=== PATIENT | female | born 1965 | race Caucasian/White ===

== ENCOUNTER → 2019-05-25 13:05 | Outpatient (CLI) | payer OTHER, SELFPAY ==
[2019-05-25 13:51] LABS: Absolute Lymphocyte Count 1.46 X10^3/uL (0.83-4.51); Absolute Neutrophil Count 3.2 X10^3/uL (2.0-7.7); Basophil# 0.06 X10^3/uL; Basophil% 1.1 % (0-1); Eosinophil# 0.44 X10^3/uL; Eosinophils% 7.8 % (0-5); Hematocrit 41.2 % (37-47); Hemoglobin 13.2 g/dL (12.0-15.0); Lymphocyte # 1.46 X10^3/ul (4.0); Lymphocyte % 25.9 % (19-41); Mean Corpuscular Hgb 29.4 pg (27.0-32.0); Mean Corpuscular Volume 91.8 fL (81-99); Mean Platelet Vol. 10.1 fl (6.2-12.0); Monocyte# 0.51 X10^3/uL; Monocyte% 9.1 % (0-10); NRBC Flagged by Analyzer 0 % (0-5); Neutrophil # 3.15 X10^3/uL (2.7-7.7); Neutrophil % 55.9 % (47-70); Platelet Count 266 K/mm3 (150-450); RBC Distribution Width SD 47.2 fl (35.1-43.9); Red Blood Count 4.49 M/mm3 (4.2-5.4); White Blood Count 5.6 K/mm3 (4.4-11.0)
[2019-05-25 14:20] LABS: ALB/GLOB Ratio 1.2 RATIO (0.9-2.4); AST(SGOT) 23 U/L (15-37); Alanine Aminotransfer ALT/SGPT 22 U/L (13-56); Albumin, Serum 3.7 g/dL (3.2-5.0); Alkaline Phosphatase 129 U/L (45-117); Anion Gap 5 (5-15); BUN 14 mg/dL (7-18); BUN/Creat Ratio 18.3 RATIO (10-20); Calcium,Total 8.5 mg/dL (8.5-10.1); Chloride 110 mmol/L (98-107); Creatinine, Serum 0.76 mg/dL (0.55-1.02); EST Glomerular Filtration Rate 83 mL/min (>60); Est Glom Filt Rate - Afr Amer 101 mL/min (>60); Globulin 3.2 g/dL (2.2-4.2); Glucose 84 mg/dL (74-106); Potassium 4.1 mmol/L (3.5-5.1); Protein, Total 6.9 g/dL (6.4-8.2); Sodium Level 142 mmol/L (136-145)
== END ==
PROVIDERS: Referring Provider Internal Medicine Rheumatology; Visit Provider Internal Medicine Rheumatology
DX: M06.09 Rheumatoid arthritis without rheumatoid factor, multiple sites (principal); Z79.899 Other long term (current) drug therapy; M79.7 Fibromyalgia; M18.12 Unilateral primary osteoarthritis of first carpometacarpal joint, left hand; M65.331 Trigger finger, right middle finger; M21.40 Flat foot [pes planus] (acquired), unspecified foot; G25.81 Restless legs syndrome; I10 Essential (primary) hypertension; N80.9 Endometriosis, unspecified
CPT/HCPCS: 36415; 80053; 85025

== ENCOUNTER → 2019-08-17 13:35 | Outpatient (CLI) | payer OTHER, SELFPAY ==
[2019-08-17 15:31] LABS: Absolute Neutrophil Count 2.3 X10^3/uL (2.0-7.7); Basophil# 0.03 X10^3/uL; Basophil% 0.7 % (0-1); Eosinophil# 0.19 X10^3/uL; Eosinophils% 4.6 % (0-5); Hematocrit 40.3 % (37-47); Hemoglobin 12.8 g/dL (12.0-15.0); Mean Corp Hgb Conc 31.8 g/dL (32-36); Mean Corpuscular Hgb 28.8 pg (27.0-32.0); Mean Corpuscular Volume 90.6 fL (81-99); Mean Platelet Vol. 10.9 fl (6.2-12.0); Monocyte# 0.44 X10^3/uL; Monocyte% 10.6 % (0-10); NRBC Flagged by Analyzer 0 % (0-5); Neutrophil # 2.27 X10^3/uL (2.7-7.7); Neutrophil % 54.9 % (47-70); Platelet Count 236 K/mm3 (150-450); RBC Distribution Width CV 14.6 % (11.6-14.6); RBC Distribution Width SD 48.6 fl (35.1-43.9); Red Blood Count 4.45 M/mm3 (4.2-5.4); White Blood Count 4.1 K/mm3 (4.4-11.0)
[2019-08-17 15:49] LABS: ALB/GLOB Ratio 1.2 RATIO (0.9-2.4); AST(SGOT) 28 U/L (15-37); Alanine Aminotransfer ALT/SGPT 27 U/L (13-56); Albumin, Serum 3.8 g/dL (3.2-5.0); Alkaline Phosphatase 125 U/L (45-117); Anion Gap 5 (5-15); BUN 11 mg/dL (7-18); BUN/Creat Ratio 16.3 RATIO (10-20); Calcium,Total 8.8 mg/dL (8.5-10.1); Chloride 106 mmol/L (98-107); Creatinine, Serum 0.67 mg/dL (0.55-1.02); EST Glomerular Filtration Rate 96 mL/min (>60); Est Glom Filt Rate - Afr Amer 116 mL/min (>60); Globulin 3.3 g/dL (2.2-4.2); Glucose 88 mg/dL (74-106); Potassium 4.1 mmol/L (3.5-5.1); Protein, Total 7.1 g/dL (6.4-8.2); Sodium Level 138 mmol/L (136-145)
== END ==
PROVIDERS: Referring Provider Internal Medicine Rheumatology; Visit Provider Internal Medicine Rheumatology
DX: M06.09 Rheumatoid arthritis without rheumatoid factor, multiple sites (principal); Z79.899 Other long term (current) drug therapy; M79.7 Fibromyalgia; M18.12 Unilateral primary osteoarthritis of first carpometacarpal joint, left hand; M65.331 Trigger finger, right middle finger; M21.40 Flat foot [pes planus] (acquired), unspecified foot
CPT/HCPCS: 36415; 80053; 85025

== ENCOUNTER → 2019-08-22 15:08 | Outpatient (CLI) | payer OTHER, SELFPAY ==
[2019-08-25 03:06] LABS: QNTFERON TB Mitogen Value > 10.00 IU/mL (.); QNTFERON TB Nil Value 0.02 IU/mL (.); QNTFERON TB1+ Ag Value 0.02 IU/mL (.); QNTFERON TB2+ Ag Value 0.02 IU/mL (.)
[2019-08-25 15:25] LABS: QNTIFERON TB Positive Criteria Negative (Negative)
== END ==
PROVIDERS: Referring Provider Internal Medicine Rheumatology; Visit Provider Internal Medicine Rheumatology
DX: M06.09 Rheumatoid arthritis without rheumatoid factor, multiple sites (principal); M79.7 Fibromyalgia; M18.12 Unilateral primary osteoarthritis of first carpometacarpal joint, left hand; M65.331 Trigger finger, right middle finger; M21.40 Flat foot [pes planus] (acquired), unspecified foot; Z79.899 Other long term (current) drug therapy
CPT/HCPCS: 36415; 86480

== ENCOUNTER → 2019-09-05 14:36 | Outpatient (CLI) | payer OTHER, SELFPAY ==
[2019-09-05 15:49] LABS: Erythrocyte Sedimentation Rate 21 mm/hr (0-30)
[2019-09-05 16:07] LABS: Hemoglobin A1c 5.6 % (4.2-6.3)
[2019-09-05 22:16] LABS: Rheumatoid Factor < 10.0 IU/mL (<15); Thyroid Stim Hormone (TSH) 2.42 uIU/mL (0.358-3.74)
[2019-09-06 11:22] LABS: Hepatitis C Antibody Non-Reactive (Nonreactive); Vitamin B12 681 pg/mL (211-911)
[2019-09-07 12:08] LABS: RNP Ab <0.2 AI (0.0-0.9); Smith Ab <0.2 AI (0.0-0.9)
[2019-09-07 13:26] LABS: ANTINUCLEAR ANTIBODIES DIRECT Negative (Negative)
[2019-09-07 20:07] LABS: Immunoglobulin A 94 mg/dL (87-352); Immunoglobulin G 698 mg/dL (700-1600); PROEL- A/G Ratio 1.3 (0.7-1.7); PROEL- Albumin 3.9 g/dL (2.9-4.4); PROEL- Alpha-1 Globulin 0.3 g/dL (0.0-0.4); PROEL- Alpha-2 Globulin 0.6 g/dL (0.4-1.0); PROEL- Beta Globulin 0.9 g/dL (0.7-1.3); PROEL- Gamma Globulin 1.2 g/dL (0.4-1.8); PROEL- TOTAL PROTEIN 6.9 g/dL (6.0-8.5)
[2019-09-07 21:56] LABS: Immunoglobulin M 769 mg/dL (26-217)
== END ==
PROVIDERS: Referring Provider Psychiatry & Neurology Neurology; Visit Provider Psychiatry & Neurology Neurology
DX: E11.44 Type 2 diabetes mellitus with diabetic amyotrophy (principal); R53.83 Other fatigue
CPT/HCPCS: 36415; 82607; 82746; 82784; 83036; 84165; 84443; 85652; 86038; 86235; 86334; 86431; 86803

== ENCOUNTER → 2019-11-05 16:26 | Outpatient (CLI) | payer OTHER, SELFPAY ==
[2019-11-05 17:38] LABS: Absolute Lymphocyte Count 2.18 X10^3/uL (0.83-4.51); Absolute Neutrophil Count 1.8 X10^3/uL (2.0-7.7); Basophil# 0.03 X10^3/uL; Basophil% 0.6 % (0-1); Eosinophil# 0.27 X10^3/uL; Eosinophils% 5.3 % (0-5); Hematocrit 43.5 % (37-47); Hemoglobin 13.9 g/dL (12.0-15.0); Lymphocyte # 2.18 X10^3/ul (4.0); Lymphocyte % 42.7 % (19-41); Mean Corpuscular Hgb 29.9 pg (27.0-32.0); Mean Corpuscular Volume 93.5 fL (81-99); Monocyte# 0.78 X10^3/uL; Monocyte% 15.3 % (0-10); NRBC Flagged by Analyzer 0 % (0-5); Neutrophil # 1.84 X10^3/uL (2.7-7.7); Neutrophil % 36.1 % (47-70); Platelet Count 223 K/mm3 (150-450); RBC Distribution Width SD 47.1 fl (35.1-43.9); Red Blood Count 4.65 M/mm3 (4.2-5.4); White Blood Count 5.1 K/mm3 (4.4-11.0)
[2019-11-05 18:18] LABS: ALB/GLOB Ratio 1.5 RATIO (0.9-2.4); AST(SGOT) 37 U/L (15-37); Alanine Aminotransfer ALT/SGPT 37 U/L (13-56); Albumin, Serum 4.4 g/dL (3.2-5.0); Alkaline Phosphatase 118 U/L (45-117); Anion Gap 8 (5-15); BUN 13 mg/dL (7-18); BUN/Creat Ratio 20.8 RATIO (10-20); Calcium,Total 9.3 mg/dL (8.5-10.1); Chloride 105 mmol/L (98-107); Creatinine, Serum 0.62 mg/dL (0.55-1.02); EST Glomerular Filtration Rate 105 mL/min (>60); Est Glom Filt Rate - Afr Amer 127 mL/min (>60); Globulin 2.9 g/dL (2.2-4.2); Glucose 73 mg/dL (74-106); Potassium 3.7 mmol/L (3.5-5.1); Protein, Total 7.3 g/dL (6.4-8.2); Sodium Level 140 mmol/L (136-145)
[2019-11-07 20:07] LABS: QNTFERON TB Mitogen Value > 10.00 IU/mL (.); QNTFERON TB Nil Value 0.01 IU/mL (.); QNTFERON TB1+ Ag Value 0.02 IU/mL (.); QNTFERON TB2+ Ag Value 0.01 IU/mL (.)
[2019-11-07 20:31] LABS: QNTIFERON TB Positive Criteria Negative (Negative)
== END ==
PROVIDERS: Referring Provider Internal Medicine Rheumatology; Visit Provider Internal Medicine Rheumatology
DX: M06.09 Rheumatoid arthritis without rheumatoid factor, multiple sites (principal); M79.7 Fibromyalgia; M18.12 Unilateral primary osteoarthritis of first carpometacarpal joint, left hand; M65.331 Trigger finger, right middle finger; M21.40 Flat foot [pes planus] (acquired), unspecified foot; Z79.899 Other long term (current) drug therapy
CPT/HCPCS: 36415; 80053; 85025; 86480

== ENCOUNTER 2019-11-16 10:00 | Outpatient (RCR) | payer OTHER, SELFPAY ==
--- NOTE | 2019-10-10 16:21 | HP.OTEVAL_ITS ---
Patient's Visit Information CONNOR PIZANO is a 54 year old F, referred to Occupational Therapy by Swapna Stinson MD, with a diagnosis of left unilateral primary osteoarthritis of 1st carpometacarpal joint. Date of Evaluation: 10/10/19 Occupational Therapist: Abiola Valenzuela, DAPHNIE/Alexis, CHT - Subjective Subjective: This 54 year old female was seen for OT eval with dx. of Unilateral primary osteoarthritis of 1st carpometacarpal joint left hand. Pt states she struggled with pain and had conservative methods fail- pt feels possible 6+ injections. pt did wear a brace for a while- had pain when she would remove her thumb brace. 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 pt would like to return to her PLOF - Pain left thumb 0 Pain Intensity Range: 0, 2 - ROM Wrist: right 70/75 left 60/30 CMC: right 5 left 0 MP: right 60 left 25 IP: right 65 left 25 Radial Abduction: right 40 left at rest 30 - Strength Speech Therapist Technician: right 65# left NT Lateral Pinch: right 10# Tripod Pinch: right 12# - Sensation Sensation Comments: denies - Quick DASH-Disab of Arm,Shoulder& Hand Quick DASH Score: 66.6650 - Goals Goal:100% adherence to protocol: Yes Comment: Dr. Stinson cmc arthroplasty protocol Goal:Daily scar massage when approriate: Yes Goal:ROM equal to unaffected hand: Yes Comment: with in 70% of motion Goal:Speech Therapist Technician/Pinch strength at least 75% of unaffected hand: Yes Goal:No pain with affected hand use: Yes Goal:Full use of affected hand in daily activities including: Yes Goal:Decrease scar hypersensitivity: Yes - Rehabilitation General Assessment: Pt 2 weeks s/p left carpometacarpal arthroplasty, ligament reconstruction and tendon interposition, Dequervain's tenosynovectomy: adduction contracture release; volar plate advancement to the thumb metacarpophalageal joint. (DOS 09/20/19). pt demo with short thumb spica orthosis on. pt demo with min. edema, newley healing structures and limited ROM. this has all decreased pts ind. with ADLS and IADls. pt would benefit from skilled OT services 1x week for 8 weeks to return pt to PLOF. Today therapist was ed. on edema control, tendon glide, scar mtg , shoulder, elbow and wrist (dart throwers) motion. pt demo understanding and agree to POC. Rehabilitation Potential: Good - Anticipated Interventions Anticipated Interventions: A/AAROM/PROM, Strengthening, Edema Control, Scar Care, Triggerpoint Release, Desensitization, Sensory Retraining, Modalities, Orthoses, Joint Protection/Energy Conservation, Ergonomic Education - Visit Plan Frequency: 1x/Week Duration: 2 Months General Plan: Dr. Stinson CMC arthroplasty. Week 2: exercise- AROM performed for digits and thumb IP joint only- initiate scar mtg. Week 4: Begin AROM exercises for wrist thumb CMC- joint- cont. scar mtg/edema control (modalities as indicated for pain and edema. Week 6: splint D/C and issue comfort cool fitted splint if needed- discontinue splint by 8 weeks post-operative except may wear during heavy activates pm. Exercise: start gentle strengthening(thera- putty), progress as tolerated. Progress to wrist strengthening and heavier prehension tasks at 8 weeks post-operative. Avoid forceful extension of thumb. Expectations: Most patients are treated with a Home Program and checked after each MD visit for program progression 2x weekly for 4-6 weeks for symptomatic patients or those returning to heavier work demands. 2 months to resume normal activities, 3 months for strenuous. 3-6 months to reach optimum results. slight decrease in pinch and hybrid corn breeder strength. generally, gain 70% of strength and motion of unoperated hand. TEXT: Thank you for the opportunity to evaluate your patient. For Medicare and Medicare HMO plans, please review the plan of care and approve it. It will need to be FAXED BACK to us at [phone] for Medicare purposes. Please let me know if there are questions or concerns regarding this plan of care. Physician Signature: Date:
--- NOTE | 2019-11-16 10:45 | HP.OTREVAL ---
Swapna Stinson MD, It has been my pleasure to treat CONNOR PIZANO over the last 5 visits for left unilateral primary osteoarthritis of 1st carpometacarpal joint. Please see the progress note below for an update on the occupational therapy plan of care! Subjective: pt arrives 8 weeks s/p from left CMC arthroplasty - states she feels good 90% of the time.pt has most concerns with blow drying her hair. Pt states her continues to help her. Therapist advised pt to cont. to decrease assistance as she feels she is comfortable. pt agree. Objective/Function: pt demo. wrist 60/65. MP 40* initial was 25* flex. IP 65* initial was 25*flex. left financial services agent 55# right financial services agent strength is 65# left. lateral pinch is 8# right 10# and left tripod pinch 6# and right is 12#. pt has made great gains and reports she is ALLI with ADLs and IADLs at this time. Pt was given HEP to cont. to strengthen forearm and thumb stabilization ex. pt continues to wear comfort cool thumb brace as needed. Pt continues to use scar gel to decrease hypertrophic scaring. Plan Plan: pt to call in two weeks or sooner if she had questions or concerns with her HEP Anticipated Interventions Anticipated Interventions: A/AAROM/PROM, Strengthening, Edema Control, Scar Care, Triggerpoint Release, Desensitization, Sensory Retraining, Modalities, Orthoses, Joint Protection/Energy Conservation, Ergonomic Education Please do not hesitate to contact me at [phone] by phone or if you have questions or concerns regarding this new plan of care! Sincerely, Abiola Valenzuela, OTR/L, CHT
== END 2019-11-16 19:00 | disposition home or self-care (01) ==
LOC: OT 10:00
PROVIDERS: Referring Provider Orthopaedic Surgery Hand Surgery; Visit Provider Orthopaedic Surgery Hand Surgery
DX: M18.12 Unilateral primary osteoarthritis of first carpometacarpal joint, left hand (principal)
CPT/HCPCS: 97035; 97110; 97140; 97166; 97530; 97763

== ENCOUNTER → 2020-02-06 10:22 | Outpatient (CLI) | payer OTHER, SELFPAY ==
[2020-02-06 12:40] LABS: Absolute Lymphocyte Count 1.48 X10^3/uL (0.83-4.51); Absolute Neutrophil Count 2.5 X10^3/uL (2.0-7.7); Basophil# 0.02 X10^3/uL; Basophil% 0.4 % (0-1); Eosinophils% 4.3 % (0-5); Hematocrit 40.8 % (37-47); Hemoglobin 12.8 g/dL (12.0-15.0); Lymphocyte # 1.48 X10^3/ul (4.0); Lymphocyte % 31.8 % (19-41); Mean Corp Hgb Conc 31.4 g/dL (32-36); Mean Corpuscular Hgb 30.1 pg (27.0-32.0); Mean Platelet Vol. 10.5 fl (6.2-12.0); Monocyte# 0.49 X10^3/uL; Monocyte% 10.5 % (0-10); NRBC Flagged by Analyzer 0 % (0-5); Neutrophil # 2.46 X10^3/uL (2.7-7.7); Neutrophil % 52.8 % (47-70); Platelet Count 264 K/mm3 (150-450); RBC Distribution Width CV 12.9 % (11.6-14.6); RBC Distribution Width SD 45.3 fl (35.1-43.9); Red Blood Count 4.25 M/mm3 (4.2-5.4); White Blood Count 4.7 K/mm3 (4.4-11.0)
[2020-02-06 13:26] LABS: ALB/GLOB Ratio 1.2 RATIO (0.9-2.4); AST(SGOT) 26 U/L (15-37); Alanine Aminotransfer ALT/SGPT 28 U/L (13-56); Albumin, Serum 3.7 g/dL (3.2-5.0); Alkaline Phosphatase 117 U/L (45-117); Anion Gap 8 (5-15); BUN 18 mg/dL (7-18); BUN/Creat Ratio 32.4 RATIO (10-20); Calcium,Total 8.6 mg/dL (8.5-10.1); Chloride 105 mmol/L (98-107); Creatinine, Serum 0.56 mg/dL (0.55-1.02); EST Glomerular Filtration Rate 120 mL/min (>60); Est Glom Filt Rate - Afr Amer 145 mL/min (>60); Globulin 3.1 g/dL (2.2-4.2); Glucose 87 mg/dL (74-106); Protein, Total 6.8 g/dL (6.4-8.2); Sodium Level 140 mmol/L (136-145)
[2020-02-09 16:08] LABS: QNTFERON TB Mitogen Value 7.23 IU/mL (.); QNTFERON TB Nil Value 0.02 IU/mL (.); QNTFERON TB1+ Ag Value 0.03 IU/mL (.); QNTFERON TB2+ Ag Value 0.01 IU/mL (.)
[2020-02-09 16:23] LABS: QNTIFERON TB Positive Criteria Negative (Negative)
== END ==
PROVIDERS: Referring Provider Internal Medicine Rheumatology; Visit Provider Internal Medicine Rheumatology
DX: M06.09 Rheumatoid arthritis without rheumatoid factor, multiple sites (principal); Z79.899 Other long term (current) drug therapy; M79.7 Fibromyalgia; M18.12 Unilateral primary osteoarthritis of first carpometacarpal joint, left hand; M65.331 Trigger finger, right middle finger; M21.40 Flat foot [pes planus] (acquired), unspecified foot
CPT/HCPCS: 36415; 80053; 85025; 86480

== ENCOUNTER → 2020-05-09 10:07 | Outpatient (CLI) | payer OTHER, SELFPAY ==
[2020-05-09 12:25] LABS: Absolute Lymphocyte Count 1.29 X10^3/uL (0.83-4.51); Absolute Neutrophil Count 1.9 X10^3/uL (2.0-7.7); Basophil# 0.03 X10^3/uL; Basophil% 0.8 % (0-1); Eosinophil# 0.28 X10^3/uL; Eosinophils% 7.2 % (0-5); Hematocrit 39.8 % (37-47); Hemoglobin 12.7 g/dL (12.0-15.0); Lymphocyte # 1.29 X10^3/ul (4.0); Lymphocyte % 33.3 % (19-41); Mean Corp Hgb Conc 31.9 g/dL (32-36); Mean Corpuscular Hgb 30.1 pg (27.0-32.0); Mean Corpuscular Volume 94.3 fL (81-99); Mean Platelet Vol. 10.3 fl (6.2-12.0); Monocyte# 0.39 X10^3/uL; Monocyte% 10.1 % (0-10); NRBC Flagged by Analyzer 0 % (0-5); Neutrophil # 1.87 X10^3/uL (2.7-7.7); Neutrophil % 48.3 % (47-70); Platelet Count 257 K/mm3 (150-450); RBC Distribution Width CV 13.4 % (11.6-14.6); RBC Distribution Width SD 46.5 fl (35.1-43.9); Red Blood Count 4.22 M/mm3 (4.2-5.4); White Blood Count 3.9 K/mm3 (4.4-11.0)
[2020-05-09 12:37] LABS: AST(SGOT) 33 U/L (15-37); Alanine Aminotransfer ALT/SGPT 37 U/L (13-56); Albumin, Serum 3.5 g/dL (3.2-5.0); Alkaline Phosphatase 116 U/L (45-117); Anion Gap 4 (5-15); BUN 14 mg/dL (7-18); BUN/Creat Ratio 22.6 RATIO (10-20); Calcium,Total 8.9 mg/dL (8.5-10.1); Chloride 108 mmol/L (98-107); Creatinine, Serum 0.62 mg/dL (0.55-1.02); EST Glomerular Filtration Rate 105 mL/min (>60); Est Glom Filt Rate - Afr Amer 127 mL/min (>60); Globulin 3.5 g/dL (2.2-4.2); Glucose 90 mg/dL (74-106); Potassium 4.1 mmol/L (3.5-5.1); Sodium Level 140 mmol/L (136-145)
== END ==
PROVIDERS: Referring Provider Internal Medicine Rheumatology; Visit Provider Internal Medicine Rheumatology
DX: M06.09 Rheumatoid arthritis without rheumatoid factor, multiple sites (principal); Z79.899 Other long term (current) drug therapy; M79.7 Fibromyalgia; M18.12 Unilateral primary osteoarthritis of first carpometacarpal joint, left hand; M17.0 Bilateral primary osteoarthritis of knee; M65.331 Trigger finger, right middle finger; M21.40 Flat foot [pes planus] (acquired), unspecified foot
CPT/HCPCS: 36415; 80053; 85025

== ENCOUNTER → 2020-09-19 14:06 | Outpatient (CLI) | payer OTHER, SELFPAY ==
[2020-09-19 17:43] LABS: Absolute Lymphocyte Count 1.76 X10^3/uL (0.83-4.51); Absolute Neutrophil Count 1.3 X10^3/uL (2.0-7.7); Basophil# 0.04 X10^3/uL; Basophil% 1.1 % (0-1); Eosinophil# 0.27 X10^3/uL; Eosinophils% 7.1 % (0-5); Hematocrit 40.6 % (37-47); Hemoglobin 12.9 g/dL (12.0-15.0); Lymphocyte # 1.76 X10^3/ul (4.0); Lymphocyte % 46.6 % (19-41); Mean Corp Hgb Conc 31.8 g/dL (32-36); Mean Corpuscular Hgb 29.5 pg (27.0-32.0); Mean Corpuscular Volume 92.9 fL (81-99); Mean Platelet Vol. 10.5 fl (6.2-12.0); Monocyte# 0.37 X10^3/uL; Monocyte% 9.8 % (0-10); NRBC Flagged by Analyzer 0 % (0-5); Neutrophil # 1.33 X10^3/uL (2.7-7.7); Neutrophil % 35.1 % (47-70); Platelet Count 275 K/mm3 (150-450); RBC Distribution Width CV 13.1 % (11.6-14.6); RBC Distribution Width SD 44.8 fl (35.1-43.9); Red Blood Count 4.37 M/mm3 (4.2-5.4); White Blood Count 3.8 K/mm3 (4.4-11.0)
[2020-09-19 17:58] LABS: AST(SGOT) 34 U/L (15-37); Alanine Aminotransfer ALT/SGPT 40 U/L (13-56); Albumin, Serum 3.8 g/dL (3.2-5.0); Alkaline Phosphatase 125 U/L (45-117); Anion Gap 5 (5-15); BUN 11 mg/dL (7-18); BUN/Creat Ratio 16.7 RATIO (10-20); Calcium,Total 9.1 mg/dL (8.5-10.1); Chloride 108 mmol/L (98-107); Creatinine, Serum 0.66 mg/dL (0.55-1.02); EST Glomerular Filtration Rate 98 mL/min (>60); Est Glom Filt Rate - Afr Amer 119 mL/min (>60); Globulin 3.7 g/dL (2.2-4.2); Glucose 79 mg/dL (74-106); Protein, Total 7.5 g/dL (6.4-8.2); Sodium Level 140 mmol/L (136-145)
== END ==
PROVIDERS: Referring Provider Internal Medicine Rheumatology; Visit Provider Internal Medicine Rheumatology
DX: M06.00 Rheumatoid arthritis without rheumatoid factor, unspecified site (principal); Z79.899 Other long term (current) drug therapy; M79.7 Fibromyalgia; M18.12 Unilateral primary osteoarthritis of first carpometacarpal joint, left hand; M17.0 Bilateral primary osteoarthritis of knee; M65.331 Trigger finger, right middle finger; M21.40 Flat foot [pes planus] (acquired), unspecified foot
CPT/HCPCS: 36415; 80053; 85025

== ENCOUNTER → 2020-11-03 11:13 | Outpatient (CLI) | payer OTHER, SELFPAY ==
[2020-11-03 15:13] LABS: Absolute Lymphocyte Count 1.34 X10^3/uL (0.83-4.51); Absolute Neutrophil Count 1.7 X10^3/uL (2.0-7.7); Basophil# 0.03 X10^3/uL; Basophil% 0.8 % (0-1); Eosinophil# 0.36 X10^3/uL; Eosinophils% 9.3 % (0-5); Hemoglobin 12.7 g/dL (12.0-15.0); Lymphocyte # 1.34 X10^3/ul (4.0); Lymphocyte % 34.6 % (19-41); Mean Corp Hgb Conc 31.8 g/dL (32-36); Mean Corpuscular Hgb 29.5 pg (27.0-32.0); Mean Platelet Vol. 10.1 fl (6.2-12.0); Monocyte# 0.41 X10^3/uL; Monocyte% 10.6 % (0-10); NRBC Flagged by Analyzer 0 % (0-5); Neutrophil # 1.73 X10^3/uL (2.7-7.7); Neutrophil % 44.7 % (47-70); Platelet Count 269 K/mm3 (150-450); RBC Distribution Width CV 13.6 % (11.6-14.6); RBC Distribution Width SD 46.1 fl (35.1-43.9); White Blood Count 3.9 K/mm3 (4.4-11.0)
[2020-11-03 15:28] LABS: Vitamin B12 607 pg/mL (211-911); Vitamin D,25 Hydroxy 28.6 ng/mL
[2020-11-03 15:29] LABS: Cholesterol 191 mg/dL (200); High Density Lipoprotein 73 mg/dL; Triglycerides 51 mg/dL; Very Low Density Lipoprotein 10 mg/dL (5-40)
== END ==
PROVIDERS: Referring Provider Internal Medicine Rheumatology; Visit Provider Internal Medicine Rheumatology
DX: Z13.220 Encounter for screening for lipoid disorders (principal); Z13.21 Encounter for screening for nutritional disorder; M06.00 Rheumatoid arthritis without rheumatoid factor, unspecified site; Z79.899 Other long term (current) drug therapy; M79.7 Fibromyalgia; M18.12 Unilateral primary osteoarthritis of first carpometacarpal joint, left hand; M17.0 Bilateral primary osteoarthritis of knee; M65.331 Trigger finger, right middle finger; M21.40 Flat foot [pes planus] (acquired), unspecified foot
CPT/HCPCS: 36415; 80061; 82306; 82607; 85025

== ENCOUNTER → 2020-12-31 14:19 | Outpatient (CLI) | payer OTHER, SELFPAY ==
[2020-12-31 17:38] LABS: Absolute Lymphocyte Count 1.92 X10^3/uL (0.83-4.51); Absolute Neutrophil Count 2.5 X10^3/uL (2.0-7.7); Basophil# 0.04 X10^3/uL; Basophil% 0.7 % (0-1); Eosinophil# 0.49 X10^3/uL; Eosinophils% 8.9 % (0-5); Hematocrit 37.7 % (37-47); Hemoglobin 11.9 g/dL (12.0-15.0); Lymphocyte # 1.92 X10^3/ul (0.83-4.51); Lymphocyte % 34.8 % (19-41); Mean Corp Hgb Conc 31.6 g/dL (32-36); Mean Corpuscular Hgb 29.8 pg (27.0-32.0); Mean Corpuscular Volume 94.3 fL (81-99); Mean Platelet Vol. 10.1 fl (6.2-12.0); Monocyte# 0.58 X10^3/uL; Monocyte% 10.5 % (0-10); NRBC Flagged by Analyzer 0 % (0-5); Neutrophil # 2.48 X10^3/uL (2.7-7.7); Neutrophil % 44.9 % (47-70); Platelet Count 289 K/mm3 (150-450); RBC Distribution Width CV 13.9 % (11.6-14.6); RBC Distribution Width SD 48.5 fl (35.1-43.9); White Blood Count 5.5 K/mm3 (4.4-11.0)
[2020-12-31 18:30] LABS: ALB/GLOB Ratio 1.1 RATIO (0.9-2.4); AST(SGOT) 35 U/L (15-37); Alanine Aminotransfer ALT/SGPT 28 U/L (13-56); Albumin, Serum 3.6 g/dL (3.2-5.0); Alkaline Phosphatase 128 U/L (45-117); Anion Gap 6 (5-15); BUN 9 mg/dL (7-18); BUN/Creat Ratio 12.3 RATIO (10-20); Calcium,Total 8.6 mg/dL (8.5-10.1); Chloride 108 mmol/L (98-107); Creatinine, Serum 0.73 mg/dL (0.55-1.02); EST Glomerular Filtration Rate 87 mL/min (>60); Est Glom Filt Rate - Afr Amer 105 mL/min (>60); Globulin 3.3 g/dL (2.2-4.2); Glucose 87 mg/dL (74-106); Potassium 4.1 mmol/L (3.5-5.1); Protein, Total 6.9 g/dL (6.4-8.2); Sodium Level 141 mmol/L (136-145)
== END ==
PROVIDERS: Referring Provider Internal Medicine Rheumatology; Visit Provider Internal Medicine Rheumatology
DX: M06.09 Rheumatoid arthritis without rheumatoid factor, multiple sites (principal); Z79.899 Other long term (current) drug therapy; M79.7 Fibromyalgia; M18.12 Unilateral primary osteoarthritis of first carpometacarpal joint, left hand; M17.0 Bilateral primary osteoarthritis of knee; M21.40 Flat foot [pes planus] (acquired), unspecified foot; M65.331 Trigger finger, right middle finger
CPT/HCPCS: 36415; 80053; 85025

== ENCOUNTER → 2021-04-01 13:19 | Outpatient (CLI) | payer OTHER, SELFPAY ==
[2021-04-01 15:02] LABS: Absolute Lymphocyte Count 2.77 X10^3/uL (0.83-4.51); Absolute Neutrophil Count 4.5 X10^3/uL (2.0-7.7); Basophil# 0.05 X10^3/uL; Basophil% 0.6 % (0-1); Eosinophil# 0.38 X10^3/uL; Eosinophils% 4.5 % (0-5); Hematocrit 37.7 % (37-47); Hemoglobin 12.1 g/dL (12.0-15.0); Lymphocyte # 2.77 X10^3/ul (0.83-4.51); Lymphocyte % 32.9 % (19-41); Mean Corp Hgb Conc 32.1 g/dL (32-36); Mean Corpuscular Hgb 29.7 pg (27.0-32.0); Mean Corpuscular Volume 92.6 fL (81-99); Mean Platelet Vol. 10.3 fl (6.2-12.0); Monocyte# 0.72 X10^3/uL; Monocyte% 8.6 % (0-10); NRBC Flagged by Analyzer 0 % (0-5); Neutrophil # 4.46 X10^3/uL (2.7-7.7); Platelet Count 290 K/mm3 (150-450); RBC Distribution Width CV 14.3 % (11.6-14.6); RBC Distribution Width SD 48.2 fl (35.1-43.9); Red Blood Count 4.07 M/mm3 (4.2-5.4); White Blood Count 8.4 K/mm3 (4.4-11.0)
[2021-04-01 15:16] LABS: AST(SGOT) 21 U/L (15-37); Alanine Aminotransfer ALT/SGPT 29 U/L (13-56); Albumin, Serum 3.5 g/dL (3.2-5.0); Alkaline Phosphatase 124 U/L (45-117); Anion Gap 5 (5-15); BUN 17 mg/dL (7-18); BUN/Creat Ratio 27.8 RATIO (10-20); Calcium,Total 8.3 mg/dL (8.5-10.1); Chloride 102 mmol/L (98-107); Creatinine, Serum 0.61 mg/dL (0.55-1.02); EST Glomerular Filtration Rate 107 mL/min (>60); Est Glom Filt Rate - Afr Amer 129 mL/min (>60); Globulin 3.4 g/dL (2.2-4.2); Glucose 84 mg/dL (74-106); Potassium 3.7 mmol/L (3.5-5.1); Protein, Total 6.9 g/dL (6.4-8.2); Sodium Level 138 mmol/L (136-145)
== END ==
PROVIDERS: Referring Provider Internal Medicine Rheumatology; Visit Provider Internal Medicine Rheumatology
DX: M06.09 Rheumatoid arthritis without rheumatoid factor, multiple sites (principal); Z79.899 Other long term (current) drug therapy; M79.7 Fibromyalgia; M18.12 Unilateral primary osteoarthritis of first carpometacarpal joint, left hand; M17.0 Bilateral primary osteoarthritis of knee; M65.331 Trigger finger, right middle finger; M21.40 Flat foot [pes planus] (acquired), unspecified foot
CPT/HCPCS: 36415; 80053; 85025

== ENCOUNTER → 2021-06-26 10:11 | Outpatient (CLI) | payer OTHER, SELFPAY ==
[2021-06-26 12:31] LABS: Absolute Neutrophil Count 2.3 X10^3/uL (2.0-7.7); Basophil# 0.02 X10^3/uL; Basophil% 0.4 % (0-1); Eosinophil# 0.28 X10^3/uL; Hematocrit 39.2 % (37-47); Hemoglobin 12.5 g/dL (12.0-15.0); Lymphocyte % 32.3 % (19-41); Mean Corp Hgb Conc 31.9 g/dL (32-36); Mean Corpuscular Hgb 28.9 pg (27.0-32.0); Mean Corpuscular Volume 90.7 fL (81-99); Monocyte# 0.52 X10^3/uL; Monocyte% 11.2 % (0-10); NRBC Flagged by Analyzer 0 % (0-5); Neutrophil # 2.31 X10^3/uL (2.7-7.7); Neutrophil % 49.7 % (47-70); Platelet Count 312 K/mm3 (150-450); RBC Distribution Width SD 46.8 fl (35.1-43.9); Red Blood Count 4.32 M/mm3 (4.2-5.4); White Blood Count 4.7 K/mm3 (4.4-11.0)
[2021-06-26 12:58] LABS: ALB/GLOB Ratio 0.9 RATIO (0.9-2.4); AST(SGOT) 47 U/L (15-37); Alanine Aminotransfer ALT/SGPT 44 U/L (13-56); Albumin, Serum 3.5 g/dL (3.2-5.0); Alkaline Phosphatase 139 U/L (45-117); Anion Gap 6 (5-15); BUN 14 mg/dL (7-18); BUN/Creat Ratio 19.7 RATIO (10-20); Calcium,Total 8.9 mg/dL (8.5-10.1); Chloride 106 mmol/L (98-107); Creatinine, Serum 0.71 mg/dL (0.55-1.02); EST Glomerular Filtration Rate 90 mL/min (>60); Est Glom Filt Rate - Afr Amer 108 mL/min (>60); Glucose 93 mg/dL (74-106); Potassium 3.9 mmol/L (3.5-5.1); Protein, Total 7.5 g/dL (6.4-8.2); Sodium Level 138 mmol/L (136-145)
== END ==
PROVIDERS: Referring Provider Internal Medicine Rheumatology; Visit Provider Internal Medicine Rheumatology
DX: M06.09 Rheumatoid arthritis without rheumatoid factor, multiple sites (principal); Z79.899 Other long term (current) drug therapy; M79.7 Fibromyalgia; M18.12 Unilateral primary osteoarthritis of first carpometacarpal joint, left hand; M17.0 Bilateral primary osteoarthritis of knee; M65.331 Trigger finger, right middle finger; M21.40 Flat foot [pes planus] (acquired), unspecified foot
CPT/HCPCS: 36415; 80053; 85025

== ENCOUNTER 2021-08-23 14:28 | Emergency (ER) | payer OTHER, SELFPAY ==
[2021-08-23 14:28] VITALS: BP 130/83; PULSE 70; RESP 18; TEMP 36.2; O2SAT 97; BMI 30.2
--- NOTE | 2021-08-23 14:58 | RAD_ITS ---
STUDY: X-RAY - RIGHT KNEE REASON FOR EXAM: Female, 56 years old. Injury/Pain TECHNIQUE: Four view(s) of the knee. COMPARISON: None. FINDINGS: Please see the impression. RAD/Knee 4 or More Views IMPRESSION: No acute fracture or dislocation in the right knee. Mild to moderate tricompartmental osteoarthritis. Small supra patellar joint effusion. Electronically Signed: Les Andrade MD at 15:38 EST Tel , Service support ,
[2021-08-23] MEDS: HYDROcodone Bitartrate/Apap 5/325 Tablet PO (15:05)
--- NOTE | 2021-08-23 15:42 | ED.VIS.LOWEX ---
HPI History of Present Illness HPI Narrative: Patient presents with right knee pain that began yesterday. Patient states she has a history of arthritis in that knee. Patient states that she went to sit down yesterday and felt a pop in her right knee. Patient describes her pain as burning. Patient states her pain is worse with any weightbearing. Patient states nothing seems to help with it. Patient denies any paresthesias or weakness. Patient admits to nausea but denies any vomiting. Patient denies any other injuries. Chief Complaint: Lower Extremity Injury Informant: patient Occured/Mechanism Comment: [place] a pop while trying to sit down Onset/Context/Timing Context: Sudden Onset Timing: Continuous Quality of Pain: Burning Worsened by: Weightbearing Relieved by: Nothing Associated Symptoms Associated Symptoms: Negative for Parasthesia, Weakness and Loss of Funtion [facility] Medical History (Updated 08/23/21 @ 15:[address] Jevon Gomez, DO) Migraines Home Medications amitriptyline 10 mg PO QHS 03/25/15 [History Last Taken Unknown] celecoxib [Celebrex] 200 mg PO DAILY PRN 03/25/15 [History Last Taken Unknown] chromium-brindal cavanaugh [Garcinia Cambogia Tablet] 1 ea PO BID 03/25/15 [History Last Taken 03/26/15 1 EACH] cyanocobalamin (vitamin B-12) 1,000 mcg PO DAILY@0800 03/25/15 [History Last Taken 03/26/15 1000 MCG] feverfew extract (bulk) 380 mg PO BID 03/25/15 [History Last Taken 03/26/15 380 MG] gabapentin 400 mg PO QHS 03/25/15 [History Last Taken 03/26/15 400 MG] hydrocodone-acetaminophen [Vicodin 5-300 mg Tablet] 1 tab PO Q6H PRN PRN 03/25/15 [History Last Taken Unknown] methocarbamol [Robaxin-750] 750 mg PO BID PRN 03/25/15 [History Last Taken 03/26/15 750 MG] vit no.[id number] [ Vitamin Tablet] 1 ea PO DAILY 03/25/15 [History Last Taken 03/26/15 1 EACH] sumatriptan succinate [Imitrex] 100 mg PO .X1 PRN 03/25/15 [History Last Taken Unknown] tramadol 50 mg PO Q6H PRN PRN 03/25/15 [History Last Taken Unknown] docusate sodium [Colace] 100 mg PO BID PRN PRN #10 capsule 03/27/15 [Rx Last Taken Unknown] oxycodone-acetaminophen 1 - 2 tab PO Q4H PRN PRN #90 tab 03/27/15 [Rx Last Taken Unknown] promethazine 25 mg PO Q4H PRN PRN #10 tablet 03/27/15 [Rx Last Taken Unknown] hydrocodone-acetaminophen 1 tab PO Q6H PRN PRN 3 Days #10 tablet 08/23/21 [Rx Last Taken Unknown] Allergy/AdvReac Type Severity Reaction Status Date / Time aspirin Allergy Other Verified 08/23/21 14:30 Sulfa (Sulfonamide Allergy Other Verified 08/23/21 14:30 Antibiotics) Surgical History (Updated 08/23/21 @ 15:[address] Jevon Gomez DO) History of total left knee replacement Hx of gastric bypass Hx of shoulder surgery Social History Smoking Status: Never smoker ROS ROS ED Constitutional Constitutional ED: Denies chills or fever(s) Eyes Eyes: Denies blurry vision or change in vision ENT ENT ED: Denies rhinorrhea or sore throat Cardiovascular Cardiovascular: Denies chest pain or palpitations Respiratory/Chest Respiratory/Chest: Denies cough or dyspnea Gastrointestinal Gastrointestinal: Reports nausea; Denies vomiting Genitourinary Genitourinary ED: Denies dysuria or hematuria Musculoskeletal Musculoskeletal: Denies back pain or neck pain Integumentary Denies abscess or rash Neurologic Neurologic: Denies headache(s) or weakness Allergic/Immunologic Allergic/Immunologic ED: Denies mouth swelling or urticaria EXAM Physical Exam Const Vital Signs: 08/23/21 14:28 Temperature 97.2 F L Temperature Source Temporal Pulse Rate 70 Respiratory Rate 18 Blood Pressure 130/83 H Blood Pressure Mean 98 Pulse Ox 97 Oxygen Delivery Method Room Air Positive well nourished and well developed General Appearance ED: well developed HEENT Reports moist mucous membranes Neck full ROM Extremity Extremity Narrative: There is tenderness over the medial and posterior aspects of the left knee. There is no bony crepitance or step-off. There is no edema or ecchymosis. There is some mild laxity with valgus testing. [place]'s test was negative. There is no pain with varus testing. There is mild pain with Stephane testing. Sensation was intact to light touch bilaterally in the lower extremities. Posterior tibial pulses were equal bilaterally. Extensor mechanism is intact. Strength is 5/5 bilaterally in the lower extremities. Neuro oriented x3, CN's II-XII intact bilaterally, moves all extremities and no sensory deficits noted Sensorium / Orientation: alert Motor Exam: strength 5/5 throughout Psych mental status grossly normal MDM MDM MDM Narrative Medical decision making narrative: Patient was given a dose of [place] here. X-rays of the right knee were obtained. There are 4 views. On my interpretation, there is no acute fracture or dislocation. There is some degenerative arthritis noted. There is a mild effusion noted. Radiologist also interpreted the x-rays and agrees. Patient was advised of her findings. Patient was given a knee immobilizer. Patient was instructed to ice and elevate the right knee. Patient was given a short course of [place]. Patient was instructed to follow-up with her primary care physician in 5 to 7 days. Patient was also instructed to follow-up with her orthopedist. Patient understood and was agreeable with the plan. All questions were answered. Radiography Diagnostic Testing: Clinical Impression(s) from Imaging Studies Knee X-Ray 08/23/21 14:58 IMPRESSION: No acute fracture or dislocation in the right knee. Mild to moderate tricompartmental osteoarthritis. Small supra patellar joint effusion. Electronically Signed: Les Andrade MD at 15:38 EST Tel , Service support , Discharge Plan Triage Chief Complaint: Lower Extremity Injury ED Provider: Jevon Gomez Dx/Rx/DC Orders Clinical Impression: Right knee sprain Instructions: ED Knee Sprain Prescriptions: New hydrocodone-acetaminophen [hydrocodone-acetaminophen] 1 TABLET tablet 1 tab PO Q6H PRN PRN (Reason: Pain) 3 Days Qty: 10 RF: 0 No Action celecoxib [Celebrex] 200 MG capsule 200 mg PO DAILY PRN (Reason: Pain) RF: 0 sumatriptan succinate [Imitrex] 100 MG tablet 100 mg PO .X1 PRN RF: 0 gabapentin 400 MG capsule 400 mg PO QHS RF: 0 tramadol 50 MG tablet 50 mg PO Q6H PRN PRN (Reason: Pain) RF: 0 methocarbamol [Robaxin-750] 750 MG tablet 750 mg PO BID PRN (Reason: BACK PAIN) RF: 0 cyanocobalamin (vitamin B-12) 500 MCG tablet 1,000 mcg PO DAILY@0800 RF: 0 amitriptyline 10 MG tablet 10 mg PO QHS RF: 0 chromium-brindal cavanaugh [Garcinia Cambogia] 1 EACH tablet 1 ea PO BID RF: 0 hydrocodone-acetaminophen [Vicodin] 1 EACH tablet 1 tab PO Q6H PRN PRN (Reason: Pain) RF: 0 feverfew extract (bulk) 1 GM powder 380 mg PO BID RF: 0 vit [id number] [ Vitamin] 1 EACH tablet 1 ea PO DAILY RF: 0 oxycodone-acetaminophen 1 TABLET tablet 1 - 2 tab PO Q4H PRN PRN (Reason: Pain) Qty: 90 RF: 0 promethazine 25 MG tablet 25 mg PO Q4H PRN PRN (Reason: Nausea) Qty: 10 RF: 0 docusate sodium [DOK] 100 MG capsule 100 mg PO BID PRN PRN (Reason: Constipation) Qty: 10 RF: 0 Primary Care Provider: Theodore Hubbard Referrals: Theodore Hubbard MD [Primary Care Provider] - 3-5 Days Tom Schaeffer MD [STAFF PHYSICIAN] - 3-5 Days Disposition Disposition: Home, Self Care
== END 2021-08-23 16:19 | disposition home or self-care (01) ==
PROVIDERS: Emergency Provider Emergency Medicine; PCP Family Medicine; Visit Provider Emergency Medicine
DX: S83.91XA Sprain of unspecified site of right knee, initial encounter (principal); X58.XXXA Exposure to other specified factors, initial encounter; M17.11 Unilateral primary osteoarthritis, right knee
CPT/HCPCS: 73564; 99283

== ENCOUNTER 2021-09-07 11:14 | Outpatient (CLI) | payer OTHER, SELFPAY ==
[2021-09-07 15:11] LABS: Absolute Lymphocyte Count 1.42 X10^3/uL (0.83-4.51); Absolute Neutrophil Count 2.3 X10^3/uL (2.0-7.7); Basophil# 0.04 X10^3/uL; Basophil% 0.9 % (0-1); Eosinophil# 0.33 X10^3/uL; Eosinophils% 7.1 % (0-5); Hematocrit 38.9 % (37-47); Hemoglobin 12.4 g/dL (12.0-15.0); Lymphocyte # 1.42 X10^3/ul (0.83-4.51); Lymphocyte % 30.5 % (19-41); Mean Corp Hgb Conc 31.9 g/dL (32-36); Mean Corpuscular Hgb 29.2 pg (27.0-32.0); Mean Corpuscular Volume 91.5 fL (81-99); Mean Platelet Vol. 9.7 fl (6.2-12.0); Monocyte# 0.56 X10^3/uL; NRBC Flagged by Analyzer 0 % (0-5); Neutrophil % 49.3 % (47-70); Platelet Count 285 K/mm3 (150-450); RBC Distribution Width CV 14.3 % (11.6-14.6); RBC Distribution Width SD 47.9 fl (35.1-43.9); Red Blood Count 4.25 M/mm3 (4.2-5.4); White Blood Count 4.7 K/mm3 (4.4-11.0)
[2021-09-07 15:35] LABS: ALB/GLOB Ratio 0.9 RATIO (0.9-2.4); AST(SGOT) 30 U/L (15-37); Alanine Aminotransfer ALT/SGPT 30 U/L (13-56); Albumin, Serum 3.6 g/dL (3.2-5.0); Alkaline Phosphatase 141 U/L (45-117); Anion Gap 6 (5-15); BUN 12 mg/dL (7-18); BUN/Creat Ratio 17.2 RATIO (10-20); Calcium,Total 8.9 mg/dL (8.5-10.1); Chloride 105 mmol/L (98-107); EST Glomerular Filtration Rate 92 mL/min (>60); Est Glom Filt Rate - Afr Amer 111 mL/min (>60); Glucose 80 mg/dL (74-106); Potassium 4.1 mmol/L (3.5-5.1); Protein, Total 7.6 g/dL (6.4-8.2); Sodium Level 139 mmol/L (136-145)
== END 2021-09-07 23:59 | disposition short-term general hospital (02) ==
PROVIDERS: PCP Family Medicine; Referring Provider Internal Medicine Rheumatology; Visit Provider Internal Medicine Rheumatology
DX: M06.09 Rheumatoid arthritis without rheumatoid factor, multiple sites (principal); M79.7 Fibromyalgia; M18.12 Unilateral primary osteoarthritis of first carpometacarpal joint, left hand; M17.0 Bilateral primary osteoarthritis of knee; M65.331 Trigger finger, right middle finger; M47.897 Other spondylosis, lumbosacral region; M21.40 Flat foot [pes planus] (acquired), unspecified foot; Z96.652 Presence of left artificial knee joint; Z79.899 Other long term (current) drug therapy
CPT/HCPCS: 36415; 80053; 85025

== ENCOUNTER 2021-11-25 13:21 | Outpatient (CLI) | payer OTHER, SELFPAY ==
[2021-11-25 15:24] LABS: Absolute Lymphocyte Count 1.39 X10^3/uL (0.83-4.51); Absolute Neutrophil Count 2.7 X10^3/uL (2.0-7.7); Basophil# 0.03 X10^3/uL; Basophil% 0.6 % (0-1); Eosinophil# 0.51 X10^3/uL; Eosinophils% 9.9 % (0-5); Hematocrit 38.3 % (37-47); Hemoglobin 12.2 g/dL (12.0-15.0); Lymphocyte # 1.39 X10^3/ul (0.83-4.51); Lymphocyte % 27.1 % (19-41); Mean Corp Hgb Conc 31.9 g/dL (32-36); Mean Platelet Vol. 10.1 fl (6.2-12.0); Monocyte# 0.45 X10^3/uL; Monocyte% 8.8 % (0-10); NRBC Flagged by Analyzer 0 % (0-5); Neutrophil # 2.74 X10^3/uL (2.7-7.7); Neutrophil % 53.4 % (47-70); Platelet Count 280 K/mm3 (150-450); RBC Distribution Width SD 47.2 fl (35.1-43.9); Red Blood Count 4.21 M/mm3 (4.2-5.4); White Blood Count 5.1 K/mm3 (4.4-11.0)
[2021-11-25 15:33] LABS: ALB/GLOB Ratio 1.1 RATIO (0.9-2.4); AST(SGOT) 37 U/L (15-37); Alanine Aminotransfer ALT/SGPT 34 U/L (13-56); Albumin, Serum 3.6 g/dL (3.2-5.0); Alkaline Phosphatase 135 U/L (45-117); Anion Gap 4 (5-15); BUN 14 mg/dL (7-18); BUN/Creat Ratio 21.6 RATIO (10-20); Calcium,Total 8.3 mg/dL (8.5-10.1); Chloride 108 mmol/L (98-107); Creatinine, Serum 0.65 mg/dL (0.55-1.02); EST Glomerular Filtration Rate 100 mL/min (>60); Est Glom Filt Rate - Afr Amer 121 mL/min (>60); Globulin 3.4 g/dL (2.2-4.2); Glucose 92 mg/dL (74-106); Potassium 4.1 mmol/L (3.5-5.1); Sodium Level 139 mmol/L (136-145)
== END 2021-11-25 23:59 | disposition home or self-care (01) ==
LOC: MTLAB 13:23
PROVIDERS: PCP Family Medicine; Referring Provider Internal Medicine Rheumatology; Visit Provider Internal Medicine Rheumatology
DX: M06.09 Rheumatoid arthritis without rheumatoid factor, multiple sites (principal); M79.7 Fibromyalgia; M18.12 Unilateral primary osteoarthritis of first carpometacarpal joint, left hand; M17.0 Bilateral primary osteoarthritis of knee; M65.331 Trigger finger, right middle finger; M47.897 Other spondylosis, lumbosacral region; M21.40 Flat foot [pes planus] (acquired), unspecified foot; Z79.899 Other long term (current) drug therapy
CPT/HCPCS: 36415; 80053; 85025

== ENCOUNTER → 2022-03-09 | Outpatient (CLI) | payer OTHER, SELFPAY ==
[2022-03-09 15:01] LABS: Absolute Neutrophil Count 1.6 X10^3/uL (2.0-7.7); Basophil# 0.04 X10^3/uL; Basophil% 1.1 % (0-1); Eosinophil# 0.39 X10^3/uL; Eosinophils% 10.5 % (0-5); Hematocrit 38.2 % (37-47); Hemoglobin 12.1 g/dL (12.0-15.0); Lymphocyte % 32.2 % (19-41); Mean Corp Hgb Conc 31.7 g/dL (32-36); Mean Corpuscular Hgb 28.9 pg (27.0-32.0); Mean Corpuscular Volume 91.4 fL (81-99); Mean Platelet Vol. 9.9 fl (6.2-12.0); Monocyte# 0.48 X10^3/uL; Monocyte% 12.9 % (0-10); NRBC Flagged by Analyzer 0 % (0-5); Neutrophil # 1.61 X10^3/uL (2.7-7.7); Platelet Count 242 K/mm3 (150-450); RBC Distribution Width CV 14.9 % (11.6-14.6); RBC Distribution Width SD 49.7 fl (35.1-43.9); Red Blood Count 4.18 M/mm3 (4.2-5.4); White Blood Count 3.7 K/mm3 (4.4-11.0)
[2022-03-09 15:27] LABS: ALB/GLOB Ratio 0.9 RATIO (0.9-2.4); AST(SGOT) 29 U/L (15-37); Alanine Aminotransfer ALT/SGPT 24 U/L (13-56); Albumin, Serum 3.4 g/dL (3.2-5.0); Alkaline Phosphatase 128 U/L (45-117); Anion Gap 6 (5-15); BUN 17 mg/dL (7-18); BUN/Creat Ratio 24.6 RATIO (10-20); Calcium,Total 8.7 mg/dL (8.5-10.1); Chloride 107 mmol/L (98-107); Creatinine, Serum 0.69 mg/dL (0.55-1.02); EST Glomerular Filtration Rate 92 mL/min (>60); Est Glom Filt Rate - Afr Amer 112 mL/min (>60); Globulin 3.6 g/dL (2.2-4.2); Glucose 90 mg/dL (74-106); Potassium 3.9 mmol/L (3.5-5.1); Sodium Level 139 mmol/L (136-145)
== END | disposition home or self-care (01) ==
LOC: MTLAB 12:37
PROVIDERS: PCP Family Medicine; Referring Provider Internal Medicine Rheumatology; Visit Provider Internal Medicine Rheumatology
DX: M06.09 Rheumatoid arthritis without rheumatoid factor, multiple sites (principal); Z79.899 Other long term (current) drug therapy; M79.7 Fibromyalgia; M18.12 Unilateral primary osteoarthritis of first carpometacarpal joint, left hand; M17.0 Bilateral primary osteoarthritis of knee; M65.331 Trigger finger, right middle finger; M47.897 Other spondylosis, lumbosacral region; M21.40 Flat foot [pes planus] (acquired), unspecified foot
CPT/HCPCS: 36415; 80053; 85025

== ENCOUNTER → 2022-05-26 | Outpatient (CLI) | payer OTHER, SELFPAY ==
[2022-05-26 12:28] LABS: Absolute Neutrophil Count 2.4 X10^3/uL (2.0-7.7); Basophil# 0.02 X10^3/uL; Basophil% 0.4 % (0-1); Eosinophil# 0.32 X10^3/uL; Eosinophils% 7.1 % (0-5); Hematocrit 38.5 % (37-47); Hemoglobin 12.8 g/dL (12.0-15.0); Mean Corp Hgb Conc 33.2 g/dL (32-36); Mean Corpuscular Volume 87.1 fL (81-99); Mean Platelet Vol. 10.8 fl (6.2-12.0); Monocyte# 0.44 X10^3/uL; Monocyte% 9.8 % (0-10); NRBC Flagged by Analyzer 0 % (0-5); Neutrophil % 53.5 % (47-70); Platelet Count 286 K/mm3 (150-450); RBC Distribution Width CV 14.8 % (11.6-14.6); Red Blood Count 4.42 M/mm3 (4.2-5.4); White Blood Count 4.5 K/mm3 (4.4-11.0)
[2022-05-26 12:40] LABS: ALB/GLOB Ratio 0.9 RATIO (0.9-2.4); AST(SGOT) 42 U/L (15-37); Alanine Aminotransfer ALT/SGPT 39 U/L (13-56); Albumin, Serum 3.9 g/dL (3.2-5.0); Alkaline Phosphatase 153 U/L (45-117); Anion Gap 7 (5-15); BUN 16 mg/dL (7-18); BUN/Creat Ratio 20.1 RATIO (10-20); Calcium,Total 9.1 mg/dL (8.5-10.1); Chloride 106 mmol/L (98-107); EST Glomerular Filtration Rate 78 mL/min (>60); Est Glom Filt Rate - Afr Amer 95 mL/min (>60); Globulin 4.2 g/dL (2.2-4.2); Glucose 97 mg/dL (74-106); Protein, Total 8.1 g/dL (6.4-8.2); Sodium Level 139 mmol/L (136-145)
== END | disposition home or self-care (01) ==
LOC: MTLAB 10:48
PROVIDERS: PCP Family Medicine; Referring Provider Internal Medicine Rheumatology; Visit Provider Internal Medicine Rheumatology
DX: Z01.818 Encounter for other preprocedural examination (principal); Z01.810 Encounter for preprocedural cardiovascular examination
CPT/HCPCS: 36415; 80053; 85025

== ENCOUNTER → 2022-08-18 | Outpatient (CLI) | payer OTHER, SELFPAY ==
[2022-08-18 17:44] LABS: Absolute Lymphocyte Count 1.89 X10^3/uL (0.83-4.51); Absolute Neutrophil Count 3.4 X10^3/uL (2.0-7.7); Basophil# 0.02 X10^3/uL; Basophil% 0.3 % (0-1); Eosinophil# 0.26 X10^3/uL; Eosinophils% 4.2 % (0-5); Hemoglobin 11.5 g/dL (12.0-15.0); Lymphocyte # 1.89 X10^3/ul (0.83-4.51); Lymphocyte % 30.6 % (19-41); Mean Corp Hgb Conc 30.3 g/dL (32-36); Mean Corpuscular Hgb 27.3 pg (27.0-32.0); Mean Platelet Vol. 9.7 fl (6.2-12.0); Monocyte# 0.61 X10^3/uL; Monocyte% 9.9 % (0-10); NRBC Flagged by Analyzer 0 % (0-5); Neutrophil # 3.38 X10^3/uL (2.7-7.7); Neutrophil % 54.8 % (47-70); Platelet Count 434 K/mm3 (150-450); RBC Distribution Width CV 14.3 % (11.6-14.6); RBC Distribution Width SD 46.9 fl (35.1-43.9); Red Blood Count 4.22 M/mm3 (4.2-5.4); White Blood Count 6.2 K/mm3 (4.4-11.0)
[2022-08-18 18:46] LABS: ALB/GLOB Ratio 0.9 RATIO (0.9-2.4); AST(SGOT) 18 U/L (15-37); Alanine Aminotransfer ALT/SGPT 25 U/L (13-56); Albumin, Serum 3.5 g/dL (3.2-5.0); Alkaline Phosphatase 150 U/L (45-117); Anion Gap 6 (5-15); BUN 11 mg/dL (7-18); BUN/Creat Ratio 17.1 RATIO (10-20); Calcium,Total 8.9 mg/dL (8.5-10.1); Chloride 104 mmol/L (98-107); Creatinine, Serum 0.64 mg/dL (0.55-1.02); EST Glomerular Filtration Rate 100 mL/min (>60); Est Glom Filt Rate - Afr Amer 121 mL/min (>60); Ferritin 17 ng/mL (8-252); Globulin 4.1 g/dL (2.2-4.2); Glucose 87 mg/dL (74-106); Iron 109 ug/dL (50-170); Iron Binding Capacity,Total 552 ug/dL (250-450); PERCENT IRON SATURATION 19.7 % (15.0-55.0); Potassium 4.4 mmol/L (3.5-5.1); Protein, Total 7.6 g/dL (6.4-8.2); Sodium Level 137 mmol/L (136-145)
== END | disposition home or self-care (01) ==
LOC: MTLAB 15:01
PROVIDERS: PCP Family Medicine; Referring Provider Internal Medicine Rheumatology; Visit Provider Internal Medicine Rheumatology
DX: Z79.899 Other long term (current) drug therapy (principal); M06.00 Rheumatoid arthritis without rheumatoid factor, unspecified site; G25.81 Restless legs syndrome
CPT/HCPCS: 36415; 80053; 82728; 83540; 83550; 85025

== ENCOUNTER → 2022-10-27 | Outpatient (CLI) | payer OTHER, SELFPAY ==
[2022-10-27 18:59] LABS: Ferritin 29 ng/mL (8-252); Iron 170 ug/dL (50-170); Iron Binding Capacity,Total 438 ug/dL (250-450); PERCENT IRON SATURATION 38.8 % (15.0-55.0)
== END | disposition home or self-care (01) ==
LOC: MTLAB 14:40
PROVIDERS: PCP Family Medicine; Referring Provider Psychiatry & Neurology Neurology; Visit Provider Psychiatry & Neurology Neurology
DX: G25.81 Restless legs syndrome (principal)
CPT/HCPCS: 36415; 82728; 83540; 83550

== ENCOUNTER → 2022-11-17 | Outpatient (CLI) | payer OTHER, SELFPAY ==
[2022-11-17 16:04] LABS: Absolute Lymphocyte Count 1.89 X10^3/uL (0.83-4.51); Absolute Neutrophil Count 1.8 X10^3/uL (2.0-7.7); Basophil# 0.02 X10^3/uL; Basophil% 0.4 % (0-1); Eosinophil# 0.46 X10^3/uL; Eosinophils% 9.8 % (0-5); Hematocrit 39.1 % (37-47); Hemoglobin 12.3 g/dL (12.0-15.0); Lymphocyte # 1.89 X10^3/ul (0.83-4.51); Lymphocyte % 40.3 % (19-41); Mean Corp Hgb Conc 31.5 g/dL (32-36); Mean Corpuscular Hgb 28.8 pg (27.0-32.0); Mean Corpuscular Volume 91.6 fL (81-99); Mean Platelet Vol. 9.8 fl (6.2-12.0); Monocyte# 0.52 X10^3/uL; Monocyte% 11.1 % (0-10); NRBC Flagged by Analyzer 0 % (0-5); Neutrophil # 1.79 X10^3/uL (2.7-7.7); Neutrophil % 38.2 % (47-70); Platelet Count 267 K/mm3 (150-450); RBC Distribution Width CV 16.2 % (11.6-14.6); RBC Distribution Width SD 54.4 fl (35.1-43.9); Red Blood Count 4.27 M/mm3 (4.2-5.4); White Blood Count 4.7 K/mm3 (4.4-11.0)
[2022-11-17 16:16] LABS: ALB/GLOB Ratio 1.1 RATIO (0.9-2.4); AST(SGOT) 34 U/L (15-37); Alanine Aminotransfer ALT/SGPT 27 U/L (13-56); Albumin, Serum 3.7 g/dL (3.2-5.0); Alkaline Phosphatase 139 U/L (45-117); Anion Gap 5 (5-15); BUN 14 mg/dL (7-18); BUN/Creat Ratio 20.6 RATIO (10-20); Calcium,Total 8.7 mg/dL (8.5-10.1); Chloride 109 mmol/L (98-107); Creatinine, Serum 0.68 mg/dL (0.55-1.02); EST Glomerular Filtration Rate 94 mL/min (>60); Est Glom Filt Rate - Afr Amer 114 mL/min (>60); Globulin 3.5 g/dL (2.2-4.2); Glucose 84 mg/dL (74-106); Potassium 3.8 mmol/L (3.5-5.1); Protein, Total 7.2 g/dL (6.4-8.2); Sodium Level 140 mmol/L (136-145)
== END | disposition home or self-care (01) ==
LOC: MTLAB 13:47
PROVIDERS: PCP Family Medicine; Referring Provider Internal Medicine Rheumatology; Visit Provider Internal Medicine Rheumatology
DX: M06.00 Rheumatoid arthritis without rheumatoid factor, unspecified site (principal); Z79.899 Other long term (current) drug therapy
CPT/HCPCS: 36415; 80053; 85025

== ENCOUNTER → 2023-02-21 | Outpatient (CLI) | payer OTHER, SELFPAY ==
[2023-02-21 15:37] LABS: Absolute Lymphocyte Count 1.37 X10^3/uL (0.83-4.51); Basophil# 0.04 X10^3/uL; Basophil% 0.9 % (0-1); Eosinophil# 0.33 X10^3/uL; Eosinophils% 7.7 % (0-5); Hematocrit 37.6 % (37-47); Hemoglobin 12.1 g/dL (12.0-15.0); Lymphocyte # 1.37 X10^3/ul (0.83-4.51); Lymphocyte % 31.9 % (19-41); Mean Corp Hgb Conc 32.2 g/dL (32-36); Mean Corpuscular Hgb 30.5 pg (27.0-32.0); Mean Corpuscular Volume 94.7 fL (81-99); Mean Platelet Vol. 10.5 fl (6.2-12.0); Monocyte# 0.54 X10^3/uL; Monocyte% 12.6 % (0-10); NRBC Flagged by Analyzer 0 % (0-5); Neutrophil % 46.7 % (47-70); Platelet Count 247 K/mm3 (150-450); RBC Distribution Width CV 13.8 % (11.6-14.6); RBC Distribution Width SD 47.8 fl (35.1-43.9); Red Blood Count 3.97 M/mm3 (4.2-5.4); White Blood Count 4.3 K/mm3 (4.4-11.0)
[2023-02-21 16:11] LABS: AST(SGOT) 28 U/L (15-37); Alanine Aminotransfer ALT/SGPT 28 U/L (13-56); Albumin, Serum 3.3 g/dL (3.2-5.0); Alkaline Phosphatase 127 U/L (45-117); Anion Gap 3 (5-15); BUN 12 mg/dL (7-18); BUN/Creat Ratio 16.5 RATIO (10-20); Calcium,Total 8.5 mg/dL (8.5-10.1); Chloride 110 mmol/L (98-107); Creatinine, Serum 0.73 mg/dL (0.55-1.02); EST Glomerular Filtration Rate 87 mL/min (>60); Est Glom Filt Rate - Afr Amer 105 mL/min (>60); Globulin 3.3 g/dL (2.2-4.2); Glucose 84 mg/dL (74-106); Protein, Total 6.6 g/dL (6.4-8.2); Sodium Level 140 mmol/L (136-145)
== END | disposition home or self-care (01) ==
LOC: MTLAB 11:31
PROVIDERS: PCP Family Medicine; Referring Provider Internal Medicine Rheumatology; Visit Provider Internal Medicine Rheumatology
DX: M06.00 Rheumatoid arthritis without rheumatoid factor, unspecified site (principal); Z79.899 Other long term (current) drug therapy
CPT/HCPCS: 36415; 80053; 85025

== ENCOUNTER → 2023-05-25 | Outpatient (CLI) | payer OTHER, SELFPAY ==
[2023-05-25 18:00] LABS: Absolute Lymphocyte Count 1.86 X10^3/uL (0.83-4.51); Absolute Neutrophil Count 2.4 X10^3/uL (2.0-7.7); Basophil# 0.03 X10^3/uL; Basophil% 0.6 % (0-1); Eosinophil# 0.27 X10^3/uL; Eosinophils% 5.3 % (0-5); Hematocrit 39.5 % (37-47); Hemoglobin 12.2 g/dL (12.0-15.0); Lymphocyte # 1.86 X10^3/ul (0.83-4.51); Lymphocyte % 36.3 % (19-41); Mean Corp Hgb Conc 30.9 g/dL (32-36); Mean Corpuscular Volume 97.1 fL (81-99); Mean Platelet Vol. 9.8 fl (6.2-12.0); Monocyte# 0.54 X10^3/uL; Monocyte% 10.5 % (0-10); NRBC Flagged by Analyzer 0 % (0-5); Neutrophil # 2.42 X10^3/uL (2.7-7.7); Neutrophil % 47.1 % (47-70); Platelet Count 288 K/mm3 (150-450); RBC Distribution Width CV 14.1 % (11.6-14.6); RBC Distribution Width SD 49.4 fl (35.1-43.9); Red Blood Count 4.07 M/mm3 (4.2-5.4); White Blood Count 5.1 K/mm3 (4.4-11.0)
[2023-05-25 18:30] LABS: ALB/GLOB Ratio 0.9 RATIO (0.9-2.4); AST(SGOT) 40 U/L (15-37); Alanine Aminotransfer ALT/SGPT 44 U/L (13-56); Albumin, Serum 3.4 g/dL (3.2-5.0); Alkaline Phosphatase 133 U/L (45-117); Anion Gap 7 (5-15); BUN 11 mg/dL (7-18); Calcium,Total 8.7 mg/dL (8.5-10.1); Chloride 105 mmol/L (98-107); Creatinine, Serum 0.78 mg/dL (0.55-1.02); EST Glomerular Filtration Rate 79 mL/min (>60); Est Glom Filt Rate - Afr Amer 96 mL/min (>60); Globulin 3.6 g/dL (2.2-4.2); Glucose 80 mg/dL (74-106); Potassium 3.9 mmol/L (3.5-5.1); Sodium Level 139 mmol/L (136-145)
== END | disposition home or self-care (01) ==
LOC: MTLAB 13:59
PROVIDERS: PCP Family Medicine; Referring Provider Internal Medicine Rheumatology; Visit Provider Internal Medicine Rheumatology
DX: M06.00 Rheumatoid arthritis without rheumatoid factor, unspecified site (principal); Z79.899 Other long term (current) drug therapy; M79.7 Fibromyalgia
CPT/HCPCS: 36415; 80053; 85025

== ENCOUNTER → 2023-08-24 | Outpatient (CLI) | payer OTHER, SELFPAY ==
--- OUTSIDE RECORDS SUMMARY | 2023-08-24 15:12 | XMS RPT_ITS | CCD ---
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 GAMA Jama Primary Care Unavail ALYSSIA Rothman MD Attending Unavailable STEVIE HONG., DR. GAMA Jama Primary Care Unavail ALYSSIA Rothman MD Attending Unavailable STEVIE HONG., DR. GAMA Jama Primary Care Unavail ALYSSIA Rothman MD Admitting Unavailable FAWN COLE Consulting Unavailable Gama Hubbard MD Primary Care Provider ESHENAUR, RAY Referring Unavailable ROXANNA PALOMARES Attending Unavailable GAMA HUBBARD Primary Care Unavailable ESHENAUR, RAY Admitting Unavailable LORRAINE THORPE Attending Unavailable GAMA HUBBARD Primary Care Unavailable ESHENAUR, RAY Referring Unavailable ESHENAUR, RAY Admitting Unavailable LORRAINE THORPE Attending Unavailable GAMA HUBBARD Primary Care Unavailable ESHENAUR, RAY Referring Unavailable ESHENAUR, RAY Admitting Unavailable GAMA HUBBARD Primary Care Unavailable LISSETT RAMIRES Attending Unavailable ESHENAUR, RAY Referring Unavailable ESHENAUR, RAY Admitting Unavailable ESHENAUR, RAY Admitting Unavailable GAMA HUBBARD Primary Care Unavailable ROSEMARIE BANUELOS Attending Unavailable ESHENAUR, RAY Referring Unavailable ESHENAUR, RAY Referring Unavailable ROXANNA PALOMARES Attending Unavailable GAMA HUBBARD Primary Care Unavailable ESHENAUR, RAY Admitting Unavailable ESHENAUR, RAY Referring Unavailable GAMA HUBBARD Primary Care Unavailable LORRAINE THORPE Attending Unavailable ESHENAUR, RAY Admitting Unavailable GAMA HUBBARD Primary Care Unavailable SINAI LUKE Attending Unavailable ESHENAUR, RAY Referring Unavailable ESHENAUR, RAY Admitting Unavailable GAMA HUBBARD Primary Care Unavailable SINAI LUKE Attending Unavailable ESHENAUR, RAY Referring Unavailable ESHENAUR, RAY Admitting Unavailable LORRAINE THORPE Attending Unavailable GAMA HUBBARD Primary Care Unavailable ESHENAUR, RAY Referring Unavailable ESHENAUR, RAY Admitting Unavailable Dr. Giovanni Ratliff Attending Unava ilable Stevie, Dr. Gama Montejo Primary Care Unavaila MD GAMA Sommers Primary Care UnavailCARLOS Coffey Attending Unavailable Gama Hubbard MD Primary Care Provider SILVIA CHAO Attending Unavailable GAMA HUBBARD Primary Care Unavailable John SUPERVISOR W[employer]OPE FABRICATION-Silvia JACKSON Primary Care Provider [phone] SILVIA CHAO Referring Unavailable SILVIA CHAO Primary Care Unavailable Allergies Allergy Classification Reported Allergen(s) Allergy Type Date of Onset Reaction(s) Facility (7 sources) Aspirin; Translations: [aspirin] Drug Allergy 8 Bleeding, Other [facility] (1 source) Sulfonamides (Antibiotic) Other [facility] Medications Current Medications Medication Drug Class(es) Dates Sig (Normalized) Sig (Original) acetaminophen 500 mg oral tablet (3 sources) Start: 06-09-2022 End: 06-23-2022 acetaminophen 500 mg oral tablet Dose : 1,000 mg = 2 tab(s), Oral, q8h, X 14 day(s), # 100 tab(s), 0 Refill(s), 06/23/22 12:04:00 EST, Pharmacy: [id number], 165.1, cm, 06/08/22 10:22:00 EDT, Height Start Date: 06/09/22 Stop Date: 11/9/22 Status: Ordered Problems Active Problems Problem Classification Problem Date Documented Da te Episodic/Chronic Administrative/social admission (9 sources) Patient encounter status; Translations: [Persons encountering health services in other specified circumstances] Onset: 07-20-2023 07-20-2023 Episodic Allergic reactions (4 sources) Allergy status to penicillin; Translations: [Allergy status to sulfonamides status] Onset: 05-10-2023 07-19-2023 Episodic Deficiency and other anemia (2 sources) Anemia; Translations: [Anemia, unspecified] Onset: 07-19-2023 07-19-2023 Episodic Essential hypertension (5 sources) Essential hypertension; Translations: [Essential (primary) hypertension] Onset: 07-20-2023 07-20-2023 Chronic Genitourinary symptoms and ill-defined conditions (4 sources) Unspecified urinary incontinence; Translations: [Incontinence] Onset: 05-10-2023 07-19-2023 Chronic Genitourinary symptoms and ill-defined conditions (2 sources) Urgency of urination; Translations: [Urgency of urination] Onset: 05-11-2023 Episodic Headache; including migraine (3 sources) Migraine; Translations: [Migraine, unspecified, not intractable, without status migrainosus] Onset: 09-05-2019 Chronic Headache; including migraine (2 sources) Headache; Translations: [Headache] Onset: 07-19-2023 07-19-2023 Episodic Immunizations and screening for infectious disease (1 source) Requires diphtheria, tetanus and pertussis vaccination; Translations: [Need for prophylactic vaccination and inoculation against diphtheria-tetanus- pertussis, combined [DTP] [DTaP]] 04-05-2022 Episodic Mood disorders (5 sources) Recurrent major depressive episodes, moderate ; Translations: [Major depressive disorder, recurrent, moderate] Onset: 07-19-2023 07-20-2023 Chronic Nutritional deficiencies (5 sources) Vitamin D deficiency; Translations: [Vitamin D deficiency, unspecified] Onset: 07-20-2023 07-20-2023 Chronic Nutritional deficiencies (10 sources) Iron deficiency; Translations: [Iron deficiency] Onset: 07-20-2023 07-20-2023 Episodic Open wounds of extremities (3 sources) Laceration of finger; Translations: [Laceration of right ring finger] 04-04-2022 Episodic Past or Other Problems Problem Classification Problem Date Documented Da te Episodic/Chronic Other nervous system disorders (2 sources) Numbness and tingling sensation of skin; Translations: [Anesthesia of skin] Onset: 04-18-2023 07-19-2023 Episodic Unclassified (2 sources) Onset: 07-20-2023 07-20-2023 Unclassified (1 source) Low back pain, unspecified; Translations: [Low back pain, unspecified] Onset: 07-20-2023 Results Test Name Value Interpretation Reference Range Facil ity Vital Signs Date Time Vital Sign Value Performing Clinician Facility 07-20-2023 13:04-0500 Body height 165.1 cm Silvia Chao SUPERVISOR [employer] F[employer]RICATION-TOE TRIMMER Work Phone: [facility] 07-20-2023 13:04-0500 Body mass index (BMI) [Ratio] 39.11 kg/m2 Silvia Chao APRN-TOE TRIMMER Work Phone: [facility] 07-20-2023 13:04-0500 Body weight 106.59 kg Silvia Chao APRN-TOE TRIMMER Work Phone: [facility] 07-20-2023 13:04-0500 Diastolic blood pressure 74 mm[Hg] Silvia Chao APRN-TOE TRIMMER Work Phone: [facility] 07-20-2023 13:04-0500 Systolic blood pressure 128 mm[Hg] Silvia Chao APRN-TOE TRIMMER Work Phone: [facility] 06-09-2022 09:26-0400 Body temperature 97.7 [degF] DR ALYSSIA MARAVILLA MD [facility] 06-09-2022 09:26-0400 Diastolic blood pressure 64 mm[Hg] DR ALYSSIA MARAVILLA MD [facility] 06-09-2022 09:26-0400 Heart rate 68 /min DR ALYSSIA MARAVILLA MD [facility] 06-09-2022 09:26-0400 Reason For Taking VItal Signs DR ALYSSIA MARAVILLA MD [facility] 06-09-2022 09:26-0400 Respiratory rate 18 /min DR ALYSSIA MARAVILLA MD [facility] 06-09-2022 09:26-0400 Systolic blood pressure 111 mm[Hg] DR ALYSSIA MARAVILLA MD [facility] 06-09-2022 05:21-0400 Body temperature 97.34 [degF] DR ALYSSIA MARAVILLA MD [facility] 06-09-2022 05:21-0400 Diastolic blood pressure 74 mm[Hg] DR ALYSSIA MARAVILLA MD [facility] 06-09-2022 05:21-0400 Heart rate 65 /min DR ALYSSIA MARAVILLA MD [facility] 06-09-2022 05:21-0400 Respiratory rate 18 /min DR ALYSSIA MARAVILLA MD [facility] 06-09-2022 05:21-0400 Systolic blood pressure 116 mm[Hg] DR ALYSSIA MARAVILLA MD [facility] 06-09-2022 04:00-0400 Body temperature 97.88 [degF] DR ALYSSIA MARAVILLA MD [facility] 06-09-2022 04:00-0400 Diastolic blood pressure 67 mm[Hg] DR ALYSSIA MARAVILLA MD [facility] 06-09-2022 04:00-0400 Mean blood pressure 82 mm[Hg] DR ALYSSIA MARAVILLA MD [facility] 06-09-2022 04:00-0400 Respiratory rate 16 /min DR ALYSSIA MARAVILLA MD [facility] 06-09-2022 04:00-0400 Systolic blood pressure 112 mm[Hg] DR ALYSSIA MARAVILLA MD [facility] 06-08-2022 23:49-0400 Heart rate 75 /min DR ALYSSIA MARAVILLA MD [facility] 06-08-2022 23:49-0400 Mean blood pressure 69 mm[Hg] DR ALYSSIA MARAVILLA MD [facility] 06-08-2022 23:49-0400 Reason For Taking VItal Signs DR ALYSSIA MARAVILLA MD [facility] 06-08-2022 19:15-0400 Heart rate 77 /min DR ALYSSIA MARAVILLA MD [facility] 06-08-2022 19:15-0400 Mean blood pressure 87 mm[Hg] DR ALYSSIA MARAVILLA MD [facility] 06-08-2022 15:08-0400 Heart rate 82 /min DR ALYSSIA MARAVILLA MD [facility] 06-08-2022 10:22-0400 Body height 165.[address] ALYSSIA MARAVILLA MD [facility] 06-08-2022 10:22-0400 Body temperature 97.52 [degF] DR ALYSSIA MARAVILLA MD [facility] 06-08-2022 10:22-0400 Body weight [address] ALYSSIA MARAVILLA MD [facility] 06-08-2022 10:22-0400 Body weight 36.69 kg/m2 DR ALYSSIA MARAVILLA MD [facility] 06-08-2022 09:48-0400 Diastolic Blood Pressure NBP [address] ALYSSIA MARAVILLA MD [facility] 06-08-2022 09:48-0400 Systolic Blood Pressure NBP [address] ALYSSIA MARAVILLA MD [facility] 06-08-2022 09:30-0400 Diastolic Blood Pressure NBP [address] ALYSSIA MARAVILLA MD [facility] 06-08-2022 09:30-0400 Systolic Blood Pressure NBP [address] ALYSSIA MARAVILLA MD [facility] 06-08-2022 09:15-0400 Diastolic Blood Pressure NBP [address] ALYSSIA MARAVILLA MD [facility] 06-08-2022 09:15-0400 Systolic Blood Pressure NBP [address] ALYSSIA MARAVILLA MD [facility] 06-08-2022 09:00-0400 Body temperature 96.26 [degF] DR ALYSSIA MARAVILLA MD [facility] 06-08-2022 05:47-0400 Body height 165.[address] ALYSSIA MARAVILLA MD [facility] 06-08-2022 05:47-0400 Body temperature 96.62 [degF] DR ALYSSIA MARAVILLA MD [facility] 06-08-2022 05:47-0400 Body weight [address] ALYSSIA MARAVILLA MD [facility] 06-08-2022 05:47-0400 Body weight 36.69 kg/m2 DR ALYSSIA MARAVILLA MD [facility] 06-08-2022 05:47-0400 diastolic 76 mm[Hg] DR ALYSSIA MARAVILLA MD [facility] 06-08-2022 05:47-0400 Heart rate 69 /min DR ALYSSIA MARAVILLA MD [facility] 06-08-2022 05:47-0400 systolic 137 mm[Hg] DR ALYSSIA MARAVILLA MD [facility] 05-28-2022 11:36-0400 Body height [address] ALYSSIA MARAVILLA MD [facility] 05-28-2022 11:36-0400 Body weight 103.[address] ALYSSIA MARAVILLA MD [facility] 05-28-2022 11:36-0400 Body weight 38.92 kg/m2 DR ALYSSIA MARAVILLA MD [facility] 05-28-2022 11:36-0400 diastolic 88 mm[Hg] DR ALYSSIA MARAVILLA MD [facility] 05-28-2022 11:36-0400 Heart rate 68 /min DR ALYSSIA MARAVILLA MD [facility] 05-28-2022 11:36-0400 Respiratory rate 20 /min DR ALYSSIA MARAVILLA MD [facility] 05-28-2022 11:36-0400 systolic 128 mm[Hg] DR ALYSSIA MARAVILLA MD [facility] Encounters Encounter Date Encounter Type Care Provider Facility Start: 08-17-2023 End: 08-18-2023 ambulatory SILVIA Ling [facility] Start: 08-17-2023 End: 08-17-2023 Subsequent hospital visit by physician [facility] Procedures Date Procedure Procedure Detail Performing Clinician Start: 08-17-2023 BI MAMMO BILATERAL SCREENING TOMOSYNTHESIS SILVIA CHAO Start: 08-17-2023 End: 08-17-2023 Screening digital breast tomosynthesis bi Silvia Chao SUPERVISOR [employer]ICATION-TOE TRIMMER Work Phone: Start: 08-17-2023 Lipid 1996 panel - S aaron or Plasma [facility] Start: 05-11-2023 Antibody screen MD MOE HUBBARD Plan of Treatment Date Care Activity Detail Author Start: 04-04-2032 DTaP/Tdap/Td Vaccine s (2 - Td or Tdap) DTaP/Tdap/Td Vaccines (2 - Td or Tdap) [facility] Start: 04-04-2032 Tetanus vaccination Tetanus: Every 1 0yrs [facility] Start: 08-17-2028 Lipid panel Lipid Panel [facility] Start: 08-17-2026 Diabetes mellitus screening Diabetes Screening [facility] Start: 08-17-2024 Screening for malign ant neoplasm of breast Mammogram [facility] Start: 08-24-2023 End: 08-24-2023 Patient encounter procedure [facility] Start: 08-17-2023 End: 08-17-2023 Patient encounter procedure 08/17/2023 9:45 AM EST Appointment [facility] [address] [place] [address] [facility] Start: 07-20-2023 End: 07-20-2024 25-hydroxyvitamin D3 [Mass/volume] in Serum or Plasma Vitamin D 25-Hydroxy,Total (for eval of Vitamin D levels) Lab Routine Vitamin D deficiency Expected: 07/20/2023 (Approximate), Expires: 07/20/2024 [facility] Work Phone: Immunizations Immunization Date Immunization Notes Care Provider Marta cho 05-18-2023 influenza virus vaccine, unspecified formulation Silvia Chao APRN-TOE TRIMMER Work Phone: [facility] Work Phone: 05-18-2023 Influenza, injectabl e, [address] Canine Kidney, preservative free, quadrivalent Silvia Chao SUPERVISOR [employer] F[employer]RICATION-TOE TRIMMER Work Phone: [facility] Work Phone: 10-04-2022 Moderna COVID-19 vaccine, bivalent, blue cap/jaime label *Check age/dose* Silvia Heathley SUPERVISOR [employer]OPE FABRICATION-TOE TRIMMER Work Phone: [facility] Work Phone: 05-18-2022 Flu vaccine, quadrivalent, high-dose, preservative free, age 65y+ (FLUZONE) Silvia Heathley SUPERVISOR [employer]OPE FABRICATION-TOE TRIMMER Work Phone: [facility] Work Phone: 04-04-2022 tetanus toxoid, redu aleida diphtheria toxoid, and acellular pertussis vaccine, adsorbed Gama [facility] 12-09-2021 SARS-CoV-2 (COVID-19 ) mRNA-[address] ALYSSIA MARAVILLA MD [facility] Payers Date Payer Category Payer Unknown [id number] 2019 Unknown 1965 Unknown [id number] 2.16.8 [id number] 1965 Unknown [id number] 2.16.8 [id number] 1965 Unknown [id number] 2. [id number] 1963 Unknown [id number] 2. [id number]. 1963 Unknown [id number] [id number]. 1963 Unknown [id number] 2.16 [id number] 1963 Unknown [id number] 2.16 [id number] 1963 Unknown [id number] 2.16. [id number] 1963 Unknown [id number] 2.16. [id number] 1963 Unknown [id number] 2.16. [id number] 1963 Unknown [id number] 2.16. [id number] 1963 Unknown [id number] 2.16. [id number] 1963 Unknown [id number] 2.16.8 [id number] 1963 Unknown [id number] 2.16. [id number] 1963 Unknown [id number] 2.16.8 [id number] 1963 Unknown [id number] 2.16.84 [id number] Social History Date Type Detail Facility [facility] Tobacco smoking consumption unknown [facility] Start: 1965 Sex Assigned At Not on file [facility] Start: 05-28-2022 End: 07-19-2023 Tobacco smoking status Never smoked tobacco (finding) [facility] Sex Assigned At Female [facility] Start: 06-01-2022 End: 07-20-2023 Exposure to SARS-CoV-2 (event) Not sure [facility] Start: 07-19-2023 Tobacco use and exposure Smokeless tobacco non-user [facility] Work Phone: Start: 07-20-2023 End: 08-17-2023 Alcohol intake Ex-drinker (finding) [facility] Work Phone: Start: 07-20-2023 End: 08-17-2023 Alcohol intake [facility] Work Phone: Start: 07-20-2023 End: 08-17-2023 Tobacco use panel [facility] Work Phone: Start: 07-19-2023 Alcohol Comment 1 or 2 every few mon ths [facility] Work Phone: Start: 08-07-2023 End: 08-17-2023 Exposure to SARS-CoV-2 (event) Yes [facility] Functional Status Date Assessment Result Facility 06-09-2022 Functional Status [facility] 06-09-2022 Functional Status 2 [facility] 06-09-2022 Functional Status Walker [facility] 06-09-2022 Functional Status [facility] 06-09-2022 Functional Status [facility] 06-09-2022 Functional Status [facility] 06-08-2022 Functional Status Lunch Percent 100 [facility] 06-08-2022 Functional Status Single level home [facility] 06-08-2022 Functional Status Maintained [facility] 05-28-2022 Functional Status Sensory Deficits None [facility] Mental Status Date Assessment Result Facility 06-09-2022 Mental Status Oriented x 4 [facility] 06-09-2022 Mental Status Orientation Oriented x 4 [facility] 06-09-2022 Mental Status [facility] 06-08-2022 Mental Status [facility] Clinical Notes 05-28-2022 to 07-20-2023 Silvia Chao, SUPERVISOR [employer] FABRICATION-TOE TRIMMER - 07/20/2023 1:00 PM Drew Ramires, TELETYPE MECHANIC - 06/16/2022 1:45 PM EDTRosemarie Banuelos, PT - 06/11/2022 1:45 PM EDT Note Date & Type Note Facility 07-20-2023 History of Present illness Narrative Subjective Patient ID: Lori Khan is a 58 y.o. female who presents for [facility] Care. HPI: Presents today TO [facility] CARE. FORMER DR. HUBBARD PATIENT. NO SPECIFIC COMPLAINTS DISC BULGING/LUMBAR COMPRESSED NERVE- BACK PAIN RADIATES DOWN LEFT LEG. STATES NO BACK PAIN CURRENTLY BUT DOES HAVE THE RADIATING PAIN. WE DISCUSSED A NEUROSURGERY REFERRAL. SHE WILL CALL BACK WHEN SHE KNOWS WHO IS COVERED BY HER INSURANCE. RINCON- FOLLOWS WITH NEURO. RX'D IRON AND MANAGEMENT BY THEM B12- WILL CHECK LEVEL COLON- DONE 3 YEARS AGO. WILL REQUEST RECORDS. VIT D - WILL CHECK LEVEL MAMMO- LAST DONE SEVERAL YEARS AGO. WILL ORDER SCREEN RA- FOLLOWS WITH DR. CAMPBELL, RHEUM DEPRESSION- STABLE. MED REFILL Visit Vitals BP 128/74 (BP Location: Right arm, Patient Position: Sitting) Ht 1.651 m (5' 5 ) Wt 107 kg (235 lb) LMP (LMP Unknown) BMI 39.11 kg/m OB Status Postmenopausal Smoking Status Never BSA 2.22 m Review of Systems Constitutional: Negative for chills, fatigue, fever and unexpected weight change. HENT: Negative for congestion, ear pain, sore throat and trouble swallowing. Eyes: Negative for photophobia, pain, redness and visual disturbance. Respiratory: Negative for apnea, cough, choking, chest tightness, shortness of breath and wheezing. Cardiovascular: Negative for chest pain, palpitations and leg swelling. Gastrointestinal: Negative for abdominal distention, abdominal pain, blood in stool, constipation, diarrhea, nausea and vomiting. Genitourinary: Negative for difficulty urinating, dysuria, flank pain, frequency, hematuria and urgency. Musculoskeletal: Negative for arthralgias, back pain, gait problem, joint swelling, myalgias and neck pain. Skin: Negative for rash and wound. Neurological: Negative for dizziness, seizures, syncope, facial asymmetry, speech difficulty, weakness, numbness and headaches. Psychiatric/Behavioral: Negative for confusion, sleep disturbance and suicidal ideas. The patient is not nervous/anxious. Objective Study Result Narrative & Impression Interpreted By: CAITLYN REGALADO MD Patient Name: LORI KHAN STUDY: MRI L-SPINE WO; 05/10/2023 3:03 pm INDICATION: cauda acquina syndrome w/foot drop . COMPARISON: None. ACCESSION NUMBER(S): [id number] ORDERING CLINICIAN: KATIE VALIENTE TECHNIQUE: Sagittal T1, T2, STIR, axial T1 and T2 weighted images of the lumbar spine were acquired. FINDINGS: Grade 1 retrolisthesis T12 over L1 and L4 over L5. Mild levoconvex scoliosis of the lumbar spine with apex at L3. Type 2 Modic discogenic degenerative changes L4-5. Diffuse disc desiccation throughout the lumbar region. Conus medullaris terminates appropriately at the L1-2 level. T12-L1: Disc bulge/pseudo bulge minimally indents the ventral thecal sac. Neuroforamina minimally narrowed. L1-2: Disc bulge minimally indents the ventral sac and minimally narrows the foramina. L2-3: Disc bulge minimally indents the ventral thecal sac and minimally narrows the right neuroforamen in combination with hypertrophic facet changes. L3-4: Posterior endplate osteophytes and disc bulge minimally indent the ventral thecal sac and moderately narrow the right greater than left neuroforamina. The subarticular zones are partly effaced due to hypertrophic facet changes ligamentum flavum hypertrophy and degenerative disc disease. L4-5: Disc bulge and posterior endplate osteophytes minimally indent the ventral thecal sac and combine with hypertrophic facet changes and ligamentum flavum hypertrophy to partially efface left greater than right subarticular zone and moderate the narrow the left and minimally narrow the right neuroforamina. L5-S1: Posterior endplate osteophytes and disc bulge/pseudo bulge minimally indent the ventral epidural fat. There is moderate to severe narrowing of the left neuroforamen due to posterior endplate osteophytes and hypertrophic facet changes possibly with a component of disc herniation with likely compression of the exiting left L5 nerve root. The right neuroforamen is not significantly narrowed. IMPRESSION: Degenerative changes of the lumbar spine as above described worst at L5-S1 where there is moderate to severe left foraminal stenosis with likely compression of the exiting left L5 nerve root and additional degenerative changes as above. Please correlate clinically. Physical Exam Constitutional: Appearance: Normal appearance. She is normal weight. HENT: Head: Normocephalic. Eyes: Extraocular Movements: Extraocular movements intact. Conjunctiva/sclera: Conjunctivae normal. Pupils: Pupils are equal, round, and reactive to light. Cardiovascular: Rate and Rhythm: Normal rate and regular rhythm. Pulses: Normal pulses. Heart sounds: Normal heart sounds. Pulmonary: Effort: Pulmonary effort is normal. Breath sounds: Normal breath sounds. Musculoskeletal: General: Normal range of motion. Cervical back: Normal range of motion. Skin: General: Skin is warm and dry. Neurological: General: No focal deficit present. Mental Status: She is alert and oriented to person, place, and time. Psychiatric: Mood and Affect: Mood normal. Behavior: Behavior normal. Thought Content: Thought content normal. Judgment: Judgment normal. Assessment/Plan Problem List Items Addressed This Visit Depression Relevant Medications citalopram (CeleXA) 20 mg tablet HTN (hypertension) - Primary Compression of lumbar nerve root Lumbar disc herniation Iron deficiency Wellness examination Relevant Orders Hemoglobin A1C Comprehensive Metabolic Panel TSH with reflex to Free T4 if abnormal Lipid Panel CBC and Auto Differential Low back pain radiating to left leg B12 deficiency Relevant Orders Vitamin B12 Vitamin D deficiency Relevant Orders Vitamin D 25-Hydroxy,Total (for eval of Vitamin D levels) Establishing care with new doctor, encounter for Rheumatoid arthritis ([facility]) Relevant Medications methocarbamol (Robaxin) 750 mg tablet Class 2 severe obesity due to excess calories with serious comorbidity and body mass index (BMI) of 39.0 to 39.9 in adult ([facility]) Breast cancer screening by mammogram Relevant Orders BI mammo bilateral screening tomosynthesis PLEASE MONITOR CLOSELY FOR ANY UNTOWARD SIDE EFFECTS OR COMPLICATIONS OF MEDICATIONS. PATIENT IS STRONGLY ADVISED TO BE COMPLIANT WITH RECOMMENDATIONS. QUESTIONS AND CONCERNS WERE ADDRESSED. INSTRUCTED TO CALL, RETURN SOONER, OR GO TO THE ER, IF SYMPTOMS PERSIST OR WORSEN. THEY VOICED UNDERSTANDING AND DENIES FURTHER QUESTIONS AT THIS TIME. TIME CODE 1. PREPARATION FOR PATIENT'S VISIT (REVIEWING CHART, CURRENT MEDICAL RECORDS, OUTSIDE HEALTH PROVIDER RECORDS, PREVIOUS HISTORY, EXAM, TEST, PROCEDURE, AND MEDICATIONS) 2. FACE TO FACE ENCOUNTER OBTAINING HISTORY FROM THE PATIENT/FAMILY/CAREGIVERS; PERFORMING EVALUATION AND EXAMINATION; ORDERING TESTS OR PROCEDURES; REFERRING AND COMMUNICATING WITH OTHER HEALTHCARE PROVIDERS; COUNSELING AND EDUCATION OF THE PATIENT/FAMILY/CAREGIVERS; INDEPENDENTLY INTERPRETING RESULTS (TESTS, LABS, PROCEDURES, IMAGING) AND COMMUNICATING AND EXPLAINING RESULTS TO THE PATIENT/FAMILY/CAREGIVERS 3. COORDINATION OF CARE; PREPARING AND PRINTING DISCHARGE INSTRUCTIONS AND ANY EDUCATIONAL MATERIAL FOR THE PATIENT/FAMILY/CAREGIVERS. DOCUMENTING CLINICAL INFORMATION IN THE ELECTRONIC MEDICAL RECORD 4. REVIEWING OARRS NEEDED MDM 1) COMPLEXITY: MORE THAN 1 STABLE CHRONIC CONDITION ADDRESSED OR 1 ACUTE ILLNESS ADDRESSED 2)DATA: TESTS INTERPRETED AND OR ORDERED, TOOK INDEPENDENT HISTORY OR RECORDS REVIEWED 3)RISK: MODERATE RISK DUE TO NATURE OF MEDICAL CONDITIONS/COMORBIDITY OR MEDICATIONS ORDERED OR SURGICAL OR PROCEDURE REFERRAL 1 MONTH WITH LABS documented in this encounter [facility] Work Phone: 06-16-2022 History of Present illness Narrative [facility] OUTPATIENT REHABILITATION DAILY TREATMENT NOTE Today's Date 06/16/2022 Patient Name: Lori Khan Date of : 1965 Current Visit #: 2 Authorized Visits: 40 Case Name: Primary osteoarthritis of right knee History: Pre-Treatment Pain Scale: 3 Symptoms: stabilized Functional Diagnosis: 1. Primary osteoarthritis of right knee Clinical Information: Subjective: Pt reports taking 2 percocet's prior to therapy. No increased symptoms after IE. Notes using ice at home. Pt reports has tried using cane in house but does not feel stable enough yet. Pt used FWW this date. Objective Started with ex's per log and provided written HEP. Vaso to end to assist with pain and swelling. Treatments: Physical Therapy Exercise Log - 06/16/22 1349 OTHER Precautions/Contraindications 06/08/2022 , R TKA Notes 1:45pm-2:25pm Therapeutic Exercise (56512) Intervention quads set 5 x10 Parameters SLR 2x5 Intervention heel slides AAROM 5 x10 AROM x10 Parameters gait training for heel to toe pattern Intervention SAQ 3 x10 Parameters LAQ 3 x10 Parameters game ready Additional Exercises Add more exercises? Yes Modalities Modalities Vasopneumatic Treatment Parameters 34 F, low pressure 10 mins PT Treatment Times Therex Total Time 30 Modalities Total Time 10 Direct Treatment Time 40 Total Treatment Time 40 Goals: Physical Therapy Ortho Goals: Patient will safely, correctly and independently demonstrate the ability to perform a progressive HEP to achieve maximal rehabilitation potential and prevent this condition from recurring. 2 weeks Patient will improve knee pain level 0-3/10 from 5-9/10. 6 weeks Patient will demonstrate increased knee ROM of R 0-120 0-90 in order to participation in daily activities. 6 weeks Patient will improve strength of quadriceps muscle 5/5 with good eccentric control to increase tolerance of functional activities such as stair negotiation. 6 weeks Patient will improve tolerance to ambulation 20 mins with proper and safe gait without assistive device. 6 weeks Patient will improve FOTO score to at least 61 (predicted) from 35 to show MDC/MCII and expected functional outcome. 6 weeks Patient Education: Quality of movement, Verbal HEP, HEP Adherence, and Diagnosis and recovery specific education with patient demonstrated understanding and verbalized understanding. Post-Treatment Pain Scale: 2 Assessment: Patient had an expected response to treatment. Pt reports good understanding of HEP and benefits of therapy. Good relief from vaso. Pt education on using SPC in L hand if possible. Skilled Intervention demonstrated by modifications of treatment per exercise log including increased load, increased rate, increased intensity, increased volume, and assessment of patient's response and safety interventions per exercise log. Progress towards goals as expected. Plan for Next Visit: Treatment Visit with focus on continue progressing strength and ROM. Trial gait training with SPC NV. Lissett Ramires PTA State License, [id number] documented in this encounter [facility] 06-11-2022 History of Present illness Narrative [facility] OUTPATIENT REHABIL[facility]ATION Evaluation Today's Date 06/11/2022 Patient Name: Lori Khan Date of : 1965 Case Name: Primary osteoarthritis of right knee Functional Diagnosis: 1. Primary osteoarthritis of right knee Clinical Information: Subjective Referring Diagnosis: R TKA History of Present Illness Surgery Date: 06/08/2022 Days Post-Op: 3 Subjective History: Patient presents to physical therapy S/P R TKA on 06/08. Went home from hospital on 06/09. She is on oxycodone and tylenol for pain relief. Patient has been doing ice application through out the day. She has been doing some exercises as provided at hospital. She has been walking with walker. Has future appointment with surgeon on 04/19 for staple. Pain Scale Pain location: knee Average Pain: 5/10 Pain at highest: 9/10 Easing factors: ice application, pain pills Personal Goals: Wants to get back to full function and walking as she used to do Functional Mobility Status Functional Limitations: limited mobility patient reported Social Support: Patient lives with others. Home Environment Current Home Environment: Current Entry: 2 GLYNN at home. 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 Sleep disturbance: Sleep Disturbance Knee Right Knee Tenderness: No tenderness on palpation Range of Motion: Flexion Active: 82 Passive: 90 Extension Active: 0 Muscle Strength: Flexion: 3+ Extension: 3+ Quad Set: poor Gait: antalgic, lacks knee bending during swing, walks with walker Incision under dressing and no signs of infection seen on open area. Swelling moderate around R knee Treatments: Physical Therapy Exercise Log - 06/11/22 1403 OTHER Precautions/Contraindications 06/08/2022 , R TKA Therapeutic Exercise (23382) Intervention quds set 5 x10 Parameters SLR 5 Intervention heel slides 10, 5 x10 Parameters gait training for heel to toe pattern Additional Exercises Add more exercises? Yes Modalities Modalities Vasopneumatic Treatment Parameters 34 F, low pressure 10 mins Treatment Plan: Frequency of Visits: twice per week Duration: 6 weeks Interventions: Therapeutic Exercise (83081), Neuromuscular Re-Education (67045), Manual Therapy (74628), Gait Training (58442), Hot/Cold Pack (87235), and Vasopneumatic (80351) Rehab Potential: good Goals: Physical Therapy Ortho Goals: Patient will safely, correctly and independently demonstrate the ability to perform a progressive HEP to achieve maximal rehabilitation potential and prevent this condition from recurring. 2 weeks Patient will improve knee pain level 0-3/10 from 5-9/10. 6 weeks Patient will demonstrate increased knee ROM of R 0-120 0-90 in order to participation in daily activities. 6 weeks Patient will improve strength of quadriceps muscle 5/5 with good eccentric control to increase tolerance of functional activities such as stair negotiation. 6 weeks Patient will improve tolerance to ambulation 20 mins with proper and safe gait without assistive device. 6 weeks Patient will improve FOTO score to at least 61 (predicted) from 35 to show MDC/MCII and expected functional outcome. 6 weeks Patient Education provided: Patient was educated about the condition, precautions, and physical therapy plan of care. Clinical Impression: Pt is a 57 y.o. year old female who presented to the clinic with R TKA. Upon assessment, pt has been found with the following impairments: Pain, swelling, decreased ROM; decreased strength, endurance and coordination; impaired gait, balance, tolerance to do activities. 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 Pt to be discharged from OP PT services if/when goals are met, if they fail to make progress with conservative management in PT, if their level of progress plateaus, or if they do not maintain compliance with attendance or HEP. At this time, it is my clinical judgment that services are medically necessary. Rosemarie Banuelos PT STATE LICENSE, [id number] documented in this encounter [facility] 06-09-2022 Note Date of Service 06/09/2022 Chief Complaint Right knee pain Subjective Patient seen and evaluated while resting in bed this morning. She states that she worked with therapy already and her pain med wore off already. She reports that her right knee is very painful at the moment. She denies any other problems or concerns this morning. Labs and vital signs reviewed and patient appears to be stable from hospitalist perspective. Patient denies any fever, chills, cough, shortness of breath, chest pain, abdominal pain, or nausea. All questions answered. Objective Vitals and Measurements T: 36.5 C (Oral) TMIN: 36.3 C (Oral) TMAX: 36.7 C (Oral) HR: 68 RR: 18 BP: 111/64 SpO2: 94% Intake and Output 7AM Yesterday to 7AM Today Intake and Output (Last 24 hours) Intake Administration Information 160.00 Oral Intake 240.00 Supplement Intake 250.00 Output Urine Count 2.00 Total Summary Total Intake 650.00 Total Output 0.00 Fluid Balance 650.00 Physical Exam General: No acute distress. Patient is alert and appropriate. Skin: No rash. Skin is warm, dry and intact. HEENT: Head is normocephalic, atraumatic. Pupils are equal, round and reactive. Neck: Supple. No lymphadenopathy, thyromegaly. Lungs: Bilaterally clear but diminished without crepitation or wheeze. Unlabored. Heart: Heart is regular rhythm, S1, S2. No murmurs, gallops or rubs. Abdomen: Abdomen is soft, nontender. Bowels sounds present in all quadrants. Extremities: No clubbing, cyanosis, or edema. Peripheral pulses palpable. No calf tenderness. Right knee surgical dressing is dry and intact. Neurological: Patient is awake and alert to person, place and time. Following simple commands, moving all extremities. Weight Dosing Weight: 100 kg (06/08/22) Dosing Weight: 100 kg (06/08/22) Medications Medications (22) Active Scheduled: (10) acetaminophen 500 mg Tablet 1,000 mg 2 tab(s), Oral, q6h aspirin 81 mg Chewable 81 mg 1 tab(s), Oral, BIDM citalopram 20 mg Tablet 20 mg 1 tab(s), Oral, qAM docusate sodium 100 mg Capsule 100 mg 1 cap(s), Oral, BID docusate-senna (Senokot S) 50 mg-8.6 mg Tablet 2 tab(s), Oral, BID famotidine 20 mg tablet 20 mg 1 tab(s), Oral, qDay folic acid 1 mg tablet 1 mg 1 tab(s), Oral, BID magnesium hydroxide 8% Suspension 30 mL UD 30 mL, Oral, Daily meloxicam 7.5 mg tablet 7.5 mg 1 tab(s), Oral, BIDM multivitamin (Myadec) with minerals Therapeutic Multiple Vitamins with Minerals Tablet 1 tab(s), Oral, qDayM Continuous: (1) Lactated Ringers 1000 mL 1,000 mL, Intravenous, 20 mL/hr PRN: (11) acetaminophen 325 mg Tablet 650 mg 2 tab(s), Oral, q4h diphenhydramine 25 mg tablet 25 mg 1 tab(s), Oral, q6h diphenhyDRAMINE 50 mg/mL (1 mL) INJ 25 mg 0.5 mL, IV Push, q6h ketorolac 30 mg/mL (1 mL) vial 15 mg 0.5 mL, IV Push, q6h morphine 2 mg/mL 1 mL syringe 2 mg 1 mL, IV Push, q1h ondansetron 2 mg/ 1 mL 2 mL INJ 4 mg 2 mL, IV Push, q8h oxycodone 5 mg tablet (immediate release) 5 mg 1 tab(s), Oral, q4h oxycodone 5 mg tablet (immediate release) 10 mg 2 tab(s), Oral, q4h prochlorperazine 10 mg/2 mL vial 5 mg 1 mL, IV Push, q6h sodium biphosphate-sodium phosphate 19 gm-7 gm Enema 133 mL, Rectal, qDay sumatriptan 25 mg Tablet 100 mg 4 tab(s), Oral, qDay Lab Results 06/09 06:47 Glucose Level: 107 H Sodium Level: 140 Potassium Level: 4.0 BUN: 18 Creatinine Lvl (s): 0.63 06/09 05:35 WBC: 8.6 Hgb: 9.6 L Hct: 28.8 L Platelet: 224 Neutrophil %: 73.5 Imaging Results and Diagnostics XR Knee 1 or 2 Views Right Result Date: June 08, 2022 Verified By: DONIS LOPEZ MD CLINICAL STATEMENT: IMPRESSION: Expected postsurgical changes status post right total knee arthroplastywithout acute fracture, dislocation, or hardware failure. EKG No qualifying data available. Assessment/Plan 1. Migraines Chronic, controlled *Continue current home medications. 2. OA (osteoarthritis) Chronic *Continue current home medications. *Tylenol PRN for pain. 3. Rheumatoid arthritis Chronic *Continue methotrexate at current dose. 4. Status post right knee replacement *POD#1. *Continue PRN pain medication. *Continue Zofran PRN for nausea. *Management per primary team. Patient seen and evaluated this morning. Labs and vital signs reviewed. Patient is optimized for discharge home today from hospitalist perspective. DVT prophylaxis with aspirin 81 mg PO BID. Code status: Full Code. Labs, diagnostic test and progress notes reviewed as noted in HPI. Plan of care discussed with patient. All questions answered. Patient verbalizes understanding and is agreeable with plan of care. This case was discussed with collaborating physician, Dr. Dane Darling. Time Spent 35 minutes. Digitally Signed by FAWN COLE on 06/09/2022 02:07 PM [facility] 06-09-2022 Hospital Discharge instructions Patient Education 06/09/2022 11:59:52 5 - [facility] Post-op Instruction 03/2017 (Custom)(CUSTOM) [facility] Post-operative Instructions PLEASE FOLLOW [facility] POST-OP INSTRUCTIONS GIVEN WATCH FOR SIGNS OF INFECTION: call the office ([phone]) if experencing any of the following: (Usually appears 36-48 hours after surgery) Increased temperature (101 degrees Fahrenheit or higher) Redness or swelling Increased uncontrolled pain Foul odor or drainage Calf discomfort Significant swelling Or if having any chest pain, shortness of breath, or difficulty breathing or swallowing call the office or go the nearest Emergency Room. If you have any questions, please call your doctor at the number listed on your follow up instructions. Form: 338A (65433) R: 12/19 Follow Up Care 04/26/2022 07:30:12 With:[facility] Address: [place] When:06/11/2022 11:20:00 Comments:PHYSICAL THERAPY. Patient has scheduledFollow-up as scheduled With:VITOR YODER PA-C, Orthopedic Address: [facility] [address] [place] [address] [phone] When:06/21/2022 14:30:00 Comments:Follow-up as scheduled [facility] 06-09-2022 Nurse Discharge summary Discharged to home with . Escorted to the exit via w/c per myself. Left at 1335. [facility] 06-09-2022 Note Discharge Instructions Thank you for allowing [facility] to assist you with your healthcare needs. The following is important discharge information regarding your hospital visit. Your Care Team STEVIE HONG, ALYSSIA HERNANDEZ MD, LISA APRN-MANUEL Your Diagnosis Migraines OA (osteoarthritis) Rheumatoid arthritis Status post right knee replacement What to do next Follow Up Appointments Follow Up with VITOR YODER PA-C, Orthopedic When 06/21/2022 02:30 PM EST Why: Follow-up as scheduled Where: [facility] [place] [address]- Follow Up with [facility] When 06/11/2022 11:20 AM EDT Why: PHYSICAL THERAPY. Patient has scheduledFollow-up as scheduled Where: [place] Allergies aspirin (Bleeding) sulfa drug (Mouth sores) Medications Please ask your primary doctor or pharmacist before taking any other medication not listed, including over the counter drugs, herbal medications, vitamins and or supplements as they may interact with your home medications. What How Much When Why Instructions Last Dose New acetaminophen (acetaminophen 500 mg oral tablet) 2 tab(s) by mouth Every 8 hours Duration: 14 Days Pickup at [facility] #[id number] 06/09 9AM New aspirin (aspirin 81 mg oral delayed release tablet) 1 tab(s) by mouth Two (2) times a day Duration: 30 Days Pickup at [facility] #[id number] 06/09 9AM New oxyCODONE (oxyCODONE 5 mg oral tablet ( IMMEDIATE release )) 2 tab(s) by mouth Every 4 hours as needed for Pain, scale 4-6 Status post right knee replacement Duration: 7 Days Pickup at [facility] #[id number] 06/09 11AM Unchanged celecoxib (celecoxib 200 mg oral capsule) 1 cap by mouth Once a day as needed for as needed for pain 06/09 9AM Unchanged cholecalciferol (Vitamin D3 25 mcg (1000 intl units) oral capsule) 1 cap by mouth Once a day 06/09 9AM Unchanged citalopram (citalopram 20 mg oral tablet) 1 tab(s) by mouth Once a day (in the morning) 06/09 9AM Unchanged cyanocobalamin (Vitamin B12 500 mcg oral tablet) 1 tab(s) by mouth Every other day 06/09 9AM Unchanged ferrous gluconate (Ferate 256 mg (28 mg elemental iron) oral tablet) 1 tab(s) by mouth Every other day 06/09 9AM Unchanged folic acid (folic acid 1 mg oral tablet) 1 tab(s) by mouth Two (2) times a day 06/09 9AM Unchanged gabapentin (gabapentin 600 mg oral tablet) 1 tab(s) by mouth Daily at bedtime 06/09 9AM Unchanged herbal/ nutritional product 1 cap by mouth Two (2) times a day 06/09 9AM Unchanged inulin (Fiber Choice 1.5 g oral tablet, chewable) 2 tab(s) Chewed Once a day 06/09 9AM Unchanged SUMAtriptan (SUMAtriptan 100 mg oral tablet) 1 tab(s) by mouth Once a day as needed for as needed for migraine headache may repeat dose after 2 hours up to a maximum of 200 mg in 24 hours None Pharmacy Information [facility] #[id number]: [address] [place], [place] [id number] [phone] What How Much When Comments Stop Taking ibuprofen (ibuprofen 200 mg oral tablet) 6 tab(s) by mouth Every 6 hours as needed for as needed for pain Stop Taking methocarbamol (methocarbamol 750 mg oral tablet) 2 tab(s) by mouth Every day as needed for as needed for pain Stop Taking methotrexate (methotrexate 2.5 mg oral tablet) 6 tab(s) by mouth Every Tuesday Stop Taking traMADol (traMADol 50 mg oral tablet) 1 tab(s) by mouth Three (3) times a day as needed for as needed for pain Please take this list to your next doctor s visit. Bring all medications you take, including over the counter medications, herbals and other supplements with you to your doctor s visit. Patients and families are reminded to discard old lists and to update any records with all medication providers or retail pharmacies. Medication Leaflets acetaminophen (oral) (a SEET a MIN oh fen) Actamin, Anacin AF, Aurophen, Bromo [place], Children's Tylenol, Mapap, M-Pap, Pharbetol, Silapap Childrens, Tactinal, Tempra Quicklets, Tycolene, Tylenol, Vitapap What is the most important information I should know about acetaminophen? An overdose of acetaminophen can damage your liver or cause . Call your doctor at once if you have upper stomach pain, loss of appetite, dark urine, or jaundice (yellowing of your skin or eyes). Stop taking this medicine and get medical help if you have skin redness or a blistering rash. What is acetaminophen? Acetaminophen is used to reduce fever and relieve minor pain caused by conditions such as colds or flu, headache, muscle aches, arthritis, and menstrual cramps. Acetaminophen may also be used for purposes not listed in this medication guide. What should I discuss with my healthcare provider before taking acetaminophen? You should not take acetaminophen if you are allergic to it, or if you take other medications that contain acetaminophen. Ask a doctor or pharmacist if this medicine is safe to use if you've ever had cirrhosis of the liver, or if you drink alcohol daily. Ask a doctor before using this medicine if you are or . How should I take acetaminophen? Use exactly as directed on the label, or as prescribed by your doctor. An acetaminophen overdose can damage your liver or cause . Adults and teenagers at least 12 years old: Do not take more than 1000 milligrams (mg) at one time or more than 4000 mg in 24 hours. Children younger than 12 years old: Do not take more than 5 doses of children's formula acetaminophen in 24 hours. Do not give extra-strength acetaminophen to a child younger than 12 years old without medical advice. A child's dose is based on age and weight. Carefully follow the dosing instructions provided with this medicine. Ask a doctor before giving this medicine to a child younger than 2 years. Acetaminophen made for infants comes with its own medicine dropper or oral syringe. Measuring with the wrong device may cause an overdose. Use only the provided dosing device provided to measure an 's dose. Acetaminophen comes in many different forms such as capsules, liquid, chewable or disintegrating tablets, and dissolving powders or granules. Read and carefully follow any Instructions for Use provided with your medicine. Ask your doctor or pharmacist if you need help. Stop taking acetaminophen and call your doctor if: you still have a sore throat after 2 days of use; you still have a fever after 3 days of use; you still have pain after 7 days of use (or 5 days if treating a child); you have a skin rash, ongoing headache, nausea, vomiting, redness or swelling; or your symptoms get worse, or if you have any new symptoms. Taking acetaminophen may cause false results with certain blood glucose monitors. If you have diabetes, ask your doctor about the best way to monitor your blood sugar levels while using acetaminophen. Store at room temperature away from heat and moisture. What happens if I miss a dose? Acetaminophen is used when needed. If you are on a dosing schedule, skip any missed dose. Do not use two doses at one time. What happens if I overdose? Seek emergency medical attention or call the Poison Help line at . An overdose can be fatal. Overdose symptoms include vomiting, stomach pain, and yellowing of your skin or eyes. What should I avoid while taking acetaminophen? Avoid using other medicines that may contain acetaminophen. Avoid drinking alcohol. What are the possible side effects of acetaminophen? Get emergency medical help if you have signs of an allergic reaction: hives; difficulty breathing; swelling of your face, lips, tongue, or throat. In rare cases, acetaminophen may cause a severe skin reaction that can be fatal, even if you took acetaminophen in the past and had no reaction. Stop taking this medicine and call your doctor right away if you have skin redness or a rash that spreads and causes blistering and peeling. Stop taking acetaminophen and call your doctor at once if you have signs of liver problems: stomach pain (upper right side); loss of appetite; tiredness, itching; dark urine, kevan-colored stools; or jaundice (yellowing of the skin or eyes). Less serious side effects may be more likely, and you may have none at all. This is not a complete list of side effects and others may occur. Call your doctor for medical advice about side effects. You may report side effects to FDA at 6-140-PEO-2193. What other drugs will affect acetaminophen? Other drugs may affect acetaminophen, including prescription and [id number] medicines, vitamins, and herbal products. Tell your doctor about all other medicines you use. Where can I get more information? Your pharmacist can provide more information about acetaminophen. Remember, keep this and all other medicines out of the reach of children, never share your medicines with others, and use this medication only for the indication prescribed. Every effort has been made to ensure that the information provided by [employer]. ('[employer]') is accurate, up-to-date, and complete, but no guarantee is made to that effect. Drug information contained herein may be time sensitive. [employer] information has been compiled for use by healthcare practitioners and consumers in the [place] and therefore [employer] does not warrant that uses outside of the [place] are appropriate, unless specifically indicated otherwise. [employer] drug information does not endorse drugs, diagnose patients or recommend therapy. [employer] drug information is an informational resource designed to assist licensed healthcare practitioners in caring for their patients and/or to serve consumers viewing this service as a supplement to, and not a substitute for, the expertise, skill, knowledge and judgment of healthcare practitioners. The absence of a warning for a given drug or drug combination in no way should be construed to indicate that the drug or drug combination is safe, effective or appropriate for any given patient. [employer] does not assume any responsibility for any aspect of healthcare administered with the aid of information [facility] provides. The information contained herein is not intended to cover all possible uses, directions, precautions, warnings, drug interactions, allergic reactions, or adverse effects. If you have questions about the drugs you are taking, check with your doctor, nurse or pharmacist. Copyright 7446-9854 [employer]. Version: 22.02. Revision Date: 10/02/2021. aspirin (oral) ( pir in) Arthritis Pain, Aspi-Cor, Aspir-Low, Nadia Plus, Durlaza, Ecotrin, Miniprin, Vazalore What is the most important information I should know about aspirin? Aspirin can cause Mildred's syndrome, a serious and sometimes fatal condition in children. What is aspirin? Aspirin is a salicylate (at-OIL-ic-ate) that is used to treat pain, and reduce fever or inflammation. Aspirin is sometimes used to treat or prevent heart attacks, strokes, and chest pain (angina). Aspirin should be used for these conditions only under the supervision of a doctor. Aspirin may also be used for purposes not listed in this medication guide. What should I discuss with my healthcare provider before taking aspirin? Using aspirin in a child or teenager with flu symptoms or chickenpox can cause a serious or fatal condition called Mildred's syndrome. You should not use aspirin if you are allergic to it, or if you have: a recent history of stomach or intestinal bleeding; a bleeding disorder such as hemophilia; or if you have ever had an asthma attack or severe allergic reaction after taking aspirin or an NSAID (non-steroidal anti-inflammatory drug). Tell your doctor if you have ever had: asthma or seasonal allergies; stomach ulcers; liver disease; kidney disease; a bleeding or blood clotting disorder; gout; or heart disease, high blood pressure, or congestive heart failure. Taking aspirin during late may cause bleeding in the mother or the baby during delivery. Tell your doctor if you are or plan to become . You should not breastfeed while using this medicine. How should I take aspirin? Use exactly as directed on the label, or as prescribed by your doctor. Always follow directions on the medicine label about giving aspirin to a child. Take with food if aspirin upsets your stomach. You must chew the chewable tablet before you swallow it. Do not crush, chew, break, or open an enteric-coated or delayed/extended-release pill. Swallow it whole. Tell your doctor if you have a planned surgery. Store at room temperature away from moisture and heat. Do not use aspirin if you smell a strong vinegar odor in the aspirin bottle. The medicine may no longer be effective. What happens if I miss a dose? Aspirin is used when needed. If you are on a dosing schedule, skip any missed dose. Do not use two doses at one time. What happens if I overdose? Seek emergency medical attention or call the Poison Help line at . Overdose may cause stomach pain, vomiting, diarrhea, vision or hearing problems, fast or slow breathing, or confusion. What should I avoid while taking aspirin? Avoid alcohol. Heavy drinking can increase your risk of stomach bleeding. Avoid taking ibuprofen if you take aspirin to prevent stroke or heart attack. Ibuprofen can make aspirin less effective in protecting your heart and blood vessels. Ask your doctor how far apart your doses should be. Ask a doctor or pharmacist before using other medicines for pain, fever, swelling, or cold/flu symptoms. They may contain ingredients similar to aspirin (such as magnesium salicylate, ibuprofen, ketoprofen, or naproxen). What are the possible side effects of aspirin? Get emergency medical help if you have signs of an allergic reaction: hives; difficult breathing; swelling of your face, lips, tongue, or throat. Stop using aspirin and call your doctor at once if you have: ringing in your ears, confusion, hallucinations, rapid breathing, seizure (convulsions); severe nausea, vomiting, or stomach pain; bloody or tarry stools, coughing up blood or vomit that looks like coffee grounds; fever lasting longer than 3 days; or swelling, or pain lasting longer than 10 days. Common side effects may include: upset stomach, heartburn; drowsiness; or mild headache. This is not a complete list of side effects and others may occur. Call your doctor for medical advice about side effects. You may report side effects to FDA at 0-016-AWB-2177. What other drugs will affect aspirin? Ask your doctor before using aspirin if you take an antidepressant. Taking certain antidepressants with aspirin may cause you to bruise or bleed easily. Ask a doctor or pharmacist before using aspirin with any other medications, especially: a blood thinner (warfarin, Coumadin, Jantoven), or other medication used to prevent blood clots; or other salicylates such as Nuprin Backache Caplet, Kaopectate, KneeRelief, Pamprin Cramp Formula, Pepto-Bismol, Tricosal, Trilisate, and others. This list is not complete. Other drugs may affect aspirin, including prescription and wxlp-mts-musstft medicines, vitamins, and herbal products. Not all possible drug interactions are listed here. Where can I get more information? Your pharmacist can provide more information about aspirin. Remember, keep this and all other medicines out of the reach of children, never share your medicines with others, and use this medication only for the indication prescribed. Every effort has been made to ensure that the information provided by [employer]. ('[employer]') is accurate, up-to-date, and complete, but no guarantee is made to that effect. Drug information contained herein may be time sensitive. [employer] information has been compiled for use by healthcare practitioners and consumers in the [place] and therefore [employer] does not warrant that uses outside of the [place] are appropriate, unless specifically indicated otherwise. [employer] drug information does not endorse drugs, diagnose patients or recommend therapy. [employer] drug information is an informational resource designed to assist licensed healthcare practitioners in caring for their patients and/or to serve consumers viewing this service as a supplement to, and not a substitute for, the expertise, skill, knowledge and judgment of healthcare practitioners. The absence of a warning for a given drug or drug combination in no way should be construed to indicate that the drug or drug combination is safe, effective or appropriate for any given patient. [employer] does not assume any responsibility for any aspect of healthcare administered with the aid of information [employer] provides. The information contained herein is not intended to cover all possible uses, directions, precautions, warnings, drug interactions, allergic reactions, or adverse effects. If you have questions about the drugs you are taking, check with your doctor, nurse or pharmacist. Copyright 6648-5965 [employer]. Version: 16.03. Revision Date: 02/09/2021. oxycodone (ox i KOE done) Oxaydo, OxyCONTIN, Oxyfast, OxyIR, Roxicodone, Xtampza ER What is the most important information I should know about oxycodone? MISUSE OF OPIOID MEDICINE CAN CAUSE ADDICTION, OVERDOSE, OR . Keep the medication in a place where others cannot get to it. Taking opioid medicine during may cause life-threatening withdrawal symptoms in the . Fatal side effects can occur if you use opioid medicine with alcohol, or with other drugs that cause drowsiness or slow your breathing. What is oxycodone? Oxycodone is an opioid pain medication used to treat moderate to severe pain. The extended-release form of oxycodone is for hwdzge-pga-afczk treatment of pain and should not be used on an as-needed basis for pain. Oxycodone may also be used for purposes not listed in this medication guide. What should I discuss with my healthcare provider before using oxycodone? You should not use oxycodone if you are allergic to it, or if you have: severe asthma or breathing problems; or a blockage in your stomach or intestines. You should not use oxycodone unless you are already using a similar opioid medicine and are tolerant to it. Most brands of oxycodone are not approved for use in people under 18. OxyContin should not be given to a child younger than 11 years old. Tell your doctor if you have ever had: breathing problems, sleep apnea; a head injury, or seizures; drug or alcohol addiction, or mental illness; liver or kidney disease; urination problems; or problems with your gallbladder, pancreas, or thyroid. If you use opioid medicine while you are , your baby could become dependent on the drug. This can cause life-threatening withdrawal symptoms in the baby after it is born. Babies born dependent on opioids may need medical treatment for several weeks. Ask a doctor before using opioid medicine if you are . Tell your doctor if you notice severe drowsiness or slow breathing in the nursing baby. How should I use oxycodone? Follow the directions on your prescription label and read all medication guides. Never use oxycodone in larger amounts, or for longer than prescribed. Tell your doctor if you feel an increased urge to take more of this medicine. Never share opioid medicine with another person, especially someone with a history of drug abuse or addiction. MISUSE CAN CAUSE ADDICTION, OVERDOSE, OR . Keep the medication in a place where others cannot get to it. Selling or giving away opioid medicine is against the law. Stop taking all other ttorxm-pbx-zuoxu opioid pain medicines when you start taking extended-release oxycodone. Take oxycodone with food. Swallow the capsule or tablet whole to avoid exposure to a potentially fatal overdose. Do not crush, chew, break, open, or dissolve. If you cannot swallow a capsule whole, open it and sprinkle the medicine into a spoonful of pudding or applesauce. Swallow the mixture right away without chewing. Do not save it for later use. Never crush or break an oxycodone pill to inhale the powder or mix it into a liquid to inject the drug into your vein. This can cause in . Measure liquid medicine carefully. Use the dosing syringe provided, or use a medicine dose-measuring device (not a kitchen spoon). You should not stop using oxycodone suddenly. Follow your doctor's instructions about tapering your dose. Store at room temperature, away from heat, moisture, and light. Keep track of your medicine. Oxycodone is a drug of abuse and you should be aware if anyone is using your medicine improperly or without a prescription. Do not keep leftover opioid medication. Just one dose can cause in someone using this medicine accidentally or improperly. Ask your pharmacist where to locate a drug take-back disposal program. If there is no take-back program, flush the unused medicine down the toilet. What happens if I miss a dose? Since oxycodone is used for pain, you are not likely to miss a dose. Skip any missed dose if it is almost time for your next dose. Do not use two doses at one time. What happens if I overdose? Seek emergency medical attention or call the Poison Help line at . An opioid overdose can be fatal, especially in a child or other person using the medicine without a prescription. Overdose symptoms may include severe drowsiness, pinpoint pupils, slow breathing, or no breathing. Your doctor may recommend you get naloxone (a medicine to reverse an opioid overdose) and keep it with you at all times. A person caring for you can give the naloxone if you stop breathing or don't wake up. Your caregiver must still get emergency medical help and may need to perform CPR (cardiopulmonary resuscitation) on you while waiting for help to arrive. Anyone can buy naloxone from a pharmacy or local health department. Make sure any person caring for you knows where you keep naloxone and how to use it. What should I avoid while using oxycodone? Do not drink alcohol. Dangerous side effects or could occur. Avoid driving or operating machinery until you know how oxycodone will affect you. Dizziness or severe drowsiness can cause falls or other accidents. Avoid medication errors. Always check the brand and strength of oxycodone you get from the pharmacy. What are the possible side effects of oxycodone? Get emergency medical help if you have signs of an allergic reaction: hives; difficult breathing; swelling of your face, lips, tongue, or throat. Opioid medicine can slow or stop your breathing, and may occur. A person caring for you should give naloxone and/or seek emergency medical attention if you have slow breathing with long pauses, blue colored lips, or if you are hard to wake up. Call your doctor at once if you have: noisy breathing, sighing, shallow breathing, breathing that stops during sleep; a slow heart rate or weak pulse; a light-headed feeling, like you might pass out; confusion, unusual thoughts or behavior; seizure (convulsions); low cortisol levels-- nausea, vomiting, loss of appetite, dizziness, worsening tiredness or weakness; or high levels of serotonin in the body--agitation, hallucinations, fever, sweating, shivering, fast heart rate, muscle stiffness, twitching, loss of coordination, nausea, vomiting, diarrhea. Serious breathing problems may be more likely in older adults and in those who are debilitated or have wasting syndrome or chronic breathing disorders. Common side effects may include: drowsiness, headache, dizziness, tiredness; or constipation, stomach pain, nausea, vomiting. This is not a complete list of side effects and others may occur. Call your doctor for medical advice about side effects. You may report side effects to FDA at 7-099-JXN-1737. What other drugs will affect oxycodone? You may have breathing problems or withdrawal symptoms if you start or stop taking certain other medicines. Tell your doctor if you also use an antibiotic, antifungal medication, heart or blood pressure medication, seizure medication, or medicine to treat HIV or hepatitis C. Opioid medication can interact with many other drugs and cause dangerous side effects or . Be sure your doctor knows if you also use: cold or allergy medicines, bronchodilator asthma/COPD medication, or a diuretic ('water pill'); medicines for motion sickness, irritable bowel syndrome, or overactive bladder; other opioids--opioid pain medicine or prescription cough medicine; a sedative like Valium--diazepam, alprazolam, lorazepam, Xanax, Klonopin, Versed, and others; drugs that make you sleepy or slow your breathing--a sleeping pill, muscle relaxer, medicine to treat mood disorders or mental illness; or drugs that affect serotonin levels in your body--a stimulant, or medicine for depression, Parkinson's disease, migraine headaches, serious infections, or nausea and vomiting. This list is not complete and many other drugs may affect oxycodone. This includes prescription and bvcw-dbx-ortdmtv medicines, vitamins, and herbal products. Not all possible drug interactions are listed here. Where can I get more information? Your pharmacist can provide more information about oxycodone. Remember, keep this and all other medicines out of the reach of children, never share your medicines with others, and use this medication only for the indication prescribed. Every effort has been made to ensure that the information provided by [employer]. ('[employer]') is accurate, up-to-date, and complete, but no guarantee is made to that effect. Drug information contained herein may be time sensitive. [employer] information has been compiled for use by healthcare practitioners and consumers in the [place] and therefore [employer] does not warrant that uses outside of the [place] are appropriate, unless specifically indicated otherwise. [employer]'s drug information does not endorse drugs, diagnose patients or recommend therapy. [employer] drug information is an informational resource designed to assist licensed healthcare practitioners in caring for their patients and/or to serve consumers viewing this service as a supplement to, and not a substitute for, the expertise, skill, knowledge and judgment of healthcare practitioners. The absence of a warning for a given drug or drug combination in no way should be construed to indicate that the drug or drug combination is safe, effective or appropriate for any given patient. [employer] does not assume any responsibility for any aspect of healthcare administered with the aid of information [employer] provides. The information contained herein is not intended to cover all possible uses, directions, precautions, warnings, drug interactions, allergic reactions, or adverse effects. If you have questions about the drugs you are taking, check with your doctor, nurse or pharmacist. Copyright 9965-0426 [employer]. Version: 14.02. Revision Date: 09/11/2020. Education Materials [facility] Post-operative Instructions PLEASE FOLLOW [facility] POST-OP INSTRUCTIONS GIVEN WATCH FOR SIGNS OF INFECTION: call the office ([phone]) if experencing any of the following: (Usually appears 36-48 hours after surgery) Increased temperature (101 degrees Fahrenheit or higher) Redness or swelling Increased uncontrolled pain Foul odor or drainage Calf discomfort Significant swelling Or if having any chest pain, shortness of breath, or difficulty breathing or swallowing call the office or go the nearest Emergency Room. If you have any questions, please call your doctor at the number listed on your follow up instructions. Form: 338A ([id number]) R: 12/19 Additional Information VACCINATE! IT SAVES LIVES! Members of the community who have not yet received the COVID-19 vaccine and would like to receive it can visit one of [facility] vaccine clinics. There are many vaccine clinic locations within the [facility]. For locations and available times, please visit [email or web address] It is important to note that some COVID mobile vaccine clinics are held outdoors and may be canceled in rainy or stormy conditions. To learn more about pediatric vaccinations (ages 5-11), we invite you to visit the [facility] webpage. [email or web address] To learn more about the COVID-19 vaccine, we invite you to visit the [employer] website for a list of frequently asked questions. [email or web address] [facility] [employer] Patient Portal Access Instructions: Stay connected with your healthcare team and access your personal medical information anytime with the [employer] [employer] Patient Portal.If you would like a full copy of your medical records, please contact the [facility] Medical Records Department, Tuesday through Tuesday between 8a.m. and 4:30p.m. Please follow the directions below to access the portal: 1.Access the email account you [facility].2.Look for an invitation email from [facility].3.Open the email and access the invitation link: Accept Invitation to [facility] [employer]4.Fill in the required betts to create your account. Sign into [email or web address] with your username and password that you created in the above steps to stay up to date. You can then view a summary of results, a summary of your visits, and the ability to download your summaries to your computer or send the information securely to a physician. Remember that your healthcare information is confidential, so carefully consider who you will allow to register on the [employer] Patient Portal for access to your information. You can also access the [employer] Patient Portal on the [facility]. Simply click on Health Records under Health Data and then click on the [employer] logo. HOW TO SAFELY DISPOSE OF PRESCRIPTION MEDICATIONS Please use one of the following methods to safely dispose of your unused medications. 1.Use a drug disposal kit: the drug disposal pouch allows you to safely discard your old and unused drugs. Ask your nurse to give you one when you are discharged.2.Visit a local take-back location: Many local pharmacies and police departments have programs that collect old and unwanted prescription drugs. Call your local pharmacy or go to http://Parallels.NextPrinciples/8Y3Ui1w to find one close to you.3.Make use of household items: Use cat litter or old coffee grounds to dispose medications if other options are not available. Mix your drugs with these household products, seal them in an airtight container and throw it into the garbage. Call [facility]: [phone] to be sure your drugs can be disposed of in this way. Some medicines may require a different approach.4.Never flush your medications down the toilet. IF YOU HAVE BEEN PRESCRIBED AN OPIOID FOR PAIN If you have been prescribed an opioid (such as hydrocodone, oxycodone or morphine), it is critical to understand the possible side effects and risks of opioid pain medications. Even when taken as directed, opioids can have several side effects including: Tolerance, meaning you might need to take more of a medication for the same pain relief. Nausea, vomiting and/or constipation. Sleepiness, dizziness, dry mouth, confusion, depression or itching. Physical dependence, meaning you have withdrawal symptoms when a medication is stopped, can develop within a few days. KNOW YOUR RESPONSIBILITIES It is important to know exactly how much and how often to take the opioid pain medications you are prescribed. Never take opioids in higher amounts or more often than prescribed. Do not combine opioids with alcohol or other drugs that cause drowsiness, such as benzodiazepines, also known as benzos, including diazepam and alprazolam, muscle relaxants or sleep aids. Never sell or share prescription opioids. This is illegal. Store opioids in a secure place and out of reach of others (including children, family, friends and visitors). The last page of this document has been signed and retained as a CHART COPY. Signatures Patient Education Materials [address] [place] [address] Post-op Instruction 03/2017 (Custom)(CUSTOM) Medication Leaflets Tylenol, aspirin 81 mg oral tablet, chewable, oxyCODONE 5 mg oral tablet ( IMMEDIATE release ) My discharge plan and instructions have been reviewed and explained to me and I,LORI KHAN understand my current condition and have read and understand these discharge instructions. I have received a written copy of the plan/instructions. If I have questions, I am aware that I should contact my doctor. 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 Patient states she is having some pain waiting on her pain medication. Reports that she feels her pain is well-managed when taking her medication. She denies chest pain, shortness of breath, calf pain, nausea vomiting. No other complaints at this time ready for discharge home Objective Vitals and Measurements T: 36.5 C (Oral) TMIN: 36.3 C (Oral) TMAX: 36.7 C (Oral) HR: 68 RR: 18 BP: 111/64 SpO2: 94% Intake and Output 7AM Yesterday to 7AM Today Intake and Output (Last 24 hours) Intake Administration Information 160.00 Oral Intake 240.00 Supplement Intake 490.00 Output Urine Count 2.00 Total Summary Total Intake 890.00 Total Output 0.00 Fluid Balance 890.00 Physical Exam Exam I found patient sitting up in bed alert oriented. Patient in no respiratory distress, speaking in full sentences. Patient moving upper extremities without limitations good muscle tone and strength. Good motion of bilateral hips and left knee. The right knee, the dressing was clean dry intact. There was no calf tenderness. Strong posterior tibial dorsalis pedis pulse. Neurovascular is otherwise intact. Weight Dosing Weight: 100 kg (06/08/22) Dosing Weight: 100 kg (06/08/22) Medications Medications (22) Active Scheduled: (10) acetaminophen 500 mg Tablet 1,000 mg 2 tab(s), Oral, q6h aspirin 81 mg Chewable 81 mg 1 tab(s), Oral, BIDM citalopram 20 mg Tablet 20 mg 1 tab(s), Oral, qAM docusate sodium 100 mg Capsule 100 mg 1 cap(s), Oral, BID docusate-senna (Senokot S) 50 mg-8.6 mg Tablet 2 tab(s), Oral, BID famotidine 20 mg tablet 20 mg 1 tab(s), Oral, qDay folic acid 1 mg tablet 1 mg 1 tab(s), Oral, BID magnesium hydroxide 8% Suspension 30 mL UD 30 mL, Oral, Daily meloxicam 7.5 mg tablet 7.5 mg 1 tab(s), Oral, BIDM multivitamin (Myadec) with minerals Therapeutic Multiple Vitamins with Minerals Tablet 1 tab(s), Oral, qDayM Continuous: (1) Lactated Ringers 1000 mL 1,000 mL, Intravenous, 20 mL/hr PRN: (11) acetaminophen 325 mg Tablet 650 mg 2 tab(s), Oral, q4h diphenhydramine 25 mg tablet 25 mg 1 tab(s), Oral, q6h diphenhyDRAMINE 50 mg/mL (1 mL) INJ 25 mg 0.5 mL, IV Push, q6h ketorolac 30 mg/mL (1 mL) vial 15 mg 0.5 mL, IV Push, q6h morphine 2 mg/mL 1 mL syringe 2 mg 1 mL, IV Push, q1h ondansetron 2 mg/ 1 mL 2 mL INJ 4 mg 2 mL, IV Push, q8h oxycodone 5 mg tablet (immediate release) 5 mg 1 tab(s), Oral, q4h oxycodone 5 mg tablet (immediate release) 10 mg 2 tab(s), Oral, q4h prochlorperazine 10 mg/2 mL vial 5 mg 1 mL, IV Push, q6h sodium biphosphate-sodium phosphate 19 gm-7 gm Enema 133 mL, Rectal, qDay sumatriptan 25 mg Tablet 100 mg 4 tab(s), Oral, qDay Lab Results 06/09 06:47 Glucose Level: 107 H Sodium Level: 140 Potassium Level: 4.0 BUN: 18 Creatinine Lvl (s): 0.63 06/09 05:35 WBC: 8.6 Hgb: 9.6 L Hct: 28.8 L Platelet: 224 Neutrophil %: 73.5 EKG No qualifying data available. Assessment/Plan 1. Migraines 2. OA (osteoarthritis) 3. Rheumatoid arthritis 4. Status post right knee replacement 1. Continue all pain medications as prescribed 2. Continue physical therapy outpatient at [facility]. 3. Aspirin 81 mg 1 p.o. twice daily x30 days for postop DVT prophylaxis 4. Reminded not to use her Humira for 2 weeks postop 5. Continue weightbearing as tolerated with walker 6. Continue ice, and VIVIANA hose as directed 7. Follow-up in [address] Maravilla 8. Discharge home today Digitally Signed by JOSE CORNEJO on 06/09/2022 12:02 PM [facility] 06-08-2022 Anesthesiology Consult note Patient: LORI KHAN Age: 57 years Sex: Female : 1965 Associated Diagnoses: None Author: MADI ALARCON APRN-[employer] Assessment Postanesthesia assessment Vitals: Vital signs from flowsheet : Vital Signs 06/08/2022 10:22 EDT Temperature Temporal Artery 36.4 DegC Heart Rate Monitored 84 bpm Respiratory Rate 18 br/min Systolic Blood Pressure 118 mmHg Diastolic Blood Pressure 76 mmHg Mean Arterial Pressure 90 mmHg 06/08/2022 10:10 EDT Heart Rate Monitored 84 bpm Respiratory Rate 16 br/min Systolic Blood Pressure 112 mmHg Diastolic Blood Pressure 79 mmHg Mean Arterial Pressure 90 mmHg Reason For Taking VItal Signs Routine 06/08/2022 9:48 EDT Heart Rate Monitored 89 bpm Respiratory Rate 15 br/min Systolic Blood Pressure NBP 106 mmHg Diastolic Blood Pressure NBP 62 mmHg 06/08/2022 9:30 EDT Heart Rate Monitored 83 bpm Respiratory Rate 11 br/min Systolic Blood Pressure NBP 115 mmHg Diastolic Blood Pressure NBP 58 mmHg LOW 06/08/2022 9:15 EDT Heart Rate Monitored 92 bpm Respiratory Rate 11 br/min Systolic Blood Pressure NBP 118 mmHg Diastolic Blood Pressure NBP 70 mmHg 06/08/2022 9:09 EDT Heart Rate Monitored 85 bpm Respiratory Rate 15 br/min Systolic Blood Pressure NBP 97 mmHg Diastolic Blood Pressure NBP 50 mmHg 06/08/2022 9:05 EDT Heart Rate Monitored 89 bpm Respiratory Rate 14 br/min Systolic Blood Pressure NBP 89 mmHg LOW Diastolic Blood Pressure NBP 54 mmHg LOW 06/08/2022 9:00 EDT Temperature Temporal Artery 35.7 DegC Heart Rate Monitored 79 bpm Respiratory Rate 11 br/min Systolic Blood Pressure NBP 99 mmHg Diastolic Blood Pressure NBP 50 mmHg 06/08/2022 8:50 EDT Heart Rate Monitored 74 bpm bpm Respiratory Rate 11 br/min br/min Systolic Blood Pressure NBP 95 mmHg mmHg Diastolic Blood Pressure NBP 40 mmHg mmHg 06/08/2022 8:45 EDT Heart Rate Monitored 76 bpm bpm Respiratory Rate 12 br/min br/min Systolic Blood Pressure NBP 65 mmHg mmHg Diastolic Blood Pressure NBP 31 mmHg mmHg 06/08/2022 8:40 EDT Heart Rate Monitored 72 bpm bpm Respiratory Rate 11 br/min br/min Systolic Blood Pressure NBP 91 mmHg mmHg Diastolic Blood Pressure NBP 47 mmHg mmHg 06/08/2022 8:35 EDT Heart Rate Monitored 75 bpm bpm Respiratory Rate 11 br/min br/min Systolic Blood Pressure NBP 75 mmHg mmHg Diastolic Blood Pressure NBP 35 mmHg mmHg 06/08/2022 8:33 EDT Systolic Blood Pressure NBP 95 mmHg mmHg Diastolic Blood Pressure NBP 43 mmHg mmHg 06/08/2022 8:30 EDT Heart Rate Monitored 77 bpm bpm Respiratory Rate 11 br/min br/min Systolic Blood Pressure NBP 78 mmHg mmHg Diastolic Blood Pressure NBP 23 mmHg mmHg 06/08/2022 8:25 EDT Heart Rate Monitored 74 bpm bpm Respiratory Rate 11 br/min br/min Systolic Blood Pressure NBP 86 mmHg mmHg Diastolic Blood Pressure NBP 47 mmHg mmHg 06/08/2022 8:21 EDT Systolic Blood Pressure NBP 91 mmHg mmHg Diastolic Blood Pressure NBP 50 mmHg mmHg 06/08/2022 8:20 EDT Heart Rate Monitored 73 bpm bpm Respiratory Rate 10 br/min br/min 06/08/2022 8:15 EDT Heart Rate Monitored 77 bpm bpm Respiratory Rate 19 br/min br/min Systolic Blood Pressure NBP 79 mmHg mmHg Diastolic Blood Pressure NBP 44 mmHg mmHg 06/08/2022 8:10 EDT Heart Rate Monitored 65 bpm bpm Respiratory Rate 11 br/min br/min Systolic Blood Pressure NBP 87 mmHg mmHg Diastolic Blood Pressure NBP 61 mmHg mmHg 06/08/2022 8:05 EDT Heart Rate Monitored 74 bpm bpm Respiratory Rate 12 br/min br/min Systolic Blood Pressure NBP 79 mmHg mmHg Diastolic Blood Pressure NBP 46 mmHg mmHg 06/08/2022 8:03 EDT Systolic Blood Pressure NBP 75 mmHg mmHg Diastolic Blood Pressure NBP 17 mmHg mmHg 06/08/2022 8:00 EDT Heart Rate Monitored 75 bpm bpm Respiratory Rate 12 br/min br/min Systolic Blood Pressure NBP 69 mmHg mmHg Diastolic Blood Pressure NBP 37 mmHg mmHg 06/08/2022 7:57 EDT Systolic Blood Pressure NBP 91 mmHg mmHg Diastolic Blood Pressure NBP 38 mmHg mmHg 06/08/2022 7:55 EDT Heart Rate Monitored 76 bpm bpm Respiratory Rate 11 br/min br/min Systolic Blood Pressure NBP 77 mmHg mmHg Diastolic Blood Pressure NBP 27 mmHg mmHg 06/08/2022 7:50 EDT Heart Rate Monitored 74 bpm bpm Respiratory Rate 11 br/min br/min Systolic Blood Pressure NBP 94 mmHg mmHg Diastolic Blood Pressure NBP 44 mmHg mmHg 06/08/2022 7:45 EDT Heart Rate Monitored 74 bpm bpm Respiratory Rate 11 br/min br/min Systolic Blood Pressure NBP 85 mmHg mmHg Diastolic Blood Pressure NBP 35 mmHg mmHg 06/08/2022 7:40 EDT Heart Rate Monitored 73 bpm bpm Respiratory Rate 11 br/min br/min Systolic Blood Pressure NBP 81 mmHg mmHg Diastolic Blood Pressure NBP 30 mmHg mmHg 06/08/2022 7:35 EDT Heart Rate Monitored 75 bpm bpm Respiratory Rate 11 br/min br/min Systolic Blood Pressure NBP 69 mmHg mmHg Diastolic Blood Pressure NBP 35 mmHg mmHg 06/08/2022 7:30 EDT Heart Rate Monitored 72 bpm bpm Respiratory Rate 11 br/min br/min Systolic Blood Pressure NBP 82 mmHg mmHg Diastolic Blood Pressure NBP 27 mmHg mmHg 06/08/2022 7:25 EDT Heart Rate Monitored 63 bpm bpm Respiratory Rate 10 br/min br/min Systolic Blood Pressure NBP 85 mmHg mmHg Diastolic Blood Pressure NBP 35 mmHg mmHg 06/08/2022 7:20 EDT Heart Rate Monitored 63 bpm bpm Respiratory Rate 9 br/min br/min Systolic Blood Pressure NBP 68 mmHg mmHg Diastolic Blood Pressure NBP 30 mmHg mmHg 06/08/2022 7:15 EDT Heart Rate Monitored 67 bpm bpm Respiratory Rate 11 br/min br/min (Modified) Systolic Blood Pressure NBP 125 mmHg mmHg Diastolic Blood Pressure NBP 110 mmHg mmHg 06/08/2022 7:10 EDT Respiratory Rate 11 br/min br/min (Modified) Systolic Blood Pressure NBP 137 mmHg mmHg Diastolic Blood Pressure NBP 104 mmHg mmHg 06/08/2022 7:08 EDT Systolic Blood Pressure NBP 145 mmHg mmHg Diastolic Blood Pressure NBP 127 mmHg mmHg 06/08/2022 5:47 EDT Temperature Temporal Artery 35.9 DegC Apical Heart Rate 69 bpm Respiratory Rate 12 br/min LOW Systolic BP Left Arm 137 mmHg Diastolic BP Left Arm 76 mmHg . Mental status: at preoperative baseline. Respiratory function: lungs are clear to auscultation, respirations are non-labored. Respiratory support: none. CV function: Normal rate, Regular rhythm. Cardiovascular support: none. Pain: Quality aching, Post op control (oral analgesic, intravenous analgesic). Nausea status: denies nausea. Postoperative hydration status: within normal limits. Digitally Signed by MADI ALARCON on 06/08/2022 02:01 PM [facility] 06-08-2022 Note ORIGINAL EXAMINATION: TWO XRAY VIEWS OF THE RIGHT KNEE 06/08/2022 9:15 am COMPARISON: CT of the knee dated 05/28/2022. HISTORY: ORDERING SYSTEM PROVIDED HISTORY: Reason for Exam: Status Post Arthroplasty FINDINGS: Postsurgical changes are demonstrated status post right total knee arthroplasty without evidence of an acute fracture, dislocation, or hardware failure. Expected postsurgical air seen within the joint. Subcutaneous swelling is also seen and expected. No unexpected radiopaque foreign body is identified. IMPRESSION: Expected postsurgical changes status post right total knee arthroplasty without acute fracture, dislocation, or hardware failure. Interpreted by: Donis Lopez MD Preliminary Report By: Donis Lopez MD Electronically signed By Donis Lopez MD Dictated Date: 06/08/2022 9:29:20 AM Prelim Date: 06/08/2022 9:30:28 AM Sign Date: 06/08/2022 9:30:28 AM Ordering Provider: [facility] 06-08-2022 Note ORIGINAL EXAMINATION: TWO XRAY VIEWS OF THE RIGHT KNEE 06/08/2022 9:15 am COMPARISON: CT of the knee dated 05/28/2022. HISTORY: ORDERING SYSTEM PROVIDED HISTORY: Reason for Exam: Status Post Arthroplasty FINDINGS: Postsurgical changes are demonstrated status post right total knee arthroplasty without evidence of an acute fracture, dislocation, or hardware failure. Expected postsurgical air seen within the joint. Subcutaneous swelling is also seen and expected. No unexpected radiopaque foreign body is identified. IMPRESSION: Expected postsurgical changes status post right total knee arthroplasty without acute fracture, dislocation, or hardware failure. Interpreted by: Donis Lopez MD Preliminary Report By: Donis Lopez MD Electronically signed By Donis Lopez MD Dictated Date: 06/08/2022 9:29:20 AM Prelim Date: 06/08/2022 9:30:28 AM Sign Date: 06/08/2022 9:30:28 AM Ordering Provider: [facility] 06-08-2022 Anesthesiology Consult note Patient: LORI KHAN Age: 57 years Sex: Female : 1965 Associated Diagnoses: None Author: MADI ALARCON APRN-WILMAR Preoperative Information Anesthesia history Patient's history: negative. Family's history: negative. Health Status Allergies: Allergic Reactions (Selected) Severity Not Documented Sulfa drug- Mouth sores. Nonallergic Reactions (Selected) Severity Not Documented Aspirin- Bleeding., Allergies (2) ActiveReaction aspirinBleeding sulfa drugMouth sores Current medications: (Selected) Inpatient Medications Ordered Betadine 10% topical solution: 17.5 mL, mL/hr, Topical (INT), PREOP pharm Decadron: 10 mg, 1 mL, IV Push, AsDirected Kefzol: 2 gram(s), 200 mL/hr, IV Piggyback, PREOP pharm LR 1,000 mL: 20 mL/hr, Intravenous, Stop: 06/08/22 23:59:00 EDT Naropin 25 mg + Toradol 15 mg + EPINEPHrine 1 mg/mL injectable solution 0.3 mg + morphine 2.5 mg...: 25 mg, 5 mL, mL/hr, Other, PREOP pharm Naropin 25 mg + Toradol 15 mg + EPINEPHrine 1 mg/mL injectable solution 0.3 mg + morphine 2.5 mg...: 25 mg, 5 mL, mL/hr, Other, PREOP pharm tranexamic acid 1 g / 100 mL 0.7% NaCl PMX: 1 gram(s), 100 mL, 300 mL/hr, IV Piggyback, AsDirected tranexamic acid 1 g / 100 mL 0.7% NaCl PMX: 1 gram(s), 100 mL, 300 mL/hr, IV Piggyback, AsDirected Documented Medications Documented Ferate 256 mg (28 mg elemental iron) oral tablet: 256 mg, 1 tab(s), Oral, Every other day, 100 tab(s), 0 Refill(s) Fiber Choice 1.5 g oral tablet, chewable: 1.5 gram(s), 1 tab(s), Chewed, BID, 90 tab(s), 0 Refill(s) Vitamin B12 500 mcg oral tablet: 500 mcg, 1 tab(s), Oral, Every other day, 30 tab(s), 0 Refill(s) Vitamin D3 25 mcg (1000 intl units) oral capsule: 25 mcg, 1 cap(s), Oral, Daily, 0 Refill(s) celecoxib 200 mg oral capsule: 200 mg, 1 cap(s), Oral, qDay, PRN: as needed for pain, 10 cap(s), 0 Refill(s) citalopram 20 mg oral tablet: 20 mg, 1 tab(s), Oral, Daily, 0 Refill(s) gabapentin 600 mg oral tablet: 600 mg, 1 tab(s), Oral, qHS, 0 Refill(s) herbal/nutritional product: 1 cap, Oral, BID, 0 Refill(s) methocarbamol 750 mg oral tablet: 1,500 mg, 2 tab(s), Oral, Daily methotrexate 2.5 mg oral tablet: 15 mg, 6 tab(s), Oral, qWeek, 72 tab(s), 0 Refill(s) traMADol 50 mg oral tablet: 50 mg, 1 tab(s), Oral, TID, PRN: as needed for pain, 0 Refill(s), Medications (8) Active Scheduled: (7) ceFAZolin 2 gram(s), IV Piggyback, PREOP pharm dexamethasone 10 mg/mL (1mL) SDV 10 mg 1 mL, IV Push, AsDirected povidone iodine topical 17.5 mL, Topical (INT), PREOP pharm ropivacaine 25 mg + ketorolac 15 mg + epinephrine 0.3 mg + morphine 2.5 mg 25 mg 5 mL, Other, PREOP pharm ropivacaine 25 mg + ketorolac 15 mg + epinephrine 0.3 mg + morphine 2.5 mg 25 mg 5 mL, Other, PREOP pharm tranexamic acid PMX 1 gram(s) 100 mL, IV Piggyback, AsDirected tranexamic acid PMX 1 gram(s) 100 mL, IV Piggyback, AsDirected Continuous: (1) Lactated Ringers 1,000 mL 1,000 mL, Intravenous, 20 mL/hr PRN: (0) Problem list: Active Problems (6) Anemia Arthralgia Depression Migraines OA (osteoarthritis) Rheumatoid arthritis Histories Past Medical History: No active or resolved past medical history items have been selected or recorded. Family History: No family history items have been selected or recorded. Procedure history: Cholecystectomy (19762184). CTR - carpal tunnel release ([id number]). Comments: 05/28/2022 12:17 EDT - Ioana Lindsey RN bilateral Cyst of both breasts ([id number]). Gastric bypass ([id number]). Amputation of finger tip ([id number]). Comments: 05/28/2022 12:16 Ioana Damon RN Right ring Total prosthetic arthroplasty of left knee ([id number]). Arthroscopic repair of rotator cuff ([id number]). 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 Physical Examination Vital Signs 06/08/2022 5:47 EDT Temperature Temporal Artery 35.9 DegC Apical Heart Rate 69 bpm Respiratory Rate 12 br/min LOW Systolic BP Left Arm 137 mmHg Diastolic BP Left Arm 76 mmHg Vital Signs(last 24 hrs) Last Charted Resp Rate L 12br/min (JUN 08 05:47) BMI36.69 (JUN 08 05:47) Measurements from flowsheet : Measurements 06/08/2022 5:47 EDT Height 165.1 cm Admission Weight 100 kg Weight Method Stated [place] Body Weight 57.00 kg Body Mass Index 36.69 kg/m2 Body Mass Index 36.69 kg/m2 Pain assessment: Pain Assessment 06/08/2022 6:19 EDT Primary Pain Intensity 2 06/08/2022 5:47 EDT Primary Pain Location Knee Primary Pain Laterality Right Primary Pain Intensity 2 Pain Scale Type 0-10 Pain scale . General: Alert and oriented, No acute distress. Airway: Normal temporomandibular joint mobility. Mallampati classification: II (soft palate, fauces, uvula visible). Dentition Evaluation: Denies loose/chipped teeth. Respiratory: Lungs are clear to auscultation, Respirations are non-labored. Cardiovascular: Normal rate, Regular rhythm. Neurologic: Alert, Oriented. Review / Management Results review: No qualifying data available , Lab results 06/08/2022 6:31 EDT citric acid-sodium citrate Not Done: Not Appropriate at this Time (Not Done) 06/08/2022 6:27 EDT SN - Preop - CTm Pt Ready for OR/Proced 06/08/2022 6:25 06/08/2022 6:24 EDT SN - Preop - CTm Pt in SDS Room 06/08/2022 5:44 06/08/2022 6:19 EDT Primary Pain Intensity 2 celecoxib 400 mg mg famotidine 20 mg mg oxyCODONE 10 mg mg Lactated Ringers Injection 1,000 mL mL 06/08/2022 6:04 EDT IV Present Present Hand Left 06/08/2022 20 gauge Peripheral IV Activity: Insert new site Peripheral IV Dressing Condition: Clean, Dry, Intact Peripheral IV Dressing Activity: Applied, Transparent dressing Peripheral IV Line Status/Patency: Flushes easily Peripheral IV Site Condition: No complications Peripheral IV Equipment: Extension set, PRN Adaptor CHG Preoperative Wash/Wipe Site specific wipe Preop Nasal Swab Povidone-Iodine SCD On/Re-applied left knee high Antiembolism Stocking On/Re-applied left thigh high 06/08/2022 5:47 EDT Designated Person #1 We May Share TEE Khan [phone] Designated Person #1 Relationship Spouse Designated Person #2 We May Share TEE Lozoya [phone] Designated Person #2 Relationship Mother Privacy Restrictions Requested None Height 165.1 cm Admission Weight 100 kg Weight Method Stated [place] Body Weight 57.00 kg Body Mass Index 36.69 kg/m2 Body Mass Index 36.69 kg/m2 Temperature Temporal Artery 35.9 DegC Apical Heart Rate 69 bpm Respiratory Rate 12 br/min LOW Systolic BP Left Arm 137 mmHg Diastolic BP Left Arm 76 mmHg Primary Pain Location Knee Primary Pain Laterality Right Primary Pain Intensity 2 Pain Scale Type 0-10 Pain scale Nail Bed Color [place] Capillary Refill < 2 seconds Heart Rhythm Regular All Lobes Breath Sounds Clear Oxygen Therapy Room air Oxygen Saturation 97 % Abdomen Description Non-distended Abdomen Palpation Non-Tender Bowel Sounds All Quadrants Present Urinary Elimination Voiding, no difficulties Status No, per patient Skin Temperature Warm Skin Description [place], Dry Skin Integrity Intact Neurological Symptoms Patient denies Extremity Movement Equal Characteristics of Speech Clear Level of Consciousness Alert Strength All Extremities Strong Tone All Extremities Normal Sensation All Extremities Intact Affect/Behavior Appropriate Orientation Oriented x 4 Sensory Deficits None Sleep Apnea Snore No Sleep Apnea Tired No Sleep Apnea Obstruction No Sleep Apnea Pressure No Sleep Apnea BMI Yes Sleep Apnea Age Yes Sleep Apnea Neck No Sleep Apnea Gender No Sleep Apnea Score 2 High Risk for Sleep Apnea No Diagnosed With Sleep Apnea No Advanced Directives No - refuses information Infectious Disease Symptoms Patient states no symptoms Infectious Disease Recent Exposure No Alcohol and Drug Use No Employee of Institutional Living No Health Care Employee No History of Exposure to TB No History of Positive Chest X-Ray for TB No History of Positive TB Skin Test No Homeless No Known Immunosuppression No Recent Immigrant No Resident of Institutional Living No Bloody Sputum No Fatigue No Fever No Loss of Appetite No Night Sweats No Persistent Cough > 3 Weeks No Weight Loss No Allergies Yes Commercial Representative On Yes Consent Form Signed Yes Patient Dressed In Hospital gown Pre-op Preparation Hair pins removed CHG Preoperative Wash/Wipe Night before procedure, Day of procedure CHG Skin Prep Completed for Eligible Surgery History & Physical Update On Chart Yes History & Physical On Chart Yes Obstructive Sleep Apnea Assess Completed Yes Safety Brochure Information Reviewed Unable to complete Alfred Turner Video Viewed No Barriers to Learning None evident Teaching Method Explanation, Printed materials Teaching Evaluation Verbalizes/Nonverbally indicates understanding Preferred Written Language Mohawk Preferred Spoken Language Mohawk Information Given by Patient Patient's Current Physicians Patient's Current Physicians Belongings At Bedside Cell phone, Luggage, Pants, Shirt, Shoes, Socks, Undergarments Discharge To, Anticipated Home independently Activity Status ADL Awake SCD On/Re-applied bilateral knee high NPO Status Maintained Standard Safety ID band on, Allergy Band on, Call device within reach, Bed in low position, Wheels locked, Safety level maintained Prev Test Positive/Diagnosis w/COVID-19 Yes Previous COVID-19 Positive Date jun 2020 Current Quarantine/Isolated any Illness No Any Contact with Sick Animals/Birds No Traveled Anywhere in Last 30 Days No Allergy Band on and Verified Yes Patient ID Band on and Verified Yes Implants Verified Yes Pacemaker/AICD Verified Yes Blood Consent Signed Yes Last Fluid Intake 06/07/2022 22:00 Last Food Intake 06/07/2022 19:30 Last Void 06/08/2022 5:44 Patient Cleared for Surgery By STEVIE HONG, GAMA Jama Lost Weight Unintentionally Recently No Eat Poorly Due to Decreased Appetite No Total MST Score 0 No Personal Devices, Patient Valuables None Anesthesia/Transfusions Prior anesthesia Admission Note-Nursing Same Day Patient History . Assessment and Plan [place] [employer] Anesthesi[employer] (ASA) physical status classification: Class III. Anesthetic Preoperative Plan Anesthetic technique: Spinal. Regional: Spinal. Postoperative pain management: adductor canal block. Informed consent: signed by patient. Digitally Signed by MADI ALARCON on 06/08/2022 06:40 AM [facility] 05-28-2022 Note ORIGINAL EXAMINATION: CT OF THE RIGHT KNEE WITHOUT [id number]/14/2022 12:[address] of the right knee without contrast TECHNIQUE: Axial images of the knee are obtained with sagittal and coronal reconstructions. Limited axial imaging is also performed through the ipsilateral hip and ankle joints. This exam was performed according to our departmental dose-optimization program which includes automated exposure control, adjustment of the mA and/or kVp according to patient size and/or use of iterative reconstruction technique where applicable. COMPARISON: None HISTORY: ORDERING SYSTEM PROVIDED HISTORY: Reason for Exam: varus deformity rt knee, pain in the knee, FINDINGS: Medial compartment: Marginal spurs, subchondral sclerosis and severe compartment narrowing. Lateral compartment: Large marginal osteophytes, subchondral sclerosis, compartment narrowing and vacuum phenomenon. Patellofemoral compartment: Mild marginal spurring. At least mild patellar chondromalacia. Other: There is moderate joint effusion. Moderate sized medial popliteal cyst. There may be a remote healed nonossifying fibroma in the posterolateral cortex of the tibial metaphysis. Hip: Limited axial images through the hip joint. There is at least mild hip osteoarthritis. Ankle: Limited axial images of the ankle are also obtained. IMPRESSION: Tricompartment osteoarthritis that is most severe in the medial femorotibial compartment. Interpreted by: Sam Guzman MD Preliminary Report By: Sam Guzman MD Electronically signed By Sam Guzman MD Dictated Date: 05/28/2022 2:59:03 PM Prelim Date: 05/28/2022 3:02:33 PM Sign Date: 05/28/2022 3:02:33 PM Ordering Provider: ALYSSIA MARAVILLA [facility] 05-28-2022 Note ORIGINAL EXAMINATION: CT OF THE RIGHT KNEE WITHOUT [id number]/14/2022 12:[address] of the right knee without contrast TECHNIQUE: Axial images of the knee are obtained with sagittal and coronal reconstructions. Limited axial imaging is also performed through the ipsilateral hip and ankle joints. This exam was performed according to our departmental dose-optimization program which includes automated exposure control, adjustment of the mA and/or kVp according to patient size and/or use of iterative reconstruction technique where applicable. COMPARISON: None HISTORY: ORDERING SYSTEM PROVIDED HISTORY: Reason for Exam: varus deformity rt knee, pain in the knee, FINDINGS: Medial compartment: Marginal spurs, subchondral sclerosis and severe compartment narrowing. Lateral compartment: Large marginal osteophytes, subchondral sclerosis, compartment narrowing and vacuum phenomenon. Patellofemoral compartment: Mild marginal spurring. At least mild patellar chondromalacia. Other: There is moderate joint effusion. Moderate sized medial popliteal cyst. There may be a remote healed nonossifying fibroma in the posterolateral cortex of the tibial metaphysis. Hip: Limited axial images through the hip joint. There is at least mild hip osteoarthritis. Ankle: Limited axial images of the ankle are also obtained. IMPRESSION: Tricompartment osteoarthritis that is most severe in the medial femorotibial compartment. Interpreted by: Sam Guzman MD Preliminary Report By: Sam Guzman MD Electronically signed By Sam Guzman MD Dictated Date: 05/28/2022 2:59:03 PM Prelim Date: 05/28/2022 3:02:33 PM Sign Date: 05/28/2022 3:02:33 PM Ordering Provider: ALYSSIA MARAVILLA [facility] Evaluation + Plan note Future Appointments [facility] Primary osteoarthritis of right knee [facility] Primary osteoarthritis of right knee- Primary [facility] Diagnosis Primary osteoarthritis of right knee- Primary [facility] Diagnosis Primary osteoarthritis of right knee- Primary [facility] Diagnosis Primary osteoarthritis of right knee- Primary [facility] Diagnosis Primary osteoarthritis of right knee- Primary [facility] Diagnosis Primary osteoarthritis of right knee- Primary [facility] Primary osteoarthritis of right knee- Primary [facility] Diagnosis Primary hypertension- Primary Unspecified essential hypertension Moderate episode of recurrent major depressive disorder (CMS/HCC) Compression of lumbar nerve root Thoracic or lumbosacral neuritis or radiculitis, unspecified Lumbar disc herniation Displacement of lumbar intervertebral disc without myelopathy Iron deficiency Disorders of iron metabolism Wellness examination Vitamin D deficiency B12 deficiency Low back pain radiating to left leg Lumbago Establishing care with new doctor, encounter for Rheumatoid arthritis, involving unspecified site, unspecified whether rheumatoid factor present ([facility]) Class 2 severe obesity due to excess calories with serious comorbidity and body mass index (BMI) of 39.0 to 39.9 in adult ([facility]) Breast cancer screening by mammogram documented in this encounter [facility] Work Phone: Evaluation note* Diagnosis Breast cancer screening by mammogram documented in this encounter [facility] Work Phone: Hospital course Narrative No data available for this section [facility] Hospital Discharge instructions No data available for this section [facility] Summary Purpose Family History No Family History Records FoundNo Family History Records FoundNo Family History Records FoundNo Family History Records FoundNo Family History Records FoundNo Family History Records FoundNo Family History Records FoundNo Family History Records Found Advance Directives No Advanced Directives Records FoundNo Advanced Directives Records FoundNo Advanced Directives Records FoundNo Advanced Directives Records FoundNo Advanced Directives Records FoundNo Advanced Directives Records FoundNo Advanced Directives Records FoundNo Advanced Directives Records Found Reason for Referral Specialty Diagnoses / Procedures Referred By Corinne t Referred To Contact Rehabilitation Diagnoses Primary osteoarthritis of right knee Vitor Yoder PA-C [address] [address] Referral ID Status Reason Start Date Expiration Date V isits Requested Visits Authorized [id number] Authorized 05/24/2022 05/24/2023 1 1 Specialty Diagnoses / Procedures Referred By Contac t Referred To Contact Radiology Diagnoses Breast cancer screening by mammogram Procedures BI mammo bilateral screening tomosynthesis Silvia Chao, SUPERVISOR [employer] F[employer]ICATION-TOE TRIMMER [address] [place] [address] Referral ID Status Reason Start Date Expiration Date Visits Requested Visits Authorized [id number] Authorized Perform Procedure 07/20/2023 07/19/2024 1 1 Additional Source Comments INFORMATION SOURCE (unrecogn ized section and content) DATE CREATED AUTHOR AUTHOR'S ORGANIZ ATION 05/06/2019 [facility] DATE CREATED AUTHOR AUTHOR'S ORGANIZ ATION 06/12/2022 [facility] ([place]) DATE CREATED AUTHOR AUTHOR'S ORGANIZ ATION 07/19/2022 [facility] DATE CREATED AUTHOR AUTHOR'S ORGANIZ ATION 05/18/[address] [facility] DATE CREATED AUTHOR AUTHOR'S ORGANIZ ATION 05/18/2023 [facility] DATE CREATED AUTHOR AUTHOR'S ORGANIZ ATION 07/23/2023 [facility] DATE CREATED AUTHOR AUTHOR'S ORGANIZ ATION 08/24/2023 [facility] <item> Privacy Markings (unrecogniz ed section and content) Section Author: Michelle Juarez PROHIBITION ON REDISCLOSURE OF CONFIDENTIAL INFORMATION This notice accompanies a disclosure of information concerning a client made to you with the consent of such client. Care Teams (unrecognized sec tion and content) Vertical Mill Operator Relationship Specialty Start Date End Date Gama Hubbard MD [address] [place] [address] PCP - General Family Medicine 06/11/22 Vertical Mill Operator Relationship Specialty Start Date End Date Gama Hubbard MD [address] [place] [address] PCP - General Family Medicine 06/11/22 Vertical Mill Operator Relationship Specialty Start Date End Date Gama Hubbard MD [address] [place] [address] PCP - General Family Medicine 06/11/22 Vertical Mill Operator Relationship Specialty Start Date End Date Gama Hubbard MD [address] [place] [address] PCP - General Family Medicine 06/11/22 Vertical Mill Operator Relationship Specialty Start Date End Date Gama Hubbard MD [address] [place] [address] PCP - General Family Medicine 06/11/22 Vertical Mill Operator Relationship Specialty Start Date End Date Gama Hubbard MD [address] [place] [address] PCP - General Family Medicine 06/11/22 Vertical Mill Operator Relationship Specialty Start Date End Date Gama Hubbard MD [address] [place] [address] PCP - General Family Medicine 06/11/22 Vertical Mill Operator Relationship Specialty Start Date End Date Gama Hubbard MD [address] [place] [address] PCP - General Family Medicine 06/11/22 Vertical Mill Operator Relationship Specialty Start Date End Date Gama Hubbard MD [address] [place] [address] [place] [address] PCP - General 05/10/23 Vertical Mill Operator Relationship Specialty Start Date End Date Silvia Chao, SUPERVISOR [employer] FABRICATION-TOE TRIMMER [address] [place] [address] PCP - General Internal Medicine 08/01/23 Care Team (unrecognized sect ion and content) Care Team Personnel Name: GAMA HUBBARD MD Member Role: Primary Care Physician Address: Address: [address] [place], [place] [id number] Care Team Related Persons Name: GUZMAN KHAN Address: [address] [place] [address] Care Team Personnel Name: GAMA HUBBARD MD Member Role: Primary Care Physician Address: Address: [address] [place] [address] Care Team Related Persons Name: RIGOBERTO LOZOYA Name: DAYTON KHANREL Address: [address] [place] [address] Reason for Visit (unrecogniz ed section and content) Specialty Diagnoses / Procedures Referred By Contac t Referred To Contact Rehabilitation Diagnoses Primary osteoarthritis of right knee Vitor Yoder PA-C [address] [address] [facility] [address] [place] [address] Referral ID Status Reason Start Date Expiration Date V isits Requested Visits Authorized [id number] Authorized 05/24/2022 05/24/2023 13 40 Specialty Diagnoses / Procedures Referred By Contac t Referred To Contact Rehabilitation Diagnoses Primary osteoarthritis of right knee Vitor Yoder PA-C [address] [facility] [address] [place] [address] [facility] [address] [place] [address] Reason Comments Establish Care Specialty Diagnoses / Procedures Referred By Contac t Referred To Contact Radiology Diagnoses Breast cancer screening by mammogram Procedures BI mammo bilateral screening tomosynthesis Silvia Chao, SUPERVISOR [employer] FAB[employer]ICATION-TOE TRIMMER [address] [place] [address] Referral ID Status Reason Start Date Expiration Date Visits Requested Visits Authorized [id number] Authorized Perform Procedure 07/20/2023 07/19/2024 1 1 FOR RECORDS PERTAINING TO PATIENTS WHO ARE OR HAVE BEEN ENROLLED IN A CHEMICAL DEPENDENCY/SUBSTANCEABUSE PROGRAM, SOME INFORMATION MAY BE OMITTED. This clinical summary was aggregated from multiple sources. Caution should be exercised in using it in the provision of clinical care. This summary normalizes information from multiple sources, and as a consequence, information in this document may materially change the coding, format and clinical context of patient data. In addition, data may be omitted in some cases. CLINICAL DECISIONS SHOULD BE BASED ON THE PRIMARY CLINICAL RECORDS. [facility]. provides no warranty or guarantee of the accuracy or completeness of information in this document.
[2023-08-24 17:44] LABS: Absolute Lymphocyte Count 1.41 X10^3/uL (0.83-4.51); Absolute Neutrophil Count 2.2 X10^3/uL (2.0-7.7); Basophil# 0.02 X10^3/uL; Basophil% 0.4 % (0-1); Eosinophil# 0.38 X10^3/uL; Eosinophils% 8.5 % (0-5); Hematocrit 38.3 % (37-47); Hemoglobin 12.5 g/dL (12.0-15.0); Lymphocyte # 1.41 X10^3/ul (0.83-4.51); Lymphocyte % 31.5 % (19-41); Mean Corp Hgb Conc 32.6 g/dL (32-36); Mean Corpuscular Hgb 30.3 pg (27.0-32.0); Mean Corpuscular Volume 92.7 fL (81-99); Mean Platelet Vol. 9.2 fl (6.2-12.0); Monocyte# 0.45 X10^3/uL; NRBC Flagged by Analyzer 0 % (0-5); Neutrophil # 2.21 X10^3/uL (2.7-7.7); Neutrophil % 49.4 % (47-70); Platelet Count 261 K/mm3 (150-450); RBC Distribution Width CV 13.2 % (11.6-14.6); RBC Distribution Width SD 44.9 fl (35.1-43.9); Red Blood Count 4.13 M/mm3 (4.2-5.4); White Blood Count 4.5 K/mm3 (4.4-11.0)
[2023-08-24 18:07] LABS: AST(SGOT) 44 U/L (15-37); Alanine Aminotransfer ALT/SGPT 35 U/L (13-56); Albumin, Serum 3.5 g/dL (3.2-5.0); Alkaline Phosphatase 127 U/L (45-117); Anion Gap 5 (5-15); BUN 12 mg/dL (7-18); BUN/Creat Ratio 18.3 RATIO (10-20); Calcium,Total 8.7 mg/dL (8.5-10.1); Chloride 109 mmol/L (98-107); Creatinine, Serum 0.66 mg/dL (0.55-1.02); EST Glomerular Filtration Rate 98 mL/min (>60); Est Glom Filt Rate - Afr Amer 118 mL/min (>60); Globulin 3.4 g/dL (2.2-4.2); Glucose 88 mg/dL (74-106); Protein, Total 6.9 g/dL (6.4-8.2); Sodium Level 140 mmol/L (136-145)
== END | disposition home or self-care (01) ==
PROVIDERS: PCP Family Medicine; Referring Provider Internal Medicine Rheumatology; Visit Provider Internal Medicine Rheumatology
DX: M06.00 Rheumatoid arthritis without rheumatoid factor, unspecified site (principal); Z79.899 Other long term (current) drug therapy; M79.7 Fibromyalgia; M18.12 Unilateral primary osteoarthritis of first carpometacarpal joint, left hand; M17.0 Bilateral primary osteoarthritis of knee; M65.331 Trigger finger, right middle finger
CPT/HCPCS: 36415; 80053; 85025

== ENCOUNTER → 2023-11-18 | Outpatient (CLI) | payer OTHER, SELFPAY ==
[2023-11-18 15:53] LABS: Absolute Lymphocyte Count 1.42 X10^3/uL (0.83-4.51); Absolute Neutrophil Count 1.9 X10^3/uL (2.0-7.7); Basophil# 0.02 X10^3/uL; Basophil% 0.5 % (0-1); Eosinophil# 0.41 X10^3/uL; Eosinophils% 9.9 % (0-5); Hematocrit 41.1 % (37-47); Hemoglobin 13.2 g/dL (12.0-15.0); Lymphocyte # 1.42 X10^3/ul (0.83-4.51); Lymphocyte % 34.4 % (19-41); Mean Corp Hgb Conc 32.1 g/dL (32-36); Mean Corpuscular Hgb 29.9 pg (27.0-32.0); Mean Platelet Vol. 10.5 fl (6.2-12.0); Monocyte# 0.38 X10^3/uL; Monocyte% 9.2 % (0-10); NRBC Flagged by Analyzer 0 % (0-5); Neutrophil # 1.89 X10^3/uL (2.7-7.7); Neutrophil % 45.8 % (47-70); Platelet Count 252 K/mm3 (150-450); RBC Distribution Width CV 13.1 % (11.6-14.6); RBC Distribution Width SD 44.7 fl (35.1-43.9); Red Blood Count 4.42 M/mm3 (4.2-5.4); White Blood Count 4.1 K/mm3 (4.4-11.0)
[2023-11-18 16:37] LABS: ALB/GLOB Ratio 1.1 RATIO (0.9-2.4); AST(SGOT) 39 U/L (15-37); Alanine Aminotransfer ALT/SGPT 31 U/L (13-56); Alkaline Phosphatase 128 U/L (45-117); Anion Gap 7 (5-15); BUN 13 mg/dL (7-18); BUN/Creat Ratio 19.5 RATIO (10-20); Calcium,Total 9.5 mg/dL (8.5-10.1); Chloride 107 mmol/L (98-107); Creatinine, Serum 0.66 mg/dL (0.55-1.02); EST Glomerular Filtration Rate 96 mL/min (>60); Est Glom Filt Rate - Afr Amer 116 mL/min (>60); Globulin 3.6 g/dL (2.2-4.2); Glucose 92 mg/dL (74-106); Protein, Total 7.6 g/dL (6.4-8.2); Sodium Level 138 mmol/L (136-145)
== END | disposition home or self-care (01) ==
LOC: MTLAB 13:19
PROVIDERS: PCP Family Medicine; Referring Provider Internal Medicine Rheumatology; Visit Provider Internal Medicine Rheumatology
DX: M06.00 Rheumatoid arthritis without rheumatoid factor, unspecified site (principal); Z79.899 Other long term (current) drug therapy
CPT/HCPCS: 36415; 80053; 85025

== ENCOUNTER → 2024-02-20 | Outpatient (CLI) | payer OTHER, SELFPAY ==
[2024-02-20 15:02] LABS: Absolute Lymphocyte Count 1.44 X10^3/uL (0.83-4.51); Absolute Neutrophil Count 2.6 X10^3/uL (2.0-7.7); Basophil# 0.02 X10^3/uL; Basophil% 0.4 % (0-1); Eosinophil# 0.14 X10^3/uL; Eosinophils% 3.1 % (0-5); Hematocrit 39.4 % (37-47); Hemoglobin 12.7 g/dL (12.0-15.0); Lymphocyte # 1.44 X10^3/ul (0.83-4.51); Lymphocyte % 31.4 % (19-41); Mean Corp Hgb Conc 32.2 g/dL (32-36); Mean Corpuscular Hgb 29.8 pg (27.0-32.0); Mean Corpuscular Volume 92.5 fL (81-99); Mean Platelet Vol. 10.3 fl (6.2-12.0); Monocyte% 8.7 % (0-10); NRBC Flagged by Analyzer 0 % (0-5); Neutrophil # 2.58 X10^3/uL (2.7-7.7); Neutrophil % 56.4 % (47-70); Platelet Count 284 K/mm3 (150-450); RBC Distribution Width CV 14.1 % (11.6-14.6); Red Blood Count 4.26 M/mm3 (4.2-5.4); White Blood Count 4.6 K/mm3 (4.4-11.0)
[2024-02-20 15:24] LABS: ALB/GLOB Ratio 1.1 RATIO (0.9-2.4); AST(SGOT) 32 U/L (15-37); Alanine Aminotransfer ALT/SGPT 25 U/L (13-56); Albumin, Serum 3.9 g/dL (3.2-5.0); Alkaline Phosphatase 143 U/L (45-117); Anion Gap 6 (5-15); BUN 11 mg/dL (7-18); BUN/Creat Ratio 15.1 RATIO (10-20); Calcium,Total 9.1 mg/dL (8.5-10.1); Chloride 107 mmol/L (98-107); Creatinine, Serum 0.73 mg/dL (0.55-1.02); EST Glomerular Filtration Rate 87 mL/min (>60); Est Glom Filt Rate - Afr Amer 105 mL/min (>60); Globulin 3.5 g/dL (2.2-4.2); Glucose 91 mg/dL (74-106); Protein, Total 7.4 g/dL (6.4-8.2); Sodium Level 138 mmol/L (136-145)
== END | disposition home or self-care (01) ==
PROVIDERS: PCP Internal Medicine; Referring Provider Internal Medicine Rheumatology; Visit Provider Internal Medicine Rheumatology
DX: M06.00 Rheumatoid arthritis without rheumatoid factor, unspecified site (principal); Z79.899 Other long term (current) drug therapy; M79.7 Fibromyalgia; M18.12 Unilateral primary osteoarthritis of first carpometacarpal joint, left hand; M17.0 Bilateral primary osteoarthritis of knee; M65.331 Trigger finger, right middle finger
CPT/HCPCS: 36415; 80053; 85025

== ENCOUNTER → 2024-05-30 | Outpatient (CLI) | payer OTHER, SELFPAY ==
[2024-05-30 17:43] LABS: Absolute Lymphocyte Count 1.46 X10^3/uL (0.83-4.51); Absolute Neutrophil Count 2.2 X10^3/uL (2.0-7.7); Basophil# 0.02 X10^3/uL; Basophil% 0.5 % (0-1); Eosinophil# 0.36 X10^3/uL; Eosinophils% 8.2 % (0-5); Hematocrit 42.2 % (37-47); Hemoglobin 13.1 g/dL (12.0-15.0); Lymphocyte # 1.46 X10^3/ul (0.83-4.51); Lymphocyte % 33.1 % (19-41); Mean Corpuscular Volume 93.4 fL (81-99); Mean Platelet Vol. 9.9 fl (6.2-12.0); Monocyte# 0.38 X10^3/uL; Monocyte% 8.6 % (0-10); NRBC Flagged by Analyzer 0 % (0-5); Neutrophil # 2.18 X10^3/uL (2.7-7.7); Neutrophil % 49.4 % (47-70); Platelet Count 308 K/mm3 (150-450); RBC Distribution Width CV 14.3 % (11.6-14.6); RBC Distribution Width SD 49.1 fl (35.1-43.9); Red Blood Count 4.52 M/mm3 (4.2-5.4); White Blood Count 4.4 K/mm3 (4.4-11.0)
[2024-05-30 17:57] LABS: ALB/GLOB Ratio 0.9 RATIO (0.9-2.4); AST(SGOT) 45 U/L (15-37); Alanine Aminotransfer ALT/SGPT 41 U/L (13-56); Albumin, Serum 3.7 g/dL (3.2-5.0); Alkaline Phosphatase 148 U/L (45-117); Anion Gap 6 (5-15); BUN 11 mg/dL (7-18); BUN/Creat Ratio 12.1 RATIO (10-20); Calcium,Total 9.3 mg/dL (8.5-10.1); Chloride 103 mmol/L (98-107); Creatinine, Serum 0.91 mg/dL (0.55-1.02); EST Glomerular Filtration Rate 67 mL/min (>60); Est Glom Filt Rate - Afr Amer 81 mL/min (>60); Globulin 4.1 g/dL (2.2-4.2); Glucose 87 mg/dL (74-106); Potassium 4.5 mmol/L (3.5-5.1); Protein, Total 7.8 g/dL (6.4-8.2); Sodium Level 135 mmol/L (136-145)
== END | disposition home or self-care (01) ==
LOC: MTLAB 13:58
PROVIDERS: PCP Internal Medicine; Referring Provider Internal Medicine Rheumatology; Visit Provider Internal Medicine Rheumatology
DX: M06.00 Rheumatoid arthritis without rheumatoid factor, unspecified site (principal); Z79.899 Other long term (current) drug therapy; M79.7 Fibromyalgia; M18.12 Unilateral primary osteoarthritis of first carpometacarpal joint, left hand; M17.0 Bilateral primary osteoarthritis of knee; M65.331 Trigger finger, right middle finger
CPT/HCPCS: 36415; 80053; 85025

== ENCOUNTER → 2024-07-03 | Outpatient (CLI) | payer OTHER, SELFPAY ==
[2024-07-03 12:43] LABS: AST(SGOT) 35 U/L (15-37); Alanine Aminotransfer ALT/SGPT 32 U/L (13-56); Albumin, Serum 3.6 g/dL (3.2-5.0); Alkaline Phosphatase 145 U/L (45-117); Anion Gap 6 (5-15); BUN 16 mg/dL (7-18); BUN/Creat Ratio 25.5 RATIO (10-20); Calcium,Total 8.9 mg/dL (8.5-10.1); Chloride 107 mmol/L (98-107); Creatinine, Serum 0.63 mg/dL (0.55-1.02); EST Glomerular Filtration Rate 103 mL/min (>60); Est Glom Filt Rate - Afr Amer 124 mL/min (>60); Globulin 3.6 g/dL (2.2-4.2); Glucose 93 mg/dL (74-106); Potassium 4.2 mmol/L (3.5-5.1); Protein, Total 7.2 g/dL (6.4-8.2); Sodium Level 138 mmol/L (136-145)
== END | disposition home or self-care (01) ==
LOC: MTLAB 10:27
PROVIDERS: PCP Internal Medicine; Referring Provider Internal Medicine Rheumatology; Visit Provider Internal Medicine Rheumatology
DX: M06.00 Rheumatoid arthritis without rheumatoid factor, unspecified site (principal); Z79.899 Other long term (current) drug therapy; M79.7 Fibromyalgia
CPT/HCPCS: 36415; 80053

== ENCOUNTER → 2024-09-26 | Outpatient (CLI) | payer OTHER, SELFPAY ==
[2024-09-26 15:28] LABS: Absolute Lymphocyte Count 1.32 X10^3/uL (0.83-4.51); Absolute Neutrophil Count 3.3 X10^3/uL (2.0-7.7); Basophil# 0.02 X10^3/uL; Basophil% 0.4 % (0-1); Eosinophil# 0.04 X10^3/uL; Eosinophils% 0.8 % (0-5); Hematocrit 39.7 % (37-47); Hemoglobin 12.4 g/dL (12.0-15.0); Lymphocyte # 1.32 X10^3/ul (0.83-4.51); Mean Corp Hgb Conc 31.2 g/dL (32-36); Mean Corpuscular Hgb 29.2 pg (27.0-32.0); Mean Corpuscular Volume 93.4 fL (81-99); Mean Platelet Vol. 8.9 fl (6.2-12.0); Monocyte# 0.44 X10^3/uL; Monocyte% 8.7 % (0-10); NRBC Flagged by Analyzer 0 % (0-5); Neutrophil # 3.25 X10^3/uL (2.7-7.7); Neutrophil % 63.9 % (47-70); Platelet Count 310 K/mm3 (150-450); RBC Distribution Width CV 14.2 % (11.6-14.6); Red Blood Count 4.25 M/mm3 (4.2-5.4); White Blood Count 5.1 K/mm3 (4.4-11.0)
[2024-09-26 15:46] LABS: AST(SGOT) 33 U/L (15-37); Alanine Aminotransfer ALT/SGPT 32 U/L (13-56); Albumin, Serum 3.6 g/dL (3.2-5.0); Alkaline Phosphatase 129 U/L (45-117); Anion Gap 8 (5-15); BUN 12 mg/dL (7-18); BUN/Creat Ratio 18.1 RATIO (10-20); Calcium,Total 9.2 mg/dL (8.5-10.1); Chloride 104 mmol/L (98-107); Creatinine, Serum 0.66 mg/dL (0.55-1.02); EST Glomerular Filtration Rate 96 mL/min (>60); Est Glom Filt Rate - Afr Amer 116 mL/min (>60); Globulin 3.6 g/dL (2.2-4.2); Glucose 96 mg/dL (74-106); Potassium 4.4 mmol/L (3.5-5.1); Protein, Total 7.2 g/dL (6.4-8.2); Sodium Level 138 mmol/L (136-145)
== END | disposition home or self-care (01) ==
LOC: MTLAB 11:49
PROVIDERS: PCP Internal Medicine; Referring Provider Internal Medicine Rheumatology; Visit Provider Internal Medicine Rheumatology
DX: M06.00 Rheumatoid arthritis without rheumatoid factor, unspecified site (principal); Z79.899 Other long term (current) drug therapy
CPT/HCPCS: 36415; 80053; 85025

== ENCOUNTER → 2024-12-25 | Outpatient (CLI) | payer OTHER, SELFPAY ==
[2024-12-25 15:26] LABS: Absolute Lymphocyte Count 1.26 X10^3/uL (0.83-4.51); Basophil# 0.02 X10^3/uL; Basophil% 0.4 % (0-1); Eosinophil# 0.09 X10^3/uL; Eosinophils% 1.9 % (0-5); Hematocrit 37.8 % (37-47); Hemoglobin 12.2 g/dL (12.0-15.0); Lymphocyte # 1.26 X10^3/ul (0.83-4.51); Lymphocyte % 26.8 % (19-41); Mean Corp Hgb Conc 32.3 g/dL (32-36); Mean Corpuscular Hgb 30.1 pg (27.0-32.0); Mean Corpuscular Volume 93.3 fL (81-99); Mean Platelet Vol. 9.7 fl (6.2-12.0); Monocyte# 0.31 X10^3/uL; Monocyte% 6.6 % (0-10); NRBC Flagged by Analyzer 0 % (0-5); Neutrophil # 3.02 X10^3/uL (2.7-7.7); Neutrophil % 64.1 % (47-70); Platelet Count 342 K/mm3 (150-450); RBC Distribution Width CV 14.1 % (11.6-14.6); Red Blood Count 4.05 M/mm3 (4.2-5.4); White Blood Count 4.7 K/mm3 (4.4-11.0)
[2024-12-25 15:48] LABS: ALB/GLOB Ratio 1.5 RATIO (0.9-2.4); AST(SGOT) 32 U/L (<=31); Alanine Aminotransfer ALT/SGPT 25 U/L (<=34); Albumin, Serum 4.2 g/dL (3.4-4.8); Alkaline Phosphatase 126 U/L (35-104); Anion Gap 13 (5-15); BUN 13 mg/dL (4-19); BUN/Creat Ratio 16.8 RATIO (10-20); Calcium,Total 9.3 mg/dL (7.6-11.0); Carbon Dioxide 24.6 mmol/L (21.0-32.0); Chloride 103 mmol/L (98-108); Creatinine, Serum 0.77 mg/dL (0.70-1.20); EST Glomerular Filtration Rate 87 (>60); Globulin 2.8 g/dL (2.2-4.2); Glucose 110 mg/dL (70-99); Potassium 4.4 mmol/L (3.3-5.1); Protein, Total 6.9 g/dL (5.9-8.4); Sodium Level 140 mmol/L (133-145); Total Bilirubin 0.23 mg/dL (0.00-1.30)
== END | disposition home or self-care (01) ==
LOC: MTLAB 12:56
PROVIDERS: PCP Internal Medicine; Referring Provider Internal Medicine Rheumatology; Visit Provider Internal Medicine Rheumatology
DX: M06.00 Rheumatoid arthritis without rheumatoid factor, unspecified site (principal); Z79.899 Other long term (current) drug therapy; M79.7 Fibromyalgia
CPT/HCPCS: 36415; 80053; 85025

== ENCOUNTER → 2025-04-03 | Outpatient (CLI) | payer OTHER, SELFPAY ==
[2025-04-03 17:53] LABS: Hematocrit 37.3 % (37-47); Hemoglobin 12.0 g/dL (12.0-15.0); Immature Granulocytes Count 0.010 X10^3/uL (0.0-0.0); Mean Corp Hgb Conc 32.2 g/dL (32-36); Mean Corpuscular Volume 92.3 fL (81-99); Mean Platelet Vol. 9.6 fl (6.2-12.0); NRBC Flagged by Analyzer 0 % (0-5); Platelet Count 309 K/mm3 (150-450); RBC Distribution Width CV 14.0 % (11.6-14.6); RBC Distribution Width SD 47.7 fl (35.1-43.9); Red Blood Count 4.04 M/mm3 (4.2-5.4); White Blood Count 5.6 K/mm3 (4.4-11.0)
[2025-04-03 18:15] LABS: AST(SGOT) 30 U/L (<=31); Alanine Aminotransfer ALT/SGPT 20 U/L (<=34); Albumin, Serum 4.1 g/dL (3.4-4.8); Alkaline Phosphatase 133 U/L (35-104); Anion Gap 12 (5-15); BUN 13 mg/dL (4-19); BUN/Creat Ratio 19.3 RATIO (10-20); Calcium,Total 8.9 mg/dL (7.6-11.0); Carbon Dioxide 25.1 mmol/L (21.0-32.0); Chloride 101 mmol/L (98-108); Globulin 2.4 g/dL (2.2-4.2); Glucose 94 mg/dL (70-99); Potassium 4.4 mmol/L (3.3-5.1)
--- OUTSIDE RECORDS SUMMARY | 2025-04-03 19:53 | XMS RPT_ITS | CCD ---
Author Organization [facility] Care Team Providers Care Procurement Professional Name Role Phone SURAJNANDA Unavailable Unavailable GAMA AGARWAL Unavailable Unavailable Gama Agarwal Unavailable Unavailable Leti Kamara Unavailable Unavailmiriam mackenzie No, Physician Primary Care Provider Unavailmiriam HUBBARD [...] Primary Care Unavailable ESHENAUR, RAY Admitting Unavailable YANIRA THORPE Attending Unavailable GAMA HUBBARD Primary Care Unavailable ESHENAUR, RAY Referring Unavailable ESHENAUR, RAY Admitting Unavailable YANIRA THORPE Attending Unavailable GAMA HUBBARD Primary Care Unavailable ESHENAUR, RAY Referring Unavailable ESHENAUR, RAY Admitting Unavailable GAMA HUBBARD Primary Care Unavailable YENNI PHILLIPS Attending Unavailable ESHENAUR, RAY Referring Unavailable ESHENAUR, RAY Admitting Unavailable ESHENAUR, RAY Admitting Unavailable GAMA HUBBARD Primary Care Unavailable LILI COON Attending Unavailable ESHENAUR, RAY Referring Unavailable ESHENAUR, RAY Referring Unavailable ROXANNA PALOMARES Attending Unavailable GAMA HUBBARD Primary Care Unavailable ESHENAUR, RAY Admitting Unavailable ESHENAUR, RAY Referring Unavailable GAMA HUBBARD Primary Care Unavailable YANIRA THORPE Attending Unavailable ESHENAUR, RAY Admitting Unavailable GAMA HUBBARD Primary Care Unavailable RYAN LUKE Attending Unavailable ESHENAUR, RAY Referring Unavailable ESHENAUR, RAY Admitting Unavailable GAMA HUBBARD Primary Care Unavailable RYAN LUKE Attending Unavailable ESHENAUR, RAY Referring Unavailable ESHENAUR, RAY Admitting Unavailable YANIRA THORPE Attending Unavailable GAMA HUBBARD Primary Care Unavailable ESHENAUR, RAY Referring Unavailable ESHENAUR, RAY Admitting Unavailable Gaudencio, Dr. Giovanni Luu Attending Unava ilable Stevie, Dr. Gama Montejo Primary Care Unavailjamaica Hubbard MD, Gama Jama Primary Care Provider Nava 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, Silvia D Primary Care Provider Slade BLENDING COORDINATOR, Silvia Primary Care Provider GAMA HUBBARD Primary Care Unavailable CARLOS BURKS Attending Unavailable Slade BLENDING COORDINATOR, Silvia Primary Care Provider Nava BLENDING COORDINATOR, Silvia D Primary Care Provider Nava 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, Silvia D Unavailable Marylu Sweet RN Unavailable Unavailable NAVA, SILVIA D Primary Care Unavailable Nava 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, Silvia D Primary Care Provider Saba Greene MD Unavailable Nava BLENDING COORDINATOR, Silvia D Primary Care Provider Nava 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, Silvia D Primary Care Provider TOMAS GALVEZ Attending Unavailable NAVA, SILVIA D Primary Care Unavailable NAVA, SILVIA D Referring Unavailable Dr. Alvin Walker MD Primary Care Provider Dr. Nadya Portillo MD Attending Provider Bandar HNOG, Dr. Covington Referring Provider Nadya Portillo Attending Unavailable Alvin Walker Primary Care Unavailable Vellanki, Nadya Referring Unavailable Vellanki, Nadya Attending Unavailable Tavallaee, Alvin Primary Care Unavailable Vellanki, Nadya Referring Unavailable Tavallaee, Alvin Primary Care Unavailable Vellanki, Nadya Attending Unavailable Vellanki, Nadya Referring Unavailable Vellanki, Nadya Attending Unavailable Tavallaee, Alvin Primary Care Unavailable Vellanki, Nadya Referring Unavailable Vellanki, Nadya Referring Unavailable Tavallaee, Alvin Primary Care Unavailable Vellanki, Nadya Attending Unavailable NAVA, SILVIA D Referring Unavailable NAVA, SILVIA D Primary Care Unavailable NAVA, SILVIA D Referring Unavailable NAVA, SILVIA D Primary Care Unavailable NAVA, SILVIA D Referring Unavailable NAVA, SILVIA D Primary Care Unavailable GEORGINA, BENITA J Referring Unavailable NAVA, SILVIA D Primary Care Unavailable GEORGINA, BENITA J Referring Unavailable NAVA, SILVIA D Primary Care Unavailable NAVA, SILVIA D Primary Care Unavailable SMILEY ENRIQUEZ Attending Unavailable NAVA, ISLVIA D Primary Care Unavailable RONEL LIMA Admitting Unavailable RONEL LIMA Attending Unavailable SMILEY SAUCEDO Consulting Unavailable GEORGINA, BENITA J Referring Unavailable NAVA, SILVIA D Primary Care Unavailable GEORGINA, BENITA J Referring Unavailable NAVA, SILVIA D Primary Care Unavailable GEORGINA, BENITA J Referring Unavailable NVAA, SILVIA D Primary Care Unavailable GEORGINA, BENITA J Referring Unavailable NAVA, SILVIA D Primary Care Unavailable GEORGINA, BENITA J Referring Unavailable NAVA, SILVIA D Primary Care Unavailable NAVA, SILVIA D Attending Unavailable NAVA, SILVIA D Primary Care Unavailable INDERJIT SHORT Attending Unavailable NAVA, SILVIA D Primary Care Unavailable NAVA, SILVIA D Attending Unavailable NAVA, SILVIA D Primary Care Unavailable NAVA, SILVIA D Attending Unavailable NAVA, SILVIA D Primary Care Unavailable Allergies Allergy Classification Reported Allergen(s) Allergy Type Date of Onset Reaction(s) Facility (20 sources) Aspirin; Translations: [aspirin] Drug Allergy 8 Bleeding, Other [facility] Work Phone: Comment on above: NOSEBLEEDS (20 sources) Sulfonamides (Antibiotic); Translations: [SULFA (SULFONAMIDE ANTIBIOTICS)] Allergy to substance 2 [facility] Comment on above: MOUTH AND TONGUE SOR ENESS (1 source) Sulfonamides (Antibiotic) Other [facility] Comment on above: MOUTH IRRITATION (7 sources) Sulfonamides (Antibiotic); Translations: [sulfa drugs] Drug allergy 9 Rash [facility] (5 sources) Aluminum aspirin Drug Allergy 9 Bleeding [facility] (1 source) Aspirin Drug Allergy 2 [facility] Repository Medications Current Medications Medication Drug Class(es) Dates Sig (Normalized) Sig (Original) acetaminophen 325 mg / HYDROcodone bitartrate 5 mg oral tablet (20 sources) Opioid Agonist Start: 08-23-2021 End: 04-06-2022 take 1 tablet by mouth every six hours as needed hydrocodone-acetami nophen 5 mg-325 mg oral tablet ; 1 tab(s) orally every 6 hours, As Needed -for severe pain Quantity: 8 Refills: 0 Ordered: 04-Apr-2022 Leti Kamara Start: 04-Apr-2022 End: 05-Apr-2022 Generic Substitution Allowed Comments: Caution federal law prohibits the transfer of this drug to any person other than the person for whom it was prescribed.May cause drowsiness. Alcohol may intensify this effect. Use care when operating dangerous machinery.This product contains acetaminophen. Do not use with any other product containing acetaminophen to prevent possible liver damage.Using more of this medication than prescribed may cause serious breathing problems. Start: 08-23-2021 take 1 tablet by santos th every six hours as needed Hydrocodone-Acetaminophen Active 1 TABLE T PO EVERY 6 HOURS NEEDED 10 3 August 23, 2021 Start: 03-25-2015 Hydrocodone-Ac etaminophen (Vicodin 5-300 Mg Tablet) 1 EACH tablet Active 1 {tbl} PO EVERY 6 HOURS NEEDED as needed for Pain March 25, 2015 12:00am Comment on above: Caution federal law prohibits the transfer of this drug to any person other than the person for whom it was prescribed.May cause drowsiness. Alcohol may intensify this effect. Use care when operating dangerous machinery.This product contains acetaminophen. Do not use with any other product containing acetaminophen to prevent possible liver damage.Using more of this medication than prescribed may cause serious breathing problems. acetaminophen 325 mg / oxyCODONE hydrochloride 5 mg oral tablet (10 sources) Opioid Agonist Start: 03-27-2015 Oxycodone-Acetamin ophen 1 TABLET tablet Active 1 - 2 {tbl} PO EVERY 4 HOURS NEEDED as needed for Pain March 27, 2015 12:00am Start: 03-27-2015 take 1 tablet by santos th every four hours as needed Oxycodone-Acetaminophen Active 1 - 2 TABLET PO EVERY 4 HOURS NEEDED March 27, 2015 12:00am 0.4 ml adalimumab 100 mg/ml auto-injector (2 sources) Tumor Necrosis Factor Latia Start: 07-29-2022 IVRGINIA Walton, Pen 40 mg/0.4 mL pen injector kit pen-injector amitriptyline hydrochloride 25 mg oral tablet (20 sources) Tricyclic Antidepressant Start: 06-28-2023 take 1 tablet by mouth once daily at bedtime amitriptyline (Elavil) 25 mg tablet Take 1 tablet (25 mg) by mouth once daily at bedtime. 06/28/2023 Active Start: 03-25-2015 take 1 tablet by santos th at bedtime Amitriptyline 10 MG tablet Active 10 mg PO AT BEDTIME March 25, 2015 12:00am aspirin 81 mg delayed release oral tablet (1 source) Platelet Aggregation Inhibitor, Nonsteroidal Anti-inflammatory Drug Start: 06-09-2022 End: 07-09-2022 aspirin 81 mg oral delayed release tablet Dose : 81 mg = 1 tab(s), Oral, BID, # 60 tab(s), 0 Refill(s), Pharmacy: [facility] #[id number], 165.1, cm, 06/08/22 10:22:00 EDT, Height Start Date: 06/09/22 Stop Date: 07/09/22 Status: Ordered betamethasone 0.5 mg/ml / clotrimazole 10 mg/ml topical cream (1 source) Azole Antifungal, Corticosteroid Start: 03-27-2025 clotrimazole-betame thasone (Lotrisone) cream Indications: Dermatitis due to plants, including poison ed, sumac, and oak Apply 1 Application topically 2 times a day. 45 g 1 03/27/2025 Active Start: 03-27-2025 clotrimazole-b etamethasone (Lotrisone) cream Indications: Dermatitis due to plants, including poison ed, sumac, and oak Apply 1 Application topically 2 times a day. 45 g 1 03/27/2025 Active calcium carbonate 1250 mg / cholecalciferol 200 unt oral tablet (15 sources) Vitamin D Start: 09-14-2023 End: 10-31-2024 take 1 tablet by mouth twice daily calcium carbonate-vitamin D3 (Hi-Kadeem Plus Vit D) 500 mg-5 mcg (200 unit) tablet Indications: Vitamin D deficiency Take 1 tablet by mouth 2 times a day. 180 tablet 3 10/31/2024 Active celecoxib 200 mg oral capsule (20 sources) Nonsteroidal Anti-inflammatory Drug Start: 03-25-2015 take 1 capsule by mouth once daily as needed for pain Celecoxib (Celebrex) 200 MG capsule Active 200 mg PO DAILY as needed for Pain March 25, 2015 12:00am Celecoxib (CELEB MERCEDES PO) Take 1 tablet by mouth. Active cephalexin 500 mg oral capsule (1 source) Cephalosporin Antibacterial Start: 04-05-2022 End: 04-14-2022 take 1 capsule by mouth every six hours cephalexin 500 mg oral capsule ; 1 cap(s) orally every 6 hours x 10 days Quantity: 40 Refills: 0 Ordered: 04-Apr-2022 Leti Kamara Start: 04-Apr-2022 End: 13-Apr-2022 Generic Substitution Allowed Comments: Finish all this medication unless otherwise directed by prescriber. Comment on above: Finish all this medi cation unless otherwise directed by prescriber. chromium picolinate 0.2 mg / gamboge 500 mg oral tablet (10 sources) Start: 03-25-2015 take 1 tablet by mouth twice daily Chromium-Brindal Gross (Garcinia Cambogia Tablet) 1 EACH tablet Active 1 NMA PO TWICE A DAY March 25, 2015 12:00am citalopram 20 mg oral tablet (20 sources) Serotonin Reuptake Inhibitor Start: 01-15-2025 take 1 tablet by mouth once daily citalopram (CeleXA) 20 mg tablet Indications: Moderate episode of recurrent major depressive disorder take 1 tablet by mouth once daily 90 tablet 3 01/15/2025 Active Start: 10-19-2024 take 1 tablet by santos once daily citalopram (CeleXA) 20 mg tablet Indications: Moderate episode of recurrent major depressive disorder take 1 tablet by mouth once daily 90 tablet 10/19/2024 Active Start: 02-02-2024 take 1 tablet by santos once daily citalopram (CeleXA) 20 mg tablet Indications: Moderate episode of recurrent major depressive disorder (Multi) Take 1 tablet (20 mg) by mouth once daily. 90 tablet 1 02/02/2024 Active Start: 05-28-2022 End: 09-14-2023 take 1 tablet by mouth once daily citalopram (CeleXA) 20 mg tablet Indications: Moderate episode of recurrent major depressive disorder (CMS/HCC) Take 1 tablet (20 mg) by mouth once daily. 90 tablet 1 09/14/2023 Active 1 ml dexamethasone phosphate 4 mg/ml injection (3 sources) Corticosteroid Start: 03-27-2025 dexAMETHasone (Decadron) injection 4 mg Start: 11-21-2024 End: 11-21-2024 dexAMETHasone (Decadron) injection 4 mg Start: 11-21-2024 End: 11-21-2024 inject 4 mg by intramuscular injection once 4 mg, intramuscular, Once, On Tue11/21/24 at 1415, For 1 dose docusate sodium 100 mg oral capsule (10 sources) Start: 03-27-2015 take 1 capsule by mouth twice daily as needed for constipation Docusate Sodium (Colace) 100 MG capsule Active 100 mg PO TWICE DAILY NEEDED as needed for Constipation March 27, 2015 12:00am doxycycline monohydrate 100 mg oral tablet (1 source) Tetracyclin e-class Drug Start: 09-27-2023 End: 10-07-2023 take 1 tablet by mouth twice daily doxycycline (Adoxa) 100 mg tablet Indications: Pharyngitis, unspecified etiology Take 1 tablet (100 mg) by mouth 2 times a day for 10 days. Take with a full glass of water and do not lie down for at least 30 minutes after 20 tablet 0 09/27/2023 10/07/2023 Active EMBREL (1 source) EMBREL ; subcutaneous once a week Quantity: 0 Refills: 0 Ordered: 08-Oct-2019 Bowling, Melanic Generic Substitution Allowed ferrous gluconate 256 mg oral tablet (2 sources) Start: 05-28-2022 Ferate 256 mg (28 mg elemental iron) oral tablet Dose : 256 mg = 1 tab(s), Oral, Every other day, 0 Refill(s) Start Date: 05/28/22 Status: Ordered ferrous sulfate 325 mg oral tablet (8 sources) take 1 tablet by mouth once daily ferrous sulfate, 325 mg ferrous sulfate, tablet Take 1 tablet by mouth once daily. Active feverfew extract (10 sources) Start: 03-25-2015 take 1 g by mouth twice daily Feverfew Extract (Bulk) 1 GM powder Active 380 mg PO TWICE A DAY March 25, 2015 12:00am Start: 03-25-2015 take 380 mg by mouth twice mamie ly Feverfew Extract (Bulk) Active 380 MG PO TWICE A DAY March 24, 2015 11:00pm Start: 03-25-2015 take 380 mg by mouth twice mamie ly Feverfew Extract (Bulk) Active 380 MG PO TWICE A DAY March 25, 2015 12:00am folic acid 1 mg oral tablet (20 sources) Start: 06-08-2022 folic acid 1 m g oral tablet Dose : 1 mg = 1 tab(s), Oral, BID Start Date: 06/08/22 Status: Ordered folic acid 1 mg oral tablet ; orally 2 times a day Quantity: 0 Refills: 0 Ordered: 08-Oct-2019 Bowling, Melanic Generic Substitution Allowed folic acid 0.4 mg / vitamin b12 1 mg sublingual tablet (5 sources) Vitamin B12 Cobalamine [place] (B-12) 100-5000 MCG SL SUBL Indications: Malnutrition following gastrointestinal surgery , HTN (hypertension) take by mouth Daily. Active gabapentin 600 mg oral tablet (20 sources) Anti-epileptic Agent Start: take 1 tablet by mouth once daily at bedtime gabapentin (Neurontin) 600 mg tablet Take 1 tablet (600 mg) by mouth once daily at bedtime. 08/14/2023 Active Start: 05-28-2022 End: 07-20-2023 take 1 tablet by mouth once daily at bedtime gabapentin (Neurontin) 600 mg tablet Take 1 tablet (600 mg) by mouth once daily at bedtime. 0 03/13/2023 07/20/2023 Discontinued (Duplicate order) Start: 03-25-2015 take 1 capsule by [facility] at bedtime Gabapentin 400 MG capsule Active 400 mg PO AT BEDTIME March 25, 2015 12:00am herbal/nutritional product (2 sources) Start: 05-28-2022 take 1 capsule by mouth twice daily herbal/nutritional product 1 cap, Oral, BID, 0 Refill(s) Start Date: 05/28/22 Status: Ordered hydroxychloroquine sulfate 200 mg oral tablet (3 sources) Antimalarial, Antirheumatic Agent hydroxychloroquine (PlaqueniL) 200 mg tablet Take by mouth twice a day. 0 Active Plaquenil 200 mg oral tablet ; orally 2 times a day Quantity: 0 Refills: 0 Ordered: 08-Oct-2019 Bowling, Melanic Generic Substitution Allowed inulin 1500 mg chewable tablet (2 sources) Start: 05-28-2022 Fiber Choice 1 .5 g oral tablet, chewable Dose : 3 gram(s) = 2 tab(s), Chewed, qDay, 0 Refill(s) Start Date: 05/28/22 Status: Ordered methocarbamol 750 mg oral tablet (20 sources) Muscle Relaxant Start: 03-27-2025 take 1 tablet by mouth three times daily methocarbamol (Robaxin) 750 mg tablet Indications: Rheumatoid arthritis, involving unspecified site, unspecified whether rheumatoid factor present (Multi) Take 1 tablet (750 mg) by mouth 3 times a day. 180 tablet 5 03/27/2025 Active Start: 01-22-2025 End: 03-27-2025 take 2 tablets by mouth three times daily for muscle spasms methocarbamol (Robaxin) 750 mg tablet Indications: Rheumatoid arthritis, involving unspecified site, unspecified whether rheumatoid factor present (Multi) take 2 tablets by mouth three times a day if needed for muscle spasm 180 tablet 1 01/22/2025 03/27/2025 Discontinued (Reorder) Start: 08-16-2024 End: 11-13-2024 take 2 tablets by mouth three times daily for muscle spasms methocarbamol (Robaxin) 750 mg tablet Indications: Rheumatoid arthritis, involving unspecified site, unspecified whether rheumatoid factor present (Multi) take 2 tablets by mouth three times a day if needed for muscle spasm 180 tablet 11/13/2024 Active Start: 07-20-2023 End: 09-14-2023 take 2 tablets by mouth three times daily as needed for muscle spasms methocarbamol (Robaxin) 750 mg tablet Indications: Rheumatoid arthritis, involving unspecified site, unspecified whether rheumatoid factor present (Multi) Take 2 tablets (1,500 mg) by mouth 3 times a day as needed for muscle spasms. 180 tablet 1 09/14/2023 Active Start: 07-01-2023 End: 07-20-2023 take 2 tablets by mouth once daily methocarbamol (Robaxin) 750 mg tablet Take 2 tablets (1,500 mg) by mouth once daily. 0 07/01/2023 07/20/2023 Discontinued (Reorder) Start: 03-25-2015 take 1 tablet by santos th twice daily as needed for pain Methocarbamol (Robaxin-750) 750 MG tablet Active 750 mg PO TWICE A DAY as needed for BACK PAIN March 25, 2015 12:00am take 1 tablet by santos th four times daily Methocarbamol 750 MG tablet Take 1 tablet by mouth 4 times daily. Active methotrexate 2.5 mg oral tablet (20 sources) Folate Analog Metabolic Inhibitor Start: 05-28-2022 methotrexate 2.5 mg oral tablet Dose : 15 mg = 6 tab(s), Oral, qWeek, # 72 tab(s), 0 Refill(s) Start Date: 05/28/22 Status: Ordered methotrexate 2.5 MG tablet take 6 tablets every week Active MISC NATURAL PRODUCTS PO (3 sources) MISC NATURAL PRODUCTS PO Take by mouth. Active Multiple Vitamin (multivitamin) capsule (1 source) take 1 capsule by mouth twice daily Multiple Vitamin (multivitamin) capsule Take 1 capsule by mouth 2 times daily. Active multivitamin with minerals tablet (8 sources) take 1 tablet by mouth twice daily multivitamin with minerals tablet Take 1 tablet by mouth 2 times a day. Active mupirocin 0.02 mg/mg topical ointment (1 source) RNA Synthetase Inhibitor Antibacterial Start: 03-03-20 End: 03-13-20 24 mupirocin (Bactroban) 2 % ointment Indications: Rash and other nonspecific skin eruption Apply 1 Application topically 3 times a day for 10 days. 22 g 03/03/2024 03/13/2024 Active polyethylene glycol 3350 91471 mg powder for oral solution (4 sources) Osmotic Laxative Start: 11-13-19 polyethylene glycol (Miralax) 17 gram packet Take 17 g by mouth 1 time. 11/13/2023 Active pramipexole dihydrochloride 0.5 mg oral tablet (18 sources) Nonergot Dopamine Agonist Start: 11-08-20 23 take 1 tablet by mouth once daily at bedtime pramipexole (Mirapex) 0.5 mg tablet Take 1 tablet (0.5 mg) by mouth once daily at bedtime. 06/22/2023 Active Start: 09-10-2022 [facility] pramipexole (Mirapex) 0.25 mg tablet Take 1 tablet (0.25 mg) by mouth once daily at bedtime. 0 09/10/2022 Active predniSONE 10 mg oral tablet (20 sources) Start: 03-27-2025 take 3 tablets by mouth once daily predniSONE (Deltasone) 10 mg tablet Indications: Dermatitis due to plants, including poison ed, sumac, and oak Take 3 tablets (30 mg) by mouth once daily. 15 tablet 1 03/27/2025 Active Start: 11-21-2024 End: 03-27-2025 predniSONE (Deltasone) 10 mg tablet Indications: Low back pain radiating down leg TAKE 4 TABS X 3 DAYS, 3 TABS X 3 DAYS, 2 TABS, 3 DAYS, 1 TAB X 3 DAYS THEN STOP 30 tablet 11/21/2024 03/27/2025 Discontinued (Med List Cleanup) Start: 03-03-2024 take 6 tablets by mo [facility] once daily, then take 5 tablets by mouth once daily, then take 4 tablets by mouth once daily, then take 3 tablets by mouth once daily, then take 2 tablets by mouth once daily, then take 1 tablet by mouth once daily predniSONE (Deltasone) 10 mg tablet Indications: Rash and other nonspecific skin eruption Take 6 tabs PO daily x1 day, then take 5 tabs daily x1 day, then take 4 tabs daily x1 day, then take 3 tabs daily x1 day, then take 2 tabs daily x1 day, then take 1 tab daily x1 day. Take with a meal. 21 tablet 03/03/2024 Active Start: 09-27-2023 take 3 tablets by mo [facility] once daily predniSONE (Deltasone) 10 mg tablet Indications: Pharyngitis, unspecified etiology Take 3 tablets (30 mg) by mouth once daily. 15 tablet 09/27/2023 Active Start: 08-31-2023 End: 03-27-2025 take 1 tablet by mouth once daily predniSONE (Deltasone) 10 mg tablet take 1 tablet by mouth once daily if needed (TAKE FOR 3-5 DAYS WITH A FLARE) 08/31/2023 03/27/2025 Discontinued (Reorder) Vit No.529-Cvto-Bxy ic ( Vitamin Tablet) 1 EACH tablet (10 sources) Start: 03-25-2015 Vit N o.481-Kdxm-Ffenv ( Vitamin Tablet) 1 EACH tablet Active 1 NMA PO DAILY March 25, 2015 12:00am Start: 03-25-2015 Vit N o.337-Eabx-Hajrz ( Vitamin Tablet) 1 EACH tablet Active 1 EACH PO DAILY March 24, 2015 11:00pm Start: 03-25-2015 Vit N o.457-Kogk-Ysuan ( Vitamin Tablet) 1 EACH tablet Active 1 EACH PO DAILY March 25, 2015 12:00am promethazine hydrochloride 25 mg oral tablet (10 sources) Phenothiazine Start: 03-27-2015 take 1 tablet by mouth every four hours as needed for nausea Promethazine 25 MG tablet Active 25 mg PO EVERY 4 HOURS NEEDED as needed for Nausea March 27, 2015 12:00am traMADol hydrochloride 50 mg oral tablet (20 sources) Opioid Agonist Start: 03-25-2015 take 1 tablet by mouth every six hours as needed for pain Tramadol 50 MG tablet Active 50 mg PO EVERY 6 HOURS NEEDED as needed for Pain March 25, 2015 12:00am take 1 tablet by santos th three times daily as needed traMADol (Ultram) 50 mg tablet Take 1 ta blet (50 mg) by mouth 3 times a day as needed. Active traMADol 50 mg o ral tablet ; orally once a day, As Needed Quantity: 0 Refills: 0 Ordered: 08-Oct-2019 Judi Alvarez Generic Substitution Allowed UNKNOWN TO PATIENT (2 sources) End: 10-31-2024 valACYclovir 1000 mg oral tablet (1 source) Herpesvirus Nucleoside Analog DNA Polymerase Inhibitor, Herpes Simplex Virus Nucleoside Analog DNA Polymerase Inhibitor, Herpes Zoster Virus Nucleoside Analog DNA Polymerase Inhibitor Start: 03-03-2024 End: 03-10-2024 take 1 tablet by mouth three times daily valACYclovir (Valtrex) 1 gram tablet Indications: Rash and other nonspecific skin eruption Take 1 tablet (1,000 mg) by mouth 3 times a day for 7 days. 21 tablet 03/03/2024 03/10/2024 Active vitamin b12 0.5 mg oral tablet (20 sources) Vitamin B12 Start: 03-25-2015 take 2 tablets by mouth once daily Cyanocobalamin (Vitamin B-12) 500 MCG tablet Active 1000 ug PO DAILY@799March 25, 2015 12:00am Start: 03-25-2015 take 1000 ug by mout h once daily Cyanocobalamin (Vitamin B-12) Active 1000 MCG PO DAILY@799March 25, 2015 12:00am End: 10-31-2024 take 1 tablet by mouth once daily cyanocobalamin, vitamin B-12, 1,000 mcg tablet, sublingual take 1 by Oral route every day 10/31/2024 Discontinued (Med List Cleanup) Vitamin B12 500 mcg oral tab let (2 sources) Start: 05-28-2022 Vitamin B12 50 0 mcg oral tablet Dose : 500 mcg = 1 tab(s), Oral, Every other day, 0 Refill(s) Start Date: 05/28/22 Status: Ordered Start: 05-28-2022 Vitamin B12 50 0 mcg oral tablet Dose : 500 mcg = 1 tab(s), Oral, Every other day, # 30 tab(s), 0 Refill(s) Start Date: 05/28/22 Status: Ordered Vitamin D3 25 mcg (1000 intl units) oral capsule (2 sources) Start: 05-28-2022 Vitamin D3 25 mcg (1000 intl units) oral capsule Dose : 25 mcg = 1 cap(s), Oral, qDay, 0 Refill(s) Start Date: 05/28/22 Status: Ordered Start: 05-28-2022 Vitamin D3 25 mcg (1000 intl units) oral capsule Dose : 25 mcg = 1 cap(s), Oral, Daily, 0 Refill(s) Start Date: 05/28/22 Status: Ordered Completed/Discontinued Medications Medication Drug Class(es) Dates Sig (Normalized) Sig (Original) acetaminophen 325 mg oral tablet (4 sources) Start: 10-21-2023 End: 10-24-2023 650 mg, Oral, EVERY 6 HOURS, First dose on Tue10/21/23 at 1200, Until Discontinued, Maximum dose of acetaminophen is 4000 mg from all sources in 24 hours. Start: 06-09-2022 End: 06-23-2022 acetaminophen 500 mg oral ta blet Dose : 1,000 mg = 2 tab(s), Oral, q8h, X 14 day(s), # 100 tab(s), 0 Refill(s), 06/23/22 12:04:00 EST, [facility]: [facility] #[id number], 165.1, cm, 06/08/22 10:22:00 EDT, Height Start Date: 06/09/22 Stop Date: 06/23/22 Status: Ordered take 2 tablets by [facility] every eight hours acetaminophen (Tylenol) 500 mg tablet take 2 tablets by mouth every 8 hours for 14 days 0 Active calcium chloride 0.0014 meq/ml / potassium chloride 0.004 meq/ml / sodium chloride 0.103 meq/ml / sodium lactate 0.028 meq/ml injectable solution (1 source) Start: 10-21-2023 End: 10-23-2023 Intravenous, at 75 mL/hr, CONTINUOUS, Starting on Tue10/21/23 at 0130, Until Tue10/23/23 at 0941 diphenhydrAMINE (1 source) Histamine-1 Receptor Antagonist Start: 10-20-2023 End: 10-20-2023 diphenhydrAMINE (BENADryl) injection 12.5 mg 0.4 ml enoxaparin sodium 100 mg/ml prefilled syringe (2 sources) Low Molecular Weight Heparin Start: 10-21-2023 End: 10-24-2023 inject 40 mg by subcutaneous injection every twenty-four hours 40 mg, Subcutaneous, EVERY 24 HOURS, First dose (after last modification) on 10/22/23 at 0900, Until Discontinued, Indications: DVT/PE prophylaxis 2 ml fentaNYL 0.05 mg/ml injection (1 source) Opioid Agonist Start: 10-21-2023 End: 10-21-2023 50 mcg, Intravenous, Administer over 2 Minutes, EVERY 5 MINUTES NEEDED, 8 doses, Starting on Tue10/21/23 at 1000, Until Tue10/21/23 at 1119, Moderate Pain, Severe Pain, Additional dose may be administered only if first dose did not result in adverse effects (RR Ferrous Fumarate (NORMAN-SEQUELS) 50 MG PO TBCR (1 source) Start: 07-16-2009 End: 10-24-2023 take 1 tablet by mouth once daily Ferrous Fumarate (NORMAN-SEQUELS) 50 MG PO TBCR Indications: Iron deficiency anemia take 1 Tab by mouth daily. 30 1 07/16/2009 10/24/2023 Discontinued (Stop Taking at Discharge) HYDROmorphone (DILAUDID) injection 0.2 mg (1 source) Start: 10-21-2023 End: 10-24-2023 take 0.2 mg intravenously every three hours as needed HYDROmorphone (DILAUDID) injection 0.2 mg iohexol (OMNIPaque) 350 mg iodine/mL solution 69 mL (1 source) Start: 10-20-2023 End: 10-20-2023 iohexol (OMNIPaque) 350 mg iodine/mL solution 69 mL 10 ml lidocaine hydrochloride 20 mg/ml injection (1 source) Antiarrhythmic, Amide Local Anesthetic Start: 11-28-2024 End: 11-28-2024 infiltration, Once PRN Procedure, Starting on Tue11/28/24 at 1011, For 1 dose, Intraprocedure 100 ml magnesium sulfate 10 mg/ml injection (2 sources) Start: 10-24-2023 End: 10-24-2023 1 g, Intravenous, Administer over 60 Minutes, ONCE, 1 dose, On Tue10/24/23 at 0700 Start: 10-23-2023 End: 10-23-2023 4 g, Intravenous, Administer over 4 Hours, ONCE, 1 dose, On Tue10/23/23 at 0700 2 ml metoclopramide 5 mg/ml injection (1 source) Dopamine-2 Receptor Antagonist Start: 10-20-2023 End: 10-20-2023 metoclopramide (Reglan) injection 10 mg 1 ml morphine sulfate 4 mg/ml prefilled syringe (2 sources) Opioid Agonist Start: 10-20-2023 End: 10-20-2023 morphine injection 4 mg ondansetron 4 mg oral tablet (7 sources) Serotonin-3 Receptor Antagonist Start: 10-24-2023 End: 11-08-2023 take 1 tablet by mouth every eight hours as needed Ondansetron (Zofran) 4 MG tablet Take 1 tablet by mouth every 8 hours as needed for Nausea / Vomiting. 20 tablet 10/24/2023 11/08/2023 Discontinued Start: 10-21-2023 End: 10-21-2023 4 mg, Intravenous, ONCE N EEDED, 1 dose, Starting on Tue10/21/23 at 1000, Until Tue10/21/23 at 1051, Nausea / Vomiting, SECOND Line, Use if patient still experiencing nausea/vomiting after 1st line antiemetic, Recovery Start: 10-20-2023 End: 10-24-2023 take 4 mg intravenously every six hours as needed 4 mg, Intravenous, EVERY 6 HOURS NEEDED, Starting on Tue10/21/23 at 0117, Until Tue10/24/23 at 1558, Nausea / Vomiting, 1st Line Nausea / Vomiting, If patient is unable to tolerate PO. Start: 10-20-2023 End: 10-20-2023 ondansetron (Zofran) injecti on 4 mg oxyCODONE hydrochloride 5 mg oral tablet (4 sources) Opioid Agonist Start: 10-24-2023 End: 11-08-2023 take 1 tablet by mouth every six hours as needed for pain oxyCODONE 5 MG tablet Indications: Small bowel obstruction Take 1 tablet by mouth every 6 hours as needed for Moderate Pain or Severe Pain for up to 3 days. 10 tablet 10/24/2023 11/08/2023 Discontinued Start: 10-21-2023 End: 10-24-2023 take 1 tablet by mouth every four hours as needed 5 mg, Oral, EVERY 4 HOURS NEEDED, Starting on Tue10/21/23 at 1202, Until Tue10/24/23 at 1558, Moderate Pain, Severe Pain Start: 06-09-2022 End: 06-16-2022 oxyCODONE 5 mg oral tablet ( IMMEDIATE release ) Dose : 10 mg = 2 tab(s), Oral, q4h, PRN Pain, scale 4-6, X 7 day(s), # 56 tab(s), 0 Refill(s), 06/16/22 12:07:00 EDT, Pharmacy: [facility] #[id number], Status post right knee replacement, 165.1, cm, 06/08/22 10:22:00 EDT, Height, 100 Start Date: 06/09/22 Stop Date: 06/16/22 Status: Ordered pantoprazole 40 mg delayed release oral tablet (5 sources) Proton Pump Inhibitor Start: 10-24-2023 End: 12-08-2023 take 1 tablet by mouth once daily Pantoprazole [address] tablet DR Take 1 tablet by mouth daily. 30 tablet 10/24/2023 12/08/2023 Discontinued (Therapy completed) Start: 10-22-2023 End: 10-24-2023 40 mg, Intravenous, DAILY, F irst dose on Tue10/22/23 at 0900, Until Discontinued, Dilute each 40 mg vial with 10 mL of NS. All bolus doses, whether 40 mg or 80 mg, should be administered over at least two minutes., Indications: Inpt Stress Ulcer Prophylaxis phenol 14 mg/ml mucosal spray (1 source) Start: 10-21-2023 End: 10-24-2023 1 spray, Mouth/Throat, NEEDED, Starting on Tue10/21/23 at 0117, Until 10/24/23 at 1558, Sore Throat, Patient may self-administer. potassium bicarbonate 20 meq effervescent oral tablet (2 sources) Start: 10-23-2023 End: 10-24-2023 take 15-30 mL by mouth once 40 mEq, Oral, ONCE, 1 dose, On Tue10/24/23 at 0700, Do not swallow whole. Dissolve completely in 3-4 ounces of water or cold juice before drinking. If administering via J tube, dilute in sterile water, wait for tablet to stop fizzing, swirl the solution and draw into a syringe suitable for attaching to the tube. After administration, flush tube with 15-30 ml water. Vit-Fe Sulfate-FA ( VITAMIN PO) (4 sources) End: 12-08-2023 Vit-Fe Sulfate-FA ( VITAMIN PO) Indications: Malnutrition following gastrointestinal surgery , HTN (hypertension) take by mouth Daily. 12/08/2023 Discontinued (Therapy completed) Vit-Fe Sulfate-FA ( VITAMIN PO) Indications: Malnutrition following gastrointestinal surgery , HTN (hypertension) take by mouth Daily. Active prochlorperazine 5 mg/ml injectable solution (1 source) Phenothiazine Start: 10-21-2023 End: 10-24-2023 take 5 mg intravenously every six hours as needed 5 mg, Intravenous, EVERY 6 HOURS NEEDED, Starting on Tue10/21/23 at 0117, Until 10/24/23 at 1558, Refractory Nausea Vomiting, If unrelieved by Ondansetron. Administer IV if patient is unable to tolerate PO. promethazine (Phenergan) 12.5 mg in sodium chloride 0.9% 50 mL IV (1 source) Start: 10-20-2023 End: 10-20-2023 promethazine (Phenergan) 12.5 mg in sodium chloride 0.9% 50 mL IV sertraline 50 mg oral tablet (1 source) Serotonin Reuptake Inhibitor End: 10-21-2023 sertraline (ZOLOFT) 50 MG PO TABS Indications: Malnutrition following gastrointestinal surgery , HTN (hypertension) take by mouth Daily. 10/21/2023 Discontinued (Medication Reconciliation (suppress cancel msg)) 1000 ml sodium chloride 9 mg/ml injection (3 sources) Start: 10-21-2023 End: 10-24-2023 Intravenous, at 20 mL/hr, NEEDED, Starting on Tue10/21/23 at 0117, Until Tue10/24/23 at 1558, Carrier Fluid - See Admin. Inst, 250mL 0.9NS to be used as carrier fluid for intermittent small volume or piggyback medication administration as needed. Infusion rate of the carrier fluid should be set at 20 mL/hr unless the rate as the intermittent medication is less than 20 mL/hr. For intermittent medications with a rate less than 20 mL/hr set the carrier fluid at that rate of the intermittent or piggy back medication. Start: 10-20-2023 End: 10-20-2023 sodium chloride 0.9 % bolus 1,000 mL SUMAtriptan 50 mg oral tablet (20 sources) Serotonin-1b and Serotonin-1d Receptor Agonist Start: 10-21-2023 End: 10-24-2023 100 mg, Oral, 2 TIMES DAILY NEEDED, Starting on Tue10/21/23 at 2337, Until Tue10/24/23 at 1558, Migraine, Max 200 mg/24 hr Start: 10-21-2023 End: 10-21-2023 100 mg, Oral, ONCE, 1 dose, On Tue10/21/23 at 1300, Max 200 mg/24 hr Start: 03-25-2015 Sumatriptan Alonzo ccinate (Imitrex) 100 MG tablet Active 100 mg PO .X1 PRN March 25, 2015 12:00am SUMAtriptan (Imi trex) 100 mg tablet Take by mouth once daily as needed. Active SUMAtriptan 50 M G tablet Take 1 tablet by mouth once. May repeat in 2 hr, MAX 200MG/24HR Active ZOLMitriptan 2.5 mg oral tablet (1 source) Serotonin-1b and Serotonin-1d Receptor Agonist End: 10-21-2023 zolmitriptan (ZOMIG) 2.5 MG PO TABS Indications: Malnutrition following gastrointestinal surgery , HTN (hypertension) take by mouth As needed for Migraine. 10/21/2023 Discontinued (Medication Reconciliation (suppress cancel msg)) Problems Active Problems Problem Classification Problem Date Documented Da te Episodic/Chronic Allergic reactions (20 sources) Allergy status to penicillin; Translations: [Allergic disorder] Onset: 05-10-2023 Resolved: 03-22-2024 07-19-2023 Episodic Disorders of lipid metabolism (15 sources) Pure hypercholesterolemia ; Translations: [Pure hypercholesterolemia , unspecified] Onset: 10-31-2024 10-31-2024 Chronic Essential hypertension (20 sources) Essential hypertension; Translations: [Essential (primary) hypertension] Onset: 07-20-2023 07-20-2023 Chronic Genitourinary symptoms and ill-defined conditions (18 sources) Unspecified urinary incontinence; Translations: [Incontinence] Onset: 05-10-2023 07-19-2023 Chronic Headache; including migraine (17 sources) Migraine; Translations: [Migraine, unspecified, not intractable, without status migrainosus] Onset: 09-05-2019 Chronic Immunizations and screening for infectious disease (1 source) Requires diphtheria, tetanus and pertussis vaccination; Translations: [Need for prophylactic vaccination and inoculation against [id number] ertussis, combined [DTP] [DTaP]] 04-05-2022 Episodic Mood disorders (18 sources) Recurrent major depressive episodes, moderate ; Translations: [Major depressive disorder, recurrent, moderate] Onset: 07-19-2023 07-20-2023 Chronic Nausea and vomiting (1 source) Nausea and vomiting; Translations: [Nausea with vomiting, unspecified] 10-20-2023 Episodic Nutritional deficiencies (20 sources) Vitamin D deficiency; Translations: [Vitamin D deficiency, unspecified] Onset: 07-20-2023 07-20-2023 Chronic Open wounds of extremities (3 sources) Laceration of finger; Translations: [Laceration of right ring finger] 04-04-2022 Episodic Comment on above: FINGER LACERATION Osteoarthritis (20 sources) Osteoarthritis of right knee joint; Translations: [Unilateral primary osteoarthritis, right knee] Onset: 06-08-2022 Resolved: 07-20-2023 Chronic Other acquired deformities (2 sources) Other forms of scoliosis, lumbar region; Translations: [Other forms of scoliosis, lumbar region] Onset: 01-09-2025 Chronic Other acquired deformities (1 source) Scoliosis of lumbar spine; Translations: [Other forms of scoliosis, lumbar region] Onset: 01-09-2025 01-09-2025 Chronic Other acquired deformities (2 sources) Spondylolisthesis, lumbar region; Translations: [Spondylolisthesis, lumbar region] Onset: 01-09-2025 Episodic Other acquired deformities (1 source) Lumbar spondylolisthesis; Translations: [Spondylolisthesis, lumbar region] Onset: 01-09-2025 01-09-2025 Episodic Other connective tissue disease (1 source) Artificial knee joint present; Translations: [Presence of right artificial knee joint] Onset: 06-08-2022 Chronic Other connective tissue disease (1 source) History of total knee arthroplasty 06-08-2022 Chronic Other endocrine disorders (4 sources) Hyperparathyroidism; Translations: [Hyperparathyroidism , unspecified] 10-31-2024 Chronic Other endocrine disorders (4 sources) Hyperparathyroidism, unspecified; Translations: [Hyperparathyroidism , unspecified (Multi)] Onset: 10-31-2024 Chronic Other gastrointestinal disorders (1 source) Full incontinence of feces; Translations: [Full incontinence of feces] Onset: 05-10-2023 Episodic Other hereditary and degenerative nervous system conditions (16 sources) Restless legs; Translations: [Restless legs syndrome] Onset: 02-24-2017 07-20-2023 Chronic Other nervous system disorders (2 sources) Anesthesia of skin; Translations: [Anesthesia of skin] Onset: 05-10-2023 Episodic Other nutritional; endocrine; and metabolic disorders (20 sources) Severe obesity; Translations: [Morbid (severe) obesity due to excess calories] Onset: 07-20-2023 Resolved: 09-30-2023 07-20-2023 Chronic Other nutritional; endocrine; and metabolic disorders (20 sources) Obesity caused by energy imbalance; Translations: [Other obesity due to excess calories] Onset: 09-30-2023 Resolved: 09-30-2023 09-30-2023 Chronic Other nutritional; endocrine; and metabolic disorders (2 sources) Morbid (severe) obesity due to excess calories; Translations: [Morbid (severe) obesity due to excess calories (Multi)] Onset: 03-27-2025 Chronic Other nutritional; endocrine; and metabolic disorders (2 sources) Body mass index (BMI) 37.0-37.9, adult; Translations: [Body mass index (BMI) 37.0-37.9, adult] Onset: 03-27-2025 Chronic Rheumatoid arthritis and related disease (20 sources) Rheumatoid arthritis; Translations: [Rheumatoid arthritis, unspecified] Onset: 06-08-2022 Chronic Spondylosis; intervertebral disc disorders; other back problems (17 sources) Prolapsed lumbar intervertebral disc; Translations: [Other intervertebral disc displacement, lumbar region] Onset: 07-20-2023 07-20-2023 Chronic Spondylosis; intervertebral disc disorders; other back problems (20 sources) Compression of lumbar nerve root; Translations: [Radiculopathy, lumbar region] Onset: 07-20-2023 07-20-2023 Episodic Sprains and strains (10 sources) Sprain of knee; Translations: [Sprain of unspecified site of right knee, initial encounter] 08-31-2021 Episodic Thyroid disorders (4 sources) Thyroid nodule; Translations: [Nontoxic single thyroid nodule] Onset: 11-28-2024 11-28-2024 Chronic Unclassified (1 source) Laceration of right ring finger without foreign body with damage to nail, initial encounter 04-05-2022 Unclassified (1 source) Need for tetanus, diphtheria, and acellular pertussis (Tdap) vaccine 04-05-2022 Unclassified (2 sources) Low back pain, unspecified; Translations: [Low back pain, unspecified] Onset: 05-10-2023 Unclassified (2 sources) Patient encounter status 10-31-2024 Unclassified (2 sources) Rash; Translations: [Rash] Onset: 03-03-2024 Unclassified (1 source) Obesity, class 2; Translations: [Obesity, class 2] Onset: 03-27-2025 Past or Other Problems Problem Classification Problem Date Documented Da te Episodic/Chronic Administrative/social admission (20 sources) Patient encounter status; Translations: [Persons encountering health services in other specified circumstances] Onset: 07-20-2023 Resolved: 03-22-2024 07-20-2023 Episodic Deficiency and other anemia (16 sources) Anemia; Translations: [Anemia, unspecified] Onset: 07-19-2023 Resolved: 09-14-2023 07-19-2023 Episodic Genitourinary symptoms and ill-defined conditions (2 sources) Urgency of urination; Translations: [Urgency of urination] Onset: 05-11-2023 Episodic Headache; including migraine (16 sources) Headache; Translations: [Headache] Onset: 07-19-2023 07-19-2023 Episodic Intestinal obstruction without hernia (12 sources) Intestinal obstruction; Translations: [Unspecified intestinal obstruction, unspecified as to partial versus complete obstruction] Onset: 10-21-2023 10-20-2023 Episodic Mood disorders (3 sources) Mood disorders Onset: 11-08-2023 Resolved: 12-08-2023 11-08-2023 Nutritional deficiencies (20 sources) Iron deficiency; Translations: [Iron deficiency] Onset: 07-20-2023 07-20-2023 Episodic Other aftercare (2 sources) Other exterminator helper termite (current) drug therapy; Translations: [Other exterminator helper termite (current) drug therapy] Onset: 05-10-2023 Episodic Other connective tissue disease (4 sources) Pain in left lower leg; Translations: [Pain in left lower leg] Onset: 05-10-2023 Episodic Other connective tissue disease (2 sources) Pain in leg, unspecified; Translations: [Pain in leg, unspecified] Onset: 11-21-2024 Episodic Other gastrointestinal disorders (7 sources) History of bypass of stomach; Translations: [Bariatric surgery status] Onset: 10-24-2023 10-24-2023 Episodic Other gastrointestinal disorders (2 sources) Bariatric surgery status; Translations: [Bariatric surgery status] Onset: 10-24-2023 Episodic Other nervous system disorders (16 sources) Numbness and tingling sensation of skin; Translations: [Anesthesia of skin] Onset: 04-18-2023 07-19-2023 Episodic Other nervous system disorders (2 sources) Other disturbances of skin sensation; Translations: [Other disturbances of skin sensation] Onset: 05-11-2023 Episodic Other screening for suspected conditions (not mental disorders or infectious disease) (4 sources) Encounter for screening mammogram for malignant neoplasm of breast; Translations: [Encounter for screening mammogram for malignant neoplasm of breast] Onset: 10-31-2024 Episodic Other skin disorders (2 sources) Eruption; Translations: [Rash and other nonspecific skin eruption] Onset: 03-08-2024 03-03-2024 Episodic Other skin disorders (1 source) Rash and other nonspecific skin eruption; Translations: [Rash and other nonspecific skin eruption] Onset: 03-08-2024 Episodic Other upper respiratory infections (14 sources) Pharyngitis; Translations: [Acute pharyngitis, unspecified] Onset: 09-27-2023 Resolved: 03-27-2025 09-30-2023 Episodic Residual codes; unclassified (7 sources) Family history of intestinal obstruction; Translations: [Family history of other diseases of the digestive system] Onset: 10-31-2023 10-31-2024 Episodic Skin and subcutaneous tissue infections (11 sources) Cellulitis of abdominal wall ; Translations: [Cellulitis of abdominal wall] Onset: 03-08-2024 04-11-2024 Episodic Unclassified (16 sources) Onset: 07-20-2023 Resolved: 03-27-2025 07-20-2023 Unclassified (1 source) Obesity, class 2; Translations: [Obesity, class 2] Onset: 03-27-2025 Unclassified (1 source) Low back pain, unspecified; Translations: [Low back pain, unspecified] Onset: 11-21-2024 Results Test Name Value Interpretation Reference Range Facility CALCIUM, IONIZEDon CALCIUM, IONIZED 5.1 mg/dL Normal 4.7-5.5 [facility] Comment on above: Performed By: #### 7 18, 6399, 99609, 09784, 306, 14303 #### [facility] [address], [address] [place] [id number] Mechanical Engineering Lecturer: Oliver Morales MD CBC (INCLUDES DIFF/PLT)on Basophils (Bld) [#/Vol] 0.018 10*3/uL Normal 0-200 [facility] Comment on above: Performed By: #### 7 18, 6399, 54235, 39948, 306, 77084 #### [facility] [place] [address] Mechanical Engineering Lecturer: Oliver Morales MD Basophils/100 WBC (Bld) 0.4 % Normal [facility] Comment on above: Performed By: #### 7 18, 6399, 12827, 48682, 306, 48279 #### [facility] [place] [address] Mechanical Engineering Lecturer: Oliver Morales MD Eosinophils (Bld) [#/Vol] 0.428 10*3/uL Normal 15-500 [facility] Comment on above: Performed By: #### 7 18, 6399, 96005, 51379, 306, 01224 #### [facility] [place] [address] Mechanical Engineering Lecturer: Oliver Morales MD Eosinophils/100 WBC (Bld) 9.3 % Normal [facility] Comment on above: Performed By: #### 7 18, 6399, 23267, 79790, 306, 95563 #### [facility] [place] [address] Mechanical Engineering Lecturer: Oliver Morales MD Erythrocyte distribution width (RBC) [Ratio] 14.6 % Normal 11.0-15.0 [facility] Comment on above: Performed By: #### 7 18, 6399, 11896, 95839, 306, 30931 #### [facility] [place] [address] Mechanical Engineering Lecturer: Oliver Morales MD Hematocrit (Bld) [Volume fraction] 37.0 % Normal 35.0-45.0 [facility] Comment on above: Performed By: #### 7 18, 6399, 00501, 57469, 306, 21034 #### [facility] [place] [address] Mechanical Engineering Lecturer: Oliver Morales MD Hemoglobin (Bld) [Mass/Vol] 12.1 g/dL Normal 11.7-15.5 [facility] Comment on above: Performed By: #### 7 18, 6399, 20954, 70713, 306, 65654 #### [facility] [place] [address] Mechanical Engineering Lecturer: Oliver Morales MD Lymphocytes (Bld) [#/Vol] 1.343 10*3/uL Normal 850-3900 [facility] Comment on above: Performed By: #### 7 18, 6399, 49599, 31305, 306, 92456 #### [facility] [place] [address] Mechanical Engineering Lecturer: Oliver Morales MD Lymphocytes/100 WBC (Bld) 29.2 % Normal [facility] Comment on above: Performed By: #### 7 18, 6399, 33256, 57217, 306, 88803 #### [facility] [place] [address] Mechanical Engineering Lecturer: Oliver Morales MD MCH (RBC) [Entitic mass] 30.4 pg Normal 27.0-33.0 [facility] Comment on above: Performed By: #### 7 18, 6399, 43251, 86368, 306, 38757 #### [facility] [place] [address] Mechanical Engineering Lecturer: Oliver Morales MD MCHC (RBC) [Mass/Vol] 32.7 g/dL Normal 32.0-36.0 [facility] Comment on above: Result Comment: For adults, a slight decrease in the calculated MCHC value (in the range of 30 to 32 g/dL) is most likely not clinically significant; however, it should be interpreted with caution in correlation with other red cell parameters and the patient's clinical condition. Performed By: #### 7 18, 6399, 17570, 28715, 306, 83351 #### [facility] [place] [address] Mechanical Engineering Lecturer: Oliver Morales MD MCV (RBC) [Entitic vol] 93.0 fL Normal 80.0-100.0 [facility] Comment on above: Performed By: #### 7 18, 6399, 65539, 10243, 306, 01741 #### [facility] [place] [address] Mechanical Engineering Lecturer: Oliver Morales MD Monocytes (Bld) [#/Vol] 0.437 10*3/uL Normal 200-950 [facility] Comment on above: Performed By: #### 7 18, 6399, 97234, 56402, 306, 72158 #### [facility] [place] [address] Mechanical Engineering Lecturer: Oliver Morales MD Monocytes/100 WBC (Bld) 9.5 % Normal [facility] Comment on above: Performed By: #### 7 18, 6399, 61652, 66627, 306, 76419 #### [facility] [place] [address] Mechanical Engineering Lecturer: Oliver Morales MD Neutrophils (Bld) [#/Vol] 2.374 10*3/uL Normal 2106-6544 [facility] Comment on above: Performed By: #### 7 18, 6399, 71305, 11787, 306, 70715 #### [facility] [place] [address] Mechanical Engineering Lecturer: Oliver Morales MD Neutrophils/100 WBC (Bld) 51.6 % Normal [facility] Comment on above: Performed By: #### 7 18, 6399, 75223, 99346, 306, 89652 #### [facility] [place] [address] Mechanical Engineering Lecturer: Oliver Morales MD Platelet mean volume (Bld) [Entitic vol] 9.7 fL Normal 7.5-12.5 [facility] Comment on above: Performed By: #### 7 18, 6399, 48551, 80899, 306, 18088 #### [facility] [place] [address] Mechanical Engineering Lecturer: Oliver Morales MD Platelets (Bld) [#/Vol] 295 10*3/uL Normal 140-400 [facility] Comment on above: Performed By: #### 7 18, 6399, 48054, 19967, 306, 64941 #### [facility] [place] [address] Mechanical Engineering Lecturer: Oliver Morales MD RBC (Bld) [#/Vol] 3.98 10*6/uL Normal 3.80-5.10 [facility] Comment on above: Performed By: #### 7 18, 6399, 27150, 99985, 306, 54531 #### [facility] [place] [address] Mechanical Engineering Lecturer: Oliver Morales MD WBC (Bld) [#/Vol] 4.6 10*3/uL Normal 3.8-10.8 [facility] Comment on above: Performed By: #### 7 18, 6399, 09717, 24085, 306, 93084 #### [facility] [place] [address] Mechanical Engineering Lecturer: Oliver Morales MD COMPREHENSIVE METABOLIC PANE L W/ANION GAPon 03-28-2025 Albumin [Mass/Vol] 4.2 g/dL Normal 3.6-5.1 [facility] Comment on above: Performed By: #### 7 18, 6399, 56890, 26389, 306, 35005 #### [facility] [place] [address] Mechanical Engineering Lecturer: Oliver Morales MD ALP [Catalytic activity/Vol] 116 U/L Normal 37-153 [facility] Comment on above: Performed By: #### 7 18, 6399, 58064, 94508, 306, 81727 #### [facility] [place] [address] [employer] Engineering Lecturer: Oliver Morales MD ALT [Catalytic activity/Vol] 17 U/L Normal 6-29 [facility] Comment on above: Performed By: #### 7 18, 6399, 71061, 77002, 306, 27071 #### [facility] [place] [address] Mechanical Engineering Lecturer: Oliver Morales MD AST [Catalytic activity/Vol] 27 U/L Normal 10-35 [facility] Comment on above: Performed By: #### 7 18, 6399, 38019, 66444, 306, 90368 #### [facility] [place] [address] Mechanical Engineering Lecturer: Oliver Morales MD Bilirubin [Mass/Vol] 0.3 mg/dL Normal 0.2-1.2 [facility] Comment on above: Performed By: #### 7 18, 6399, 71251, 30024, 306, 74026 #### [facility] [place] [address] Mechanical Engineering Lecturer: Oliver Morales MD Calcium [Mass/Vol] 9.0 mg/dL Normal 8.6-10.4 [facility] Comment on above: Performed By: #### 7 18, 6399, 85824, 62105, 306, 67433 #### [facility] [place] [address] Mechanical Engineering Lecturer: Oliver Morales MD Chloride [Moles/Vol] 104 mmol/L Normal 98-110 [facility] Comment on above: Performed By: #### 7 18, 6399, 18651, 91958, 306, 45011 #### [facility] [place] [address] Mechanical Engineering Lecturer: Oliver Moralse MD CO2 [Moles/Vol] 26 mmol/L Normal 20-32 [facility] Comment on above: Performed By: #### 7 18, 6399, 40887, 95202, 306, 44588 #### [facility] [place] [address] Mechanical Engineering Lecturer: Oliver Morales MD Creatinine [Mass/Vol] 0.63 mg/dL Normal 0.50-1.[address] [facility] Comment on above: Performed By: #### 7 18, 6399, 15499, 04748, 306, 98938 #### [facility] [place] [address] Mechanical Engineering Lecturer: Oliver Morales MD ELECTROLYTE BALANCE 9 mmol/L (calc) Normal 7-17 [facility] Comment on above: Performed By: #### 7 18, 6399, 90824, 54643, 306, 74427 #### [facility] [place] [address] Mechanical Engineering Lecturer: Oliver Morales MD GFR/1.73 sq M.predicted among non-blacks MDRD (S/P/Bld) [Vol rate/Area] 100 mL/min/{1.73_m2} Normal > OR = 60 [facility] Comment on above: Performed By: #### 7 18, 6399, 55882, 59276, 306, 77360 #### [facility] [place] [address] Mechanical Engineering Lecturer: Olievr Morales MD Glucose [Mass/Vol] 92 mg/dL Normal 65-139 [facility] Comment on above: Result Comment: Non-fasting reference interval Performed By: #### 7 18, 6399, 59717, 43951, 306, 93883 #### [facility] [place] [address] Mechanical Engineering Lecturer: Oliver Morales MD Potassium [Moles/Vol] 4.4 mmol/L Normal 3.5-5.[address] [facility] Comment on above: Performed By: #### 7 18, 6399, 00617, 56658, 306, 60215 #### [facility] [place] [address] Mechanical Engineering Lecturer: Oliver Morales MD Protein [Mass/Vol] 6.3 g/dL Normal 6.1-8.1 [facility] Comment on above: Performed By: #### 7 18, 6399, 55681, 42691, 306, 65836 #### [facility] of [address], [address] [place] [address] Mechanical Engineering Lecturer: Oliver Morales MD Sodium [Moles/Vol] 139 mmol/L Normal 135-146 [facility] Comment on above: Performed By: #### 7 18, 6399, 42014, 04722, 306, 83967 #### [facility] [place] [address] Mechanical Engineering Lecturer: Oliver Morales MD Urea nitrogen [Mass/Vol] 19 mg/dL Normal 7-25 [facility] Comment on above: Performed By: #### 7 18, 6399, 25865, 13906, 306, 07017 #### [facility] [place] [address] Mechanical Engineering Lecturer: Oliver Morales MD PHOSPHATE ( PHOSPHORUS)on 03-28-2025 Phosphate [Mass/Vol] 4.0 mg/dL Normal 2.5-4.5 [facility] Comment on above: Order Comment: FASTI NG:NO FASTING: NO Performed By: #### 7 18, 6399, 96820, 70080, 306, 26034 #### [facility] [place] [address] Mechanical Engineering Lecturer: Oliver Morales MD PTH, INTACT WITHOUT CALCIUMo n 03-28-2025 PARATHYROID HORMONE, INTACT 91 pg/mL High 16-77 [facility] Comment on above: Result Comment: Interpretive Guide Intact PTH Calcium ------- Normal Parathyroid Normal Normal Hypoparathyroidism Low or Low Normal Low Hyperparathyroidism Primary Normal or High High Secondary High Normal or Low Tertiary High High Non-Parathyroid Hypercalcemia Low or Low Normal High Performed By: #### 7 18, 6399, 64188, 61619, 306, 53644 #### [facility] [place] [address] Mechanical Engineering Lecturer: Oliver Morales MD VITAMIN D,25-OH,TOTAL,IAon 0 03-28-2025 VITAMIN D,25-OH,TOTAL,IA 61 ng/mL Normal 30-100 [facility] Comment on above: Result Comment: Damaris min D Status 25-OH Vitamin D: Deficiency: <20 ng/mL Insufficiency: 20 - 29 ng/mL Optimal: > or = 30 ng/mL For 25-OH Vitamin D testing on patients on D2-supplementation and patients for whom quantitation of D2 and D3 fractions is required, the QuestAssureD(TM) 25-OH VIT D, (D2,D3), LC/MS/MS is recommended: order code 11145 (patients >2yrs). See Note 1 Note 1 For additional information, please refer to [email or web address] [email or web address]/[email or web address] (This link is being provided for informational/ educational purposes only.) Performed By: #### 7 18, 6399, 92927, 90842, 306, 16217 #### [facility] [address], [address] [place] [id number] Mechanical Engineering Lecturer: Oliver Morales MD Absolute lymphocyte countOrd ered By: Nadya Portillo on 12-25-2024 Lymphocytes Auto (Unsp spec) [#/Vol] 1.26 10*3/uL 0.83-4.51 [facility] Absolute neutrophil countOrd ered By: Nadya Portillo on 12-25-2024 Neutrophils (Bld) [#/Vol] 3.0 10*3/uL 2.0-7.7 [facility] Anion gap in Serum or Plasma Ordered By: Nadya Portillo on 12-25-2024 Anion gap [Moles/Vol] 13 mmol/L 5-15 [facility] Automated lymphocyte count a s percentage of total leukocytesOrdered By: Nadya Portillo on 12-25-2024 Lymphocytes/100 WBC Auto (Unsp spec) 26.8 % 19-41 [facility] BUN/creatinine ratioOrdered By: Nadya Portillo on 12-25-2024 Urea nitrogen/Creatinine [Mass ratio] 16.8 mg/mg 10-20 [facility] Basophil percentageOrdered B y: Nadya Portillo on 12-25-2024 Basophils/100 WBC (Bld) 0.4 % 0-1 [facility] Bilirubin, totalOrdered By: Nadya Portillo on 12-25-2024 Bilirubin [Mass/Vol] 0.23 mg/dL 0.00-1.30 [facility] CBC W/Diff, Automatedon 12-13 Absolute Lymph 1.26 X10 3/uL Normal 0.83-4.51 [facility] Comment on above: Performed By: #### L 100.0100, L500.4050 #### [facility] [address] [place], [address] Absolute Neut 3.0 X10 3/uL Normal 2.0-7.7 [facility] Comment on above: Performed By: #### L 100.0100, L500.4050 #### [facility] [address] [place], [address] Basophils/100 WBC (Bld) 0.4 % Normal 0-1 [facility] Comment on above: Performed By: #### L 100.0100, L500.4050 #### [facility] [address] [place], [address] Eosinophils/100 WBC (Bld) 1.9 % Normal 0-5 [facility] Comment on above: Performed By: #### L 100.0100, L500.4050 #### [facility] [address] [place], [address] Erythrocyte distribution width (RBC) [Ratio] 14.1 % Normal 11.6-14.6 [facility] Comment on above: Performed By: #### L 100.0100, L500.4050 #### [facility] [address] [place], [address] Hematocrit (Bld) [Volume fraction] 37.8 % Normal 37-47 [facility] Comment on above: Performed By: #### L 100.0100, L500.4050 #### [facility] [address] [place], [address] Hemoglobin (Bld) [Mass/Vol] 12.2 g/dL Normal 12.0-15.0 [facility] Comment on above: Performed By: #### L 100.0100, L500.4050 #### [facility] [address] [place], [address] IG% 0.200 Normal 0.0-0.9 [facility] Comment on above: Result Comment: IG% - Immature Granulocytes (promyelocytes, myelocytes and metamyelocytes) > 1% indicates that a LEFT SHIFT is Present. Performed By: #### L 100.0100, L500.4050 #### [facility] [address] [place], [address] Lymphocytes/100 WBC (Bld) 26.8 % Normal 19-41 [facility] Comment on above: Performed By: #### L 100.0100, L500.4050 #### [facility] [address] [place], [address] MCH (RBC) [Entitic mass] 30.1 pg Normal 27.0-32.0 [facility] Comment on above: Performed By: #### L 100.0100, L500.4050 #### [facility] [address] [place], [address] MCHC (RBC) [Mass/Vol] 32.3 g/dL Normal 32-36 [facility] Comment on above: Performed By: #### L 100.0100, L500.4050 #### [facility] [address] [place], [address] MCV (RBC) [Entitic vol] 93.3 fL Normal 81-99 [facility] Comment on above: Performed By: #### L 100.0100, L500.4050 #### [facility] [address] [place], [address] Monocytes/100 WBC (Bld) 6.6 % Normal 0-10 [facility] Comment on above: Performed By: #### L 100.0100, L500.4050 #### [facility] [address] [place], [address] Neutrophils/100 WBC (Bld) 64.1 % Normal 47-70 [facility] Comment on above: Performed By: #### L 100.0100, L500.4050 #### [facility] [address] [place], [address] Nucleated RBC (Bld) [#/Vol] 0 10*3/uL Normal 0-5 [facility] Comment on above: Performed By: #### L 100.0100, L500.4050 #### [facility] [address] [place], [address] Platelet mean volume (Bld) [Entitic vol] 9.7 fL Normal 6.2-12.0 [facility] Comment on above: Performed By: #### L 100.0100, L500.4050 #### [facility] [address] [place], [address] Platelets (Bld) [#/Vol] 342 10*3/uL Normal 150-450 [facility] Comment on above: Performed By: #### L 100.0100, L500.4050 #### [facility] [address] [place], [address] RBC (Bld) [#/Vol] 4.05 10*6/uL Low 4.2-5.4 [facility] Comment on above: Performed By: #### L 100.0100, L500.4050 #### [facility] [address] [place], [address] RDW SD 48.0 fl High 35.1-43.9 [facility] Comment on above: Performed By: #### L 100.0100, L500.4050 #### [facility] [address] [place], [address] WBC (Bld) [#/Vol] 4.7 10*3/uL Normal 4.4-11.0 [facility] Comment on above: Performed By: #### L 100.0100, L500.4050 #### [facility] [address] [place], [address] Carbon dioxide, total [Moles /volume] in Central venous bloodOrdered By: Nadya Portillo on 12-25-2024 CO2 [Moles/Vol] 24.6 mmol/L 21.0-32.0 [facility] Chloride assayOrdered By: Shadi Portillo on 12-25-2024 Chloride [Moles/Vol] 103 mmol/L 98-108 [facility] Comprehensive Metabolic Prof ilon 12-25-2024 Albumin [Mass/Vol] 4.2 g/dL Normal 3.4-4.8 [facility] Comment on above: Performed By: #### L 100.0100, L500.4050 #### [facility] [address] [place], [address] Albumin/Globulin [Mass ratio] 1.5 {ratio} Normal 0.9-2.4 [facility] Comment on above: Performed By: #### L 100.0100, L500.4050 #### [facility] [address] [place], [address] ALK PHOS 126 U/L High 35-104 [facility] Comment on above: Performed By: #### L 100.0100, L500.4050 #### [facility] [address] [place], [address] ALT [Catalytic activity/Vol] 25 U/L Normal <=34 [facility] Comment on above: Performed By: #### L 100.0100, L500.4050 #### [facility] [address] [place], [address] AST [Catalytic activity/Vol] 32 U/L Normal <=31 [facility] Comment on above: Performed By: #### L 100.0100, L500.4050 #### [facility] [address] [place], [address] Bilirubin [Mass/Vol] 0.23 mg/dL Normal 0.00-1.30 [facility] Comment on above: Performed By: #### L 100.0100, L500.4050 #### [facility] [address] [place], [address] BUN/CRE 16.8 RATIO Normal 10-20 [facility] Comment on above: Performed By: #### L 100.0100, L500.4050 #### [facility] [address] [place], [address] Calcium [Mass/Vol] 9.3 mg/dL Normal 7.6-11.0 [facility] Comment on above: Performed By: #### L 100.0100, L500.4050 #### [facility] [address] [place], [address] Chloride [Moles/Vol] 103 mmol/L Normal 98-108 [facility] Comment on above: Performed By: #### L 100.0100, L500.4050 #### [facility] [address] [place], [address] CO2 [Moles/Vol] 24.6 mmol/L Normal 21.0-32.0 [facility] Comment on above: Performed By: #### L 100.0100, L500.4050 #### [facility] [address] [place], [address] Creatinine [Mass/Vol] 0.77 mg/dL Normal 0.70-1.20 [facility] Comment on above: Performed By: #### L 100.0100, L500.4050 #### [facility] [address] [place], [address] GAP 13 Normal 5-15 [facility] Comment on above: Performed By: #### L 100.0100, L500.4050 #### [facility] [address] [place], [address] GFR/1.73 sq M.predicted among non-blacks MDRD (S/P/Bld) [Vol rate/Area] 87 mL/min/{1.73_m2} Normal >60 [facility] Comment on above: Result Comment: mL/m in/1.73m2 CKD-EPI Creatinine Equation (2020) Performed By: #### L 100.0100, L500.4050 #### [facility] [address] [place], [address] Globulin (S) [Mass/Vol] 2.8 g/dL Normal 2.2-4.2 [facility] Comment on above: Performed By: #### L 100.0100, L500.4050 #### [facility] [address] [place], [address] Glucose [Mass/Vol] 110 mg/dL High 70-99 [facility] Comment on above: Performed By: #### L 100.0100, L500.4050 #### [facility] [address] [place], [address] Potassium [Moles/Vol] 4.4 mmol/L Normal 3.3-5.1 [facility] Comment on above: Performed By: #### L 100.0100, L500.4050 #### [facility] [address] [place], [address] Sodium [Moles/Vol] 140 mmol/L Normal 133-145 [facility] Comment on above: Performed By: #### L 100.0100, L500.4050 #### [facility] [address] [place], [address] T PROT 6.9 g/dL Normal 5.9-8.4 [facility] Comment on above: Performed By: #### L 100.0100, L500.4050 #### [facility] [address] [place], [address] Urea nitrogen [Mass/Vol] 13 mg/dL Normal 4-19 [facility] Comment on above: Performed By: #### L 100.0100, L500.4050 #### [facility] [address] [place], [address] Eosinophil percentageOrdered By: Nadya Portillo on 12-25-2024 Eosinophils/100 WBC (Bld) 1.9 % 0-5 [facility] Erythrocyte distribution wid th ratioOrdered By: Nadya Portillo on 12-25-2024 Erythrocyte distribution width (RBC) [Ratio] 14.1 % 11.6-14.6 [facility] Erythrocyte distribution wid th standard deviationOrdered By: Nadya Portillo on 12-25-2024 Erythrocyte distribution width (RBC) [Ratio] 48.0 fl High 35.1-43.9 [facility] Glomerular filtration rate ( GFR) estimation/1.73 sq m using serum, plasma, or whole bOrdered By: Nadya Portillo on 12-25-2024 GFR/1.73 sq M.predicted among non-blacks MDRD (S/P/Bld) [Vol rate/Area] 87 mL/min/{1.73_m2} >60 [facility] Comment on above: mL/min/1.73m2 CKD-EP I Creatinine Equation (2020) Hematocrit Auto (Bld) [Volum e fraction]Ordered By: Nadya Portillo on 12-25-2024 Hematocrit (Bld) [Volume fraction] 37.8 % 37-47 [facility] Hemoglobin measurementOrdere d By: Nadya Portillo on 12-25-2024 Hemoglobin (Bld) [Mass/Vol] 12.2 g/dL 12.0-15.0 [facility] Immature granulocytes/100 WB C Auto (Bld)Ordered By: Nadya Portillo on 12-25-2024 Immature granulocytes/100 WBC (Bld) 0.200 % 0.0-0.9 [facility] Comment on above: IG% - Immature Granu locytes (promyelocytes, myelocytes and metamyelocytes) > 1% indicates that a LEFT SHIFT is Present. Laboratory - Chemistry and C hemistry - challengeOrdered By: Nadya Portillo on 12-25-2024 AST [Catalytic activity/Vol] 32 U/L <32 [facility] MCV (mean corpuscular volume ) determinationOrdered By: Nadya Portillo on 12-25-2024 MCV (RBC) [Entitic vol] 93.3 fL 81-99 [facility] Mean corpuscular hemoglobin (MCH) determinationOrdered By: Nadya Portillo on 12-25-2024 MCH (RBC) [Entitic mass] 30.1 pg 27.0-32.0 [facility] Mean corpuscular hemoglobin concentration (MCHC) determinationOrdered By: Nadya Portillo on 12-25-2024 MCHC (RBC) [Mass/Vol] 32.3 g/dL 32-36 [facility] Mean platelet volume determi nationOrdered By: Nadya Portillo on 12-25-2024 Platelet mean volume (Bld) [Entitic vol] 9.7 fL 6.2-12.0 [facility] Monocyte percentageOrdered B y: Nadya Portillo on 12-25-2024 Monocytes/100 WBC (Bld) 6.6 % 0-10 [facility] Neutrophil percentageOrdered By: Nadya Portillo on 12-25-2024 Neutrophils/100 WBC (Bld) 64.1 % 47-70 [facility] Nucleated red blood cell per centageOrdered By: Nadya Portillo on 12-25-2024 Nucleated RBC/100 WBC (Bld) [Ratio] 0 % 0-5 [facility] Platelet countOrdered By: Shadi Portillo on 12-25-2024 Platelets (Bld) [#/Vol] 342 10*3/uL 150-450 [facility] Potassium measurement (mass/ volume)Ordered By: Nadya Portillo on 12-25-2024 Potassium (Unsp spec) [Mass/Vol] 4.4 mmol/L 3.3-5.1 [facility] RBC Auto (Bld) [#/Vol]Ordere d By: Nadya Portillo on 12-25-2024 RBC (Bld) [#/Vol] 4.05 10*6/uL Low 4.2-5.4 [facility] Serum creatinine measurement (mass/volume)Ordered By: Nadya Portillo on 12-25-2024 Creatinine [Mass/Vol] 0.77 mg/dL 0.70-1.20 [facility] Serum globulin measurementOr dered By: Nadya Portillo on 12-25-2024 Globulin (S) [Mass/Vol] 2.8 g/dL 2.2-4.2 [facility] Serum glucose measurement (m ass/volume)Ordered By: Nadya Portillo on 12-25-2024 Glucose [Mass/Vol] 110 mg/dL High 70-99 [facility] Serum or plasma alanine stock otransferase (ALT) measurementOrdered By: Nadya Portillo on 12-25-2024 ALT [Catalytic activity/Vol] 25 U/L <35 [facility] Serum or plasma albumin myriam urement (mass/volume)Ordered By: Nadya Portillo on 12-25-2024 Albumin [Mass/Vol] 4.2 g/dL 3.4-4.8 [facility] Serum or plasma albumin/glob ulin mass ratioOrdered By: Nadya Portillo on 12-25-2024 Albumin/Globulin [Mass ratio] 1.5 {ratio} 0.9-2.4 [facility] Serum or plasma alkaline mo sphatase measurementOrdered By: Nadya Portillo on 12-25-2024 ALP [Catalytic activity/Vol] 126 U/L High 35-104 [facility] Serum or plasma calcium myriam urement (mass/volume)Ordered By: Nadya Portillo on 12-25-2024 Calcium [Mass/Vol] 9.3 mg/dL 7.6-11.0 [facility] Serum or plasma urea nitroge n measurement (mass/volume)Ordered By: Nadya Portillo on 12-25-2024 Urea nitrogen [Mass/Vol] 13 mg/dL - [facility] Sodium levelOrdered By: Melchorada flores Bandar on 12-25-2024 Sodium [Moles/Vol] 140 mmol/L 133-145 [facility] Total proteinOrdered By: Melchor candelaria Bandar on 12-25-2024 Protein [Mass/Vol] 6.9 g/dL 5.9-8.4 [facility] White blood cell (WBC) count Ordered By: Nadya Bandar on 12-25-2024 WBC (Bld) [#/Vol] 4.7 10*3/uL 4.4-11.[address] [facility] [address] CARDIAC SCORING WO IV CON TRASTon 12-05-2024 CT CARDIAC SCORING WO IV CONTRAST Interpreted By: Leopoldo Gaviria, STUDY: CT CARDIAC SCORING WO IV CONTRAST; 12/05/2024 9:20 am INDICATION: Signs/Symptoms:SCREEN. ,E78.00 Pure hypercholesterolemia, unspecified COMPARISON: None. ACCESSION NUMBER(S): [id number] ORDERING CLINICIAN: SILVIA NAVA TECHNIQUE: Using prospective ECG gating, CT scan of the coronary arteries was performed without intravenous contrast. Coronary calcium scoring was performed according to the method of Agatston. FINDINGS: The score and distribution of calcium in the coronary arteries is as follows: LM 0 LAD 0 LCx 0 RCA 0 Total 0 The visualized mid/lower ascending thoracic aorta measures 3.7 cm in diameter. The heart is normal in size. No pericardial effusion is present. No gross evidence of mediastinal or hilar lymphadenopathy or masses is identified. The visualized segments of the lungs are normally expanded. The visualized subdiaphragmatic structures appear intact. Status post gastric bypass. IMPRESSION: 1. Coronary artery calcium score of 0*. *Coronary artery calcium scoring may be helpful in predicting the risk for future coronary heart disease events. According to the [employer] Clinical Expert Consensus Task Force, such testing provides important prognostic information in patients with more than one coronary heart disease risk factor. The coronary artery calcium score correlates with the annual risk of a non-fatal myocardial infarction or coronary heart disease . Coronary artery score Annual Risk 0-99 0.4% 100-399 1.3% >400 2.4% These three breakpoints correspond to lower, intermediate and high risk states for future coronary events. Such information should be used, along with appropriate clinical judgment, to make decisions regarding the intensity of risk factor management strategies to treat blood lipids and to modify other non-lipid coronary risk factors. Reference: Mendon P et al. Circulation. 2007; 115:402-426 MACRO: None Signed by: Leopoldo Gaviria 12/05/2024 1:34 PM Dictation workstation: [id number] [facility] CT for calcium scoring WO co ntrast and CTA W contrast IV Heart and coronary arterieson 12-05-2024 1. Coronary artery calcium score of 0*. *Coronary artery calcium scoring may be helpful in predicting the risk for future coronary heart disease events. According to the [employer] Clinical Expert Consensus Task Force, such testing provides important prognostic information in patients with more than one coronary heart disease risk factor. The coronary artery calcium score correlates with the annual risk of a non-fatal myocardial infarction or coronary heart disease . Coronary artery score Annual Risk 0-99 0.4% 100-399 1.3% >400 2.4% These three breakpoints correspond to lower, intermediate and high risk states for future coronary events. Such information should be used, along with appropriate clinical judgment, to make decisions regarding the intensity of risk factor management strategies to treat blood lipids and to modify other non-lipid coronary risk factors. Reference: Mendon P et al. Circulation. 2007; 115:402-426 MACRO: None Signed by: Leopoldo Gaviria 12/05/2024 1:34 PM Dictation workstation: [id number] [facility] Interpreted By: Leopoldo Gaviria, STUDY: CT CARDIAC SCORING WO IV CONTRAST; 12/05/2024 9:20 am INDICATION: Signs/Symptoms:SCREEN. ,E78.00 Pure hypercholesterolemia, unspecified COMPARISON: None. ACCESSION NUMBER(S): [id number] ORDERING CLINICIAN: SILVIA NAVA TECHNIQUE: Using prospective ECG gating, CT scan of the coronary arteries was performed without intravenous contrast. Coronary calcium scoring was performed according to the method of Agatston. FINDINGS: The score and distribution of calcium in the coronary arteries is as follows: LM 0 LAD 0 LCx 0 RCA 0 Total 0 The visualized mid/lower ascending thoracic aorta measures 3.7 cm in diameter. The heart is normal in size. No pericardial effusion is present. No gross evidence of mediastinal or hilar lymphadenopathy or masses is identified. The visualized segments of the lungs are normally expanded. The visualized subdiaphragmatic structures appear intact. Status post gastric bypass. [facility] Leopoldo Gaviria MD - 12/05/2024 Interpreted By: Leopoldo Gaviria, STUDY: CT CARDIAC SCORING WO IV CONTRAST; 12/05/2024 9:20 am INDICATION: Signs/Symptoms:SCREEN. ,E78.00 Pure hypercholesterolemia, unspecified COMPARISON: None. ACCESSION NUMBER(S): [id number] ORDERING CLINICIAN: SILVIA NAVA TECHNIQUE: Using prospective ECG gating, CT scan of the coronary arteries was performed without intravenous contrast. Coronary calcium scoring was performed according to the method of Agatston. FINDINGS: The score and distribution of calcium in the coronary arteries is as follows: LM 0 LAD 0 LCx 0 RCA 0 Total 0 The visualized mid/lower ascending thoracic aorta measures 3.7 cm in diameter. The heart is normal in size. No pericardial effusion is present. No gross evidence of mediastinal or hilar lymphadenopathy or masses is identified. The visualized segments of the lungs are normally expanded. The visualized subdiaphragmatic structures appear intact. Status post gastric bypass. IMPRESSION: 1. Coronary artery calcium score of 0*. *Coronary artery calcium scoring may be helpful in predicting the risk for future coronary heart disease events. According to the [employer] Clinical Expert Consensus Task Force, such testing provides important prognostic information in patients with more than one coronary heart disease risk factor. The coronary artery calcium score correlates with the annual risk of a non-fatal myocardial infarction or coronary heart disease . Coronary artery score Annual Risk 0-99 0.4% 100-399 1.3% >400 2.4% These three breakpoints correspond to lower, intermediate and high risk states for future coronary events. Such information should be used, along with appropriate clinical judgment, to make decisions regarding the intensity of risk factor management strategies to treat blood lipids and to modify other non-lipid coronary risk factors. Reference: Mendon P et al. Circulation. 2007; 115:402-426 MACRO: None Signed by: Leopoldo Gaviria 12/05/2024 1:34 PM Dictation workstation: [id number] [facility] Work Phone: Radiology Study observation (narrative) [facility] Work Phone: CT for calcium scoring WO co ntrast and CTA W contrast IV Heart and coronary arteriesOrdered By: Leopoldo Gaviria on 12-05-2024 [facility] Work Phone: Non-beam sealer cytology studyon Non-gynecological cytology method study Pathology report.total SEE COMMENT Non-gynecologic Cytology Case: [id number] Authorizing Provider: Silvia Nava APRN-BLENDING COORDINATOR Collected: 11/28/2024 1038 Ordering Location: [facility] Received: 11/28/2024 1058 Center Pathologist: Jose Morales MD Specimen: THYROID FINE NEEDLE ASPIRATION LEFT MID LOBE Path report.final diagnosis SEE COMMENT A. THYROID FINE NEEDLE ASPIRATION MID LEFT LOBE NODULE: - NO MALIGNANT CELLS IDENTIFIED. - CYTOLOGIC FINDINGS CONSISTENT WITH A BENIGN FOLLICULAR NODULE. Note: The benign follicular nodule (BFN) encompasses a group of benign lesions with similar cytologic findings that are classified histologically as nodules in nodular goiter, hyperplastic (adenomatoid) nodules, colloid nodules, nodules in Graves' disease, and a subset of follicular adenomas. The distinction among these different histologic entities is not possible by FNA, but this is of little importance because they are all benign and can be managed in a similar, conservative manner. This case has been evaluated using direct smears and concentrated (ThinPrep) preparations. All slides showed similar findings. at 1601 EDT Laboratory comment SEE COMMENT Slide(s) initially screened by JC Gaytan at [facility] [address] [address] [id number] By the signature on this report, the individual or group listed as making the Final Interpretation/Diagnosi s certifies that they have reviewed this case. Path report.comments SEE COMMENT [facility] Implied Risk of Malignancy and Recommended Clinical Management Diagnostic category Risk of Malignancy Usual management Nondiagnostic/Unsatisfa ctory 5-10% Repeat FNA with ultrasound guidance Benign 0-3% Clinical and US follow-up Atypia of undetermined significance 10-35% Repeat FNA, molecular testing, or or Follicular lesion of US lobectomy Follicular neoplasm/suspicious for 25-40% Molecular testing, surgical lobectomy follicular neoplasm Suspicious for malignancy 50-75% Lobectomy or near total thyroidectomy Malignant 97-99% Lobectomy or near total thyroidectomy Path report.relevant Hx Mid left thyroid lobe nodule: 2.7 x 1.8 x 1.5 cm isoechoic solid nodule (TI-RADS 3) Path report.gross observation SEE COMMENT A. THYROID FINE NEEDLE ASPIRATION LEFT MID LOBE. Received 8 direct smears (4 air-dried Diff-Quik and 4 spray-fixed) and 30 ml pink clear needle rinse in Cytolyt with particles. The specimen has been sent for cytological analysis to the cytology department at [facility]. A co-collected specimen for possible thyroid molecular testing was also received. Laboratory comment SEE COMMENT A1 Slides Only (No Block) A1-1 Diff Quik Stain Smear NGYN A1-2 Diff Quik Stain Smear NGYN A1-3 Diff Quik Stain Smear NGYN A1-4 Diff Quik Stain Smear NGYN A1-5 Pap Stain Smear NGYN A1-6 Pap Stain Smear NGYN A1-7 Pap Stain Smear NGYN A1-8 Pap Stain Smear NGYN A1-9 Pap Stain NGYN ThinPrep Normal [facility] US GUIDED THYROID BIOPSYon 0 11-28-2024 US GUIDED THYROID BIOPSY Interpreted By: Ramirez Serna, STUDY: US GUIDED THYROID BIOPSY; 11/28/2024 10:31 am INDICATION: Signs/Symptoms:nodule. COMPARISON: Ultrasound dated 11/14/2024 ACCESSION NUMBER(S): [id number] ORDERING CLINICIAN: SILVIA NAVA FINDINGS: A detailed discussion of the procedure was performed with the patient. Informed consent was obtained by Dr. Serna. The patient was placed in the supine position with the neck in an extended position. Ultrasound of the thyroid was performed and demonstrated a nodule nearly replacing the left lobe of the thyroid, similar to the prior ultrasound. The nodule in the left lobe of the thyroid was selected for biopsy. The patient was prepped and draped in normal sterile fashion. 1% lidocaine was utilized for local anesthesia. Subsequently, four passes were made into the left thyroid nodule using 25 gauge spinal needles under direct ultrasound guidance. Images document the tip of the needle within the nodule. Slides were prepared and sent to pathology for evaluation. There were no immediate complications. The procedure was performed by Dr. Serna. The patient was monitored throughout the procedure by the nurse, including blood pressure, heart rate, EKG, and pulse oximetry. IMPRESSION: Successful ultrasound-guided fine-needle aspiration biopsy of the thyroid. Signed by: Ramirez Serna 11/28/2024 3:17 PM Dictation workstation: [id number] [facility] US Guidance for fine needle aspiration of Thyroid glandon 11-28-2024 Successful ultrasound-guided fine-needle aspiration biopsy of the thyroid. Signed by: Ramirez Serna 11/28/2024 3:17 PM Dictation workstation: [id number] [facility] Interpreted By: Ramirez Serna, STUDY: US GUIDED THYROID BIOPSY; 11/28/2024 10:31 am INDICATION: Signs/Symptoms:nodule. COMPARISON: Ultrasound dated 11/14/2024 ACCESSION NUMBER(S): [id number] ORDERING CLINICIAN: SILVIA NAVA FINDINGS: A detailed discussion of the procedure was performed with the patient. Informed consent was obtained by Dr. Serna. The patient was placed in the supine position with the neck in an extended position. Ultrasound of the thyroid was performed and demonstrated a nodule nearly replacing the left lobe of the thyroid, similar to the prior ultrasound. The nodule in the left lobe of the thyroid was selected for biopsy. The patient was prepped and draped in normal sterile fashion. 1% lidocaine was utilized for local anesthesia. Subsequently, four passes were made into the left thyroid nodule using 25 gauge spinal needles under direct ultrasound guidance. Images document the tip of the needle within the nodule. Slides were prepared and sent to pathology for evaluation. There were no immediate complications. The procedure was performed by Dr. Serna. The patient was monitored throughout the procedure by the nurse, including blood pressure, heart rate, EKG, and pulse oximetry. [facility] Ramirez Craven MD - 11/28/2024 Interpreted By: Ramirez Serna, STUDY: US GUIDED THYROID BIOPSY; 11/28/2024 10:31 am INDICATION: Signs/Symptoms:nodule. COMPARISON: Ultrasound dated 11/14/2024 ACCESSION NUMBER(S): [id number] ORDERING CLINICIAN: SILVIA NAVA FINDINGS: A detailed discussion of the procedure was performed with the patient. Informed consent was obtained by Dr. Serna. The patient was placed in the supine position with the neck in an extended position. Ultrasound of the thyroid was performed and demonstrated a nodule nearly replacing the left lobe of the thyroid, similar to the prior ultrasound. The nodule in the left lobe of the thyroid was selected for biopsy. The patient was prepped and draped in normal sterile fashion. 1% lidocaine was utilized for local anesthesia. Subsequently, four passes were made into the left thyroid nodule using 25 gauge spinal needles under direct ultrasound guidance. Images document the tip of the needle within the nodule. Slides were prepared and sent to pathology for evaluation. There were no immediate complications. The procedure was performed by Dr. Serna. The patient was monitored throughout the procedure by the nurse, including blood pressure, heart rate, EKG, and pulse oximetry. IMPRESSION: Successful ultrasound-guided fine-needle aspiration biopsy of the thyroid. Signed by: Ramirez Serna 11/28/2024 3:17 PM Dictation workstation: [id number] [facility] Work Phone: Radiology Study observation (narrative) [facility] Work Phone: US Guidance for fine needle aspiration of Thyroid glandOrdered By: Ramirez Serna on 11-28-2024 [facility] Work Phone: BI MAMMO BILATERAL SCREENING TOMOSYNTHESISon 11-14-2024 BI MAMMO BILATERAL SCREENING TOMOSYNTHESIS Interpreted By: Ramirez Serna, STUDY: BI MAMMO BILATERAL SCREENING TOMOSYNTHESIS; 11/14/2024 8:39 am ACCESSION NUMBER(S): [id number] ORDERING CLINICIAN: SILVIA NAVA INDICATION: Screening. COMPARISON: Digital mammograms dated 08/17/2023 FINDINGS: CC and MLO 2D digital mammograms and digital breast tomosynthesis images were obtained of the bilateral breasts. 3-D volume images were reconstructed in 4 views at an independent workstation as 1 mm slices through the breasts in both the CC and MLO projections. Density: There are scattered areas of fibroglandular density. Scattered dystrophic calcifications are seen bilaterally, similar to prior studies. No discrete mass or focal asymmetry is identified. No suspicious microcalcifications or foci of architectural distortion are seen. There has been no significant change. This study was interpreted with CAD. IMPRESSION: No mammographic evidence of malignancy. BI-RADS CATEGORY: BI-RADS Category: 2 Benign. Recommendation: Annual Screening. Recommended Date: 1 Year. Laterality: Bilateral. MACRO: None Signed by: Ramirez Serna 11/15/2024 8:32 AM Dictation workstation: [id number] [facility] US NECK PARATHYROIDon 2024 US NECK PARATHYROID Interpreted By: Gama Louie, STUDY: US NECK PARATHYROID; 11/14/2024 8:34 am INDICATION: Signs/Symptoms:ELEVATED PTH. COMPARISON: None ACCESSION NUMBER(S): [id number] ORDERING CLINICIAN: SILVIA NAVA TECHNIQUE: Grayscale images were obtained through the thyroid tissue bilaterally. FINDINGS: RIGHT LOBE: The right lobe of the thyroid gland measures 3.6 cm x 1.0 cm x 1.5 cm cm. LEFT LOBE: The left lobe of the thyroid gland measures 4.1 cm x 1.7 cm x 2.2 cm cm. There is a 2.8 x 1.9 x 1.5 cm isoechoic solid nodule left lobe of the thyroid gland, TI-RADS category 3. Previously this measured 2.4 x 1.2 x 1.8 cm. Fine-needle aspiration biopsy may be appropriate based on size greater than 2.5 cm. PARATHYROID ASSESSMENT: No parathyroid nodules were identified. Correlation with radionuclide parathyroid SPECT CT scan may be appropriate for more definitive assessment IMPRESSION: 1. Essentially stable appearance of the dominant nodule left lobe of the thyroid gland. Fine-needle aspiration biopsy may be appropriate based on size greater than 2.5 cm. 2. No parathyroid adenoma it was identified on this exam. Correlation with radionuclide SPECT CT may be appropriate for more definitive assessment however. Critical Finding: See findings. Notification was initiated on 11/15/2024 at 11:21 am by Gama Louie. (-YCF-) Instructions: See Impression for specific recommendations. Signed by: Gama Louie 11/15/2024 11:21 AM Dictation workstation: [id number] [facility] Absolute lymphocyte countOrd ered By: Nadya Portillo on 09-26-2024 Lymphocytes Auto (Unsp spec) [#/Vol] 1.32 10*3/uL 0.83-4.51 [facility] Absolute neutrophil countOrd ered By: Nadya Portillo on 09-26-2024 Neutrophils (Bld) [#/Vol] 3.3 10*3/uL 2.0-7.7 [facility] Albumin to globulin ratioOrd ered By: Nadya Portillo on 09-26-2024 Albumin/Globulin [Mass ratio] 1.0 {ratio} 0.9-2.4 [facility] Automated lymphocyte count a s percentage of total leukocytesOrdered By: Nadya Portillo on 09-26-2024 Lymphocytes/100 WBC Auto (Unsp spec) 26.0 % 19-41 [facility] Basophil percentageOrdered B y: Nadya Portillo on 09-26-2024 Basophils/100 WBC (Bld) 0.4 % 0-1 [facility] Bilirubin, totalOrdered By: Nadyateagan Portillo on 09-26-2024 Bilirubin [Mass/Vol] 0.30 mg/dL 0.20-1.00 [facility] Comment on above: Slight Lipemia, Resu lt may be falsely increased. For patients on eltrombopag therapy, use of Dimension Baring TBIL is not recommended. Blood urea nitrogen (BUN)/cr eatinine ratioOrdered By: Nadya Portillo on 09-26-2024 Urea nitrogen/Creatinine [Mass ratio] 18.1 mg/mg 10-20 [facility] CBC W/Diff, Automatedon 09-15 Absolute Lymph 1.32 X10 3/uL Normal 0.83-4.51 [facility] Comment on above: Performed By: #### L 100.0100, L500.4050 #### [facility] [address] [place], [address] Absolute Neut 3.3 X10 3/uL Normal 2.0-7.7 [facility] Comment on above: Performed By: #### L 100.0100, L500.4050 #### [facility] [address] [place], [address] Basophils/100 WBC (Bld) 0.4 % Normal 0-1 [facility] Comment on above: Performed By: #### L 100.0100, L500.4050 #### [facility] [address] [place], [address] Eosinophils/100 WBC (Bld) 0.8 % Normal 0-5 [facility] Comment on above: Performed By: #### L 100.0100, L500.4050 #### [facility] [address] [place], [address] Erythrocyte distribution width (RBC) [Ratio] 14.2 % Normal 11.6-14.6 [facility] Comment on above: Performed By: #### L 100.0100, L500.4050 #### [facility] [address] [place], [address] Hematocrit (Bld) [Volume fraction] 39.7 % Normal 37-47 [facility] Comment on above: Performed By: #### L 100.0100, L500.4050 #### [facility] [address] [place], [address] Hemoglobin (Bld) [Mass/Vol] 12.4 g/dL Normal 12.0-15.0 [facility] Comment on above: Performed By: #### L 100.0100, L500.4050 #### [facility] [address] [place], [address] IG% 0.200 Normal 0.0-0.9 [facility] Comment on above: Result Comment: IG% - Immature Granulocytes (promyelocytes, myelocytes and metamyelocytes) > 1% indicates that a LEFT SHIFT is Present. Performed By: #### L 100.0100, L500.4050 #### [facility] [address] [place], [address] Lymphocytes/100 WBC (Bld) 26.0 % Normal 19-41 [facility] Comment on above: Performed By: #### L 100.0100, L500.4050 #### [facility] [address] [place], [address] MCH (RBC) [Entitic mass] 29.2 pg Normal 27.0-32.0 [facility] Comment on above: Performed By: #### L 100.0100, L500.4050 #### [facility] [address] [place], [address] MCHC (RBC) [Mass/Vol] 31.2 g/dL Low 32-36 [facility] Comment on above: Performed By: #### L 100.0100, L500.4050 #### [facility] [address] [place], [address] MCV (RBC) [Entitic vol] 93.4 fL Normal 81-99 [facility] Comment on above: Performed By: #### L 100.0100, L500.4050 #### [facility] [address] [place], [address] Monocytes/100 WBC (Bld) 8.7 % Normal 0-10 [facility] Comment on above: Performed By: #### L 100.0100, L500.4050 #### [facility] [address] [place], [address] Neutrophils/100 WBC (Bld) 63.9 % Normal 47-70 [facility] Comment on above: Performed By: #### L 100.0100, L500.4050 #### [facility] [address] [place], [address] Nucleated RBC (Bld) [#/Vol] 0 10*3/uL Normal 0-5 [facility] Comment on above: Performed By: #### L 100.0100, L500.4050 #### [facility] [address] [place], [address] Platelet mean volume (Bld) [Entitic vol] 8.9 fL Normal 6.2-12.0 [facility] Comment on above: Performed By: #### L 100.0100, L500.4050 #### [facility] [address] [place], [address] Platelets (Bld) [#/Vol] 310 10*3/uL Normal 150-450 [facility] Comment on above: Performed By: #### L 100.0100, L500.4050 #### [facility] [address] [place], [address] RBC (Bld) [#/Vol] 4.25 10*6/uL Normal 4.2-5.4 [facility] Comment on above: Performed By: #### L 100.0100, L500.4050 #### [facility] [address] [place], [address] RDW SD 48.0 fl High 35.1-43.9 [facility] Comment on above: Performed By: #### L 100.0100, L500.4050 #### [facility] [address] [place], [address] WBC (Bld) [#/Vol] 5.1 10*3/uL Normal 4.4-11.0 [facility] Comment on above: Performed By: #### L 100.0100, L500.4050 #### [facility] [address] [place], [address] Carbon dioxide measurementOr dered By: Ndaya Portillo on 09-26-2024 CO2 [Moles/Vol] 26.0 mmol/L 21.0-32.0 [facility] Comment on above: Slight Lipemia, Resu lt may be falsely increased. Chloride measurementOrdered By: Nadya Portillo on 09-26-2024 Chloride [Moles/Vol] 104 mmol/L 98-107 [facility] Comprehensive Metabolic Prof ilon 09-26-2024 Albumin [Mass/Vol] 3.6 g/dL Normal 3.2-5.0 [facility] Comment on above: Performed By: #### L 100.0100, L500.4050 #### [facility] [address] [place], [address] Albumin/Globulin [Mass ratio] 1.0 {ratio} Normal 0.9-2.4 [facility] Comment on above: Performed By: #### L 100.0100, L500.4050 #### [facility] [address] [place], [address] ALK P 129 U/L High 45-117 [facility] Comment on above: Performed By: #### L 100.0100, L500.4050 #### [facility] [address] [place], [address] ALT [Catalytic activity/Vol] 32 U/L Normal 13-56 [facility] Comment on above: Result Comment: Slig ht Lipemia, Result may be falsely increased. Performed By: #### L 100.0100, L500.4050 #### [facility] [address] [place], [address] AST [Catalytic activity/Vol] 33 U/L Normal 15-37 [facility] Comment on above: Result Comment: Slig ht Lipemia, Result may be falsely increased. Performed By: #### L 100.0100, L500.4050 #### [facility] [address] [place], [address] Bilirubin [Mass/Vol] 0.30 mg/dL Normal 0.20-1.00 [facility] Comment on above: Result Comment: Slig ht Lipemia, Result may be falsely increased. For patients on eltrombopag therapy, use of Dimension Baring TBIL is not recommended. Performed By: #### L 100.0100, L500.4050 #### [facility] [address] [place], [address] BUN/CRE 18.1 RATIO Normal 10-20 [facility] Comment on above: Performed By: #### L 100.0100, L500.4050 #### [facility] [address] [place], [address] CA,Total 9.2 mg/dL Normal 8.5-10.1 [facility] Comment on above: Result Comment: Slig ht Lipemia, Result may be falsely increased. Performed By: #### L 100.0100, L500.4050 #### [facility] [address] [place], [address] Chloride [Moles/Vol] 104 mmol/L Normal 98-107 [facility] Comment on above: Performed By: #### L 100.0100, L500.4050 #### [facility] [address] [place], [address] CO2 [Moles/Vol] 26.0 mmol/L Normal 21.0-32.0 [facility] Comment on above: Result Comment: Slig ht Lipemia, Result may be falsely increased. Performed By: #### L 100.0100, L500.4050 #### [facility] [address] [place], [address] Creatinine [Mass/Vol] 0.66 mg/dL Normal 0.55-1.02 [facility] Comment on above: Result Comment: Slig ht Lipemia, Result may be falsely increased. The validity of the calculated GFR GFRAA in patients over 70 years has not been determined. Clinical correlation is essential. Performed By: #### L 100.0100, L500.4050 #### [facility] [address] [place], [address] EST GFR - AA 116 mL/min Normal >60 [facility] Comment on above: Result Comment: Afri can Palauan GFR Calc Performed By: #### L 100.0100, L500.4050 #### [facility] [address] [place], [address] GAP 8 Normal 5-15 [facility] Comment on above: Performed By: #### L 100.0100, L500.4050 #### [facility] [address] [place], [address] GFR/1.73 sq M.predicted among non-blacks MDRD (S/P/Bld) [Vol rate/Area] 96 mL/min/{1.73_m2} Normal >60 [facility] Comment on above: Result Comment: Non- GFR Calc Performed By: #### L 100.0100, L500.4050 #### [facility] [address] [place], [address] Globulin (S) [Mass/Vol] 3.6 g/dL Normal 2.2-4.2 [facility] Comment on above: Performed By: #### L 100.0100, L500.4050 #### [facility] [address] [place], [address] Glucose [Mass/Vol] 96 mg/dL Normal 74-106 [facility] Comment on above: Result Comment: Slig ht Lipemia, Result may be falsely increased. Performed By: #### L 100.0100, L500.4050 #### [facility] [address] [place], [address] Potassium [Moles/Vol] 4.4 mmol/L Normal 3.5-5.1 [facility] Comment on above: Result Comment: Slig ht Lipemia, Result may be falsely increased. Performed By: #### L 100.0100, L500.4050 #### [facility] [address] [place], [address] Sodium [Moles/Vol] 138 mmol/L Normal 136-145 [facility] Comment on above: Performed By: #### L 100.0100, L500.4050 #### [facility] [address] [place], [address] T PROT 7.2 g/dL Normal 6.4-8.2 [facility] Comment on above: Result Comment: Slig ht Lipemia, Result may be falsely increased. Performed By: #### L 100.0100, L500.4050 #### [facility] [address] [place], [address] Urea nitrogen [Mass/Vol] 12 mg/dL Normal 7-18 [facility] Comment on above: Result Comment: Slig ht Lipemia, Result may be falsely increased. Performed By: #### L 100.0100, L500.4050 #### [facility] [address] [place], [address] Eosinophil percentageOrdered By: Nadya Portillo on 09-26-2024 Eosinophils/100 WBC (Bld) 0.8 % 0-5 [facility] Erythrocyte distribution wid th ratioOrdered By: Nadya Portillo on 09-26-2024 Erythrocyte distribution width (RBC) [Ratio] 14.2 % 11.6-14.6 [facility] Erythrocyte distribution wid th standard deviationOrdered By: Nadya Portillo on 09-26-2024 Erythrocyte distribution width (RBC) [Ratio] 48.0 fl High 35.1-43.9 [facility] Glomerular filtration rate ( GFR) estimationOrdered By: Nadya Portillo on 09-26-2024 GFR/1.73 sq M.predicted among non-blacks MDRD (S/P/Bld) [Vol rate/Area] 96 mL/min/{1.73_m2} >60 [facility] Comment on above: Non- GFR Calc Glucose measurementOrdered B y: Nadya Portillo on 09-26-2024 Glucose [Mass/Vol] 96 mg/dL 74-106 [facility] Comment on above: Slight Lipemia, Resu lt may be falsely increased. Hematocrit Auto (Bld) [Volum e fraction]Ordered By: Nadya Portillo on 09-26-2024 Hematocrit (Bld) [Volume fraction] 39.7 % 37-47 [facility] Hemoglobin measurementOrdere d By: Nadya Portillo on 09-26-2024 Hemoglobin (Bld) [Mass/Vol] 12.4 g/dL 12.0-15.0 [facility] Immature granulocytes/100 WB C Auto (Bld)Ordered By: Nadya Portillo on 09-26-2024 Immature granulocytes/100 WBC (Bld) 0.200 % 0.0-0.9 [facility] Comment on above: IG% - Immature Granu locytes (promyelocytes, myelocytes and metamyelocytes) > 1% indicates that a LEFT SHIFT is Present. Laboratory - Chemistry and C hemistry - challengeOrdered By: Nadya Portillo on 09-26-2024 AST [Catalytic activity/Vol] 33 U/L 15-37 [facility] Comment on above: Slight Lipemia, Resu lt may be falsely increased. MCV (mean corpuscular volume ) determinationOrdered By: Nadya Portillo on 09-26-2024 MCV (RBC) [Entitic vol] 93.4 fL 81-99 [facility] Mean corpuscular hemoglobin (MCH) determinationOrdered By: Nadya Portillo on 09-26-2024 MCH (RBC) [Entitic mass] 29.2 pg 27.0-32.0 [facility] Mean corpuscular hemoglobin concentration (MCHC) determinationOrdered By: Nadya Portillo on 09-26-2024 MCHC (RBC) [Mass/Vol] 31.2 g/dL Low 32-36 [facility] Mean platelet volume determi nationOrdered By: Nadya Portillo on 09-26-2024 Platelet mean volume (Bld) [Entitic vol] 8.9 fL 6.2-12.0 [facility] Monocyte percentageOrdered B y: Nadya Portillo on 09-26-2024 Monocytes/100 WBC (Bld) 8.7 % 0-10 [facility] Neutrophil percentageOrdered By: Nadya Portillo on 09-26-2024 Neutrophils/100 WBC (Bld) 63.9 % 47-70 [facility] Nucleated red blood cell per centageOrdered By: Nadya Portillo on 09-26-2024 Nucleated RBC/100 WBC (Bld) [Ratio] 0 % 0-5 [facility] Platelet countOrdered By: Shadi Portillo on 09-26-2024 Platelets (Bld) [#/Vol] 310 10*3/uL 150-450 [facility] Potassium measurementOrdered By: Nadya Portillo on 09-26-2024 Potassium [Moles/Vol] 4.4 mmol/L 3.5-5.1 [facility] Comment on above: Slight Lipemia, Resu lt may be falsely increased. RBC Auto (Bld) [#/Vol]Ordere d By: Nadya Portillo on 09-26-2024 RBC (Bld) [#/Vol] 4.25 10*6/uL 4.2-5.4 [facility] Serum anion gap measurementO rdered By: Nadya Portillo on 09-26-2024 Anion gap [Moles/Vol] 8 mmol/L 5-15 [facility] Serum globulin measurementOr dered By: Nadya Portillo on 09-26-2024 Globulin (S) [Mass/Vol] 3.6 g/dL 2.2-4.2 [facility] Serum or plasma alanine stock otransferase (ALT) measurementOrdered By: Nadya Portillo on 09-26-2024 ALT [Catalytic activity/Vol] 32 U/L 13-56 [facility] Comment on above: Slight Lipemia, Resu lt may be falsely increased. Serum or plasma albumin myriam urement (mass/volume)Ordered By: Nadya Portillo on 09-26-2024 Albumin [Mass/Vol] 3.6 g/dL 3.2-5.0 [facility] Serum or plasma alkaline mo sphatase measurementOrdered By: Nadya Portillo on 09-26-2024 ALP [Catalytic activity/Vol] 129 U/L High 45-117 [facility] Serum or plasma calcium myriam urement (mass/volume)Ordered By: Nadya Portillo on 09-26-2024 Calcium [Mass/Vol] 9.2 mg/dL 8.5-10.1 [facility] Comment on above: Slight Lipemia, Resu lt may be falsely increased. Serum or plasma creatinine m easurement (mass/volume)Ordered By: Nadya Portillo on 09-26-2024 Creatinine [Mass/Vol] 0.66 mg/dL 0.55-1.02 [facility] Comment on above: Slight Lipemia, Resu lt may be falsely increased.The validity of the calculated GFR & GFRAA in patients over 70 years has not been determined. Clinical correlation is essential. Serum or plasma urea nitroge n measurement (mass/volume)Ordered By: Nadya Portillo on 09-26-2024 Urea nitrogen [Mass/Vol] 12 mg/dL 7-18 [facility] Comment on above: Slight Lipemia, Resu lt may be falsely increased. Sodium levelOrdered By: Clifton Portillo on 09-26-2024 Sodium [Moles/Vol] 138 mmol/L 136-145 [facility] Total proteinOrdered By: Melchor Portillo on 09-26-2024 Protein [Mass/Vol] 7.2 g/dL 6.4-8.2 [facility] Comment on above: Slight Lipemia, Resu lt may be falsely increased. White blood cell (WBC) count Ordered By: Nadya Portillo on 09-26-2024 WBC (Bld) [#/Vol] 5.1 10*3/uL 4.4-11.0 [facility] CBC W Auto Differential pane l (Bld)on 09-05-2024 Basophils (Bld) [#/Vol] 0.03 x10*3/uL Normal 0.00-0.10 [facility] Comment on above: Performed By: #### 5 7021-8 #### DESIREE BURROWS ([id number]) [facility] ([facility]) [address] [place] [address] 56818 Basophils/100 WBC (Bld) 0.7 % Normal 0.0-2.0 [facility] Comment on above: Performed By: #### 5 7021-8 #### DESIREE BURROWS ([id number]) [facility] ([facility]) [address] [place] [address] 66835 Eosinophils (Bld) [#/Vol] 0.32 x10*3/uL Normal 0.00-0.70 [facility] Comment on above: Performed By: #### 5 7021-8 #### DESIREE BURROWS ([id number]) [facility] ([facility]) [address] [place] [address] 56785 Eosinophils/100 WBC (Bld) 7.9 % Normal 0.0-6.0 [facility] Comment on above: Performed By: #### 5 7021-8 #### DESIREE BURROWS ([id number]) [facility] ([facility]) [address] [place] [address] 77884 Erythrocyte distribution width (RBC) [Ratio] 14.0 % Normal 11.5-14.5 [facility] Comment on above: Performed By: #### 5 7021-8 #### DESIREE BURROWS ([id number]) [facility] ([facility]) [address] [place] [address] 45315 Hematocrit (Bld) [Volume fraction] 39.0 % Normal 36.0-46.0 [facility] Comment on above: Performed By: #### 5 7021-8 #### DESIREE BURROWS ([id number]) [facility] ([facility]) [address] [place] [address] 52255 Hemoglobin (Bld) [Mass/Vol] 12.3 g/dL Normal 12.0-16.0 [facility] Comment on above: Performed By: #### 5 7021-8 #### DESIREE BURROWS ([id number]) [facility] ([facility]) [address] [place] [address] 80368 Immature granulocytes (Bld) [#/Vol] 0.00 x10*3/uL Normal 0.00-0.70 [facility] Comment on above: Performed By: #### 5 7021-8 #### DESIREE BURROWS ([id number]) [facility] ([facility]) [address] [place] [address] 58511 Immature granulocytes/100 WBC (Bld) 0.0 % Normal 0.0-0.9 [facility] Comment on above: Result Comment: Maria R ture Granulocyte Count (IG) includes promyelocytes, myelocytes and metamyelocytes but does not include bands. Percent differential counts (%) should be interpreted in the context of the absolute cell counts (cells/UL). Performed By: #### 5 7021-8 #### DESIREE BURROWS ([id number]) [facility] ([facility]) [address] [place] [address] 12621 Lymphocytes (Bld) [#/Vol] 1.30 x10*3/uL Normal 1.20-4.80 [facility] Comment on above: Performed By: #### 5 7021-8 #### DESIREE BURROWS ([id number]) [facility] ([facility]) [address] [place] [address] 92894 Lymphocytes/100 WBC (Bld) 32.2 % Normal 13.0-44.0 [facility] Comment on above: Performed By: #### 5 7021-8 #### DESIREE BURROWS ([id number]) [facility] ([facility]) [address] [place] [address] 86848 MCH (RBC) [Entitic mass] 29.4 pg Normal 26.0-34.0 [facility] Comment on above: Performed By: #### 5 7021-8 #### DESIREE BURROWS ([id number]) [facility] ([facility]) [address] [place] [address] 91128 MCHC (RBC) [Mass/Vol] 31.5 g/dL Low 32.0-36.0 [facility] Comment on above: Performed By: #### 5 7021-8 #### DESIREE BURROWS ([id number]) [facility] ([facility]) [address] [place] [address] 74672 MCV (RBC) [Entitic vol] 93 fL Normal 80-100 [facility] Comment on above: Performed By: #### 5 7021-8 #### DESIREE BURROWS ([id number]) [facility] ([facility]) [address] [place] [address] 88800 Monocytes (Bld) [#/Vol] 0.43 x10*3/uL Normal 0.10-1.00 [facility] Comment on above: Performed By: #### 5 7021-8 #### DESIREE BURROWS ([id number]) [facility] ([facility]) [address] [place] [address] 32223 Monocytes/100 WBC (Bld) 10.6 % Normal 2.0-10.0 [facility] Comment on above: Performed By: #### 5 7021-8 #### DESIREE BURROWS ([id number]) [facility] ([facility]) [address] [place] [address] 08459 Neutrophils (Bld) [#/Vol] 1.96 x10*3/uL Normal 1.20-7.70 [facility] Comment on above: Result Comment: Perc ent differential counts (%) should be interpreted in the context of the absolute cell counts (cells/uL). Performed By: #### 5 7021-8 #### DESIREE BURROWS ([id number]) [facility] ([facility]) [address] [place] [address] 81309 Neutrophils/100 WBC (Bld) 48.6 % Normal 40.0-80.0 [facility] Comment on above: Performed By: #### 5 7021-8 #### DESIREE BURROWS ([id number]) [facility] ([facility]) [address] [place] [address] 98597 Nucleated RBC/100 WBC (Bld) [Ratio] 0.0 /100 WBCs Normal 0.0-0.0 [facility] Comment on above: Performed By: #### 5 7021-8 #### DESIREE BURROWS ([id number]) [facility] ([facility]) [address] [place] [address] 42477 Platelets (Bld) [#/Vol] 298 x10*3/uL Normal 150-450 [facility] Comment on above: Performed By: #### 5 7021-8 #### DESIREE BURROWS ([id number]) [facility] ([facility]) [address] [place] [address] 09105 RBC (Bld) [#/Vol] 4.18 x10*6/uL Normal 4.00-5.20 [facility] Comment on above: Performed By: #### 5 7021-8 #### DESIREE BURROWS ([id number]) [facility] ([facility]) [address] [place] [address] 94734 WBC (Bld) [#/Vol] 4.0 x10*3/uL Low 4.4-11.3 [facility] Comment on above: Performed By: #### 5 7021-8 #### DESIREE BURROWS ([id number]) [facility] ([facility]) [address] [place], [place] [address] Calcidiolon 09-05-2024 25-hydroxyvitamin D3 [Mass/Vol] 35 ng/mL Normal 30-100 [facility] Comment on above: Order Comment: Defic iency: < 20 ng/ml Insufficiency: 20-29 ng/ml Sufficiency: 30-100 ng/ml This assay accurately quantifies the sum of Vitamin D3, 25-Hydroxy and Vitamin D2,25-Hydroxy. Performed By: #### 1 989-3 #### DESIREE BURROWS ([id number]) [facility] ([facility]) [address] [place] [address] 50202 Comprehensive metabolic 2000 panelon 09-05-2024 Albumin BCP dye [Mass/Vol] 4.1 g/dL Normal 3.4-5.0 [facility] Comment on above: Performed By: #### 2 4323-8 #### DESIREE BURROWS ([id number]) [facility] ([facility]) [address] [place] [address] 44574 ALP [Catalytic activity/Vol] 133 U/L Normal 33-136 [facility] Comment on above: Performed By: #### 2 4323-8 #### DESIREE BURROWS ([id number]) [facility] ([facility]) [address] [place] [address] 47182 ALT With P-5'-P [Catalytic activity/Vol] 21 U/L Normal 7-45 [facility] Comment on above: Result Comment: Tanya ents treated with Sulfasalazine may generate falsely decreased results for ALT. Performed By: #### 2 4323-8 #### DESIREE BURROWS ([id number]) [facility] ([facility]) [address] [place] [address] 97040 Anion gap [Moles/Vol] 11 mmol/L Normal 10-20 [facility] Comment on above: Performed By: #### 2 432-8 #### DESIREE BURROWS ([id number]) [facility] ([facility]) [address] [place] [address] AST With P-5'-P [Catalytic activity/Vol] 29 U/L Normal 9-39 [facility] Comment on above: Performed By: #### 2 432-8 #### DESIREE BURROWS ([id number]) [facility] ([facility]) [address] [place] [address] Bilirubin [Mass/Vol] 0.3 mg/dL Normal 0.0-1.2 [facility] Comment on above: Performed By: #### 2 4322-8 #### DESIREE BURROWS ([id number]) [facility] ([facility]) [address] [place] [address]3659 Calcium [Mass/Vol] 8.8 mg/dL Normal 8.6-10.3 [facility] Comment on above: Performed By: #### 2 4322-8 #### DESIREE BURROWS ([id number]) [facility] ([facility]) [address] [place] [address] Chloride [Moles/Vol] 105 mmol/L Normal 98-107 [facility] Comment on above: Performed By: #### 2 432-8 #### DESIREE BURROWS ([id number]) [facility] ([facility]) [address] [place] [address] CO2 [Moles/Vol] 28 mmol/L Normal 21-32 [facility] Comment on above: Performed By: #### 2 432-8 #### DESIREE BURROWS ([id number]) [facility] ([facility]) [address] [place] [address] 18534 Creatinine [Mass/Vol] 0.73 mg/dL Normal 0.50-1.05 [facility] Comment on above: Performed By: #### 2 432-8 #### DESIREE BURROWS ([id number]) [facility] ([facility]) [address] [place] [address] GFR/1.73 sq M.predicted MDRD (S/P/Bld) [Vol rate/Area] mL/min/{1.73_m2} Normal >60 [facility] Comment on above: Result Comment: Calc ulations of estimated GFR are performed using the 2020 CKD-EPI Study Refit equation without the race variable for the IDMS-Traceable creatinine methods. https://jasn.asnjournals.org/content//ASN.50039 71733 Performed By: #### 2 4323-8 #### DESIREE BURROWS ([id number]) [facility] ([facility]) [address] [place] [address] 75013 Glucose [Mass/Vol] 90 mg/dL Normal 74-99 [facility] Comment on above: Performed By: #### 2 4323-8 #### DESIREE BURROWS ([id number]) [facility] ([facility]) [address] [place] [address] 68098 Potassium [Moles/Vol] 4.5 mmol/L Normal 3.5-5.3 [facility] Comment on above: Performed By: #### 2 4323-8 #### DESIREE BURROWS ([id number]) [facility] ([facility]) [address] [place] [address] 46379 Protein [Mass/Vol] 6.2 g/dL Low 6.4-8.2 [facility] Comment on above: Performed By: #### 2 4323-8 #### DESIREE BURROWS ([id number]) [facility] ([facility]) [address] [place] [address] 28972 Sodium [Moles/Vol] 139 mmol/L Normal 136-145 [facility] Comment on above: Performed By: #### 2 4323-8 #### DESIREE BURROWS ([id number]) [facility] ([facility]) [address] [place] [address] 09371 Urea nitrogen [Mass/Vol] 12 mg/dL Normal 6-23 [facility] Comment on above: Performed By: #### 2 4323-8 #### DESIREE BURROWS ([id number]) [facility] ([facility]) [address] [place] [address] HbA1c (Bld) [Mass fraction]o n 09-05-2024 Average glucose Estimated from glycated hemoglobin (Bld) [Mass/Vol] 120 mg/dL Normal Not Established [facility] Comment on above: Order Comment: Diagn osis of Diabetes-Adults Non-Diabetic: < or = 5.6% Increased risk for developing diabetes: 5.7-6.4% Diagnostic of diabetes: > or = 6.5% Performed By: #### 4 548-4 #### CURTIS Rinaldi ([id number]) [facility] ([facility]) [id number] [place] [address] 28108 Hemoglobin A1c/Hemoglobin.to gustavo 09-05-2024 HbA1c (Bld) [Mass fraction] 5.8 % High See comment [facility] Comment on above: Order Comment: Diagn osis of Diabetes-Adults Non-Diabetic: < or = 5.6% Increased risk for developing diabetes: 5.7-6.4% Diagnostic of diabetes: > or = 6.5% Performed By: #### 4 548-4 #### CURTIS Rinaldi ([id number]) [facility] ([facility]) [address] [place] [address] 59492 Lipid 1996 panelon 5 Cholesterol [Mass/Vol] 192 mg/dL Normal 0-199 [facility] Comment on above: Result Comment: Age Desirable Borderline High High 0-19 Y 0 - 169 170 - 199 >/= 200 20-24 Y 0 - 189 190 - 224 >/= 225 >24 Y 0 - 199 200 - 239 >/= 240 All ranges are based on fasting samples. Specific therapeutic targets will vary based on patient-specific cardiac risk. Pediatric guidelines reference:Pediatrics 2011, 128(S5).Adult guidelines reference: NCEP ATPIII Guidelines,RANDALL 2001, 258:2486-97 Venipuncture immediately after or during the administration of Metamizole may lead to falsely low results. Testing should be performed immediately prior to Metamizole dosing. Performed By: #### 2 4331-1 #### DESIREE BURROWS ([id number]) [facility] ([facility]) [address] [place] [address] 19764 Cholesterol in HDL [Mass/Vol] 74.0 mg/dL Normal [facility] Comment on above: Result Comment: Age Very Low Low Normal High 0-19 Y < 35 < 40 40-45 ---- 20-24 Y ---- < 40 >45 ---- >24 Y ---- < 40 40-60 >60 Performed By: #### 2 4331-1 #### DESIREE BURROWS ([id number]) [facility] ([facility]) [address] [place] [address] 25554 Cholesterol in LDL [Mass/Vol] 102 mg/dL High <=99 [facility] Comment on above: Result Comment: Near Borderline AGE Desirable Optimal High High Very High 0-19 Y 0 - 109 --- 110-129 >/= 130 ---- 20-24 Y 0 - 119 --- 120-159 >/= 160 ---- >24 Y 0 - 99 100-129 130-159 160-189 >/=190 Performed By: #### 2 4331-1 #### DESIREE BURROWS ([id number]) [facility] ([facility]) [address] [place] [address] 03376 Cholesterol in VLDL [Mass/Vol] 16 mg/dL Normal 0-40 [facility] Comment on above: Performed By: #### 2 4331-1 #### DESIREE BURROWS ([id number]) [facility] ([facility]) [address] [place] [address] 74489 CHOLESTEROL/HDL RATIO 2.6 Normal [facility] Comment on above: Result Comment: Ref Values Desirable < 3.4 High Risk > 5.0 Performed By: #### 2 4331-1 #### DESIREE BURROWS ([id number]) [facility] ([facility]) [address] [place] [address] 34285 NON HDL CHOLESTEROL 118 mg/dL Normal 0-149 [facility] Comment on above: Result Comment: Age Desirable Borderline High High Very High 0-19 Y 0 - 119 120 - 144 >/= 145 >/= 160 20-24 Y 0 - 149 150 - 189 >/= 190 ---- >24 Y 30 mg/dL above LDL Cholesterol goal Performed By: #### 2 4331-1 #### DESIREE BURROWS ([id number]) [facility] [facility] [address] [place] [address] Triglyceride [Mass/Vol] 79 mg/dL Normal 0-149 [facility] Comment on above: Result Comment: Age Desirable Borderline High Very High SEX:B mg/dL mg/dL mg/dL mg/dL <=14D 86-277 ---- ---- ---- 15D-365D 55-277 ---- ---- ---- 1Y-9Y 0-74 75-99 >=100 ---- 10Y-19Y 0-89 90-129 >=130 ---- 20Y-24Y 0-114 115-149 >=150 ---- >= 25Y 0-149 150-199 200-499 >=500 Venipuncture immediately after or during the administration of Metamizole may lead to falsely low results. Testing should be performed immediately prior to Metamizole dosing. Performed By: #### 2 4331-1 #### DESIREE BURROWS ([id number]) [facility] ([facility]) [address] [place] [address] Parathyrin.intacton 09-05-19 25 Parathyrin.intact [Mass/Vol] 130.7 pg/mL High 18.5-88.0 [facility] Comment on above: Performed By: #### 2 731-8 #### CURTIS Rinaldi ([id number]) [facility] ([facility]) [address] [place] [address] TSH WITH REFLEX TO FREE T4 I F ABNORMALon 09-05-2024 TSH Qn 1.96 m[IU]/L Normal 0.44-3.98 [facility] Comment on above: Order Comment: TSH t esting is performed using different testing methodology at [facility] than at other [facility]. Direct result comparisons should only be made within the same method. Performed By: #### T HYDS #### DESIREE BURROWS ([id number]) [facility] ([facility]) [address] [place], [place] [id number] Comprehensive Metabolic Prof ilon 07-03-2024 Albumin [Mass/Vol] 3.6 g/dL Normal 3.2-5.0 [facility] Comment on above: Performed By: #### L 500.4050 #### [facility] [address] [place], [address] Albumin/Globulin [Mass ratio] 1.0 {ratio} Normal 0.9-2.4 [facility] Comment on above: Performed By: #### L 500.4050 #### [facility] [address] [place], [address] ALK P 145 U/L High 45-117 [facility] Comment on above: Performed By: #### L 500.4050 #### [facility] [address] [place], [address] ALT [Catalytic activity/Vol] 32 U/L Normal 13-56 [facility] Comment on above: Result Comment: Slig ht Lipemia, Result may be falsely increased. Performed By: #### L 500.4050 #### [facility] [address] [place], [address] AST [Catalytic activity/Vol] 35 U/L Normal 15-37 [facility] Comment on above: Result Comment: Slig ht Lipemia, Result may be falsely increased. Performed By: #### L 500.4050 #### [facility] [address] [place], [address] Bilirubin [Mass/Vol] 0.40 mg/dL Normal 0.20-1.00 [facility] Comment on above: Result Comment: Slig ht Lipemia, Result may be falsely increased. For patients on eltrombopag therapy, use of Dimension Baring TBIL is not recommended. Performed By: #### L 500.4050 #### [facility] [address] [place], [address] BUN/CRE 25.5 RATIO High 10-20 [facility] Comment on above: Performed By: #### L 500.4050 #### [facility] [address] [place], [address] CA,Total 8.9 mg/dL Normal 8.5-10.1 [facility] Comment on above: Result Comment: Slig ht Lipemia, Result may be falsely increased. Performed By: #### L 500.4050 #### [facility] [address] [place], [address] Chloride [Moles/Vol] 107 mmol/L Normal 98-107 [facility] Comment on above: Performed By: #### L 500.4050 #### [facility] [address] [place], [address] CO2 [Moles/Vol] 25.0 mmol/L Normal 21.0-32.0 [facility] Comment on above: Result Comment: Slig ht Lipemia, Result may be falsely increased. Performed By: #### L 500.4050 #### [facility] [address] [place], [address] Creatinine [Mass/Vol] 0.63 mg/dL Normal 0.55-1.02 [facility] Comment on above: Result Comment: Slig ht Lipemia, Result may be falsely increased. The validity of the calculated GFR GFRAA in patients over 70 years has not been determined. Clinical correlation is essential. Performed By: #### L 500.4050 #### [facility] [address] [place], [address] EST GFR - AA 124 mL/min Normal >60 [facility] Comment on above: Result Comment: Afri can Palauan GFR Calc Performed By: #### L 500.4050 #### [facility] [address] [place], [address] GAP 6 Normal 5-15 [facility] Comment on above: Performed By: #### L 500.4050 #### [facility] [address] [place], [address] GFR/1.73 sq M.predicted among non-blacks MDRD (S/P/Bld) [Vol rate/Area] 103 mL/min/{1.73_m2} Normal >60 [facility] Comment on above: Result Comment: Non- GFR Calc Performed By: #### L 500.4050 #### [facility] [address] [place], [address] Globulin (S) [Mass/Vol] 3.6 g/dL Normal 2.2-4.2 [facility] Comment on above: Performed By: #### L 500.4050 #### [facility] [address] [place], [address] Glucose [Mass/Vol] 93 mg/dL Normal 74-106 [facility] Comment on above: Result Comment: Slig ht Lipemia, Result may be falsely increased. Performed By: #### L 500.4050 #### [facility] [address] [place], [address] Potassium [Moles/Vol] 4.2 mmol/L Normal 3.5-5.1 [facility] Comment on above: Result Comment: Slig ht Lipemia, Result may be falsely increased. Performed By: #### L 500.4050 #### [facility] [address] [place], [address] Sodium [Moles/Vol] 138 mmol/L Normal 136-145 [facility] Comment on above: Performed By: #### L 500.4050 #### [facility] [address] [place], [address] T PROT 7.2 g/dL Normal 6.4-8.2 [facility] Comment on above: Result Comment: Slig ht Lipemia, Result may be falsely increased. Performed By: #### L 500.4050 #### [facility] [address] [place], [address] Urea nitrogen [Mass/Vol] 16 mg/dL Normal 7-18 [facility] Comment on above: Result Comment: Slig ht Lipemia, Result may be falsely increased. Performed By: #### L 500.4050 #### [facility] [address] [place], [address] CBC W/Diff, Automatedon 10- Absolute Lymph 1.46 X10 3/uL Normal 0.83-4.51 [facility] Comment on above: Performed By: #### L 100.0100, L500.4050 #### [facility] [address] [place], [address] Absolute Neut 2.2 X10 3/uL Normal 2.0-7.7 [facility] Comment on above: Performed By: #### L 100.0100, L500.4050 #### [facility] [address] [place], [address] Basophils/100 WBC (Bld) 0.5 % Normal 0-1 [facility] Comment on above: Performed By: #### L 100.0100, L500.4050 #### [facility] [address] [place], [address] Eosinophils/100 WBC (Bld) 8.2 % High 0-5 [facility] Comment on above: Performed By: #### L 100.0100, L500.4050 #### [facility] [address] [place], [address] Erythrocyte distribution width (RBC) [Ratio] 14.3 % Normal 11.6-14.6 [facility] Comment on above: Performed By: #### L 100.0100, L500.4050 #### [facility] [address] [place], [address] Hematocrit (Bld) [Volume fraction] 42.2 % Normal 37-47 [facility] Comment on above: Performed By: #### L 100.0100, L500.4050 #### [facility] [address] [place], [address] Hemoglobin (Bld) [Mass/Vol] 13.1 g/dL Normal 12.0-15.0 [facility] Comment on above: Performed By: #### L 100.0100, L500.4050 #### [facility] [address] [place], [address] IG% 0.200 Normal 0.0-0.9 [facility] Comment on above: Result Comment: IG% - Immature Granulocytes (promyelocytes, myelocytes and metamyelocytes) > 1% indicates that a LEFT SHIFT is Present. Performed By: #### L 100.0100, L500.4050 #### [facility] [address] [place], [address] Lymphocytes/100 WBC (Bld) 33.1 % Normal 19-41 [facility] Comment on above: Performed By: #### L 100.0100, L500.4050 #### [facility] [address] [place], [address] MCH (RBC) [Entitic mass] 29.0 pg Normal 27.0-32.0 [facility] Comment on above: Performed By: #### L 100.0100, L500.4050 #### [facility] [address] [place], [address] MCHC (RBC) [Mass/Vol] 31.0 g/dL Low 32-36 [facility] Comment on above: Performed By: #### L 100.0100, L500.4050 #### [facility] [address] [place], [address] MCV (RBC) [Entitic vol] 93.4 fL Normal 81-99 [facility] Comment on above: Performed By: #### L 100.0100, L500.4050 #### [facility] [address] [place], [address] Monocytes/100 WBC (Bld) 8.6 % Normal 0-10 [facility] Comment on above: Performed By: #### L 100.0100, L500.4050 #### [facility] [address] [place], [address] Neutrophils/100 WBC (Bld) 49.4 % Normal 47-70 [facility] Comment on above: Performed By: #### L 100.0100, L500.4050 #### [facility] [address] [place], [address] Nucleated RBC (Bld) [#/Vol] 0 10*3/uL Normal 0-5 [facility] Comment on above: Performed By: #### L 100.0100, L500.4050 #### [facility] [address] [place], [address] Platelet mean volume (Bld) [Entitic vol] 9.9 fL Normal 6.2-12.0 [facility] Comment on above: Performed By: #### L 100.0100, L500.4050 #### [facility] [address] [place], [address] Platelets (Bld) [#/Vol] 308 10*3/uL Normal 150-450 [facility] Comment on above: Performed By: #### L 100.0100, L500.4050 #### [facility] [address] [place], [address] RBC (Bld) [#/Vol] 4.52 10*6/uL Normal 4.2-5.4 [facility] Comment on above: Performed By: #### L 100.0100, L500.4050 #### [facility] [address] [place], [address] RDW SD 49.1 fl High 35.1-43.9 [facility] Comment on above: Performed By: #### L 100.0100, L500.4050 #### [facility] [address] [place], [address] WBC (Bld) [#/Vol] 4.4 10*3/uL Normal 4.4-11.0 [facility] Comment on above: Performed By: #### L 100.0100, L500.4050 #### [facility] [address] [place], [address] Comprehensive Metabolic Prof ilon 05-30-2024 Albumin [Mass/Vol] 3.7 g/dL Normal 3.2-5.0 [facility] Comment on above: Performed By: #### L 100.0100, L500.4050 #### [facility] [address] [place], [address] Albumin/Globulin [Mass ratio] 0.9 {ratio} Normal 0.9-2.4 [facility] Comment on above: Performed By: #### L 100.0100, L500.4050 #### [facility] [address] [place], [address] ALK P 148 U/L High 45-117 [facility] Comment on above: Performed By: #### L 100.0100, L500.4050 #### [facility] [address] [place], [address] ALT [Catalytic activity/Vol] 41 U/L Normal 13-56 [facility] Comment on above: Result Comment: Slig ht Lipemia, Result may be falsely increased. Performed By: #### L 100.0100, L500.4050 #### [facility] [address] [place], [address] AST [Catalytic activity/Vol] 45 U/L High 15-37 [facility] Comment on above: Result Comment: Slig ht Lipemia, Result may be falsely increased. Performed By: #### L 100.0100, L500.4050 #### [facility] [address] [place], [address] Bilirubin [Mass/Vol] 0.30 mg/dL Normal 0.20-1.00 [facility] Comment on above: Result Comment: Slig ht Lipemia, Result may be falsely increased. For patients on eltrombopag therapy, use of Dimension Baring TBIL is not recommended. Performed By: #### L 100.0100, L500.4050 #### [facility] [address] [place], [address] BUN/CRE 12.1 RATIO Normal 10-20 [facility] Comment on above: Performed By: #### L 100.0100, L500.4050 #### [facility] [address] [place], [address] CA,Total 9.3 mg/dL Normal 8.5-10.1 [facility] Comment on above: Result Comment: Slig ht Lipemia, Result may be falsely increased. Performed By: #### L 100.0100, L500.4050 #### [facility] [address] [place], [address] Chloride [Moles/Vol] 103 mmol/L Normal 98-107 [facility] Comment on above: Performed By: #### L 100.0100, L500.4050 #### [facility] [address] [place], [address] CO2 [Moles/Vol] 26.0 mmol/L Normal 21.0-32.0 [facility] Comment on above: Result Comment: Slig ht Lipemia, Result may be falsely increased. Performed By: #### L 100.0100, L500.4050 #### [facility] [address] [place], [address] Creatinine [Mass/Vol] 0.91 mg/dL Normal 0.55-1.02 [facility] Comment on above: Result Comment: Slig ht Lipemia, Result may be falsely increased. The validity of the calculated GFR GFRAA in patients over 70 years has not been determined. Clinical correlation is essential. Performed By: #### L 100.0100, L500.4050 #### [facility] [address] [place], [address] EST GFR - AA 81 mL/min Normal >60 [facility] Comment on above: Result Comment: Afri can Palauan GFR Calc Performed By: #### L 100.0100, L500.4050 #### [facility] [address] [place], [address] GAP 6 Normal 5-15 [facility] Comment on above: Performed By: #### L 100.0100, L500.4050 #### [facility] [address] [place], [address] GFR/1.73 sq M.predicted among non-blacks MDRD (S/P/Bld) [Vol rate/Area] 67 mL/min/{1.73_m2} Normal >60 [facility] Comment on above: Result Comment: Non- GFR Calc Performed By: #### L 100.0100, L500.4050 #### [facility] [address] [place], [address] Globulin (S) [Mass/Vol] 4.1 g/dL Normal 2.2-4.2 [facility] Comment on above: Performed By: #### L 100.0100, L500.4050 #### [facility] [address] [place], [address] Glucose [Mass/Vol] 87 mg/dL Normal 74-106 [facility] Comment on above: Result Comment: Slig ht Lipemia, Result may be falsely increased. Performed By: #### L 100.0100, L500.4050 #### [facility] [address] [place], [address] Potassium [Moles/Vol] 4.5 mmol/L Normal 3.5-5.1 [facility] Comment on above: Result Comment: Slig ht Lipemia, Result may be falsely increased. Performed By: #### L 100.0100, L500.4050 #### [facility] [address] [place], [address] Sodium [Moles/Vol] 135 mmol/L Low 136-145 [facility] Comment on above: Performed By: #### L 100.0100, L500.4050 #### [facility] [address] [place], [address] T PROT 7.8 g/dL Normal 6.4-8.2 [facility] Comment on above: Result Comment: Slig ht Lipemia, Result may be falsely increased. Performed By: #### L 100.0100, L500.4050 #### [facility] [address] [place], [address] Urea nitrogen [Mass/Vol] 11 mg/dL Normal 7-18 [facility] Comment on above: Result Comment: Slig ht Lipemia, Result may be falsely increased. Performed By: #### L 100.0100, L500.4050 #### [facility] [address] [place], [address] Basic metabolic 2000 panelon 03-12-2024 Anion gap [Moles/Vol] 12 mmol/L Normal 10-20 [facility] Comment on above: Performed By: #### 2 4323-8 #### DESIREE BURROWS ([id number]) [facility] ([facility]) [address] [place] [address] Calcium [Mass/Vol] 8.6 mg/dL Normal 8.6-10.3 [facility] Comment on above: Performed By: #### 2 4323-8 #### DESIREE BURROWS ([id number]) [facility] ([facility]) [address] [place] [address] Chloride [Moles/Vol] 107 mmol/L Normal 98-107 [facility] Comment on above: Performed By: #### 2 4323-8 #### DESIREE BURROWS ([id number]) [facility] ([facility]) [facility] [place] [address] CO2 [Moles/Vol] 25 mmol/L Normal 21-32 [facility] Comment on above: Performed By: #### 2 4323-8 #### DESIREE BURROWS ([id number]) [facility] ([facility]) [address] [place] [address] Creatinine [Mass/Vol] 0.45 mg/dL Low 0.50-1.05 [facility] Comment on above: Performed By: #### 2 4323-8 #### DESIREE BURROWS ([id number]) [facility] ([facility]) [address] [place] [address] GFR/1.73 sq M.predicted MDRD (S/P/Bld) [Vol rate/Area] mL/min/{1.73_m2} Normal >60 [facility] Comment on above: Result Comment: Calc ulations of estimated GFR are performed using the 2020 CKD-EPI Study Refit equation without the race variable for the IDMS-Traceable creatinine methods. https://jasn.asnjournals.org/content/early/ASN.52009 85591 Performed By: #### 2 4323-8 #### DESIREE BURROWS ([id number]) [facility] ([facility]) [address] [place] [address] Glucose [Mass/Vol] 86 mg/dL Normal 74-99 [facility] Comment on above: Performed By: #### 2 4323-8 #### DESIREE BURROWS ([id number]) [facility] ([facility]) [address] [place] [address] Potassium [Moles/Vol] 3.7 mmol/L Normal 3.5-5.3 [facility] Comment on above: Performed By: #### 2 4323-8 #### DESIREE BURROWS ([id number]) [facility] ([facility]) [address] [place] [address] Sodium [Moles/Vol] 140 mmol/L Normal 136-145 [facility] Comment on above: Performed By: #### 2 432-8 #### DESIREE BURROWS ([id number]) [facility] ([facility]) [address] [place] [address] Urea nitrogen [Mass/Vol] 8 mg/dL Normal 6-23 [facility] Comment on above: Performed By: #### 2 4322-8 #### DESIREE BURROWS ([id number]) [facility] ([facility]) [address] [place] [address] CBC panel Auto (Bld)on 03-12 Erythrocyte distribution width (RBC) [Ratio] 14.2 % Normal 11.5-14.5 [facility] Comment on above: Performed By: #### 2 4322-8 #### DESIREE BURROWS ([id number]) [facility] ([facility]) [address] [place] [address] Hematocrit (Bld) [Volume fraction] 35.4 % Low 36.0-46.0 [facility] Comment on above: Performed By: #### 2 4322-8 #### DESIREE BURROWS ([id number]) [facility] ([facility]) [address] [place] [address] Hemoglobin (Bld) [Mass/Vol] 11.1 g/dL Low 12.0-16.0 [facility] Comment on above: Performed By: #### 2 432-8 #### DESIREE BURROWS ([id number]) [facility] ([facility]) [address] [place], [place] [id number] MCH (RBC) [Entitic mass] 29.7 pg Normal 26.0-34.0 [facility] Comment on above: Performed By: #### 2 4323-8 #### DESIREE BURROWS ([id number]) [facility] ([facility]) [address] [place] [address] MCHC (RBC) [Mass/Vol] 31.4 g/dL Low 32.0-36.0 [facility] Comment on above: Performed By: #### 2 4323-8 #### DESIREE BURROWS ([id number]) [facility] ([facility]) [address] [place] [address] MCV (RBC) [Entitic vol] 95 fL Normal 80-100 [facility] Comment on above: Performed By: #### 2 432-8 #### DESIREE BURROWS ([id number]) [facility] ([facility]) [address] [place] [address] Nucleated RBC/100 WBC (Bld) [Ratio] 0.0 /100 WBCs Normal 0.0-0.0 [facility] Comment on above: Performed By: #### 2 4323-8 #### DESIREE BURROWS ([id number]) [facility] ([facility]) [address] [place] [address] Platelets (Bld) [#/Vol] 272 x10*3/uL Normal 150-450 [facility] Comment on above: Performed By: #### 2 4323-8 #### DESIREE BURROWS ([id number]) [facility] ([facility]) [address] [place] [address] RBC (Bld) [#/Vol] 3.74 x10*6/uL Low 4.00-5.20 [facility] Comment on above: Performed By: #### 2 4323-8 #### DESIREE BURROWS ([id number]) [facility] ([facility]) [address] [place] [address] WBC (Bld) [#/Vol] 6.6 x10*3/uL Normal 4.4-11.3 [facility] Comment on above: Performed By: #### 2 4323-8 #### DESIREE BURROWS ([id number]) [facility] ([facility]) [address] [place] [address] Basic metabolic 2000 panelon 03-11-2024 Anion gap [Moles/Vol] 12 mmol/L Normal 10-20 [facility] Comment on above: Performed By: #### 2 524-7 #### DESIREE BURROWS ([id number]) [facility] ([facility]) [address] [place] [address] Calcium [Mass/Vol] 8.5 mg/dL Low 8.6-10.3 [facility] [facility] Comment on above: Performed By: #### 2 524-7 #### DESIREE BURROWS ([id number]) [facility] ([facility]) [address] [place] [address] Chloride [Moles/Vol] 105 mmol/L Normal 98-107 [facility] Comment on above: Performed By: #### 2 524-7 #### DESIREE BURROWS ([id number]) [facility] ([facility]) [address] [place] [address] CO2 [Moles/Vol] 27 mmol/L Normal 21-32 [facility] Comment on above: Performed By: #### 2 524-7 #### DESIREE BURROWS ([id number]) [facility] ([facility]) [facility] [place] [address] Creatinine [Mass/Vol] 0.55 mg/dL Normal 0.50-1.05 [facility] Comment on above: Performed By: #### 2 524-7 #### DESIREE BURROWS ([id number]) [facility] ([facility]) [address] [place] [address] 31488 GFR/1.73 sq M.predicted MDRD (S/P/Bld) [Vol rate/Area] mL/min/{1.73_m2} Normal >60 [facility] Comment on above: Result Comment: Calc ulations of estimated GFR are performed using the 2020 CKD-EPI Study Refit equation without the race variable for the IDMS-Traceable creatinine methods. https://jasn.asnjournals.org/content//ASN.07293 75596 Performed By: #### 2 524-7 #### DESIREE BURROWS ([id number]) [facility] ([facility]) [address] [place] [address] 86564 Glucose [Mass/Vol] 89 mg/dL Normal 74-99 [facility] Comment on above: Performed By: #### 2 524-7 #### DESIREE BURROWS ([id number]) [facility] ([facility]) [address] [place] [address] 72515 Potassium [Moles/Vol] 3.7 mmol/L Normal 3.5-5.3 [facility] Comment on above: Performed By: #### 2 524-7 #### DESIREE BURROWS ([id number]) [facility] ([facility]) [address] [place] [address] 78146 Sodium [Moles/Vol] 140 mmol/L Normal 136-145 [facility] Comment on above: Performed By: #### 2 524-7 #### DESIREE BURROWS ([id number]) [facility] ([facility]) [address] [place] [address] 03861 Urea nitrogen [Mass/Vol] 9 mg/dL Normal 6-23 [facility] Comment on above: Performed By: #### 2 524-7 #### DESIREE BURROWS ([id number]) [facility] ([facility]) [address] [place] [address] 43525 CBC panel Auto (Bld)on 03-11 Erythrocyte distribution width (RBC) [Ratio] 14.2 % Normal 11.5-14.5 [facility] Comment on above: Performed By: #### 2 524-7 #### DESIREE BURROWS ([id number]) [facility] ([facility]) [address] [place] [address] 64479 Hematocrit (Bld) [Volume fraction] 35.7 % Low 36.0-46.0 [facility] Comment on above: Performed By: #### 2 524-7 #### DESIREE BURROWS ([id number]) [facility] ([facility]) [address] [place] [address] 40633 Hemoglobin (Bld) [Mass/Vol] 11.4 g/dL Low 12.0-16.0 [facility] Comment on above: Performed By: #### 2 524-7 #### DESIREE BURROWS ([id number]) [facility] ([facility]) [address] [place] [address] 18758 MCH (RBC) [Entitic mass] 30.2 pg Normal 26.0-34.0 [facility] Comment on above: Performed By: #### 2 524-7 #### DESIREE BURROWS ([id number]) [facility] ([facility]) [address] [place] [address] 09572 MCHC (RBC) [Mass/Vol] 31.9 g/dL Low 32.0-36.0 [facility] Comment on above: Performed By: #### 2 524-7 #### DESIREE BURROWS ([id number]) [facility] ([facility]) [address] [place] [address] 17628 MCV (RBC) [Entitic vol] 95 fL Normal 80-100 [facility] Comment on above: Performed By: #### 2 524-7 #### DESIREE BURROWS ([id number]) [facility] ([facility]) [address] [place] [address] 40554 Nucleated RBC/100 WBC (Bld) [Ratio] 0.0 /100 WBCs Normal 0.0-0.0 [facility] Comment on above: Performed By: #### 2 524-7 #### DESIREE BURROWS ([id number]) [facility] ([facility]) [address] [place] [address] 47370 Platelets (Bld) [#/Vol] 283 x10*3/uL Normal 150-450 [facility] Comment on above: Performed By: #### 2 524-7 #### DESIREE BURROWS ([id number]) [facility] ([facility]) [facility] [place] [phone] RBC (Bld) [#/Vol] 3.77 x10*6/uL Low 4.00-5.20 [facility] Comment on above: Performed By: #### 2 524-7 #### DESIREE BURROWS ([id number]) [facility] ([facility]) [address] [place] [address] 26079 WBC (Bld) [#/Vol] 8.8 x10*3/uL Normal 4.4-11.3 [facility] Comment on above: Performed By: #### 2 524-7 #### DESIREE BURROWS ([id number]) [facility] ([facility]) [address] [place] [address] Vancomycinon 03-11-2024 Vancomycin [Mass/Vol] 21.6 ug/mL High 5.0-20.0 [facility] Comment on above: Order Comment: Vanco mycin levels can be monitored according to area under the curve (AUC) or concentration (ug/mL). The preferred monitoring strategy is determined by the patient's renal function and indication for therapy.For AUC monitoring, a random vancomycin level should be interpreted in the context of AUC rather than the concentration at a single point in time.For concentration monitoring, a trough concentration drawn immediately prior to the next dose is preferred.Therapeutic ranges using concentration-guided results:Peak (all ages): 30.0-40.0 ug/mLTrough (all ages): 10.0-20.0 ug/mL Performed By: #### 2 4323-8 #### DESIREE BURROWS ([id number]) [facility] ([facility]) [address] [place] [address] Bacteria identifiedon 2023 Bacteria identified Cx Nom (Unsp spec) Test: Tissue/Wound Culture/Smear Specimen Source: Wound/Tissue Specimen Type: Tissue/Biopsy Specimen Date: 03/10/2024906 Result Date: 03/12/2024955 Result Status: Final result Abnormal: Yes Resulting Lab: [facility] [id number] [place] [address] CULTURE (3+) Moderate Staphylococcus aureus (Abnormal) For antibiotic susceptibility results see Specimen # - [id number] STAIN (4+) Abundant Polymorphonuclear leukocytes (4+) Abundant Gram positive cocci Abnormal [facility] Comment on above: Performed By: #### 2 524-7 #### DESIREE BURROWS ([id number]) [facility] ([facility]) [address] [place] [address] 29543 Basic metabolic 2000 panelon 03-10-2024 Anion gap [Moles/Vol] 14 mmol/L Normal 10-20 [facility] Comment on above: Performed By: #### 2 524-7 #### DESIREE BURROWS ([id number]) [facility] ([facility]) [address] [place] [address] 86574 Calcium [Mass/Vol] 8.4 mg/dL Low 8.6-10.3 [facility] Comment on above: Performed By: #### 2 524-7 #### DESIREE BURROWS ([id number]) [facility] ([facility]) [address] [place] [address] 80872 Chloride [Moles/Vol] 102 mmol/L Normal 98-107 [facility] Comment on above: Performed By: #### 2 524-7 #### DESIREE BURROWS ([id number]) [facility] ([facility]) [address] [place] [address] 31026 CO2 [Moles/Vol] 25 mmol/L Normal 21-32 [facility] Comment on above: Performed By: #### 2 524-7 #### DESIREE BURROWS ([id number]) [facility] ([facility]) [address] [place] [address] 82883 Creatinine [Mass/Vol] 0.59 mg/dL Normal 0.50-1.05 [facility] Comment on above: Performed By: #### 2 524-7 #### DESIREE BURROWS ([id number]) [facility] ([facility]) [facility] [place] [address] GFR/1.73 sq M.predicted MDRD (S/P/Bld) [Vol rate/Area] mL/min/{1.73_m2} Normal >60 [facility] Comment on above: Result Comment: Calc ulations of estimated GFR are performed using the 2020 CKD-EPI Study Refit equation without the race variable for the IDMS-Traceable creatinine methods. https://jasn.asnjournals.org/content/early//ASN.65728 16622 Performed By: #### 2 524-7 #### DESIREE BURROWS ([id number]) [facility] ([facility]) [address] [place] [address] 73432 Glucose [Mass/Vol] 85 mg/dL Normal 74-99 [facility] Comment on above: Performed By: #### 2 524-7 #### DESIREE BURROWS ([id number]) [facility] ([facility]) [address] [place] [address] 97779 Potassium [Moles/Vol] 3.8 mmol/L Normal 3.5-5.3 [facility] Comment on above: Performed By: #### 2 524-7 #### DESIREE BURROWS ([id number]) [facility] ([facility]) [address] [place] [address] 43451 Sodium [Moles/Vol] 137 mmol/L Normal 136-145 [facility] Comment on above: Performed By: #### 2 524-7 #### DESIREE BURROWS ([id number]) [facility] ([facility]) [address] [place] [address] 48891 Urea nitrogen [Mass/Vol] 9 mg/dL Normal 6-23 [facility] Comment on above: Performed By: #### 2 524-7 #### DESIREE BURROWS ([id number]) [facility] ([facility]) [address] [place] [address] 13987 CBC panel Auto (Bld)on 03-10 Erythrocyte distribution width (RBC) [Ratio] 14.6 % High 11.5-14.5 [facility] Comment on above: Performed By: #### 2 524-7 #### DESIREE BURROWS ([id number]) [facility] ([facility]) [address] [place] [address] Hematocrit (Bld) [Volume fraction] 37.3 % Normal 36.0-46.0 [facility] Comment on above: Performed By: #### 2 524-7 #### DESIREE BURROWS ([id number]) [facility] ([facility]) [address] [place] [address] 53850 Hemoglobin (Bld) [Mass/Vol] 11.4 g/dL Low 12.0-16.0 [facility] Comment on above: Performed By: #### 2 524-7 #### DESIREE BURROWS ([id number]) [facility] ([facility]) [address] [place] [address] MCH (RBC) [Entitic mass] 29.5 pg Normal 26.0-34.0 [facility] Comment on above: Performed By: #### 2 524-7 #### DESIREE BURROWS ([id number]) [facility] ([facility]) [address] [place] [address] 94379 MCHC (RBC) [Mass/Vol] 30.6 g/dL Low 32.0-36.0 [facility] Comment on above: Performed By: #### 2 524-7 #### DESIREE BURROWS ([id number]) [facility] ([facility]) [address] [place] [address] 79422 MCV (RBC) [Entitic vol] 96 fL Normal 80-100 [facility] Comment on above: Performed By: #### 2 524-7 #### DESIREE BURROWS ([id number]) [facility] ([facility]) [address] [place] [address] 81416 Nucleated RBC/100 WBC (Bld) [Ratio] 0.0 /100 WBCs Normal 0.0-0.0 [facility] Comment on above: Performed By: #### 2 524-7 #### DESIREE BURROWS ([id number]) [facility] ([facility]) [address] [place] [address] 37965 Platelets (Bld) [#/Vol] 230 x10*3/uL Normal 150-450 [facility] Comment on above: Performed By: #### 2 524-7 #### DESIREE BURROWS ([id number]) [facility] ([facility]) [address] [place] [address] 91193 RBC (Bld) [#/Vol] 3.87 x10*6/uL Low 4.00-5.20 [facility] Comment on above: Performed By: #### 2 524-7 #### DESIREE BURROWS ([id number]) [facility] ([facility]) [address] [place] [address] 43576 WBC (Bld) [#/Vol] 11.2 x10*3/uL Normal 4.4-11.3 [facility] Comment on above: Performed By: #### 2 524-7 #### DESIREE BURROWS ([id number]) [facility] ([facility]) [address] [place] [address] 87955 Basic metabolic 2000 panelon 03-09-2024 Anion gap [Moles/Vol] 12 mmol/L Normal 10-20 [facility] Comment on above: Performed By: #### 2 524-7 #### DESIREE BURROWS ([id number]) [facility] ([facility]) [address] [place] [address] 33940 Calcium [Mass/Vol] 8.6 mg/dL Normal 8.6-10.3 [facility] Comment on above: Performed By: #### 2 524-7 #### DESIREE BURROWS ([id number]) [facility] ([facility]) [address] [place] [address] 24584 Chloride [Moles/Vol] 102 mmol/L Normal 98-107 [facility] Comment on above: Performed By: #### 2 524-7 #### DESIREE BURROWS ([id number]) [facility] ([facility]) [address] [place] [address] CO2 [Moles/Vol] 25 mmol/L Normal 21-32 [facility] Comment on above: Performed By: #### 2 524-7 #### DESIREE BURROWS ([id number]) [facility] ([facility]) [address] [place] [address] 94991 Creatinine [Mass/Vol] 0.58 mg/dL Normal 0.50-1.05 [facility] Comment on above: Performed By: #### 2 524-7 #### DESIREE BURROWS ([id number]) [facility] ([facility]) [address] [place] [address] 83518 GFR/1.73 sq M.predicted MDRD (S/P/Bld) [Vol rate/Area] mL/min/{1.73_m2} Normal >60 [facility] Comment on above: Result Comment: Calc ulations of estimated GFR are performed using the 2020 CKD-EPI Study Refit equation without the race variable for the IDMS-Traceable creatinine methods. https://jasn.asnjournals.org/content/early//ASN.70907 98624 Performed By: #### 2 524-7 #### DESIREE BURROWS ([id number]) [facility] ([facility]) [address] [place] [address] 32658 Glucose [Mass/Vol] 87 mg/dL Normal 74-99 [facility] Comment on above: Performed By: #### 2 524-7 #### DESIREE BURROWS ([id number]) [facility] ([facility]) [address] [place] [address] 66577 Potassium [Moles/Vol] 3.8 mmol/L Normal 3.5-5.3 [facility] Comment on above: Performed By: #### 2 524-7 #### DESIREE BURROWS ([id number]) [facility] ([facility]) [address] [place] [address] 45333 Sodium [Moles/Vol] 135 mmol/L Low 136-145 [facility] Comment on above: Performed By: #### 2 524-7 #### DESIREE BURROWS ([id number]) [facility] ([facility]) [address] [place] [address] 14040 Urea nitrogen [Mass/Vol] 8 mg/dL Normal 6-23 [facility] Comment on above: Performed By: #### 2 524-7 #### DESIREE BURROWS ([id number]) [facility] ([facility]) [address] [place] [address] 23210 CBC panel Auto (Bld)on 03-09 Erythrocyte distribution width (RBC) [Ratio] 14.6 % High 11.5-14.5 [facility] Comment on above: Performed By: #### 2 524-7 #### DESIREE BURROWS ([id number]) [facility] ([facility]) [address] [place] [address] 29364 Hematocrit (Bld) [Volume fraction] 36.9 % Normal 36.0-46.0 [facility] Comment on above: Performed By: #### 2 524-7 #### DESIREE BURROWS ([id number]) [facility] ([facility]) [address] [place] [address] 21799 Hemoglobin (Bld) [Mass/Vol] 11.3 g/dL Low 12.0-16.0 [facility] Comment on above: Performed By: #### 2 524-7 #### DESIREE BURROWS ([id number]) [facility] ([facility]) [address] [place] [address] 16331 MCH (RBC) [Entitic mass] 29.5 pg Normal 26.0-34.0 [facility] Comment on above: Performed By: #### 2 524-7 #### DESIREE BURROWS ([id number]) [facility] ([facility]) [address] [place] [address] 73221 MCHC (RBC) [Mass/Vol] 30.6 g/dL Low 32.0-36.0 [facility] Comment on above: Performed By: #### 2 524-7 #### DESIREE BURROWS ([id number]) [facility] ([facility]) [address] [place] [address] 72277 MCV (RBC) [Entitic vol] 96 fL Normal 80-100 [facility] Comment on above: Performed By: #### 2 524-7 #### DESIREE BURROWS ([id number]) [facility] ([facility]) [address] [place] [address] 30966 Nucleated RBC/100 WBC (Bld) [Ratio] 0.0 /100 WBCs Normal 0.0-0.0 [facility] Comment on above: Performed By: #### 2 524-7 #### DESIREE BURROWS ([id number]) [facility] ([facility]) [address] [place] [address] 43675 Platelets (Bld) [#/Vol] 214 x10*3/uL Normal 150-450 [facility] Comment on above: Performed By: #### 2 524-7 #### DESIREE BURROWS ([id number]) [facility] ([facility]) [address] [place] [address] RBC (Bld) [#/Vol] 3.83 x10*6/uL Low 4.00-5.20 [facility] Comment on above: Performed By: #### 2 524-7 #### DESIREE BURROWS ([id number]) [facility] ([facility]) [address] [place] [address] 92631 WBC (Bld) [#/Vol] 12.5 x10*3/uL High 4.4-11.3 [facility] Comment on above: Performed By: #### 2 524-7 #### DESIREE BURROWS ([id number]) [facility] ([facility]) [address] [place] [address] 74814 Vancomycinon 03-09-2024 Vancomycin [Mass/Vol] 14.7 ug/mL Normal 5.0-20.0 [facility] Comment on above: Order Comment: Venip uncture immediately after or during the administration of Metamizole may lead to falsely low results. Testing should be performed immediately prior to Metamizole dosing. Performed By: #### 2 524-7 #### DESIREE BURROWS ([id number]) [facility] ([facility]) [address] [place] [address] Bacteria identifiedon 2023 Bacteria identified Cx Nom (Unsp spec) Test: Tissue/Wound Culture/Smear Specimen Source: Wound/Tissue Specimen Type: Tissue/Biopsy Specimen Date: 03/08/2024 1528 Result Date: 03/11/2024 1103 Result Status: Final result Abnormal: Yes Resulting Lab: [facility] [id number] [place] [address] CULTURE (1+) Rare Methicillin Resistant Staphylococcus aureus (MRSA) (Abnormal) Methicillin (Oxacillin) resistant Staphylococci are resistant to all currently available Penicillins, Beta-lactam/Beta-lactam ase inhibitor combinations (including Ampicillin/Sulbactam, Amoxicillin/Clavulanate and Pipercillin/Tazobactam) , Carbapenems and Cephalosporins (except Ceftaroline). STAIN No polymorphonuclear leukocytes seen No organisms seen SUSCEPTIBILITY Methicillin Resistant Staphylococcus aureus (MRSA) METHOD MICROSCAN ------ ------ CLINDAMYCIN >4.000 mcg/mL Resistant ERYTHROMYCIN >4 mcg/mL Resistant OXACILLIN >2 mcg/mL Resistant TETRACYCLINE <=2.000 mcg/mL Susceptible TRIMETHOPRIM/SULFAMETHO XAZOLE <=0.5/9.5 mcg/mL Susceptible VANCOMYCIN 1.000 mcg/mL Susceptible Abnormal [facility] Comment on above: Performed By: #### 2 524-7 #### DESIREE BURROWS ([id number]) [facility] ([facility]) [facility] [address] [place] [address] Bacteria identified Cx Nom (U) Test: Urine Culture Specimen Source: Clean Catch/Voided Specimen Type: Urine Specimen Date: 03/08/20241111 Result Date: 03/10/2024 0806 Result Status: Final result Abnormal: No Resulting Lab: [facility] [address] [place] [address] CULTURE No growth [facility] Comment on above: Performed By: #### 2 524-7 #### DESIREE BURROWS ([id number]) [facility] ([facility]) [address] [place] [address] Bacteria identified Cx Nom (Bld) Test: Blood Culture Specimen Source: Peripheral Venipuncture Specimen Type: Blood culture Specimen Date: 03/08/2024 101 Result Date: 03/12/2024 170 Result Status: Final result Abnormal: No Resulting Lab: [facility] [address] [place] [address] CULTURE No growth at 4 days - FINAL REPORT [facility] Comment on above: Performed By: #### 6 00-7 #### CURTIS Rinaldi ([id number]) [facility] ([facility]) [address] [place] [address] Bacteria identified Cx Nom (Bld) Test: Blood Culture Specimen Source: Peripheral Venipuncture Specimen Type: Blood culture Specimen Date: 03/08/2024 0957 Result Date: 03/12/2024 180 Result Status: Final result Abnormal: No Resulting Lab: [facility] [address] [place] [address] CULTURE No growth at 4 days - FINAL REPORT [facility] Comment on above: Performed By: #### 6 00-7 #### CURTIS Rinaldi ([id number]) [facility] ([facility]) [address] [place] [address] CBC W Auto Differential pane l (Bld)on 03-08-2024 Basophils (Bld) [#/Vol] 0.04 x10*3/uL Normal 0.00-0.10 [facility] Comment on above: Order Comment: Laven serina [employer] Performed By: #### 5 7021-8 #### DESIREE BURROWS ([id number]) [facility] ([facility]) [address] [place] [address] 92491 Basophils/100 WBC (Bld) 0.3 % Normal 0.0-2.0 [facility] Comment on above: Order Comment: Laven serina [employer] Performed By: #### 5 7021-8 #### DESIREE BURROWS ([id number]) [facility] ([facility]) [address] [place] [address] 18180 Eosinophils (Bld) [#/Vol] 0.04 x10*3/uL Normal 0.00-0.70 [facility] Comment on above: Order Comment: Laven ser[employer] Performed By: #### 5 7021-8 #### DESIREE BURROWS ([id number]) [facility] ([facility]) [address] [place] [address] 92858 Eosinophils/100 WBC (Bld) 0.3 % Normal 0.0-6.0 [facility] Comment on above: Order Comment: Laven serina [employer] Performed By: #### 5 7021-8 #### DESIREE BURROWS ([id number]) [facility] ([facility]) [address] [place] [address] 89936 Erythrocyte distribution width (RBC) [Ratio] 14.7 % High 11.5-14.5 [facility] Comment on above: Order Comment: Laven [employer] Performed By: #### 5 7021-8 #### DESIREE BURROWS ([id number]) [facility] ([facility]) [address] [place] [address] 67265 Hematocrit (Bld) [Volume fraction] 36.2 % Normal 36.0-46.0 [facility] Comment on above: Order Comment: Laven serina [employer] Performed By: #### 5 7021-8 #### DESIREE BURROWS ([id number]) [facility] ([facility]) [address] [place] [address] 44673 Hemoglobin (Bld) [Mass/Vol] 11.5 g/dL Low 12.0-16.0 [facility] Comment on above: Order Comment: Laven serina [employer] Performed By: #### 5 7021-8 #### DESIREE BURROWS ([id number]) [facility] ([facility]) [address] [place] [address] 79370 Immature granulocytes (Bld) [#/Vol] 0.04 x10*3/uL Normal 0.00-0.70 [facility] Comment on above: Order Comment: Laven serina [employer] Performed By: #### 5 7021-8 #### DESIREE BURROWS ([id number]) [facility] ([facility]) [address] [place] [address] 34501 Immature granulocytes/100 WBC (Bld) 0.3 % Normal 0.0-0.9 [facility] Comment on above: Order Comment: Laven serina [employer] Result Comment: Maria R ture Granulocyte Count (IG) includes promyelocytes, myelocytes and metamyelocytes but does not include bands. Percent differential counts (%) should be interpreted in the context of the absolute cell counts (cells/UL). Performed By: #### 5 7021-8 #### DESIREE BURROWS ([id number]) [facility] ([facility]) [address] [place] [address] [id number] Lymphocytes (Bld) [#/Vol] 0.73 x10*3/uL Low 1.20-4.80 [facility] Comment on above: Order Comment: Laven serina Top Tube Performed By: #### 5 7021-8 #### DESIREE BURROWS ([id number]) [facility] ([facility]) [address] [place] [address] 83904 Lymphocytes/100 WBC (Bld) 5.9 % Normal 13.0-44.0 [facility] Comment on above: Order Comment: Laven serina Top Tube Performed By: #### 5 7021-8 #### DESIREE BURROWS ([id number]) [facility] ([facility]) [address] [place] [address] 03301 MCH (RBC) [Entitic mass] 29.6 pg Normal 26.0-34.0 [facility] Comment on above: Order Comment: Laven serina Top Tube Performed By: #### 5 7021-8 #### DESIREE BURROWS ([id number]) [facility] ([facility]) [address] [place] [address] 43602 MCHC (RBC) [Mass/Vol] 31.8 g/dL Low 32.0-36.0 [facility] Comment on above: Order Comment: Laven serina Top Tube Performed By: #### 5 7021-8 #### DESIREE BURROWS ([id number]) [facility] ([facility]) [address] [place] [address] 50269 MCV (RBC) [Entitic vol] 93 fL Normal 80-100 [facility] Comment on above: Order Comment: Laven serina Top Tube Performed By: #### 5 7021-8 #### DESIREE BURROWS ([id number]) [facility] ([facility]) [address] [place] [address] 57583 Monocytes (Bld) [#/Vol] 0.97 x10*3/uL Normal 0.10-1.00 [facility] Comment on above: Order Comment: Laven serina Top Tube Performed By: #### 5 7021-8 #### DESIREE BURROWS ([id number]) [facility] ([facility]) [address] [place] [address] 64865 Monocytes/100 WBC (Bld) 7.9 % Normal 2.0-10.0 [facility] Comment on above: Order Comment: Laven serina Top Tube Performed By: #### 5 7021-8 #### DESIREE BURROWS ([id number]) [facility] ([facility]) [address] [place] [address] 45420 Neutrophils (Bld) [#/Vol] 10.51 x10*3/uL High 1.20-7.70 [facility] Comment on above: Order Comment: Laven serina Top Tube Result Comment: Perc ent differential counts (%) should be interpreted in the context of the absolute cell counts (cells/uL). Performed By: #### 5 7021-8 #### DESIREE BURROWS ([id number]) [facility] ([facility]) [address] [place] [address] 52613 Neutrophils/100 WBC (Bld) 85.3 % Normal 40.0-80.0 [facility] Comment on above: Order Comment: Laven serina Top Tube Performed By: #### 5 7021-8 #### DESIREE BURROWS ([id number]) [facility] ([facility]) [address] [place] [address] 28407 Nucleated RBC/100 WBC (Bld) [Ratio] 0.0 /100 WBCs Normal 0.0-0.0 [facility] Comment on above: Order Comment: Laven serina Top Tube Performed By: #### 5 7021-8 #### DESIREE BURROWS ([id number]) [facility] ([facility]) [address] [place] [address] 40607 Platelets (Bld) [#/Vol] 204 x10*3/uL Normal 150-450 [facility] Comment on above: Order Comment: Laven serina Top Tube Performed By: #### 5 7021-8 #### DESIREE BURROWS ([id number]) [facility] ([facility]) [address] [place] [address] 06521 RBC (Bld) [#/Vol] 3.88 x10*6/uL Low 4.00-5.20 [facility] Comment on above: Order Comment: Laven serina Top Tube Performed By: #### 5 7021-8 #### DESIREE BURROWS ([id number]) [facility] ([facility]) [address] [place] [address] 74430 WBC (Bld) [#/Vol] 12.3 x10*3/uL High 4.4-11.3 [facility] Comment on above: Order Comment: Laven serina Top Tube Performed By: #### 5 7021-8 #### DESIREE BURROWS ([id number]) [facility] ([facility]) [address] [place] [address] ABDOMEN PELVIS W IV CONTR Radha 03-08-2024 CT ABDOMEN PELVIS W IV CONTRAST STUDY: CT Abdomen and Pelvis with IV Contrast; 03/08/24 at 11:08 AM INDICATION: Abdominal pain. Prior cholecystectomy. Gastric bypass. COMPARISON: CT CAP 10/20/23. ACCESSION NUMBER(S): [id number] ORDERING CLINICIAN: QUENTIN GO TECHNIQUE: CT of the abdomen and pelvis was performed. Contiguous axial images were obtained at 3 mm slice thickness through the abdomen and pelvis. Coronal and sagittal reconstructions at 3 mm slice thickness were performed. Omnipaque 350 70 mL was administered intravenously. FINDINGS: LOWER CHEST: Mild dependent atelectasis at both lung bases. Small hiatal hernia noted. LIVER: Normal attenuation. BILE DUCTS: No intrahepatic or extrahepatic biliary ductal dilatation. GALLBLADDER: The gallbladder is surgically absent. STOMACH: The patient is status post gastric bypass surgery. PANCREAS: No masses or ductal dilatation. SPLEEN: No splenomegaly or focal splenic lesion. ADRENAL GLANDS: No nodules. KIDNEYS AND URETERS: No renal or ureteral calculi. BLADDER: No abnormalities identified. REPRODUCTIVE ORGANS: No abnormalities identified. BOWEL: There are several proximal small bowel loops that demonstrate mild wall thickening. While nonspecific, this could be indicative of enteritis. Moderate to large quantity of stool throughout the colon suggests constipation. VESSELS: Abdominal aorta is normal in caliber. PERITONEUM/RETROPERITON EUM/LYMPH NODES: No free fluid. No pneumoperitoneum. No lymphadenopathy. ABDOMINAL WALL: Along the upper anterior abdominal wall, at the midline and along both sides of midline, there are inflammatory changes of the subcutaneous fat. The finding would be suspicious for cellulitis. No abscess. No identifiable abdominal wall hernia at this level. No drainable collection. SOFT TISSUES: No abnormalities identified. BONES: There are degenerative changes of the lumbar spine with curvature convex to the left. No acute fracture or aggressive osseous lesion. IMPRESSION: 1. There are several proximal small bowel loops that demonstrate mild wall thickening. While nonspecific, this could be indicative of enteritis. No ascites, free air or bowel obstruction. 2. There is inflammatory change of the subcutaneous fat along the upper anterior abdominal wall, at the midline and along both sides of midline. The finding would be suspicious for cellulitis. No abscess. No identifiable abdominal wall hernia at this level. No drainable collection. 3. Moderate to large quantity of stool throughout the colon suggests constipation. 4. Status post gastric bypass surgery. Small hiatal hernia. Signed by Sanchez Hollins MD [facility] Comprehensive metabolic 2000 panelon 03-08-2024 Albumin BCP dye [Mass/Vol] 3.9 g/dL Normal 3.4-5.0 [facility] Comment on above: Performed By: #### 2 4323-8 #### DESIREE BURROWS ([id number]) [facility] ([facility]) [address] [place] [address] ALP [Catalytic activity/Vol] 122 U/L Normal 33-136 [facility] Comment on above: Performed By: #### 2 432-8 #### DESIREE BURROWS ([id number]) [facility] ([facility]) [address] [place] [address] ALT With P-5'-P [Catalytic activity/Vol] 12 U/L Normal 7-45 [facility] Comment on above: Result Comment: Tanya ents treated with Sulfasalazine may generate falsely decreased results for ALT. Performed By: #### 2 432-8 #### DESIREE BURROWS ([id number]) [facility] ([facility]) [address] [place] [address] Anion gap [Moles/Vol] 11 mmol/L Normal 10-20 [facility] Comment on above: Performed By: #### 2 4323-8 #### DESIREE BURROWS ([id number]) [facility] ([facility]) [address] [place] [address] 18449 AST With P-5'-P [Catalytic activity/Vol] 16 U/L Normal 9-39 [facility] Comment on above: Performed By: #### 2 4323-8 #### DESIREE BURROWS ([id number]) [facility] ([facility]) [address] [place] [address] 41147 Bilirubin [Mass/Vol] 0.5 mg/dL Normal 0.0-1.2 [facility] Comment on above: Performed By: #### 2 4323-8 #### DESIREE BURROWS ([id number]) [facility] ([facility]) [facility] [place] [address] Calcium [Mass/Vol] 8.8 mg/dL Normal 8.6-10.3 [facility] Comment on above: Performed By: #### 2 4323-8 #### DESIREE BURROWS ([id number]) [facility] ([facility]) [address] [place] [address] Chloride [Moles/Vol] 101 mmol/L Normal 98-107 [facility] Comment on above: Performed By: #### 2 4323-8 #### DESIREE BURROWS ([id number]) [facility] ([facility]) [facility] [place] [address] CO2 [Moles/Vol] 28 mmol/L Normal 21-32 [facility] Comment on above: Performed By: #### 2 4323-8 #### DESIREE BURROWS ([id number]) [facility] ([facility]) [address] [place] [address] 91696 Creatinine [Mass/Vol] 0.65 mg/dL Normal 0.50-1.05 [facility] Comment on above: Performed By: #### 2 4323-8 #### DESIREE BURROWS ([id number]) [facility] ([facility]) [address] [place] [address] 93219 GFR/1.73 sq M.predicted MDRD (S/P/Bld) [Vol rate/Area] mL/min/{1.73_m2} Normal >60 [facility] Comment on above: Result Comment: Calc ulations of estimated GFR are performed using the 2020 CKD-EPI Study Refit equation without the race variable for the IDMS-Traceable creatinine methods. https://jasn.asnjournals.org/content/early//ASN.01537 23891 Performed By: #### 2 4323-8 #### DESIREE BURROWS ([id number]) [facility] ([facility]) [address] [place] [address] 02794 Glucose [Mass/Vol] 136 mg/dL High 74-99 [facility] Comment on above: Performed By: #### 2 4323-8 #### DESIREE BURROWS ([id number]) [facility] ([facility]) [address] [place] [address] 38806 Potassium [Moles/Vol] 3.7 mmol/L Normal 3.5-5.3 [facility] Comment on above: Performed By: #### 2 4323-8 #### DESIREE BURROWS ([id number]) [facility] ([facility]) [address] [place] [address] Protein [Mass/Vol] 6.7 g/dL Normal 6.4-8.2 [facility] Comment on above: Performed By: #### 2 4323-8 #### DESIREE BURROWS ([id number]) [facility] ([facility]) [address] [place] [address] 38708 Sodium [Moles/Vol] 136 mmol/L Normal 136-145 [facility] Comment on above: Performed By: #### 2 4323-8 #### DESIREE BURROWS ([id number]) [facility] ([facility]) [address] [place] [address] 57979 Urea nitrogen [Mass/Vol] 11 mg/dL Normal 6-23 [facility] Comment on above: Performed By: #### 2 4323-8 #### DESIREE BURROWS ([id number]) [facility] ([facility]) [address] [place] [address] 91066 Lactateon 03-08-2024 Lactate [Moles/Vol] 0.5 mmol/L Normal 0.4-2.0 [facility] Comment on above: Order Comment: Venip uncture immediately after or during the administration of Metamizole may lead to falsely low results. Testing should be performed immediately prior to Metamizole dosing. Performed By: #### 2 524-7 #### DESIREE BURROWS ([id number]) [facility] ([facility]) [address] [place] [address] 98645 Triacylglycerol lipaseon Lipase [Catalytic activity/Vol] 7 U/L Low 9-82 [facility] Comment on above: Order Comment: Venip uncture immediately after or during the administration of Metamizole may lead to falsely low results. Testing should be performed immediately prior to Metamizole dosing. Performed By: #### 3 040-3 #### DESIREE BURROWS ([id number]) [facility] ([facility]) [address] [place], [place] [id number] Urinalysis complete W Reflex Culture panel (U)on 03-08-2024 Appearance (U) Clear Normal Clear [facility] Comment on above: Performed By: #### 5 8077-9 #### DESIREE BURROWS ([id number]) [facility] ([facility]) [address] [place] [address] Bilirubin (U) [Mass/Vol] Negative Normal NEGATIVE [facility] Comment on above: Performed By: #### 5 8077-9 #### DESIREE BURROWS ([id number]) [facility] ([facility]) [address] [place] [address] Color (U) Light-Yellow Normal Light-Yellow , Yellow, Dark-Yellow [facility] Comment on above: Performed By: #### 5 8077-9 #### DESIREE BURROWS ([id number]) [facility] ([facility]) [address] [place] [address] Glucose Auto test strip (U) [Mass/Vol] Normal Normal Normal [facility] Comment on above: Performed By: #### 5 8077-9 #### DESIREE BURROWS ([id number]) [facility] ([facility]) [address] [place], [place] [phone] Ketones (U) [Mass/Vol] Negative Normal NEGATIVE [facility] Comment on above: Performed By: #### 5 8077-9 #### DESIREE BURROWS ([id number]) [facility] ([facility]) [address] [place] [address] 74677 Leukocyte esterase Auto test strip Ql (U) 75 Cookie/???L Abnormal NEGATIVE [facility] Comment on above: Performed By: #### 5 8077-9 #### DESIREE BURROWS ([id number]) [facility] ([facility]) [address] [place] [address] 79185 Nitrite Auto test strip Ql (U) Negative Normal NEGATIVE [facility] Comment on above: Performed By: #### 5 8077-9 #### DESIREE BURROWS ([id number]) [facility] ([facility]) [address] [place] [address] pH (U) 6.0 [pH] Normal 5.0, 5.5, 6.0, 6.5, 7.0, 7.5, 8.0 [facility] Comment on above: Performed By: #### 5 8077-9 #### DESIREE BURROWS ([id number]) [facility] ([facility]) [address] [place] [address] Protein (U) [Mass/Vol] Negative Normal NEGAT LIANNE, 10 (TRACE), 20 (TRACE) [facility] Comment on above: Performed By: #### 5 8077-9 #### DESIREE BURROWS ([id number]) [facility] ([facility]) [address] [place] [address] RBC (U) [#/Vol] Negative Normal NEGATIVE [facility] Comment on above: Performed By: #### 5 8077-9 #### DESIREE BURROWS ([id number]) [facility] ([facility]) [address] [place] [address] Specific gravity (U) [Rel density] 1.022 Normal 1.005-1.035 [facility] Comment on above: Performed By: #### 5 8077-9 #### DESIREE BURROWS ([id number]) [facility] ([facility]) [address] [place] [address] Urobilinogen (U) [Mass/Vol] Normal Normal Normal [facility] Comment on above: Performed By: #### 5 8077-9 #### DESIREE BURROWS ([id number]) [facility] ([facility]) [address] [place] [address] Urinalysis microscopic panel Auto Ql (U)on 03-08-2024 RBC Auto (Urine sed) [#/Area] 3-5 Normal NONE, 1-2, 3-5 [facility] Comment on above: Performed By: #### 5 3315-8 #### DESIREE BURROWS ([id number]) [facility] ([facility]) [address] [place] [address] WBC Auto (Urine sed) [#/Area] 1-5 Normal 1-5, NONE [facility] Comment on above: Performed By: #### 5 3315-8 #### DESIREE BURROWS ([id number]) [facility] ([facility]) [facility] [place] [address] XR CHEST 1 VIEWon 03-08-2024 XR CHEST 1 VIEW STUDY: Chest Radiograph; 03/08/2024 12:25PM INDICATION: Hypoxemia. COMPARISON: 10/20/2023 CT Chest Abdomen and Pelvis ACCESSION NUMBER(S): [id number] ORDERING CLINICIAN: QUENTIN GO TECHNIQUE: Frontal chest was obtained at 12:24 hours. FINDINGS: CARDIOMEDIASTINAL SILHOUETTE: Cardiomediastinal silhouette is normal in size and configuration. LUNGS: Lungs are clear. No acute airspace disease, pneumothorax, or lung consolidation. ABDOMEN: No remarkable upper abdominal findings. BONES: No acute osseous changes. IMPRESSION: No active pulmonary disease. Signed by Kodak Parker MD Normal [facility] CBC W/Diff, Automatedon 07-0 Absolute Lymph 1.44 X10 3/uL Normal 0.83-4.51 [facility] Comment on above: Performed By: #### L 100.0100, L500.4050 #### [facility] [address] [place], [address] Absolute Neut 2.6 X10 3/uL Normal 2.0-7.7 [facility] Comment on above: Performed By: #### L 100.0100, L500.4050 #### [facility] [address] [place], [address] Basophils/100 WBC (Bld) 0.4 % Normal 0-1 [facility] Comment on above: Performed By: #### L 100.0100, L500.4050 #### [facility] [address] [place], [address] Eosinophils/100 WBC (Bld) 3.1 % Normal 0-5 [facility] Comment on above: Performed By: #### L 100.0100, L500.4050 #### [facility] [address] [place], [address] Erythrocyte distribution width (RBC) [Ratio] 14.1 % Normal 11.6-14.6 [facility] Comment on above: Performed By: #### L 100.0100, L500.4050 #### [facility] [address] [place], [address] Hematocrit (Bld) [Volume fraction] 39.4 % Normal 37-47 [facility] Comment on above: Performed By: #### L 100.0100, L500.4050 #### [facility] [address] [place], [address] Hemoglobin (Bld) [Mass/Vol] 12.7 g/dL Normal 12.0-15.0 [facility] Comment on above: Performed By: #### L 100.0100, L500.4050 #### [facility] [address] [place], [address] IG% 0.000 Normal 0.0-0.9 [facility] Comment on above: Result Comment: IG% - Immature Granulocytes (promyelocytes, myelocytes and metamyelocytes) > 1% indicates that a LEFT SHIFT is Present. Performed By: #### L 100.0100, L500.4050 #### [facility] [address] [place], [address] Lymphocytes/100 WBC (Bld) 31.4 % Normal 19-41 [facility] Comment on above: Performed By: #### L 100.0100, L500.4050 #### [facility] [address] [place], [address] MCH (RBC) [Entitic mass] 29.8 pg Normal 27.0-32.0 [facility] Comment on above: Performed By: #### L 100.0100, L500.4050 #### [facility] [address] [place], [address] MCHC (RBC) [Mass/Vol] 32.2 g/dL Normal 32-36 [facility] Comment on above: Performed By: #### L 100.0100, L500.4050 #### [facility] [address] [place], [address] MCV (RBC) [Entitic vol] 92.5 fL Normal 81-99 [facility] Comment on above: Performed By: #### L 100.0100, L500.4050 #### [facility] [address] [place], [address] Monocytes/100 WBC (Bld) 8.7 % Normal 0-10 [facility] Comment on above: Performed By: #### L 100.0100, L500.4050 #### [facility] [address] [place], [address] Neutrophils/100 WBC (Bld) 56.4 % Normal 47-70 [facility] Comment on above: Performed By: #### L 100.0100, L500.4050 #### [facility] [address] [place], [address] Nucleated RBC (Bld) [#/Vol] 0 10*3/uL Normal 0-5 [facility] Comment on above: Performed By: #### L 100.0100, L500.4050 #### [facility] [address] [place], [address] Platelet mean volume (Bld) [Entitic vol] 10.3 fL Normal 6.2-12.0 [facility] Comment on above: Performed By: #### L 100.0100, L500.4050 #### [facility] [address] [place], [address] Platelets (Bld) [#/Vol] 284 10*3/uL Normal 150-450 [facility] Comment on above: Performed By: #### L 100.0100, L500.4050 #### [facility] [address] [place], [address] RBC (Bld) [#/Vol] 4.26 10*6/uL Normal 4.2-5.4 [facility] Comment on above: Performed By: #### L 100.0100, L500.4050 #### [facility] [address] [place], [address] RDW SD 47.0 fl High 35.1-43.9 [facility] Comment on above: Performed By: #### L 100.0100, L500.4050 #### [facility] [address] [place], [address] WBC (Bld) [#/Vol] 4.6 10*3/uL Normal 4.4-11.0 [facility] Comment on above: Performed By: #### L 100.0100, L500.4050 #### [facility] [address] [place], [address] Comprehensive Metabolic Prof [facility] 02-20-2024 Albumin [Mass/Vol] 3.9 g/dL Normal 3.2-5.0 [facility] Comment on above: Performed By: #### L 100.0100, L500.4050 #### [facility] [address] [place], [address] Albumin/Globulin [Mass ratio] 1.1 {ratio} Normal 0.9-2.4 [facility] Comment on above: Performed By: #### L 100.0100, L500.4050 #### [facility] [address] [place], [address] ALK P 143 U/L High 45-117 [facility] Comment on above: Performed By: #### L 100.0100, L500.4050 #### [facility] [address] [place], [address] ALT [Catalytic activity/Vol] 25 U/L Normal 13-56 [facility] Comment on above: Result Comment: Slig ht Lipemia, Result may be falsely increased. Performed By: #### L 100.0100, L500.4050 #### [facility] [address] [place], [address] AST [Catalytic activity/Vol] 32 U/L Normal 15-37 [facility] Comment on above: Result Comment: Slig ht Lipemia, Result may be falsely increased. Performed By: #### L 100.0100, L500.4050 #### [facility] [address] [place], [address] Bilirubin [Mass/Vol] 0.30 mg/dL Normal 0.20-1.00 [facility] Comment on above: Result Comment: Slig ht Lipemia, Result may be falsely increased. For patients on eltrombopag therapy, use of Dimension Baring TBIL is not recommended. Performed By: #### L 100.0100, L500.4050 #### [facility] [address] [place], [address] BUN/CRE 15.1 RATIO Normal 10-20 [facility] Comment on above: Performed By: #### L 100.0100, L500.4050 #### [facility] [address] [place], [address] CA,Total 9.1 mg/dL Normal 8.5-10.1 [facility] Comment on above: Result Comment: Slig ht Lipemia, Result may be falsely increased. Performed By: #### L 100.0100, L500.4050 #### [facility] [address] [place], [address] Chloride [Moles/Vol] 107 mmol/L Normal 98-107 [facility] Comment on above: Performed By: #### L 100.0100, L500.4050 #### [facility] [address] [place], [address] CO2 [Moles/Vol] 25.0 mmol/L Normal 21.0-32.0 [facility] Comment on above: Result Comment: Slig ht Lipemia, Result may be falsely increased. Performed By: #### L 100.0100, L500.4050 #### [facility] [address] [place], [address] Creatinine [Mass/Vol] 0.73 mg/dL Normal 0.55-1.02 [facility] Comment on above: Result Comment: Slig ht Lipemia, Result may be falsely increased. The validity of the calculated GFR GFRAA in patients over 70 years has not been determined. Clinical correlation is essential. Performed By: #### L 100.0100, L500.4050 #### [facility] [address] [place], [address] EST GFR - AA 105 mL/min Normal >60 [facility] Comment on above: Result Comment: Afri can Palauan GFR Calc Performed By: #### L 100.0100, L500.4050 #### [facility] [address] [place], [address] GAP 6 Normal 5-15 [facility] Comment on above: Performed By: #### L 100.0100, L500.4050 #### [facility] [address] [place], [address] GFR/1.73 sq M.predicted among non-blacks MDRD (S/P/Bld) [Vol rate/Area] 87 mL/min/{1.73_m2} Normal >60 [facility] Comment on above: Result Comment: Non- GFR Calc Performed By: #### L 100.0100, L500.4050 #### [facility] [address] [place], [address] Globulin (S) [Mass/Vol] 3.5 g/dL Normal 2.2-4.2 [facility] Comment on above: Performed By: #### L 100.0100, [id number] #### [facility] [address] [place], [address] Glucose [Mass/Vol] 91 mg/dL Normal 74-106 [facility] Comment on above: Result Comment: Slig ht Lipemia, Result may be falsely increased. Performed By: #### L 100.0100, L500.4050 #### [facility] [address] [place], [address] Potassium [Moles/Vol] 4.0 mmol/L Normal 3.5-5.1 [facility] Comment on above: Result Comment: Slig ht Lipemia, Result may be falsely increased. Performed By: #### L 100.0100, L500.4050 #### [facility] [address] [place], [address] Sodium [Moles/Vol] 138 mmol/L Normal 136-145 [facility] Comment on above: Performed By: #### L 100.0100, [id number] #### [facility] [address] [place], [address] T PROT 7.4 g/dL Normal 6.4-8.2 [facility] Comment on above: Result Comment: Slig ht Lipemia, Result may be falsely increased. Performed By: #### L 100.0100, L500.4050 #### [facility] [address] [place], [address] Urea nitrogen [Mass/Vol] 11 mg/dL Normal 7-18 [facility] Comment on above: Result Comment: Slig ht Lipemia, Result may be falsely increased. Performed By: #### L 100.0100, L500.4050 #### [facility] [place], [address] Absolute lymphocyte countOrd ered By: Nadya Portillo on 11-18-2023 Lymphocytes Auto (Unsp spec) [#/Vol] 1.42 10*3/uL 0.83-4.51 [facility] Automated lymphocyte count a s percentage of total leukocytesOrdered By: Nadya Portillo on 11-18-2023 Lymphocytes/100 WBC Auto (Unsp spec) 34.4 % 19-41 [facility] Basophil percentageOrdered B y: Nadya Portillo on 11-18-2023 Basophils/100 WBC (Bld) 0.5 % 0-1 [facility] Bilirubin [Mass/Vol] 0.40 mg/dL 0.20-1.00 [facility] Comment on above: Slight Lipemia, Resu lt may be falsely increased. For patients on eltrombopag therapy, use of Dimension Baring TBIL is not recommended. Chloride [Moles/Vol] 107 mmol/L 98-107 [facility] Eosinophils/100 WBC (Bld) 9.9 % 0-5 [facility] Glucose [Mass/Vol] 92 mg/dL 74-106 [facility] Comment on above: Slight Lipemia, Resu lt may be falsely increased. Hemoglobin (Bld) [Mass/Vol] 13.2 g/dL 12.0-15.0 [facility] Monocytes/100 WBC (Bld) 9.2 % 0-10 [facility] Neutrophils (Bld) [#/Vol] 1.9 10*3/uL 2.0-7.7 [facility] Neutrophils/100 WBC (Bld) 45.8 % 47-70 [facility] Potassium [Moles/Vol] 4.0 mmol/L 3.5-5.1 [facility] Comment on above: Slight Lipemia, Resu lt may be falsely increased. Protein [Mass/Vol] 7.6 g/dL 6.4-8.2 [facility] Comment on above: Slight Lipemia, Resu lt may be falsely increased. Sodium [Moles/Vol] 138 mmol/L 136-145 [facility] WBC (Bld) [#/Vol] 4.1 10*3/uL 4.4-11.0 [facility] Determination of erythrocyte mean corpuscular volume (MCV)Ordered By: Nadya Portillo on 11-18-2023 MCV (RBC) [Entitic vol] 93.0 fL 81-99 [facility] Erythrocyte distribution wid th ratioOrdered By: [facility] on 11-18-2023 Erythrocyte distribution width (RBC) [Ratio] 13.1 % 11.6-14.6 [facility] Erythrocyte distribution wid th standard deviationOrdered By: [facility]23 Erythrocyte distribution width (RBC) [Entitic vol] 44.7 fL 35.1-43.9 [facility] Hematocrit Auto (Bld) [Volum e fraction]Ordered By: [facility] on 11-18-2023 Hematocrit (Bld) [Volume fraction] 41.1 % 37-47 [facility] Immature granulocytes/100 WB C Auto (Bld)Ordered By: [facility] 11-18-2023 Immature granulocytes/100 WBC (Bld) 0.200 % 0.0-0.9 [facility] Comment on above: IG% - Immature Granu locytes (promyelocytes, myelocytes and metamyelocytes) > 1% indicates that a LEFT SHIFT is Present. Laboratory - Chemistry and C hemistry - challengeOrdered By: [facility] on 11-18-2023 Albumin/Globulin [Mass ratio] 1.1 {ratio} 0.9-2.4 [facility] ALP [Catalytic activity/Vol] 128 U/L 45-117 [facility] ALT [Catalytic activity/Vol] 31 U/L 13-56 [facility] Comment on above: Slight Lipemia, Resu lt may be falsely increased. CO2 [Moles/Vol] 24.0 mmol/L 21.0-32.0 [facility] Comment on above: Slight Lipemia, Resu lt may be falsely increased. Globulin (S) [Mass/Vol] 3.6 g/dL 2.2-4.2 [place] [facility] Urea nitrogen/Creatinine [Mass ratio] 19.5 mg/mg 10-20 [facility] - Hematology and Cell countsOrdered By: Nadya Portillo on 11-18-2023 MCH (RBC) [Entitic mass] 29.9 pg 27.0-32.0 [facility] MCHC (RBC) [Mass/Vol] 32.1 g/dL 32-36 [facility] Nucleated RBC/100 WBC (Bld) [Ratio] 0 % 0-5 [facility] Platelet mean volume (Bld) [Entitic vol] 10.5 fL 6.2-12.0 [facility] Platelets (Bld) [#/Vol] 252 10*3/uL 150-450 [facility] No Panel InformationOrdered By: Nadya Portillo on 11-18-2023 Estimated GFR (MDRD) Amer 116 mL/min >60 [facility] Comment on above: GFR Calc Estimated GFR (MDRD) Non-Af Amer 96 mL/min >60 [facility] Comment on above: Non- GFR Calc RBC Auto (Bld) [#/Vol]Ordere d By: Nadya Portillo on 11-18-2023 RBC (Bld) [#/Vol] 4.42 10*6/uL 4.2-5.4 [facility] Serum or plasma calcium myriam urement (mass/volume)Ordered By: Nadya Portillo on 11-18-2023 Calcium [Mass/Vol] 9.5 mg/dL 8.5-10.1 [facility] Comment on above: Slight Lipemia, Resu lt may be falsely increased. Serum or plasma creatinine m easurement (mass/volume)Ordered By: Nadya Portillo on 11-18-2023 Creatinine [Mass/Vol] 0.66 mg/dL 0.55-1.02 [facility] Comment on above: Slight Lipemia, Resu lt may be falsely increased.The validity of the calculated GFR & GFRAA in patients over 70 years has not been determined. Clinical correlation is essential. Serum or plasma urea nitroge n measurement (mass/volume)Ordered By: Nadya Portillo on 11-18-2023 Urea nitrogen [Mass/Vol] 13 mg/dL 7-18 [facility] Comment on above: Slight Lipemia, Resu lt may be falsely increased. Thin prep Papanicolaou smear with manual screeningOrdered By: Nadya Portillo on 11-18-2023 Thin prep Papanicolaou smear with manual screening 4.0 g/dL 3.2-5.0 [facility] Thin prep Papanicolaou smear with manual screening 39 U/L 15-37 [facility] Comment on above: Slight Lipemia, Resu lt may be falsely increased. Thin prep Papanicolaou smear with manual screening 7 5-15 [facility] CBC,PLATELETSon 10-24-2023 Erythrocyte distribution width (RBC) [Ratio] 13.0 % 10.8 - 14.9 % [facility] Hematocrit (Bld) [Volume fraction] 33.8 % Low 34.9 - 44.3 % [facility] Hemoglobin (Bld) [Mass/Vol] 10.9 g/dL Low 11.4 - 15.2 g/dL [facility] Interpretation and review of laboratory results Abnormal [facility] MCH (RBC) [Entitic mass] 30.0 pg 25.9 - 33.9 pg [facility] MCHC (RBC) [Mass/Vol] 32.2 g/dL 31.4 - 35.9 g/dL [facility] MCV (RBC) [Entitic vol] 93.1 fL 79.6 - 97.7 fL [facility] Platelet mean volume (Bld) [Entitic vol] 10.3 fL 8.5 - 12.2 fL [facility] Platelets (Bld) [#/Vol] 206 10*3/uL 150 - 393 K/uL [facility] RBC (Bld) [#/Vol] 3.63 10*6/uL Low [facility] WBC (Bld) [#/Vol] 6.10 10*3/uL 3.99 - 11. 19 K/uL [facility] CHEM 7 (LYTES,BUN,CREA,GLUC) on 10-24-2023 Anion gap [Moles/Vol] 15 mmol/L 7 - 17 mmol/L [facility] Chloride [Moles/Vol] 104 mmol/L 98 - 10 8 mmol/L [facility] CO2 [Moles/Vol] 27 mmol/L 21 - 31 mmol/L [facility] Creatinine [Mass/Vol] 0.42 mg/dL Low 0.50 - 1.20 mg/dL [facility] eGFR, CKD-EPI, Female - PINF [facility] Comment on above: Reported eGFR is bas ed on the CKD-EPI 2020 equation using creatinine, age, and sex. Glucose [Mass/Vol] 90 mg/dL 70 - 99 mg/dL [facility] Interpretation and review of laboratory results Abnormal [facility] Osmolality Calc [Osmolality] 293 [facility] Potassium [Moles/Vol] 3.5 mmol/L 3.5 - 5.0 mmol/L [facility] Sodium [Moles/Vol] 142 mmol/L 135 - 145 mmol/L [facility] Urea nitrogen [Mass/Vol] 7 mg/dL 7 - 25 mg/dL [facility] Urea nitrogen/Creatinine [Mass ratio] 17 mg/mg [facility] IONIZED CALCIUM, SERUMOrdere d By: Rebecca Bermudez on 10-24-2023 Calcium.ionized (Bld) [Moles/Vol] 4.73 mg/dL 4.60 - 5.30 mg/dL [facility] Interpretation and review of laboratory results Normal [facility] MAGNESIUMon 10-24-2023 Magnesium [Mass/Vol] 1.9 mg/dL 1.6 - 2 .6 mg/dL [facility] No Panel Informationon 10-23 Interpretation and review of laboratory results Normal [facility] PHOSPHATE, INORGANICon 10-23 Phosphate [Mass/Vol] 3.5 mg/dL 2.2 - 4 .6 mg/dL [facility] CBC,PLATELETSon 10-23-2023 Erythrocyte distribution width (RBC) [Ratio] 13.0 % 10.8 - 14.9 % [facility] Hematocrit (Bld) [Volume fraction] 37.8 % 34.9 - 44.3 % [facility] Hemoglobin (Bld) [Mass/Vol] 11.9 g/dL 11.4 - 15.2 g/dL [facility] Interpretation and review of laboratory results Normal [facility] MCH (RBC) [Entitic mass] 30.0 pg 25.9 - 33.9 pg [facility] MCHC (RBC) [Mass/Vol] 31.5 g/dL 31.4 - 35.9 g/dL [facility] MCV (RBC) [Entitic vol] 95.2 fL 79.6 - 97.7 fL [facility] Platelet mean volume (Bld) [Entitic vol] 10.6 fL 8.5 - 12.2 fL [facility] Platelets (Bld) [#/Vol] 228 10*3/uL 150 - 393 K/uL [facility] RBC (Bld) [#/Vol] 3.97 10*6/uL [facility] WBC (Bld) [#/Vol] 7.99 10*3/uL 3.99 - 11. 19 K/uL [facility] CHEM 7 (LYTES,BUN,CREA,GLUC) Ordered By: Maddie Valle on 10-23-2023 Anion gap [Moles/Vol] 15 mmol/L 7 - 17 mmol/L [facility] Chloride [Moles/Vol] 105 mmol/L 98 - 10 8 mmol/L [facility] CO2 [Moles/Vol] 24 mmol/L 21 - 31 mmol/L [facility] Creatinine [Mass/Vol] 0.46 mg/dL Low 0.50 - 1.20 mg/dL [facility] eGFR, CKD-EPI, Female - PINF [facility] Comment on above: Reported eGFR is bas ed on the CKD-EPI 2020 equation using creatinine, age, and sex. Glucose [Mass/Vol] 75 mg/dL 70 - 99 mg/dL [facility] Interpretation and review of laboratory results Abnormal [facility] Osmolality Calc [Osmolality] 291 [facility] Potassium [Moles/Vol] 3.4 mmol/L Low 3.5 - 5.0 mmol/L [facility] Sodium [Moles/Vol] 141 mmol/L 135 - 145 mmol/L [facility] Urea nitrogen [Mass/Vol] 9 mg/dL 7 - 25 mg/dL [facility] Urea nitrogen/Creatinine [Mass ratio] 20 mg/mg [facility] IONIZED CALCIUM, SERUMOrdere d By: Dipti Simms on 10-23-2023 Calcium.ionized (Bld) [Moles/Vol] 4.80 mg/dL 4.60 - 5.30 mg/dL [facility] Interpretation and review of laboratory results Normal [facility] MAGNESIUMon 10-23-2023 Magnesium [Mass/Vol] 1.7 mg/dL 1.6 - 2 .6 mg/dL [facility] No Panel Informationon 10-22 Interpretation and review of laboratory results Normal [facility] PHOSPHATE, INORGANICon 10-22 Phosphate [Mass/Vol] 2.8 mg/dL 2.2 - 4 .6 mg/dL [facility] CBC,PLATELETSon 10-22-2023 Erythrocyte distribution width (RBC) [Ratio] 13.3 % 10.8 - 14.9 % [facility] Hematocrit (Bld) [Volume fraction] 38.2 % 34.9 - 44.3 % [facility] Hemoglobin (Bld) [Mass/Vol] 12.0 g/dL 11.4 - 15.2 g/dL [facility] Interpretation and review of laboratory results Normal [facility] MCH (RBC) [Entitic mass] 29.9 pg 25.9 - 33.9 pg [facility] MCHC (RBC) [Mass/Vol] 31.4 g/dL 31.4 - 35.9 g/dL [facility] MCV (RBC) [Entitic vol] 95.0 fL 79.6 - 97.7 fL [facility] Platelet mean volume (Bld) [Entitic vol] 10.2 fL 8.5 - 12.2 fL [facility] Platelets (Bld) [#/Vol] 198 10*3/uL 150 - 393 K/uL [facility] RBC (Bld) [#/Vol] 4.02 10*6/uL [facility] WBC (Bld) [#/Vol] 5.92 10*3/uL 3.99 - 11. 19 K/uL [facility] CHEM 7 (LYTES,BUN,CREA,GLUC) on 10-22-2023 Anion gap [Moles/Vol] 17 mmol/L 7 - 17 mmol/L [facility] Chloride [Moles/Vol] 107 mmol/L 98 - 10 8 mmol/L [facility] CO2 [Moles/Vol] 19 mmol/L Low 21 - 31 mmol/L [facility] Creatinine [Mass/Vol] 0.56 mg/dL 0.50 - 1.20 mg/dL [facility] eGFR, CKD-EPI, Female - PINF [facility] Comment on above: Reported eGFR is bas ed on the CKD-EPI 2020 equation using creatinine, age, and sex. Glucose [Mass/Vol] 92 mg/dL 70 - 99 mg/dL [facility] Interpretation and review of laboratory results Abnormal [facility] Osmolality Calc [Osmolality] 288 [facility] Potassium [Moles/Vol] 4.9 mmol/L 3.5 - 5.0 mmol/L [facility] Comment on above: Moderate Hemolysis Sodium [Moles/Vol] 138 mmol/L 135 - 145 mmol/L [facility] Urea nitrogen [Mass/Vol] 7 mg/dL 7 - 25 mg/dL [facility] Urea nitrogen/Creatinine [Mass ratio] 13 mg/mg [facility] CONTINUOUS CARDIAC MONITORIN G STRIPOrdered By: Unassigned Pacs on 10-22-2023 [facility] Work Phone: IONIZED CALCIUM, SERUMOrdere d By: Carlos Cevallos on 10-22-2023 Calcium.ionized (Bld) [Moles/Vol] 4.68 mg/dL 4.60 - 5.30 mg/dL [facility] Interpretation and review of laboratory results Normal [facility] MAGNESIUMon 10-22-2023 Magnesium [Mass/Vol] 1.8 mg/dL 1.6 - 2 .6 mg/dL [facility] Comment on above: Moderate Hemolysis No Panel Informationon 10-21 Interpretation and review of laboratory results Normal [facility] PHOSPHATE, INORGANICon 10-21 Phosphate [Mass/Vol] 2.8 mg/dL 2.2 - 4 .6 mg/dL [facility] Comment on above: Moderate Hemolysis ABORH TYPE RECONFIRMATIONon 10-21-2023 ABO/RH(D) TYPE Positive [facility] C REACTIVE PROTEINon 024 CRP High sensitivity method [Mass/Vol] 4.37 mg/L NINF - 10.00 mg/L [facility] Interpretation and review of laboratory results Normal [facility] CARDIAC RHYTHM (SCANNED)on 0 10-21-2023 [facility] CBC AND ELECTRONIC DIFFOrder ed By: Elena Porras on 10-21-2023 Basophils (Bld) [#/Vol] K/uL 0.00 - 0.15 K/uL [facility] Basophils/100 WBC (Bld) 0.1 % [facility] Differential cell count method Nom (Bld) Electronic Differential [facility] Eosinophils (Bld) [#/Vol] K/uL 0.00 - 0.42 K/uL [facility] Eosinophils/100 WBC (Bld) 0.0 % [facility] Erythrocyte distribution width (RBC) [Ratio] 13.1 % 10.8 - 14.9 % [facility] Hematocrit (Bld) [Volume fraction] 41.7 % 34.9 - 44.3 % [facility] Hemoglobin (Bld) [Mass/Vol] 13.4 g/dL 11.4 - 15.2 g/dL [facility] Immature granulocytes (Bld) [#/Vol] K/uL NINF - 0.08 K/uL [facility] Immature granulocytes/100 WBC (Bld) 0.3 % [facility] Interpretation and review of laboratory results Abnormal [facility] Lymphocytes (Bld) [#/Vol] 0.58 10*3/uL Low 1.16 - 3.51 K/uL [facility] Lymphocytes/100 WBC (Bld) 8.1 % [facility] MCH (RBC) [Entitic mass] 30.3 pg 25.9 - 33.9 pg [facility] MCHC (RBC) [Mass/Vol] 32.1 g/dL 31.4 - 35.9 g/dL [facility] MCV (RBC) [Entitic vol] 94.3 fL 79.6 - 97.7 fL [facility] Monocytes (Bld) [#/Vol] 0.31 10*3/uL 0.22 - 0.87 K/uL [facility] Monocytes/100 WBC (Bld) 4.3 % [facility] Neutrophils (Bld) [#/Vol] 6.23 10*3/uL 1.64 - 7.28 K/uL [facility] Nucleated RBC/100 WBC (Bld) [Ratio] 0.0 % [facility] Platelet mean volume (Bld) [Entitic vol] 10.3 fL 8.5 - 12.2 fL [facility] Platelets (Bld) [#/Vol] 241 10*3/uL 150 - 393 K/uL [facility] RBC (Bld) [#/Vol] 4.42 10*6/uL [facility] Segmented neutrophils/100 WBC (Bld) 87.2 % [facility] WBC (Bld) [#/Vol] 7.15 10*3/uL 3.99 - 11. 19 K/uL [facility] CHEM 6 (LYTES, BUN CREA)on 0 10-21-2023 Anion gap [Moles/Vol] 11 mmol/L 7 - 17 mmol/L [facility] Chloride [Moles/Vol] 107 mmol/L 98 - 10 8 mmol/L [facility] CO2 [Moles/Vol] 23 mmol/L 21 - 31 [facility] Creatinine [Mass/Vol] 0.54 mg/dL 0.50 - 1.20 mg/dL [facility] eGFR, CKD-EPI, Female - PINF [facility] Comment on above: Reported eGFR is bas ed on the CKD-EPI 2020 equation using creatinine, age, and sex. Potassium [Moles/Vol] 4.0 mmol/L 3.5 - 5.0 mmol/L [facility] Sodium [Moles/Vol] 137 mmol/L 135 - 145 mmol/L [facility] Urea nitrogen [Mass/Vol] 7 mg/dL 7 - 25 mg/dL [facility] Urea nitrogen/Creatinine [Mass ratio] 13 mg/mg [facility] Abdomen and Pelvison IMPRESSION: 1. 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 There is abrupt transition at the jejunojejunal anastomosis. There are no associated findings to suggest this is related to an internal hernia or volvulus. Edema of the associated mesentery and a small volume of pelvic free fluid are likely reactive in nature. 2. No other acute findings of the chest, abdomen, and pelvis. 3. Ancillary findings are noted in the body of the report. OLOGY EXAM: CT ABDOMEN/ABDOMEN-PELVIS (INTERPRETATION - OUTSIDE IMAGE), 10/21/2023 01:15 AM DATE- OUTSIDE STUDY PERFORMED: October 20, 2023 COMPARISON: No prior studies available for comparison. CLINICAL INDICATIONS: Reason for Exam:->RnYGB with BP limb dilation DISCLAIMER: This is an interpretation of images obtained at an outside imaging facility. This report refers only to the anatomic area or body part in the study description, as requested. Findings: Postsurgical changes related to Rocío-en-Y gastric bypass surgery. The stomach, duodenum, and proximal jejunum are dilated with surrounding mesenteric fat stranding. There is an abrupt transition point at the jejunojejunal anastomosis. There are no associated findings to suggest this is related to an internal hernia or volvulus. The gastric pouch and remainder of the small bowel and colon are of normal caliber. No significant inflammatory changes in the region of the gastrojejunal anastomosis to suggest marginal ulcer. A small amount of pelvic free fluid is likely reactive in nature. No intraperitoneal free air. The appendix is not visualized, but there are no pericecal inflammatory changes to suggest acute appendicitis. The liver is grossly normal in size and configuration without appreciable mass lesion. Status post cholecystectomy. Mild intrahepatic and extra hepatic biliary duct dilatation is likely physiologic following cholecystectomy. The pancreas is fatty atrophied but otherwise unremarkable without ductal dilatation, appreciable mass, or peripancreatic fluid/inflammation. The spleen, adrenal glands, and kidneys appear normal. No hydroureteronephrosis bilaterally. The urinary bladder appears normal. The uterus and adnexal structures are unremarkable. Bilateral pelvic phleboliths. Normal course, contour, and caliber of the abdominal aorta and major branch vessels. Minimal calcific atherosclerosis of the bilateral common iliac arteries. No acute osseous abnormality. Levoconvex scoliosis of the lumbar spine with multilevel degenerative changes. Moderate degenerative changes of the left greater than right hips. Mild bilateral dependent atelectasis. The lungs are otherwise clear without focal consolidation, pleural effusion, or pneumothorax. The heart is unremarkable. The aorta and great vessels are unremarkable. No mediastinal or hilar lymphadenopathy. RADIOLOGY Fernando Falcon M D - 10/21/2023 EXAM: CT ABDOMEN/ABDOMEN-PELVIS (INTERPRETATION - OUTSIDE IMAGE), 10/21/2023 01:15 AM DATE- OUTSIDE STUDY PERFORMED: October 20, 2023 COMPARISON: No prior studies available for comparison. CLINICAL INDICATIONS: Reason for Exam:->RnYGB with BP limb dilation DISCLAIMER: This is an interpretation of images obtained at an outside imaging facility. This report refers only to the anatomic area or body part in the study description, as requested. Findings: Postsurgical changes related to Rocío-en-Y gastric bypass surgery. The stomach, duodenum, and proximal jejunum are dilated with surrounding mesenteric fat stranding. There is an abrupt transition point at the jejunojejunal anastomosis. There are no associated findings to suggest this is related to an internal hernia or volvulus. The gastric pouch and remainder of the small bowel and colon are of normal caliber. No significant inflammatory changes in the region of the gastrojejunal anastomosis to suggest marginal ulcer. A small amount of pelvic free fluid is likely reactive in nature. No intraperitoneal free air. The appendix is not visualized, but there are no pericecal inflammatory changes to suggest acute appendicitis. The liver is grossly normal in size and configuration without appreciable mass lesion. Status post cholecystectomy. Mild intrahepatic and extra hepatic biliary duct dilatation is likely physiologic following cholecystectomy. The pancreas is fatty atrophied but otherwise unremarkable without ductal dilatation, appreciable mass, or peripancreatic fluid/inflammation. The spleen, adrenal glands, and kidneys appear normal. No hydroureteronephrosis bilaterally. The urinary bladder appears normal. The uterus and adnexal structures are unremarkable. Bilateral pelvic phleboliths. Normal course, contour, and caliber of the abdominal aorta and major branch vessels. Minimal calcific atherosclerosis of the bilateral common iliac arteries. No acute osseous abnormality. Levoconvex scoliosis of the lumbar spine with multilevel degenerative changes. Moderate degenerative changes of the left greater than right hips. Mild bilateral dependent atelectasis. The lungs are otherwise clear without focal consolidation, pleural effusion, or pneumothorax. The heart is unremarkable. The aorta and great vessels are unremarkable. No mediastinal or hilar lymphadenopathy. IMPRESSION IMPRESSION: 1. 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 There is abrupt transition at the jejunojejunal anastomosis. There are no associated findings to suggest this is related to an internal hernia or volvulus. Edema of the associated mesentery and a small volume of pelvic free fluid are likely reactive in nature. 2. No other acute findings of the chest, abdomen, and pelvis. 3. Ancillary findings are noted in the body of the report. [facility] Radiology Study observation (narrative) [facility] CT Abdomen and PelvisOrdered By: Fernando Falcon on 10-21-2023 [facility] Work Phone: GLUCOSEon 10-21-2023 Glucose [Mass/Vol] 122 mg/dL High 70 - 99 mg/dL [facility] HEPATIC FUNCTION PANELon Albumin [Mass/Vol] 4.1 g/dL 3.5 - 5.0 g/dL [facility] ALP [Catalytic activity/Vol] 137 U/L High 32 - 126 U/L [facility] ALT [Catalytic activity/Vol] 25 U/L 9 - 48 U/L [facility] AST [Catalytic activity/Vol] 32 U/L 10 - 39 U/L [facility] Bilirubin [Mass/Vol] 0.3 mg/dL NINF - 1.5 mg/dL [facility] Bilirubin.direct [Mass/Vol] mg/dL NINF - 0.3 mg/dL [facility] Protein [Mass/Vol] 6.7 g/dL 6.4 - 8.3 g/dL [facility] LACTATE, BLOODOrdered By: Jeet Alexander on 10-21-2023 Interpretation and review of laboratory results Normal [facility] Lactate [Moles/Vol] 1.2 mmol/L 0.5 - 1. 6 mmol/L [facility] LIPASEon 10-21-2023 Lipase [Catalytic activity/Vol] 402 U/L High 11 - 82 U/L [facility] No Panel Informationon 10-20 [facility] Interpretation and review of laboratory results Abnormal [facility] PLATELET COUNTon 10-21-2023 Interpretation and review of laboratory results Normal [facility] Platelet mean volume (Bld) [Entitic vol] 10.4 fL 8.5 - 12.2 fL [facility] Platelets (Bld) [#/Vol] 232 10*3/uL 150 - 393 K/uL [facility] PT,INR,PTTon 10-21-2023 aPTT Coag (PPP) [Time] 37.6 s High [facility] INR Coag (Bld) [Relative time] 1.0 {INR} 0.9 - 1.1 [facility] Interpretation and review of laboratory results Abnormal [facility] PT Coag (PPP) [Time] 13.3 s [facility] SEDIMENTATION RATE, AUTOMATE Don 10-21-2023 ESR (Bld) [Velocity] 29 mm/h NINF [facility] Interpretation and review of laboratory results Normal [facility] TYPE AND SCREENon 10-21-2023 ABO/RH(D) TYPE Positive [facility] CBC W Auto Differential pane l (Bld)on 10-20-2023 Basophils (Bld) [#/Vol] 0.02 10*3/uL [facility] Basophils/100 WBC (Bld) 0.2 % 0.0 - 2.0 % [facility] Eosinophils (Bld) [#/Vol] 0.01 10*3/uL [facility] Eosinophils/100 WBC (Bld) 0.1 % 0.0 - 6.0 % [facility] Erythrocyte distribution width (RBC) [Ratio] 13.0 % 11.5 - 14.5 % [facility] Hematocrit (Bld) [Volume fraction] 47.9 % High 36.0 - 46.0 % [facility] Hemoglobin (Bld) [Mass/Vol] 15.4 g/dL 12.0 - 16.0 g/dL [facility] Immature granulocytes (Bld) [#/Vol] 0.05 10*3/uL [facility] Immature granulocytes/100 WBC (Bld) 0.5 % 0.0 - 0.9 % [facility] Comment on above: Immature Granulocyte Count (IG) includes promyelocytes, myelocytes and metamyelocytes but does not include bands. Percent differential counts (%) should be interpreted in the context of the absolute cell counts (cells/UL). Interpretation and review of laboratory results Abnormal [facility] Lymphocytes (Bld) [#/Vol] 0.55 10*3/uL Low [facility] Lymphocytes/100 WBC (Bld) 5.3 % 13.0 - 44.0 % [facility] MCH (RBC) [Entitic mass] 30.3 pg 26.0 - 34.0 pg [facility] MCHC (RBC) [Mass/Vol] 32.2 g/dL 32.0 - 36.0 g/dL [facility] MCV (RBC) [Entitic vol] 94 fL 80 - 100 fL [facility] Monocytes (Bld) [#/Vol] 0.41 10*3/uL [facility] Monocytes/100 WBC (Bld) 4.0 % 2.0 - 10.0 % [facility] Neutrophils (Bld) [#/Vol] 9.33 10*3/uL High [facility] Comment on above: Percent differential counts (%) should be interpreted in the context of the absolute cell counts (cells/uL). Neutrophils/100 WBC (Bld) 89.9 % 40.0 - 80.0 % [facility] Nucleated RBC/100 WBC (Bld) [Ratio] 0.0 % [facility] Platelets (Bld) [#/Vol] 272 10*3/uL [facility] RBC (Bld) [#/Vol] 5.09 10*6/uL [facility] WBC (Bld) [#/Vol] 10.4 10*3/uL [facility] CT Chest and Abdomen and Pel vis W contrast Marco 10-20-2023 CHEST 1. No acute abnormality in the chest. There is some fluid within the distal esophagus suggestive of reflux. ABDOMEN - PELVIS 1. 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 Trace amount of ascitic fluid adjacent to the anastomosis. The efferent limb appears collapsed and the remainder of the small bowel is not dilated or thickened. Surgical consultation is recommended. There is also mild wall thickening of the distal stomach without associated inflammatory change. Small amount of ascitic fluid in the dependent portion of the pelvis may be reactive. Signed by: Rudy Melendez 10/20/2023 8:03 PM Dictation workstation: [id number] [facility] Interpreted By: Rudy Melendez, STUDY: CT CHEST ABDOMEN PELVIS W IV CONTRAST; 10/20/2023 7:16 pm INDICATION: Signs/Symptoms:upper abd/chest pain with vomiting COMPARISON: Chest CT dated 03/23/2018. ACCESSION NUMBER(S): [id number] ORDERING CLINICIAN: LETI KAMARA TECHNIQUE: CT of the chest, abdomen, and pelvis was performed. Contiguous axial images were obtained through the chest, abdomen and pelvis. Coronal and sagittal reconstructions were performed. The images were obtained in the portal venous phase. 69 ml of contrast material Omnipaque 350 were administered intravenously without immediate complication. FINDINGS: CHEST: LUNG/PLEURA/LARGE AIRWAYS: There are no pleural effusions. There is no evidence of pneumothorax. There are no consolidations. The tracheobronchial tree is patent. Bibasilar dependent atelectasis. VESSELS: No traumatic aortic injury is appreciated within the limitations of this non-EKG gated study. The thoracic aorta is of normal course and caliber. Main pulmonary artery and its branches are normal in caliber. HEART: The heart is normal in size. There is no pericardial effusion. MEDIASTINUM AND ALEXI: No pneumomediastinum, abnormal mediastinal fluid collection or mediastinal hematoma is appreciated. No mediastinal, hilar or axillary adenopathy is present. The esophagus is grossly normal. CHEST WALL AND LOWER NECK: No acute fracture or dislocation of the included osseous structures are appreciated. No suspicious osseous lesions are identified. The thoracic wall soft tissues are within normal limits. ABDOMEN: LIVER: The liver is normal in size and contour. There is no subcapsular hematoma, no perihepatic fluid collection. There are no suspicious hepatic lesions. GALLBLADDER: The gallbladder is surgically absent. BILE DUCTS: The intahepatic and extrahepatic bile ducts are not dilated. PANCREAS: The pancreas appears unremarkable. SPLEEN: No parenchymal perfusion deficit of the spleen is appreciated to suggest contusion or laceration. There is no subcapsular hematoma, no perisplenic fluid collection. ADRENAL GLANDS: The bilateral adrenal glands are unremarkable in appearance. KIDNEYS AND URETERS: No parenchymal perfusion deficit is appreciated in bilateral kidneys to suggest contusion or laceration. There is no subcapsular hematoma, no perinephric fluid collection. The kidneys are normal in size. There is no hydronephrosis. There is no nephrolithiasis. PELVIS: BLADDER: The urinary bladder is grossly normal. REPRODUCTIVE ORGANS: No pelvic masses are appreciated. The uterus appears to be surgically absent. 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 The excluded stomach is mildly distended with fluid with mild thickening of the distal stomach without inflammatory change, image 72 of 205. There is also fluid distended duodenum and afferent limb of the gastrojejunostomy with transition point at the jejunojejunal anastomosis. Trace amount of ascitic fluid adjacent to the anastomosis. The efferent limb does not appear to be distended and the remainder of the distal bowel is normal in caliber. The large bowel is collapsed without inflammatory change. VESSELS: The aorta and IVC are within normal limits. The principal vasculature of the abdomen and pelvis is patent. PERITONEUM/RETROPERITON EUM/LYMPH NODES: There is no evidence of intra- or retroperitoneal hematoma. There is no loculated fluid collection, no free intraperitoneal air. No abdominopelvic lymphadenopathy is present. Small amount of ascitic fluid in the dependent portion of the pelvis. BONES AND ABDOMINAL WALL: No evidence of acute fracture or dislocation of the included osseous structures. No suspicious osseous lesions are identified. Multilevel endplate degenerative changes in the lumbar spine. The abdominal wall soft tissues appear normal. [facility] Rudy Melendez, DO - 10/20/2023 Interpreted By: Rudy Melendez, STUDY: CT CHEST ABDOMEN PELVIS W IV CONTRAST; 10/20/2023 7:16 pm INDICATION: Signs/Symptoms:upper abd/chest pain with vomiting COMPARISON: Chest CT dated 03/23/2018. ACCESSION NUMBER(S): [id number] ORDERING CLINICIAN: LETI KAMARA TECHNIQUE: CT of the chest, abdomen, and pelvis was performed. Contiguous axial images were obtained through the chest, abdomen and pelvis. Coronal and sagittal reconstructions were performed. The images were obtained in the portal venous phase. 69 ml of contrast material Omnipaque 350 were administered intravenously without immediate complication. FINDINGS: CHEST: LUNG/PLEURA/LARGE AIRWAYS: There are no pleural effusions. There is no evidence of pneumothorax. There are no consolidations. The tracheobronchial tree is patent. Bibasilar dependent atelectasis. VESSELS: No traumatic aortic injury is appreciated within the limitations of this non-EKG gated study. The thoracic aorta is of normal course and caliber. Main pulmonary artery and its branches are normal in caliber. HEART: The heart is normal in size. There is no pericardial effusion. MEDIASTINUM AND ALEXI: No pneumomediastinum, abnormal mediastinal fluid collection or mediastinal hematoma is appreciated. No mediastinal, hilar or axillary adenopathy is present. The esophagus is grossly normal. CHEST WALL AND LOWER NECK: No acute fracture or dislocation of the included osseous structures are appreciated. No suspicious osseous lesions are identified. The thoracic wall soft tissues are within normal limits. ABDOMEN: LIVER: The liver is normal in size and contour. There is no subcapsular hematoma, no perihepatic fluid collection. There are no suspicious hepatic lesions. GALLBLADDER: The gallbladder is surgically absent. BILE DUCTS: The intahepatic and extrahepatic bile ducts are not dilated. PANCREAS: The pancreas appears unremarkable. SPLEEN: No parenchymal perfusion deficit of the spleen is appreciated to suggest contusion or laceration. There is no subcapsular hematoma, no perisplenic fluid collection. ADRENAL GLANDS: The bilateral adrenal glands are unremarkable in appearance. KIDNEYS AND URETERS: No parenchymal perfusion deficit is appreciated in bilateral kidneys to suggest contusion or laceration. There is no subcapsular hematoma, no perinephric fluid collection. The kidneys are normal in size. There is no hydronephrosis. There is no nephrolithiasis. PELVIS: BLADDER: The urinary bladder is grossly normal. REPRODUCTIVE ORGANS: No pelvic masses are appreciated. The uterus appears to be surgically absent. 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 The excluded stomach is mildly distended with fluid with mild thickening of the distal stomach without inflammatory change, image 72 of 205. There is also fluid distended duodenum and afferent limb of the gastrojejunostomy with transition point at the jejunojejunal anastomosis. Trace amount of ascitic fluid adjacent to the anastomosis. The efferent limb does not appear to be distended and the remainder of the distal bowel is normal in caliber. The large bowel is collapsed without inflammatory change. VESSELS: The aorta and IVC are within normal limits. The principal vasculature of the abdomen and pelvis is patent. PERITONEUM/RETROPERITON EUM/LYMPH NODES: There is no evidence of intra- or retroperitoneal hematoma. There is no loculated fluid collection, no free intraperitoneal air. No abdominopelvic lymphadenopathy is present. Small amount of ascitic fluid in the dependent portion of the pelvis. BONES AND ABDOMINAL WALL: No evidence of acute fracture or dislocation of the included osseous structures. No suspicious osseous lesions are identified. Multilevel endplate degenerative changes in the lumbar spine. The abdominal wall soft tissues appear normal. IMPRESSION: CHEST 1. No acute abnormality in the chest. There is some fluid within the distal esophagus suggestive of reflux. ABDOMEN - PELVIS 1. 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 Trace amount of ascitic fluid adjacent to the anastomosis. The efferent limb appears collapsed and the remainder of the small bowel is not dilated or thickened. Surgical consultation is recommended. There is also mild wall thickening of the distal stomach without associated inflammatory change. Small amount of ascitic fluid in the dependent portion of the pelvis may be reactive. Signed by: Rudy Melendez 10/20/2023 8:03 PM Dictation workstation: [id number] (more content not included)... [facility] Work Phone: Radiology Study observation (narrative) [facility] Work Phone: CT Chest and Abdomen and Pel vis W contrast IVOrdered By: Rudy Melendez on 10-20-2023 [facility] Work Phone: Comprehensive metabolic 2000 panelon 10-20-2023 Albumin BCP dye [Mass/Vol] 4.9 g/dL 3.4 - 5.0 g/dL [facility] ALP [Catalytic activity/Vol] 172 U/L High 33 - 136 U/L [facility] ALT With P-5'-P [Catalytic activity/Vol] 32 U/L 7 - 45 U/L [facility] Comment on above: Patients treated wit h Sulfasalazine may generate falsely decreased results for ALT. Anion gap [Moles/Vol] 15 mmol/L 10 - 2 0 mmol/L [facility] AST With P-5'-P [Catalytic activity/Vol] 32 U/L 9 - 39 U/L [facility] Bilirubin [Mass/Vol] 0.4 mg/dL 0.0 - 1 .2 mg/dL [facility] Calcium [Mass/Vol] 10.2 mg/dL 8.6 - 10. 3 mg/dL [facility] Chloride [Moles/Vol] 103 mmol/L 98 - 10 7 mmol/L [facility] CO2 [Moles/Vol] 25 mmol/L 21 - 32 mmol/L [facility] Creatinine [Mass/Vol] 0.63 mg/dL 0.50 - 1.05 mg/dL [facility] eGFR - PINF [facility] Comment on above: Calculations of azam mated GFR are performed using the 2020 CKD-EPI Study Refit equation without the race variable for the IDMS-Traceable creatinine methods. https://jasn.asnjournals.org/content/early/ASN.46559 06727 Glucose [Mass/Vol] 129 mg/dL High 74 - 99 mg/dL [facility] Interpretation and review of laboratory results Abnormal [facility] Potassium [Moles/Vol] 4.0 mmol/L 3.5 - 5.3 mmol/L [facility] Protein [Mass/Vol] 8.2 g/dL 6.4 - 8.2 g/dL [facility] Sodium [Moles/Vol] 139 mmol/L 136 - 145 mmol/L [facility] Urea nitrogen [Mass/Vol] 10 mg/dL 6 - 23 mg/dL [facility] ECG 12-LEADon 10-20-2023 ECG 12-LEAD Ventricular Rate 58 Atrial Rate 58 P-R Interval 154 QRS Duration 88 Q-T Interval 484 QTC Calculation(Bazett) 475 R [place] 161 T [place] 138 QRS Count 10 Q Onset 221 P Onset 144 P Offset 187 T Offset 463 QTC Fredericia 478 Diagnosis Sinus bradycardia with Premature supraventricular complexes Left posterior fascicular block Inferior infarct , age undetermined Abnormal ECG When compared with ECG of 18-OCT-2023 18:17, (unconfirmed) Premature supraventricular complexes are now Present Vent. rate has decreased BY 50 BPM Left posterior fascicular block is now Present Inferior infarct is now Present See ED provider note for full interpretation and clinical correlation Confirmed by Quentin Go ([id number]) on 10/29/2023 4:18:07 PM Normal [facility] Lactateon 10-20-2023 Lactate [Moles/Vol] 1.3 mmol/L 0.4 - 2. 0 mmol/L [facility] Lactate [Moles/Vol]on 2023 Interpretation and review of laboratory results Normal [facility] Venipuncture immediately after or during the administration of Metamizole may lead to falsely low results. Testing should be performed immediately prior to Metamizole dosing. [facility] Lipaseon 10-20-2023 Lipase [Catalytic activity/Vol] 878 U/L High 9 - 82 U/L [facility] Lipase [Catalytic activity/V ol]on 10-20-2023 Interpretation and review of laboratory results Abnormal [facility] Venipuncture immediately after or during the administration of Metamizole may lead to falsely low results. Testing should be performed immediately prior to Metamizole dosing. [facility] Magnesiumon 10-20-2023 Magnesium [Mass/Vol] 2.08 mg/dL 1.60 - 2.40 mg/dL [facility] Magnesium [Mass/Vol]on 10-19 Interpretation and review of laboratory results Normal [facility] No Panel Informationon 10-19 Extra Tube Hold for add-ons. [facility] Comment on above: Auto resulted. [facility] Tropinin I.cardiac panel Hig h sensitivity methodon 10-20-2023 Interpretation and review of laboratory results Normal [facility] Less than 99th percentile of normal range cutoff- Female and children under 18 years old <14 ng/L; Male <21 ng/L: Negative Repeat testing should be performed if clinically indicated. Female and children under 18 years old 14-50 ng/L; Male 21-50 ng/L: Consistent with possible cardiac damage and possible increased clinical risk. Serial measurements may help to assess extent of myocardial damage. >50 ng/L: Consistent with cardiac damage, increased clinical risk and myocardial infarction. Serial measurements may help assess extent of myocardial damage. NOTE: Children less than 1 year old may have higher baseline troponin levels and results should be interpreted in conjunction with the overall clinical context. NOTE: Troponin I testing is performed using a different testing methodology at [facility] than at other [facility]. Direct result comparisons should only be made within the same method. [facility] Interpretation and review of laboratory results Normal [facility] Less than 99th percentile of normal range cutoff- Female and children under 18 years old <14 ng/L; Male <21 ng/L: Negative Repeat testing should be performed if clinically indicated. Female and children under 18 years old 14-50 ng/L; Male 21-50 ng/L: Consistent with possible cardiac damage and possible increased clinical risk. Serial measurements may help to assess extent of myocardial damage. >50 ng/L: Consistent with cardiac damage, increased clinical risk and myocardial infarction. Serial measurements may help assess extent of myocardial damage. NOTE: Children less than 1 year old may have higher baseline troponin levels and results should be interpreted in conjunction with the overall clinical context. NOTE: Troponin I testing is performed using a different testing methodology at [facility] than at other [facility]. Direct result comparisons should only be made within the same method. [facility] Troponin I, High Sensitivity , Initialon 10-20-2023 Tropinin I.cardiac panel High sensitivity method ng/L 0 - 13 ng/L [facility] Troponin, High Sensitivity, 1 Houron 10-20-2023 Tropinin I.cardiac panel High sensitivity method 3 ng/L 0 - 13 ng/L [facility] Urinalysis complete W Reflex Culture panel (U)on 10-20-2023 Appearance (U) Clear Clear [facility] Bacteria Auto (Urine sed) [#/Area] 1+ Abnormal NONE SEEN /HPF [facility] Bilirubin (U) [Mass/Vol] Negative NEGATIVE [facility] Color (U) Straw Straw, Yellow [facility] Epithelial cells.squamous Auto (Urine sed) [#/Area] 1-9 (SPARSE) Reference range not established. /HPF [facility] Glucose Auto test strip (U) [Mass/Vol] Negative NEGATIVE mg/dL [facility] Interpretation and review of laboratory results Abnormal [facility] Ketones (U) [Mass/Vol] 20 (1+) Abnormal NEGAT LIANNE mg/dL [facility] Leukocyte esterase Auto test strip Ql (U) Negative NEGATIVE [facility] Mucus Auto (Urine sed) [#/Area] 1+ Reference range not established. /LPF [facility] Nitrite Auto test strip Ql (U) Negative NEGATIVE [facility] pH (U) 5.0 [pH] 5.0, 5.5, 6.0, 6.5, 7.0, 7.5, 8.0 [facility] Protein (U) [Mass/Vol] Negative NEGAT LIANNE mg/dL [facility] RBC (U) [#/Vol] SMALL (1+) Abnormal NEGATIVE [facility] RBC Auto (Urine sed) [#/Area] 11-20 Abnormal NONE, 1-2, 3-5 /HPF [facility] Specific gravity (U) [Rel density] 1.051 Abnormal 1.005 - 1.035 [facility] Urobilinogen (U) [Mass/Vol] mg/dL NINF - 2.0 mg/dL [facility] WBC Auto (Urine sed) [#/Area] 1-5 1-5, NONE /HPF [facility] Absolute lymphocyte countOrd ered By: Nadya Portillo on 08-24-2023 Lymphocytes Auto (Unsp spec) [#/Vol] 1.41 10*3/uL 0.83-4.51 [facility] Basophil percentageOrdered B y: Nadya Portillo on 08-24-2023 Basophils/100 WBC (Bld) 0.4 % 0-1 [facility] Bilirubin [Mass/Vol] 0.40 mg/dL 0.20-1.00 [facility] Comment on above: Slight Lipemia, Resu lt may be falsely increased. For patients on eltrombopag therapy, use of Dimension Baring TBIL is not recommended. Chloride [Moles/Vol] 109 mmol/L 98-107 [facility] Eosinophils/100 WBC (Bld) 8.5 % 0-5 [facility] Glucose [Mass/Vol] 88 mg/dL 74-106 [facility] Comment on above: Slight Lipemia, Resu lt may be falsely increased. Neutrophils (Bld) [#/Vol] 2.2 10*3/uL 2.0-7.7 [facility] Neutrophils/100 WBC (Bld) 49.4 % 47-70 [facility] Potassium [Moles/Vol] 4.0 mmol/L 3.5-5.1 [facility] Comment on above: Slight Lipemia, Resu lt may be falsely increased. Protein [Mass/Vol] 6.9 g/dL 6.4-8.2 [facility] Comment on above: Slight Lipemia, Resu lt may be falsely increased. Sodium [Moles/Vol] 140 mmol/L 136-145 [facility] WBC (Bld) [#/Vol] 4.5 10*3/uL 4.4-11.0 [facility] Blood erythrocytes count (nu mber/volume)Ordered By: Nadya Portillo on 08-24-2023 RBC (Bld) [#/Vol] 4.13 10*6/uL 4.2-5.4 [facility] Blood hemoglobin measurement (mass/volume)Ordered By: Nadya Portillo on 08-24-2023 Hemoglobin (Bld) [Mass/Vol] 12.5 g/dL 12.0-15.0 [facility] Blood lymphocytes/100 leukoc ytesOrdered By: Nadya Portillo on 08-24-2023 Lymphocytes/100 WBC (Bld) 31.5 % 19-41 [facility] Blood monocytes/100 leukocyt esOrdered By: Nadya Portillo on 08-24-2023 Monocytes/100 WBC (Bld) 10.0 % 0-10 [facility] Blood platelet mean volumeOr dered By: Nadya Portillo on 08-24-2023 Platelet mean volume (Bld) [Entitic vol] 9.2 fL 6.2-12.0 [facility] Determination of erythrocyte mean corpuscular volume (MCV)Ordered By: Nadya Portillo on 08-24-2023 MCV (RBC) [Entitic vol] 92.7 fL 81-99 [facility] Hematocrit Auto (Bld) [Volum e fraction]Ordered By: Nadya Portillo on 08-24-2023 Hematocrit (Bld) [Volume fraction] 38.3 % 37-47 [facility] Laboratory - Chemistry and C hemistry - challengeOrdered By: Nadya Portillo on 08-24-2023 ALP [Catalytic activity/Vol] 127 U/L 45-117 [facility] ALT [Catalytic activity/Vol] 35 U/L 13-56 [facility] Comment on above: Slight Lipemia, Resu lt may be falsely increased. CO2 [Moles/Vol] 26.0 mmol/L 21.0-32.0 [facility] Comment on above: Slight Lipemia, Resu lt may be falsely increased. Globulin (S) [Mass/Vol] 3.4 g/dL 2.2-4.2 [facility] Urea nitrogen/Creatinine [Mass ratio] 18.3 mg/mg 10-20 [facility] Laboratory - Hematology and Cell countsOrdered By: Nadya Portillo on 08-24-2023 Erythrocyte distribution width (RBC) [Entitic vol] 44.9 fL 35.1-43.9 [facility] Erythrocyte distribution width (RBC) [Ratio] 13.2 % 11.6-14.6 [facility] Immature granulocytes/100 WBC (Bld) 0.200 % 0.0-0.9 [facility] Comment on above: IG% - Immature Granu locytes (promyelocytes, myelocytes and metamyelocytes) > 1% indicates that a LEFT SHIFT is Present. MCH (RBC) [Entitic mass] 30.3 pg 27.0-32.0 [facility] Nucleated RBC/100 WBC (Bld) [Ratio] 0 % 0-5 [facility] MCHC Auto (RBC) [Mass/Vol]Or dered By: Nadya Portillo on 08-24-2023 MCHC (RBC) [Mass/Vol] 32.6 g/dL 32-36 [facility] No Panel InformationOrdered By: Nadya Portillo on 08-24-2023 Estimated GFR (MDRD) Amer 118 mL/min >60 [facility] Comment on above: GFR Calc Estimated GFR (MDRD) Non-Af Amer 98 mL/min >60 [facility] Comment on above: Non- GFR Calc Platelets bldOrdered By: Melchor Portillo on 08-24-2023 Platelets (Bld) [#/Vol] 261 10*3/uL 150-450 [facility] Serum or plasma albumin myriam urement (mass/volume)Ordered By: Nadya Portillo on 08-24-2023 Albumin [Mass/Vol] 3.5 g/dL 3.2-5.0 [facility] Serum or plasma albumin/glob ulin mass ratioOrdered By: Nadya Portillo on 08-24-2023 Albumin/Globulin [Mass ratio] 1.0 {ratio} 0.9-2.4 [facility] Serum or plasma calcium myriam urement (mass/volume)Ordered By: Nadya Portillo on 08-24-2023 Calcium [Mass/Vol] 8.7 mg/dL 8.5-10.1 [facility] Comment on above: Slight Lipemia, Resu lt may be falsely increased. Serum or plasma creatinine m easurement (mass/volume)Ordered By: Nadya Portillo on 08-24-2023 Creatinine [Mass/Vol] 0.66 mg/dL 0.55-1.02 [facility] Comment on above: Slight Lipemia, Resu lt may be falsely increased.The validity of the calculated GFR & GFRAA in patients over 70 years has not been determined. Clinical correlation is essential. Serum or plasma urea nitroge n measurement (mass/volume)Ordered By: Nadya Portillo on 08-24-2023 Urea nitrogen [Mass/Vol] 12 mg/dL 7-18 [facility] Comment on above: Slight Lipemia, Resu lt may be falsely increased. Thin prep Papanicolaou smear with manual screeningOrdered By: Nadya Portillo on 08-24-2023 Thin prep Papanicolaou smear with manual screening 44 U/L 15-37 [facility] Comment on above: Slight Lipemia, Resu lt may be falsely increased. Thin prep Papanicolaou smear with manual screening 5 5-15 [facility] DBT Breast - bilateralon No mammographic evidence of malignancy. BI-RADS CATEGORY: BI-RADS Category: 1 Negative. Recommendation: Routine Screening Mammogram in 1 Year. Recommended Date: 1 Year. Laterality: Bilateral. MACRO: None Signed by: Ramirez Serna 08/17/2023 11:57 AM Dictation workstation: [id number] Interpreted By: Ramirez Serna, STUDY: BI MAMMO BILATERAL SCREENING TOMOSYNTHESIS; 08/17/2023 9:56 am ACCESSION NUMBER(S): [id number] ORDERING CLINICIAN: SILVIA NAVA INDICATION: Screening. COMPARISON: Digital mammograms dated 04/02/2020 FINDINGS: CC and MLO 2D digital mammograms and digital breast tomosynthesis images were obtained of the bilateral breasts. 3-D volume images were reconstructed in 4 views at an independent workstation as 1 mm slices through the breasts in both the CC and MLO projections. Density: There are areas of scattered fibroglandular tissue. No discrete mass or focal asymmetry is identified. No suspicious microcalcifications or foci of architectural distortion are seen. There has been no significant change. This study was interpreted with CAD. [facility] Ramirez Serna MD - 08/17/2023 Interpreted By: Ramirez Serna, STUDY: BI MAMMO BILATERAL SCREENING TOMOSYNTHESIS; 08/17/2023 9:56 am ACCESSION NUMBER(S): [id number] ORDERING CLINICIAN: SILVIA NAVA INDICATION: Screening. COMPARISON: Digital mammograms dated 04/02/2020 FINDINGS: CC and MLO 2D digital mammograms and digital breast tomosynthesis images were obtained of the bilateral breasts. 3-D volume images were reconstructed in 4 views at an independent workstation as 1 mm slices through the breasts in both the CC and MLO projections. Density: There are areas of scattered fibroglandular tissue. No discrete mass or focal asymmetry is identified. No suspicious microcalcifications or foci of architectural distortion are seen. There has been no significant change. This study was interpreted with CAD. IMPRESSION: No mammographic evidence of malignancy. BI-RADS CATEGORY: BI-RADS Category: 1 Negative. Recommendation: Routine Screening Mammogram in 1 Year. Recommended Date: 1 Year. Laterality: Bilateral. MACRO: None Signed by: Ramirez Serna 08/17/2023 11:57 AM Dictation workstation: [id number] [facility] Work Phone: Radiology Study observation (narrative) [facility] Work Phone: DBT Breast - bilateralOrdere d By: Ramirez Serna on 08-17-2023 [facility] Work Phone: Absolute lymphocyte countOrd ered By: Nadya Portillo on 05-25-2023 Lymphocytes Auto (Unsp spec) [#/Vol] 1.86 10*3/uL 0.83-4.51 [facility] Basophil percentageOrdered B y: Nadya Portillo on 05-25-2023 Basophils/100 WBC (Bld) 0.6 % 0-1 [facility] Bilirubin [Mass/Vol] 0.30 mg/dL 0.20-1.00 [facility] Comment on above: Slight Lipemia, Resu lt may be falsely increased. For patients on eltrombopag therapy, use of Dimension B[place] TBIL is not recommended. Chloride [Moles/Vol] 105 mmol/L 98-107 [facility] Eosinophils/100 WBC (Bld) 5.3 % 0-5 [facility] Glucose [Mass/Vol] 80 mg/dL 74-106 [facility] Comment on above: Slight Lipemia, Resu lt may be falsely increased. Neutrophils (Bld) [#/Vol] 2.4 10*3/uL 2.0-7.7 [facility] Neutrophils/100 WBC (Bld) 47.1 % 47-70 [facility] Potassium [Moles/Vol] 3.9 mmol/L 3.5-5.1 [facility] Comment on above: Slight Lipemia, Resu lt may be falsely increased. Protein [Mass/Vol] 7.0 g/dL 6.4-8.2 [facility] Comment on above: Slight Lipemia, Resu lt may be falsely increased. Sodium [Moles/Vol] 139 mmol/L 136-145 [facility] WBC (Bld) [#/Vol] 5.1 10*3/uL 4.4-11.0 [facility] Blood erythrocytes count (nu mber/volume)Ordered By: Nadya Portillo on 05-25-2023 RBC (Bld) [#/Vol] 4.07 10*6/uL 4.2-5.4 [facility] Blood hemoglobin measurement (mass/volume)Ordered By: Nadya Portillo on 05-25-2023 Hemoglobin (Bld) [Mass/Vol] 12.2 g/dL 12.0-15.0 [facility] Blood lymphocytes/100 leukoc ytesOrdered By: Nadya Portillo on 05-25-2023 Lymphocytes/100 WBC (Bld) 36.3 % 19-41 [facility] Blood monocytes/100 leukocyt esOrdered By: Nadya Portillo on 05-25-2023 Monocytes/100 WBC (Bld) 10.5 % 0-10 [facility] Blood platelet mean volumeOr dered By: Nadya Portillo on 05-25-2023 Platelet mean volume (Bld) [Entitic vol] 9.8 fL 6.2-12.0 [facility] Determination of erythrocyte mean corpuscular volume (MCV)Ordered By: Nadya Portillo on 05-25-2023 MCV (RBC) [Entitic vol] 97.1 fL 81-99 [facility] Hematocrit Auto (Bld) [Volum e fraction]Ordered By: [facility] Bandar on 05-25-2023 Hematocrit (Bld) [Volume fraction] 39.5 % 37-47 [facility] Laboratory - Chemistry and C hemistry - challengeOrdered By: [facility] Bandar on 05-25-2023 ALP [Catalytic activity/Vol] 133 U/L 45-117 [facility] ALT [Catalytic activity/Vol] 44 U/L 13-56 [facility] Comment on above: Slight Lipemia, Resu lt may be falsely increased. CO2 [Moles/Vol] 27.0 mmol/L 21.0-32.0 [facility] Comment on above: Slight Lipemia, Resu lt may be falsely increased. Globulin (S) [Mass/Vol] 3.6 g/dL 2.2-4.2 [facility] Urea nitrogen/Creatinine [Mass ratio] 14.0 mg/mg 10-20 [facility] Laboratory - Hematology and Cell countsOrdered By: Nadyateagan Portillo on 05-25-2023 Erythrocyte distribution width (RBC) [Entitic vol] 49.4 fL 35.1-43.9 [facility] Erythrocyte distribution width (RBC) [Ratio] 14.1 % 11.6-14.6 [facility] Immature granulocytes/100 WBC (Bld) 0.200 % 0.0-0.9 [facility] Comment on above: IG% - Immature Granu locytes (promyelocytes, myelocytes and metamyelocytes) > 1% indicates that a LEFT SHIFT is Present. MCH (RBC) [Entitic mass] 30.0 pg 27.0-32.0 [facility] Nucleated RBC/100 WBC (Bld) [Ratio] 0 % 0-5 [facility] MCHC Auto (RBC) [Mass/Vol]Or dered By: Nadya Portillo on 05-25-2023 MCHC (RBC) [Mass/Vol] 30.9 g/dL 32-36 [facility] No Panel InformationOrdered By: Nadya Portillo on 05-25-2023 Estimated GFR (MDRD) Amer 96 mL/min >60 [facility] Comment on above: GFR Calc Estimated GFR (MDRD) Non-Af Amer 79 mL/min >60 [facility] Comment on above: Non- GFR Calc Platelets bldOrdered By: Melchor Portillo on 05-25-2023 Platelets (Bld) [#/Vol] 288 10*3/uL 150-450 [facility] Serum or plasma albumin myriam urement (mass/volume)Ordered By: Nadya Portillo on 05-25-2023 Albumin [Mass/Vol] 3.4 g/dL 3.2-5.0 [facility] Serum or plasma albumin/glob ulin mass ratioOrdered By: Nadya Portillo on 05-25-2023 Albumin/Globulin [Mass ratio] 0.9 {ratio} 0.9-2.4 [facility] Serum or plasma calcium myriam urement (mass/volume)Ordered By: Naday Portillo on 05-25-2023 Calcium [Mass/Vol] 8.7 mg/dL 8.5-10.1 [facility] Comment on above: Slight Lipemia, Resu lt may be falsely increased. Serum or plasma creatinine m easurement (mass/volume)Ordered By: Nadya Portillo on 05-25-2023 Creatinine [Mass/Vol] 0.78 mg/dL 0.55-1.02 [facility] Comment on above: Slight Lipemia, Resu lt may be falsely increased.The validity of the calculated GFR & GFRAA in patients over 70 years has not been determined. Clinical correlation is essential. Serum or plasma urea nitroge n measurement (mass/volume)Ordered By: Nadya Portillo on 05-25-2023 Urea nitrogen [Mass/Vol] 11 mg/dL 03-01 [facility] Comment on above: Slight Lipemia, Resu lt may be falsely increased. Thin prep Papanicolaou smear with manual screeningOrdered By: Nadya Portillo on 05-25-2023 Thin prep Papanicolaou smear with manual screening 40 U/L 15- [facility] Comment on above: Slight Lipemia, Resu lt may be falsely increased. Thin prep Papanicolaou smear with manual screening 7 5-15 [facility] BN SPINE, LUMBOSACRAL; 2 OR 3 VIEWSon 05-11-2023 BN SPINE, LUMBOSACRAL; 2 OR 3 VIEWS Patient Name: CONNOR KHAN STUDY: SPINE, LUMBOSACRAL; 2 OR 3 VIEWS; 05/11/2023 1:19 am INDICATION: for L spine . COMPARISON: None. ACCESSION NUMBER(S): [id number] ORDERING CLINICIAN: LILIA BABCOCK FINDINGS: There is normal height of the vertebra. Levocurvature of the lumbar spine centered at L2. Intervertebral disc spaces are preserved. Posterior elements are unremarkable. The posterior soft tissues are normal. Advanced degenerative changes of the lumbar spine with intervertebral disc height loss, osteophytosis, and facet arthrosis. IMPRESSION: Advanced degenerative changes of the lumbar spine better characterized on MRI dated 05/10/2023. I personally reviewed the images/study and I agree with the findings as stated. This study was interpreted at [facility], [place], [place]. Electronically signed by: BENNIE MARTINEZ MD Normal [facility] COAGULATION SCREENon 023 aPTT Coag (Bld) [Time] 37 s Normal 27 - 38 [facility] Comment on above: Result Comment: Note new reference range as of 02/01/2023 at 10:00am. Performed By: #### C OAGS #### [facility] [id number] [place] [address] PT Coag (PPP) [Time] 11.2 s Normal 9.8 - 12.8 [facility] Comment on above: Result Comment: Note new reference range as of 02/01/2023 at 10:00am. Performed By: #### C OAGS #### [facility] [id number] [place] [address] PT, INR 1.0 Normal 0.9 - 1.1 [facility] Comment on above: Performed By: #### C OAGS #### [facility] [address] [place] [address] Consult - Neuro-Neurosurgery on 05-11-2023 Consult - Neuro-Neurosurgery Service: Service: Service: Surgery Consult: Consult requested by (Attending Name): Srinivasa Gomes Reason: Concern for cord compression History of Present Illness: History Present Illness: HPI: 58yF h/o HTN, rheumatoid arthritis, gastric bypass, migraines, arthritis, p/w 2 wks LLE radiculopathy, L foot dragging, MRI L spine w/ left L5-S1 foraminal stenosis, L2-3 stenosis, L3-stenosis Patient reported that she has been having shooting pains down her LLE from the back of her leg down to the bottom of her foot. Also has been having intermittent episodes of small loss of urine since then. Today however expressed that she had a big loss of urine and felt like her L foot dragged more when she walked. Denied loss of bowel movements. PVR >200. The patient's radiographic findings were personally reviewed and the following significant findings were identified: MRI L spine w/ left L5-S1 foraminal stenosis, L2-3 stenosis, L3-stenosis PMHx: as above PSHx: as above SHx: denies smoking, illicits, EtOH FHx: reviewed and not pertinent to the current admission 14 point ROS negative except as above Some components of the patient's HPI were obtained through personal review of the patient's available medical records. Allergies: aspirin: Bleeding sulfa drugs: Other Objective: Physical Exam by System: Constitutional: Laying in bed, no acute distress Head/Neck: atraumatic Respiratory/Thorax: breathing comfortably Cardiovascular: well perfused Musculoskeletal: full range of motion Neurological: Ox3 PERRL, face symmetric 5/5 strength in all 4 extremities Sensation intact to light touch rectal tone intact Psychological: appropriate Skin: no obvious lesions [place] Coma Scale: Best Eye Response: (E4) spontaneous Best Motor Response: (M6) obeys commands Best Verbal Response: (V5) oriented Misa Score: 15 Assessment/Recommendati ons: Assessment: 58yF h/o HTN, rheumatoid arthritis, gastric bypass, migraines, arthritis, p/w 2 wks LLE radiculopathy, L foot dragging, MRI L spine w/ left L5-S1 foraminal stenosis, mild L2-3, L3-4 central stenosis Patient's LLE radiculopathy likely secondary to L5-S1 foraminal stenosis, however patient's bladder symptoms less likely explained by MRI findings. Patient objectively full strength on exam and continues to be ambulatory. Recommendations please obtain upright xrays of L spine (AP and lateral views, flexion and extension views) medrol dose pack for pain control gabapentin for pain control pain management follow up as outpatient we will arrange for outpatient follow up with Dr. Ross recommend PCP follow up for urinary issues Consult Status: Consult Status (select all that apply): initial consult complete, will follow Consult Order ID: [id number] Attestation: Note Completion: I am a: Resident/Fellow Attending AttestationI reviewed the resident/fellows documentation and discussed the patient with the resident/fellow. I agree with the resident/fellows medical decision making as documented in the note. Electronic Signatures: Raleigh Ross) (Signed 12-May-2023 09:49) Authored: Assessment/Recommendati ons, Note Completion Co-Signer: Service, History of Present Illness, Allergies, Objective, [place] Coma Scale, Assessment/Recommendati ons, Note Completion Xenia Valle (Resident)) (Signed 10-May-2023 23:54) Authored: Service, History of Present Illness, Allergies, Objective, Misa Coma Scale, Assessment/Recommendati ons, Note Completion Last Updated: 12-May-2023 09:49 by Raleigh Ross) Normal [facility] Electrocardiogram 12 Leadon 05-11-2023 Electrocardiogram 12 Lead Ventricular Rate 56 Atrial Rate 56 P-R Interval 142 QRS Duration 84 Q-T Interval 450 QTC Calculation(Bazett) 434 P [place] 50 R Roxbury 30 T R[place] -20 QRS Count 9 Q Onset 220 P Onset 149 P Offset 199 T Offset 445 QTC Fredericia 440 Diagnosis Class Unknown Diagnosis Confirmed by Mariela Michelle ([id number]) on 05/11/2023 2:07:27 AM Normal [facility] Provider Note - ED Care Kessler jer 05-11-2023 Provider Note - ED Care Transition ED Care Transition: Chart Review: ED NOTES ED NOTES: Patient was handed off to me from the previous team. For full history, physical, and prior ED course, please see previous provider note prior to patient handoff. This is an addendum to the record. Briefly, this is a 58-year-old female presenting as a transfer for neurosurgery consult with concern for possible cord compression. At time of signout, pending final recs from neurosurgery. On my exam, patient is hemodynamically stable and in no acute distress, protecting her airway. Neurosurgery recommended obtaining a upright lumbar AP and lateral film. Offered pain control per their recommendations here in the emergency department. Upright and lateral films did not show signs of any acute lesions or fracture. Neurosurgery does not have any surgical interventions at this time and recommend patient be seen in their outpatient clinic for further follow-up and observation. They will arrange scheduling. Do not feel that further workup indicated at this time. Discussed results, diagnosis/differential, and plan with patient. Patient advised to follow up with primary physician in 2-3 days. Discussed return precautions and encouraged patient to return to the Emergency Department for any concerning symptoms or worsening condition. Patient expresses understanding and is in agreement. All questions answered. Patient discharged in stable condition. Throughout the ED stay, the patient was monitored and re-examined for any changes in stability or symptomatology. The patient was instructed to return to the ED if any symptoms recurred, worsened, or if there was any additional concerns. Pt seen and discussed with Dr. Eliseo Babcock DO. Emergency Medicine PGY-2 CLINICAL IMPRESSION Diagnosis/Annotation: ED Dx Name:Lower leg pain Code:M79.669 Disposition: discharged Type: home ATTESTATION Attestation: I saw and evaluated the patient. I personally obtained the russo and critical portions of the history and physical exam or was physically present for russo and critical portions performed by the resident/fellow. I reviewed the resident/fellows documentation and discussed the patient with the resident/fellow. I agree with the resident/fellows medical decision making as documented in the residents note Comments/Additional Findings: Srinivasa Gomes MD CRITICAL CARE TIME Is this a critically ill patient: no Electronic Signatures: Srinivasa Gomes) (Signed 13-May-2023 11:19) Authored: Attestation, Chart Review Co-Signer: ED Notes, Clinical Impression, Attestation, Chart Review, Scores Lilia Babcock ( (Resident)) (Signed 11-May-2023 02:28) Authored: ED Notes, Clinical Impression, Chart Review, Scores Last Updated: 13-May-2023 11:19 by Srinivasa Gomes) Normal [facility] Provider Note - ED v3on 09- Provider Note - ED v3 Provider Note: Results/Vital Signs: Pediatric Clinical Scoring (IDALIA) is no recent IDALIA charted on this account Chart Review: ED NOTES ED NOTES: Limitations to History: None HPI: This is a 58-year-old female with no pertinent medical history who presents today as a transfer from a [facility] for a neurosurgery consult. Patient endorses a 1 year history of left lower leg pain radiating down to her foot. Patient also endorses urinary urgency and foot dragging. Work-up at the [facility] was unremarkable for urinary tract infection. Basic lab work was unremarkable. The MRI of the L-spine was significant for degenerative changes of the lumbar spine with moderate to severe left foraminal stenosis with compression of the exiting left L5 nerve root. Because of this finding, patient was sent to [facility]. On my evaluation, patient has no new complaints. Patient denies any constitutional symptoms such as fevers, chills, cough, nasal congestion. Patient did have poor rectal tone per previous provider. Additional History Obtained from: None 12 point review of systems was performed and is negative unless otherwise specified Physical Exam: VS: As documented in the triage note and EMR flowsheet from this visit were reviewed. CONSTITUTIONAL: Well appearing, well nourished, awake, alert, oriented to person, place, time/situation and in no apparent distress. EYES: Clear bilaterally, pupils equal, round and reactive to light. CARDIOVASCULAR: Normal rate, regular rhythm. Heart sounds S1, S2. No murmurs, rubs or gallops. RESPIRATORY: Breath sounds clear and equal bilaterally. No wheezes or rhonchi. GASTROINTESTINAL: Abdomen soft, non-distended, no rebound, no guarding. MUSCULOSKELETAL: Spine appears normal, range of motion is not limited, no muscle or joint tenderness. Full active range of motion with assistance 5+ of the bilateral hips, knees, and ankles. Dorsalis pedis and posterior tibial pulses palpated bilaterally with capillary refill less than 2 seconds in all phalanges. There is no decrease in strength of the plantar surface of the foot. Patient does endorse subjective decrease in sensation of the left ankle and foot without decrease in sensation on the right lower extremity. NEUROLOGICAL: Alert and oriented, no focal deficits, no motor or sensory deficits. Cranial nerves II through XII intact bilaterally. No cerebellar ataxia. SKIN: Skin normal color for race, warm, dry and intact. No evidence of trauma. PSYCHIATRIC: Alert and oriented to person, place, time/situation. normal mood and affect. No apparent risk to self or others. Medical Decision Making: This is a 58-year-old female who presents to the emergency room with concerns for L5 nerve root compression. Patient remained stable throughout course of care. This patient was staffed with my supervising attending. Preop labs were ordered which included an EKG, coag screen, and type and screen. Neurosurgery was consulted. Patient was handed off with neurosurgery recommendations still pending. Patient remained stable throughout the remainder course of this provider's care. EKG Interpretation: EKG was significant for sinus bradycardia at 56 bpm. P waves are associate with QRS complexes. The axis is upright. There are no ST segment or T wave abnormalities. No previous EKGs to compare to. External Records Reviewed: I reviewed recent and relevant outside records including: Previous provider notes Social Determinants Affecting Care: None Discussion of Management with Other Providers: I discussed the patient/results with: Supervising attending, neurosurgery JAGUAR Silva PADevenC [facility] HISTORY OF PRESENTING ILLNESS CONNOR is a 58 year old Female and was seen by me at 10-May-2023 21:12 for a chief complaint of (Neuro consult) . Other complaints include: patient had MRI was confirmed in having l5 spinal decompression pain radiates to left leg (1). Triage Information: Most recent Vital Sign Value Date Temp (F): 98 05-10-2023 21:10 Temp (C): 36.6 05-10-2023 21:10 Heart Rate (beats/min): 69 05-10-2023 21:10 Respirations (breaths/min): 20 05-10-2023 21:10 SpO2 (%): 98 05-10-2023 21:10 BP Systolic (mm Hg): 148 05-10-2023 21:10 BP Diastolic (mm Hg): 90 05-10-2023 21:10 PAST MEDICAL HISTORY ALLERGIES/INTOLERANCES: Allergy Allergen: aspirin Type: Drug Reaction: Bleeding Allergen: sulfa drugs Type: Drug Category Reaction: Other HEALTH HISTORY: No (more content not included)... Normal [facility] TYPE + SCREENon 05-11-2023 ABO TYPE A Normal [facility] Comment on above: Performed By: #### T +S #### [facility] [address] [place] [address] RH TYPE Positive Normal [facility] Comment on above: Performed By: #### T +S #### [facility] [address] [place] [address] CBC AND DIFFERENTIALon 05-10 % AUTOMATED IMMATURE GRAN 0.2 % Normal 0.0 - 0.9 [facility] Comment on above: Result Comment: Maria R ture Granulocyte Count (IG) includes promyelocytes, myelocytes and metamyelocytes but does not include bands. Percent differential counts (%) should be interpreted in the context of the absolute cell counts (cells/L). Performed By: #### C BCDF #### [address] [address] Basophils (Bld) [#/Vol] 0.01 10*3/uL Normal 0.00 - 0.10 [facility] Comment on above: Performed By: #### C BCDF #### [address] [address] Basophils/100 WBC (Bld) 0.2 % Normal 0.0 - 2.0 [facility] Comment on above: Performed By: #### C BCDF #### [address] [address] Eosinophils (Bld) [#/Vol] 0.22 10*3/uL Normal 0.00 - 0.70 [facility] Comment on above: Performed By: #### C BCDF #### [address] [address] Eosinophils/100 WBC (Bld) 3.6 % Normal 0.0 - 6.0 [facility] Comment on above: Performed By: #### C BCDF #### [address] [address] Erythrocyte distribution width (RBC) [Ratio] 14.5 % Normal 11.5 - 14.5 [facility] Comment on above: Performed By: #### C BCDF #### [address] [address] Hematocrit (Bld) [Volume fraction] 42.8 % Normal 36.0 - 46.0 [facility] Comment on above: Performed By: #### C BCDF #### [address] [address] Hemoglobin (Bld) [Mass/Vol] 13.3 g/dL Normal 12.0 - 16.0 [facility] Comment on above: Performed By: #### C BCDF #### [address] [place] [address] Lymphocytes (Bld) [#/Vol] 1.89 10*3/uL Normal 1.20 - 4.80 [facility] Comment on above: Performed By: #### C BCDF #### [address] [address] Lymphocytes/100 WBC (Bld) 31.2 % Normal 13.0 - 44.0 [facility] Comment on above: Performed By: #### C BCDF #### [address] [address] MCHC (RBC) [Mass/Vol] 31.1 g/dL Low 32.0 - 36.0 [facility] Comment on above: Performed By: #### C BCDF #### [address] [address] MCV (RBC) [Entitic vol] 97 fL Normal 80 - 100 [facility] Comment on above: Performed By: #### C BCDF #### [address] [address] Monocytes (Bld) [#/Vol] 0.63 10*3/uL Normal 0.10 - 1.00 [facility] Comment on above: Performed By: #### C BCDF #### [address] [address] Monocytes/100 WBC (Bld) 10.4 % Normal 2.0 - 10.0 [facility] Comment on above: Performed By: #### C BCDF #### [address] [address] Neutrophils (Bld) [#/Vol] 3.29 10*3/uL Normal 1.20 - 7.70 [facility] Comment on above: Result Comment: Perc ent differential counts (%) should be interpreted in the context of the absolute cell counts (cells/L). Performed By: #### C BCDF #### [address] [address] Neutrophils/100 WBC (Bld) 54.4 % Normal 40.0 - 80.0 [facility] Comment on above: Performed By: #### C BCDF #### [address] [address] Platelets (Bld) [#/Vol] 210 10*3/uL Normal 150 - 450 [facility] Comment on above: Performed By: #### C BCDF #### [address] [address] RBC 4.43 x10E12/L Normal 4.00 - 5.20 [facility] Comment on above: Performed By: #### C BCDF #### [address] [address] WBC (Bld) [#/Vol] 6.1 10*3/uL Normal 4.4 - 11.3 [facility] Comment on above: Performed By: #### C BCDF #### [place] [id number] COMPREHENSIVE PANELon 2022 Albumin [Mass/Vol] 4.3 g/dL Normal 3.4 - 5.0 [facility] Comment on above: Performed By: #### C MP #### [address] [address] ALP [Catalytic activity/Vol] 116 U/L Normal 33 - 136 [facility] Comment on above: Performed By: #### C MP #### [address] [address] ALT [Catalytic activity/Vol] 21 U/L Normal 7 - 45 [facility] Comment on above: Result Comment: Tnaya ents treated with Sulfasalazine may generate falsely decreased results for ALT. Performed By: #### C MP #### [address] [address] Anion gap [Moles/Vol] 11 mmol/L Normal 10 - 20 [facility] Comment on above: Performed By: #### C MP #### [address] [address] AST [Catalytic activity/Vol] 22 U/L Normal 9 - 39 [facility] Comment on above: Performed By: #### C MP #### [place] [address] Bilirubin [Mass/Vol] 0.5 mg/dL Normal 0.0 - 1.2 [facility] Comment on above: Performed By: #### C MP #### [address] [address] Calcium [Mass/Vol] 9.2 mg/dL Normal 8.6 - 10.3 [facility] Comment on above: Performed By: #### C MP #### [address] [address] Chloride [Moles/Vol] 104 mmol/L Normal 98 - 107 [facility] Comment on above: Performed By: #### C MP #### [address] [address] Creatinine [Mass/Vol] 0.62 mg/dL Normal 0.50 - 1.05 [facility] Comment on above: Performed By: #### C MP #### [address] [address] eGFR FEMALE >90 Normal >90 [facility] Comment on above: Result Comment: CALC ULATIONS OF ESTIMATED GFR ARE PERFORMED USING THE 2020 CKD-EPI STUDY REFIT EQUATION WITHOUT THE RACE VARIABLE FOR THE IDMS-TRACEABLE CREATININE METHODS. https://jasn.asnjournals.org/content/early//ASN.56883 [address] Performed By: #### C MP #### [address] [address] Glucose [Mass/Vol] 82 mg/dL Normal 74 - 99 [facility] Comment on above: Performed By: #### C MP #### [address] [address] HCO3 (Bld) [Moles/Vol] 29 mmol/L Normal 21 - 32 [facility] Comment on above: Performed By: #### C MP #### [address] [address] Potassium [Moles/Vol] 3.9 mmol/L Normal 3.5 - 5.3 [facility] Comment on above: Performed By: #### C MP #### [address] [address] Protein [Mass/Vol] 7.3 g/dL Normal 6.4 - 8.2 [facility] Comment on above: Performed By: #### C MP #### [address] [address] Sodium [Moles/Vol] 140 mmol/L Normal 136 - 145 [facility] Comment on above: Performed By: #### C MP #### [address] [address] Urea nitrogen [Mass/Vol] 11 mg/dL Normal 6 - 23 [facility] Comment on above: Performed By: #### C MP #### [address] [address] Clinical Event Note-Neurosur domonique Expected Patienton 05-10-2023 Clinical Event Note-Neurosurgery Expected Patient Clinical Event: Clinical Event Note: TopicNeurosurgery Expected Patient Details New R foot droop with/ L5 nerve root compression with/ degenerative changes. No PVR done. Accepted by Dr. Jade with Neurosurgery. Electronic Signatures: Yumiko Gomes) (Signed 10-May-2023 16:23) Authored: Clinical Event Note Last Updated: 10-May-2023 16:23 by Yumiko Gomes) Normal [facility] NR MRI L-SPINE WOon 05-10-20 23 NR MRI L-SPINE WO Patient Name: CONNOR KHAN STUDY: MRI L-SPINE WO; 05/10/2023 3:03 pm INDICATION: cauda acquina syndrome w/foot drop . COMPARISON: None. ACCESSION NUMBER(S): [id number] ORDERING CLINICIAN: KATIE VALIENTE TECHNIQUE: Sagittal T1, [...] degenerative changes as above. Please correlate clinically. Electronically signed by: CAITLYN REGALADO MD [facility] Provider Note - ED v3on - Provider Note - ED v3 Provider Note: Results/Vital Signs: Pediatric Clinical Scoring (IDALIA) is no recent IDALIA charted on this account Chart Review: ED NOTES ED NOTES: 58-year-old obese female presents to the emergency department no acute distress with a chief complaint of pain in her left leg radiating down the leg with pain in the bottom of her foot. States that the symptoms began when she experienced COVID in August of this year. States that the leg pain and burning sensation has continued to be present despite recovering from COVID. Reports that the last few weeks she has noticed the pain and burning seems to be increasing in frequency and intensity with the pain getting notably worse in the bottom of her foot. Today she reports that she was trying to walk felt like she had to go to the bathroom so she stood up to walk and was not able to control her urine any longer and urinated on herself and then noticed that she was when trying to walk to the bathroom quickly was dragging her left foot. She denies recent or remote trauma denies previous back injuries that would include surgery or fracture. Reports that she did go to the chiropractor about a week ago and since that time the symptoms have progressively worsened. She denies fevers or chills nausea or vomiting diarrhea or constipation denies pain or burning with urination vaginal bleeding or discharge. She denies chest pain shortness of breath or back pain headache or any other neuro symptoms. Reports the main reason for her visit is loss of control of her urine burning pain in the left leg with decreased control ability of her left foot. HISTORY OF PRESENTING ILLNESS CONNOR is a 58 year old Female and was seen by me at 10-May-2023 13:21 for a chief complaint of lower leg pain/injury (Patient to ED with c/o left leg pain/numbness. Patient had COVID in April, developed sciatica and left foot has been numb since. However today she was incontinent of urine while standing in her kitchen and the past few days pain and weakness has developed in left leg.) . Other complaints include: Left leg numbness left foot pain decreased ability to hold urine incontinence and left foot drop. The historian is the patient. Triage Information: Most recent Vital Sign Value Date Temp (F): 96.6 05-10-2023 13:23 Temp (C): 35.8 05-10-2023 13:23 Heart Rate (beats/min): 59 05-10-2023 13:23 Respirations (breaths/min): 18 05-10-2023 13:23 SpO2 (%): 99 05-10-2023 13:23 BP Systolic (mm Hg): 153 05-10-2023 13:23 BP Diastolic (mm Hg): 81 05-10-2023 13:23 PAST MEDICAL HISTORY CURRENT OR FORMER SUBSTANCE USE: Tobacco/Nicotine Use: never smoker Alcohol Use: denies Drug Use: denies,ALLERGIES/INTOLE RANCES: Allergy Allergen: aspirin Type: Drug Reaction: Bleeding Allergen: sulfa drugs Type: Drug Category Reaction: Other HEALTH HISTORY: No documented data. OUTPATIENT MEDICATIONS: Home Medications Review Status for Reconciliation: Complete Med Status: Patient Currently Takes Medications Drug Name: methotrexate 2.5 mg oral tablet Instructions: 6 TABLETS orally once a week Drug Name: folic acid 1 mg oral tablet Instructions: orally 2 times a day Drug Name: CeleXA 20 mg oral tablet Instructions: 1 tab(s) orally once a day Drug Name: traMADol 50 mg oral tablet Instructions: orally once a day, As Needed Drug Name: Imitrex 100 mg oral tablet Instructions: 1 tab(s) orally once, As Needed Drug Name: AMITRIPTYLINE HCL 25 MG TAB Instructions: take 1 tablet by mouth at bedtime Drug Name: PREDNISONE 10 MG TABLET Instructions: 40mg-60mg daily//took 20mg this morning Drug Name: METHOCARBAMOL 750 MG TABLET Instructions: 2 tab(s) orally once a day Drug Name: PRAMIPEXOLE 0.5 MG TABLET Instructions: 1 tab(s) orally , As Needed Drug Name: gabapentin 600 mg oral tablet Instructions: 1 tab(s) orally once a day (at bedtime) Drug Name: CeleBREX 200 mg oral capsule Instructions: 1 cap(s) orally once a day, As Needed SIGNIFICANT EVENTS: Immunizations Description:Tdap Past Medical History Description:ARTHRITIS / MIGRAINES Description:Rheumatoid Arthritis Past Surgical History Description:LT THUMB/ GASTRIC BYPASS/ CHOLECYSTECTOMY/ Description:TOTAL LT KNEE/ RT ROTATOR CUFF/ BILAT BREAST MASS RESECTIONS REVIEW OF SYSTEMS CONSTITUTIONAL: Negative for: anorexia, chills, diaphoresis, fever, malaise, weakness and weight loss ENMTThroat/Neck: Negative for: dysphagia, hoarseness, throat lesions, throat pain, neck lumps, neck pain, neck stiffness and swollen glands CARDIOVASCULAR: Negative for: bradycardia, chest pain, diaphoresis, edema, irregular rhythm, orthopnea, palpitations and tachycardia RESPIRATORY: Negative for: cough, dyspnea, hemoptysis, pleuritic chest pain and wheezing GASTROINTESTINAL: Negative for: abdominal pain, constipation, diarrhea, nausea and vomiting; change (more content not included)... Normal [facility] Risk Screen - Adult Emergenc yon 05-10-2023 Risk Screen - Adult Emergency Preferred Language: Preferred Language: Preferred Language for Discussing Health Care (patient/designee)Ajit melendez Patient Preferred Pharmacy: Patient Preferred Pharmacy Statement: I have reviewed and updated the patient's preferred pharmacy selection for today's visit. Advanced Directives: Advance Directive/DNRno Advance Directive Information Givenpatient/family declined Family Violence Adult: Abuse Screen: Are you or have you been threatened or abused physically, emotionally, or sexually by anyoneno Learning Assessment (Patient): Learning Assessment (Patient): Patient is Able to be Assessed for Learningyes Factors Influencing Readiness to Learnpain Factors that Impact Ability to Learnnone Devices/Methods Used to Communicatenone Learning Preferencesindividual instruction; skill demonstration; verbal instruction Cultural Considerationsnone Developmental Considerationsnone Judaism Considerationsnone Learning Assessment (Other Learner): Learning Assessment (Other Learner): Other learner availableno Pressure Injury/TB/Substance: Pressure Injury: Pressure Injury Present on Admissionno Do you have a coughno Smoking Statusnever smoker Alcohol Usedenies Drug Usedenies Admission Risk Screen: Significant IndicatorsComplete CAGE: CAGE: Is this an injured patient at a Trauma Center ([facility]/[place]/[facility]/[place]): no Electronic Signatures: Silvia Salas (TONO) (Signed 10-May-2023 13:40) Authored: Preferred Language, Patient Preferred Pharmacy, Advanced Directives, Family Violence Adult, Learning Assessment (Patient), Learning Assessment (Other Learner), Pressure Injury/TB/Substance, Pressure Injury, CAGE Last Updated: 10-May-2023 13:40 by Silvia Salas (TONO) [facility] Triage - EDon 05-10-2023 Triage - ED Quick Triage: Have You Given In The Last 6 Weeksno The patient and/or guardian verbally acknowledges placement for services into the following (when Urgent Care Service hours are operating):emergency department Chart Review: ARRIVAL INFORMATION Mode of Arrival: transportation service CHIEF COMPLAINT CONNOR KHAN is a Female patient with a chief complaint of (Neuro consult). Other Complaints: patient had MRI was confirmed in having l5 spinal decompression pain radiates to left leg Triage Date/Time: 10-May-2023 21:10 TREVOR: 3 Pain Rating (0-10): 4 = Moderate Vital Signs: Temperature: 98.0F ( 36.6C) taken forehead Blood Pressure: 148/90 Mean: Heart Rate: 69 Respiratory Rate: 20 Pulse Oximetry: 98% on room air, no respiratory support. Height: 5 feet 5.00 inches. 165.1 CM Weight: 216.0 pounds. Calculated 98.0 kg. (stated) Calculated BMI (kg/m2): 35.952 Calculated BSA (m2) 2.12 Misa Coma Scale: Best Eye Response: (E4) spontaneous Best Motor Response: (M6) obeys commands Cough lasting greater than 3 weeks: no Allergies: yes Mask applied: no Patient has homicidal thoughts: no Risk Screens Suicide Risk Screen In the Past Month: Have you wished you were or wished you could go to sleep and not wake up no In the Past Month: Have you had any actual thoughts of killing yourself no In Your Lifetime: Have you ever done anything, started to do anything, or prepared to do anything to end your life no Velazquez Fall Scale Screening Has the patient fallen before (or is the patient in the ED as a result of a fall) has not had a fall Does the patient have an impaired gait does not have impaired gait Is the patient cognitively impaired not cognitively impaired Interventions: Velazquez Fall Interventions: LOW INTERVENTIONS: *patient oriented to surroundings and call system, * patient/family falls education completed and documented, *patients fall status communicated during bedside handoff, *whiteboard updated, *mode of toileting discussed with patient, *bed in low position with brakes locked, *call light in reach, * non-skid footwear TRAVEL HISTORY Travel History Coronavirus Screening: no exposure or symptoms and COVID positive 14 or more days ago Coronavirus Screening Details: Apr 2023(1) Travel Exposure History: NO travel to International locations in the past 30 days PAIN Pain Scale Used: LEIA Pain Rating (0-10): 4 = Moderate Past Medical History: Past Medical History Reviewedyes TOTAL LT KNEE/ RT ROTATOR CUFF/ BILAT BREAST MASS RESECTIONS: Past Surgical History, Active LT THUMB/ GASTRIC BYPASS/ CHOLECYSTECTOMY/: Past Surgical History, Active Rheumatoid Arthritis: Past Medical History, Active ARTHRITIS / MIGRAINES: Past Medical History, Active Tdap: Immunizations, Active, 04-Apr-2022 Electronic Signatures: Sherif Mejía (TONO) (Signed 10-May-2023 21:14) Authored: Quick Triage, Risk Screens, Pain, Travel History, Chart Review, Past Medical History Last Updated: 10-May-2023 21:14 by Sherif Mejía (TONO) References: 1. Data Referenced From Triage - ED 26-Sep-2023 13:23 Normal [facility] Triage - ED Chart Review: ARRIVAL INFORMATION Mode of Arrival: private vehicle CHIEF COMPLAINT CONNOR KHAN is a Female patient with a chief complaint of lower leg pain/injury (Patient to ED with c/o left leg pain/numbness. Patient had COVID in April, developed sciatica and left foot has been numb since. However today she was incontinent of urine while standing in her kitchen and the past few days pain and weakness has developed in left leg.). Triage Date/Time: 10-May-2023 13:23 TREVOR: 3 Pain Rating (0-10): 2 = Mild Pain location: left leg Vital Signs: Temperature: 96.6F ( 35.8C) taken temporal Blood Pressure: 153/81 Mean: Heart Rate: 59 Respiratory Rate: 18 Pulse Oximetry: 99% on room air, no respiratory support. Height: 5 feet 5.00 inches. 165.1 CM Weight: 216.0 pounds. Calculated 98.0 kg. (stated) Calculated BMI (kg/m2): 35.952 Calculated BSA (m2) 2.12 [place] Coma Scale: Best Eye Response: (E4) spontaneous Best Motor Response: (M6) obeys commands Best Verbal Response: (V5) oriented Misa Score: 15 Patient has homicidal thoughts: no Symptom Notes: . Symptoms Are POSITIVE For: difficulty walking, numbness, pain (describe) and decreased ROM. Symptoms Are Negative For: abrasion, bleeding, bruising, deformity, difficulty bending and tingling. Risk Screens Suicide Risk Screen In the Past Month: Have you wished you were or wished you could go to sleep and not wake up no In the Past Month: Have you had any actual thoughts of killing yourself no In Your Lifetime: Have you ever done anything, started to do anything, or prepared to do anything to end your life no Velazquez Fall Scale Screening Has the patient fallen before (or is the patient in the ED as a result of a fall) has not had a fall Does the patient have an impaired gait has impaired gait Is the patient cognitively impaired not cognitively impaired Velazquez Fall Scale History of falling (immediate or previous) no (0) Secondary Diagnosis yes (15) Intravenous Therapy/ Heparin/Saline Lock no (0) Gait/Transferring weak (10) Ambulatory Aids crutches/walker/cane (15) Mental Status oriented to own ability (0) Velazquez Fall Risk Score: 40 Interventions: Velazquez Fall Interventions: LOW INTERVENTIONS: *patient oriented to surroundings and call system, * patient/family falls education completed and documented, *patients fall status communicated during bedside handoff, *whiteboard updated, *mode of toileting discussed with patient, *bed in low position with brakes locked, *call light in reach, * non-skid footwear and MODERATE INTERVENTIONS: *Low Interventions Plus: * falls risk band/sticker applied to patient, *yellow non-skid footwear, *instruct to call for assistance before getting out of bed, *bed/chair/bedside commode/toilet alarms, *sensory devices/ambulatory aides available and in reach, *medications reviewed for potential side effects and care planning. TRAVEL HISTORY Travel History Coronavirus Screening: COVID positive 14 or more days ago Coronavirus Screening Details: Apr 2023 Travel Exposure History: NO travel to International locations in the past 30 days PAIN Pain Scale Used: LEIA Pain Rating (0-10): 2 = Mild Past Medical History: Past Medical History Reviewedyes Rheumatoid Arthritis: Past Medical History, Active Electronic Signatures: Silvia Salas (TONO) (Signed 10-May-2023 13:39) Entered: Risk Screens, Pain, Travel History, Chart Review, Scores, Past Medical History Authored: Quick Triage, Risk Screens, Pain, Travel History, Chart Review, Scores, Past Medical History Last Updated: 10-May-2023 13:39 by Silvia Salas (TONO) Normal [facility] URINALYSISon 05-10-2023 Appearance (U) CLEAR Normal CLEAR [facility] Comment on above: Performed By: #### U A #### [address] [address] Bilirubin Ql (U) Negative Normal NEGATIVE [facility] Comment on above: Performed By: #### U A #### [address] [address] Color (U) Straw Normal STRAW,YELLOW [facility] Comment on above: Performed By: #### U A #### [address] [address] [address] Glucose Ql (U) Negative Normal NEGATIVE [facility] Comment on above: Performed By: #### U A #### [address] [address] Hemoglobin Ql (U) Negative Normal NEGATIVE [facility] Comment on above: Performed By: #### U A #### [address] [address] Ketones Ql (U) Negative Normal NEGATIVE [facility] Comment on above: Performed By: #### U A #### [place] [id number] Leukocyte esterase Test strip Ql (U) Negative Normal NEGATIVE [facility] Comment on above: Performed By: #### U A #### [place] [address] Nitrite Ql (U) Negative Normal NEGATIVE [facility] Comment on above: Performed By: #### U A #### [place] [address] pH (U) 7.0 [pH] Normal 5.0 - 8.0 [facility] Comment on above: Performed By: #### U A #### [place] [address] Protein Ql (U) Negative Normal NEGATIVE [facility] Comment on above: Performed By: #### U A #### [place] [address] Specific gravity (U) [Rel density] 1.010 Normal 1.005 - 1.035 [facility] Comment on above: Performed By: #### U A #### [place] [address] Urobilinogen (U) [Mass/Vol] mg/dL Normal 0.0 - 1.9 [facility] Comment on above: Performed By: #### U A #### [place] [address] Absolute lymphocyte countOrd ered By: Nadya Portillo on 02-21-2023 Lymphocytes Auto (Unsp spec) [#/Vol] 1.37 10*3/uL 0.83-4.51 [facility] Basophil percentageOrdered B y: Nadya Portillo on 02-21-2023 Basophils/100 WBC (Bld) 0.9 % 0-1 [facility] Bilirubin [Mass/Vol] 0.30 mg/dL 0.20-1.00 [facility] Comment on above: Slight Lipemia, Resu lt may be falsely increased. For patients on eltrombopag therapy, use of Dimension Baring TBIL is not recommended. Chloride [Moles/Vol] 110 mmol/L 98-107 [facility] Eosinophils/100 WBC (Bld) 7.7 % 0-5 [facility] Glucose [Mass/Vol] 84 mg/dL 74-106 [facility] Comment on above: Slight Lipemia, Resu lt may be falsely increased. Neutrophils (Bld) [#/Vol] 2.0 10*3/uL 2.0-7.7 [facility] Neutrophils/100 WBC (Bld) 46.7 % 47-70 [facility] Potassium [Moles/Vol] 4.0 mmol/L 3.5-5.1 [facility] Comment on above: Slight Lipemia, Resu lt may be falsely increased. Protein [Mass/Vol] 6.6 g/dL 6.4-8.2 [facility] Comment on above: Slight Lipemia, Resu lt may be falsely increased. Sodium [Moles/Vol] 140 mmol/L 136-145 [facility] WBC (Bld) [#/Vol] 4.3 10*3/uL 4.4-11.0 [facility] Blood erythrocytes count (nu mber/volume)Ordered By: Nadya Portillo on 02-21-2023 RBC (Bld) [#/Vol] 3.97 10*6/uL 4.2-5.4 [facility] Blood hemoglobin measurement (mass/volume)Ordered By: Nadya Portillo on 02-21-2023 Hemoglobin (Bld) [Mass/Vol] 12.1 g/dL 12.0-15.0 [facility] Blood lymphocytes/100 leukoc ytesOrdered By: Nadya Portillo on 02-21-2023 Lymphocytes/100 WBC (Bld) 31.9 % 19-41 [facility] Blood monocytes/100 leukocyt esOrdered By: Nadya Portillo on 02-21-2023 Monocytes/100 WBC (Bld) 12.6 % 0-10 [facility] Blood platelet mean volumeOr dered By: Nadya Portillo on 02-21-2023 Platelet mean volume (Bld) [Entitic vol] 10.5 fL 6.2-12.0 [facility] Determination of erythrocyte mean corpuscular volume (MCV)Ordered By: Nadya Portillo on 02-21-2023 MCV (RBC) [Entitic vol] 94.7 fL 81-99 [facility] Hematocrit Auto (Bld) [Volum e fraction]Ordered By: Nadyateagan Portillo on 02-21-2023 Hematocrit (Bld) [Volume fraction] 37.6 % 37-47 [facility] Laboratory - Chemistry and C hemistry - challengeOrdered By: Nadyateagan Portillo on 02-21-2023 ALP [Catalytic activity/Vol] 127 U/L 45-117 [facility] ALT [Catalytic activity/Vol] 28 U/L 13-56 [facility] Comment on above: Slight Lipemia, Resu lt may be falsely increased. CO2 [Moles/Vol] 27.0 mmol/L 21.0-32.0 [facility] Comment on above: Slight Lipemia, Resu lt may be falsely increased. Globulin (S) [Mass/Vol] 3.3 g/dL 2.2-4.2 [facility] Urea nitrogen/Creatinine [Mass ratio] 16.5 mg/mg 10-20 [facility] Laboratory - Hematology and Cell countsOrdered By: Nadya Portillo on 02-21-2023 Erythrocyte distribution width (RBC) [Entitic vol] 47.8 fL 35.1-43.9 [facility] Erythrocyte distribution width (RBC) [Ratio] 13.8 % 11.6-14.6 [facility] Immature granulocytes/100 WBC (Bld) 0.200 % 0.0-0.9 [facility] Comment on above: IG% - Immature Granu locytes (promyelocytes, myelocytes and metamyelocytes) > 1% indicates that a LEFT SHIFT is Present. MCH (RBC) [Entitic mass] 30.5 pg 27.0-32.0 [facility] Nucleated RBC/100 WBC (Bld) [Ratio] 0 % 0-5 [facility] MCHC Auto (RBC) [Mass/Vol]Or dered By: Nadya Portillo on 02-21-2023 MCHC (RBC) [Mass/Vol] 32.2 g/dL 32-36 [facility] No Panel InformationOrdered By: Nadya Portillo on 02-21-2023 Estimated GFR (MDRD) Amer 105 mL/min >60 [facility] Comment on above: GFR Calc Estimated GFR (MDRD) Non-Af Amer 87 mL/min >60 [facility] Comment on above: Non- GFR Calc Platelets bldOrdered By: Melchor Portillo on 02-21-2023 Platelets (Bld) [#/Vol] 247 10*3/uL 150-450 [facility] Serum or plasma albumin myriam urement (mass/volume)Ordered By: Nadya Portillo on 02-21-2023 Albumin [Mass/Vol] 3.3 g/dL 3.2-5.0 [facility] Serum or plasma albumin/glob ulin mass ratioOrdered By: Nadya Portillo on 02-21-2023 Albumin/Globulin [Mass ratio] 1.0 {ratio} 0.9-2.4 [facility] Serum or plasma calcium myriam urement (mass/volume)Ordered By: Nadya Portillo on 02-21-2023 Calcium [Mass/Vol] 8.5 mg/dL 8.5-10.1 [facility] Comment on above: Slight Lipemia, Resu lt may be falsely increased. Serum or plasma creatinine m easurement (mass/volume)Ordered By: Nadya Portillo on 02-21-2023 Creatinine [Mass/Vol] 0.73 mg/dL 0.55-1.02 [facility] Comment on above: Slight Lipemia, Resu lt may be falsely increased.The validity of the calculated GFR & GFRAA in patients over 70 years has not been determined. Clinical correlation is essential. Serum or plasma urea nitroge n measurement (mass/volume)Ordered By: Nadya Portillo on 02-21-2023 Urea nitrogen [Mass/Vol] 12 mg/dL 7-18 [facility] Comment on above: Slight Lipemia, Resu lt may be falsely increased. Thin prep Papanicolaou smear with manual screeningOrdered By: Nadya Portillo on 02-21-2023 Thin prep Papanicolaou smear with manual screening 28 U/L 15-37 [facility] Comment on above: Slight Lipemia, Resu lt may be falsely increased. Thin prep Papanicolaou smear with manual screening 3 5-15 [facility] Absolute lymphocyte countOrd ered By: Dr. Portillo on 11-17-2022 Lymphocytes Auto (Unsp spec) [#/Vol] 1.89 10*3/uL 0.83-4.51 [facility] Basophil percentageOrdered B y: Dr. Portillo on 11-17-2022 Basophils/100 WBC (Bld) 0.4 % 0-1 [facility] Bilirubin [Mass/Vol] 0.30 mg/dL 0.20-1.00 [facility] Comment on above: Slight Lipemia, Resu lt may be falsely increased. For patients on eltrombopag therapy, use of Dimension [place] TBIL is not recommended. Chloride [Moles/Vol] 109 mmol/L 98-107 [facility] Eosinophils/100 WBC (Bld) 9.8 % 0-5 [facility] Glucose [Mass/Vol] 84 mg/dL 74-106 [facility] Comment on above: Slight Lipemia, Resu lt may be falsely increased. Neutrophils (Bld) [#/Vol] 1.8 10*3/uL 2.0-7.7 [facility] Neutrophils/100 WBC (Bld) 38.2 % 47-70 [facility] Potassium [Moles/Vol] 3.8 mmol/L 3.5-5.1 [facility] Comment on above: Slight Lipemia, Resu lt may be falsely increased. Protein [Mass/Vol] 7.2 g/dL 6.4-8.2 [facility] Comment on above: Slight Lipemia, Resu lt may be falsely increased. Sodium [Moles/Vol] 140 mmol/L 136-145 [facility] WBC (Bld) [#/Vol] 4.7 10*3/uL 4.4-11.0 [facility] Blood erythrocytes count (nu mber/volume)Ordered By: Dr. Portillo on 11-17-2022 RBC (Bld) [#/Vol] 4.27 10*6/uL 4.2-5.4 [facility] Blood hemoglobin measurement (mass/volume)Ordered By: Dr. Portillo on 11-17-2022 Hemoglobin (Bld) [Mass/Vol] 12.3 g/dL 12.0-15.0 [facility] Blood lymphocytes/100 leukoc ytesOrdered By: Dr. Portillo on 11-17-2022 Lymphocytes/100 WBC (Bld) 40.3 % 19-41 [facility] Blood monocytes/100 leukocyt esOrdered By: Dr. Portillo on 11-17-2022 Monocytes/100 WBC (Bld) 11.1 % 0-10 [facility] Blood platelet mean volumeOr dered By: Dr. Portillo on 11-17-2022 Platelet mean volume (Bld) [Entitic vol] 9.8 fL 6.2-12.0 [facility] Determination of erythrocyte mean corpuscular volume (MCV)Ordered By: Dr. Portillo on 11-17-2022 MCV (RBC) [Entitic vol] 91.6 fL 81-99 [facility] Hematocrit Auto (Bld) [Volum e fraction]Ordered By: Dr. Portillo on 11-17-2022 Hematocrit (Bld) [Volume fraction] 39.1 % 37-47 [facility] Laboratory - Chemistry and C hemistry - challengeOrdered By: Dr. Portillo on 11-17-2022 ALP [Catalytic activity/Vol] 139 U/L 45-117 [facility] ALT [Catalytic activity/Vol] 27 U/L 13-56 [facility] Comment on above: Slight Lipemia, Resu lt may be falsely increased. CO2 [Moles/Vol] 26.0 mmol/L 21.0-32.0 [facility] Comment on above: Slight Lipemia, Resu lt may be falsely increased. Globulin (S) [Mass/Vol] 3.5 g/dL 2.2-4.2 [facility] Urea nitrogen/Creatinine [Mass ratio] 20.6 mg/mg 10-20 [facility] Laboratory - Hematology and Cell countsOrdered By: Dr. Portillo on 11-17-2022 Erythrocyte distribution width (RBC) [Entitic vol] 54.4 fL 35.1-43.9 [facility] Erythrocyte distribution width (RBC) [Ratio] 16.2 % 11.6-14.6 [facility] Immature granulocytes/100 WBC (Bld) 0.200 % 0.0-0.9 [facility] Comment on above: IG% - Immature Granu locytes (promyelocytes, myelocytes and metamyelocytes) > 1% indicates that a LEFT SHIFT is Present. MCH (RBC) [Entitic mass] 28.8 pg 27.0-32.0 [facility] Nucleated RBC/100 WBC (Bld) [Ratio] 0 % 0-5 [facility] MCHC Auto (RBC) [Mass/Vol]Or dered By: Dr. Portillo on 11-17-2022 MCHC (RBC) [Mass/Vol] 31.5 g/dL 32-36 [facility] No Panel InformationOrdered By: Dr. Portillo on 11-17-2022 Estimated GFR (MDRD) Amer 114 mL/min >60 [facility] Comment on above: GFR Calc Estimated GFR (MDRD) Non-Af Amer 94 mL/min >60 [facility] Comment on above: Non- GFR Calc Platelets bldOrdered By: Dr. Portillo on 11-17-2022 Platelets (Bld) [#/Vol] 267 10*3/uL 150-450 [facility] Serum or plasma albumin myriam urement (mass/volume)Ordered By: Dr. Portillo on 11-17-2022 Albumin [Mass/Vol] 3.7 g/dL 3.2-5.0 [facility] Serum or plasma albumin/glob ulin mass ratioOrdered By: Dr. Portillo on 11-17-2022 Albumin/Globulin [Mass ratio] 1.1 {ratio} 0.9-2.4 [facility] Serum or plasma calcium myriam urement (mass/volume)Ordered By: Dr. Portillo on 11-17-2022 Calcium [Mass/Vol] 8.7 mg/dL 8.5-10.1 [facility] Comment on above: Slight Lipemia, Resu lt may be falsely increased. Serum or plasma creatinine m easurement (mass/volume)Ordered By: Dr. Portillo on 11-17-2022 Creatinine [Mass/Vol] 0.68 mg/dL 0.55-1.02 [facility] Comment on above: Slight Lipemia, Resu lt may be falsely increased.The validity of the calculated GFR & GFRAA in patients over 70 years has not been determined. Clinical correlation is essential. Serum or plasma urea nitroge n measurement (mass/volume)Ordered By: Dr. Portillo on 11-17-2022 Urea nitrogen [Mass/Vol] 14 mg/dL 7-18 [facility] Comment on above: Slight Lipemia, Resu lt may be falsely increased. Thin prep Papanicolaou smear with manual screeningOrdered By: Dr. Portillo on 11-17-2022 Thin prep Papanicolaou smear with manual screening 34 U/L 15-37 [facility] Comment on above: Slight Lipemia, Resu lt may be falsely increased. Thin prep Papanicolaou smear with manual screening 5 5-15 [facility] Iron measurement (mass/mass) Ordered By: Dr. Quintero on 10-27-2022 Iron (Unsp spec) [Mass/Mass] 170 ug/dL 50-170 [facility] Comment on above: Slight Lipemia, Resu lt may be falsely increased. No Panel InformationOrdered By: Dr. Quintero on 10-27-2022 Total Iron Binding Capacity 438 ug/dL 250-450 [facility] Comment on above: Slight Lipemia, Resu lt may be falsely increased. Serum or plasma ferritin jose surement (mass/volume)Ordered By: Dr. Quintero on 10-27-2022 Ferritin [Mass/Vol] 29 ng/mL 8-252 [facility] Comment on above: Slight Lipemia, Resu lt may be falsely increased. Serum or plasma iron saturat ion measurement (mass fraction)Ordered By: Dr. Quintero on 10-27-2022 Iron saturation [Mass fraction] 38.8 % 15.0-55.0 [facility] Absolute lymphocyte countOrd ered By: Dr. Portillo on 08-18-2022 Lymphocytes Auto (Unsp spec) [#/Vol] 1.89 10*3/uL 0.83-4.51 [facility] Basophil percentageOrdered B y: Dr. Portillo on 08-18-2022 Basophils/100 WBC (Bld) 0.3 % 0-1 [facility] Bilirubin [Mass/Vol] 0.20 mg/dL 0.20-1.00 [facility] Comment on above: Slight Lipemia, Resu lt may be falsely increased. For patients on eltrombopag therapy, use of Dimension [place] TBIL is not recommended. Chloride [Moles/Vol] 104 mmol/L 98-107 [facility] Eosinophils/100 WBC (Bld) 4.2 % 0-5 [facility] Glucose [Mass/Vol] 87 mg/dL 74-106 [facility] Comment on above: Slight Lipemia, Resu lt may be falsely increased. Neutrophils (Bld) [#/Vol] 3.4 10*3/uL 2.0-7.7 [facility] Neutrophils/100 WBC (Bld) 54.8 % 47-70 [facility] Potassium [Moles/Vol] 4.4 mmol/L 3.5-5.1 [facility] Comment on above: Slight Lipemia, Resu lt may be falsely increased. Protein [Mass/Vol] 7.6 g/dL 6.4-8.2 [facility] Comment on above: Slight Lipemia, Resu lt may be falsely increased. Sodium [Moles/Vol] 137 mmol/L 136-145 [facility] WBC (Bld) [#/Vol] 6.2 10*3/uL 4.4-11.0 [facility] Blood erythrocytes count (nu mber/volume)Ordered By: Dr. Portillo on 08-18-2022 RBC (Bld) [#/Vol] 4.22 10*6/uL 4.2-5.4 [facility] Blood hemoglobin measurement (mass/volume)Ordered By: Dr. Portillo on 08-18-2022 Hemoglobin (Bld) [Mass/Vol] 11.5 g/dL 12.0-15.0 [facility] Blood lymphocytes/100 leukoc ytesOrdered By: Dr. Portillo on 08-18-2022 Lymphocytes/100 WBC (Bld) 30.6 % 19-41 [facility] Blood monocytes/100 leukocyt esOrdered By: Dr. Portillo on 08-18-2022 Monocytes/100 WBC (Bld) 9.9 % 0-10 [facility] Blood platelet mean volumeOr dered By: Dr. Portillo on 08-18-2022 Platelet mean volume (Bld) [Entitic vol] 9.7 fL 6.2-12.0 [facility] Determination of erythrocyte mean corpuscular volume (MCV)Ordered By: Dr. Portillo on 08-18-2022 MCV (RBC) [Entitic vol] 90.0 fL 81-99 [facility] Hematocrit Auto (Bld) [Volum e fraction]Ordered By: Dr. Portillo on 08-18-2022 Hematocrit (Bld) [Volume fraction] 38.0 % 37-47 [facility] Iron measurement (mass/mass) Ordered By: Dr. Portillo on 08-18-2022 Iron (Unsp spec) [Mass/Mass] 109 ug/dL 50-170 [facility] Comment on above: Slight Lipemia, Resu lt may be falsely increased. Laboratory - Chemistry and C hemistry - challengeOrdered By: Dr. Portillo on 08-18-2022 ALP [Catalytic activity/Vol] 150 U/L 45-117 [facility] ALT [Catalytic activity/Vol] 25 U/L 13-56 [facility] Comment on above: Slight Lipemia, Resu lt may be falsely increased. CO2 [Moles/Vol] 27.0 mmol/L 21.0-32.0 [facility] Comment on above: Slight Lipemia, Resu lt may be falsely increased. Globulin (S) [Mass/Vol] 4.1 g/dL 2.2-4.2 [facility] Urea nitrogen/Creatinine [Mass ratio] 17.1 mg/mg 10-20 [facility] Laboratory - Hematology and Cell countsOrdered By: Dr. Portillo on 08-18-2022 Erythrocyte distribution width (RBC) [Entitic vol] 46.9 fL 35.1-43.9 [facility] Erythrocyte distribution width (RBC) [Ratio] 14.3 % 11.6-14.6 [facility] Immature granulocytes/100 WBC (Bld) 0.200 % 0.0-0.9 [facility] Comment on above: IG% - Immature Granu locytes (promyelocytes, myelocytes and metamyelocytes) > 1% indicates that a LEFT SHIFT is Present. MCH (RBC) [Entitic mass] 27.3 pg 27.0-32.0 [facility] Nucleated RBC/100 WBC (Bld) [Ratio] 0 % 0-5 [facility] MCHC Auto (RBC) [Mass/Vol]Or dered By: Dr. Portillo on 08-18-2022 MCHC (RBC) [Mass/Vol] 30.3 g/dL 32-36 [facility] No Panel InformationOrdered By: Dr. Portillo on 08-18-2022 Estimated GFR (MDRD) Amer 121 mL/min >60 [facility] Comment on above: GFR Calc Estimated GFR (MDRD) Non-Af Amer 100 mL/min >60 [facility] Comment on above: Non- GFR Calc Total Iron Binding Capacity 552 ug/dL 250-450 [facility] Comment on above: Slight Lipemia, Resu lt may be falsely increased. Platelets bldOrdered By: Dr. Portillo on 08-18-2022 Platelets (Bld) [#/Vol] 434 10*3/uL 150-450 [facility] Serum or plasma albumin myriam urement (mass/volume)Ordered By: Dr. Portillo on 08-18-2022 Albumin [Mass/Vol] 3.5 g/dL 3.2-5.0 [facility] Serum or plasma albumin/glob ulin mass ratioOrdered By: Dr. Portillo on 08-18-2022 Albumin/Globulin [Mass ratio] 0.9 {ratio} 0.9-2.4 [facility] Serum or plasma calcium myriam urement (mass/volume)Ordered By: Dr. Portillo on 08-18-2022 Calcium [Mass/Vol] 8.9 mg/dL 8.5-10.1 [facility] Comment on above: Slight Lipemia, Resu lt may be falsely increased. Serum or plasma creatinine m easurement (mass/volume)Ordered By: Dr. Portillo on 08-18-2022 Creatinine [Mass/Vol] 0.64 mg/dL 0.55-1.02 [facility] Comment on above: Slight Lipemia, Resu lt may be falsely increased.The validity of the calculated GFR & GFRAA in patients over 70 years has not been determined. Clinical correlation is essential. Serum or plasma ferritin jose surement (mass/volume)Ordered By: Dr. Portillo on 08-18-2022 Ferritin [Mass/Vol] 17 ng/mL 8-252 [facility] Comment on above: Slight Lipemia, Resu lt may be falsely increased. Serum or plasma iron saturat ion measurement (mass fraction)Ordered By: Dr. Portillo on 08-18-2022 Iron saturation [Mass fraction] 19.7 % 15.0-55.0 [facility] Serum or plasma urea nitroge n measurement (mass/volume)Ordered By: Dr. Portillo on 08-18-2022 Urea nitrogen [Mass/Vol] 11 mg/dL 7-18 [facility] Comment on above: Slight Lipemia, Resu lt may be falsely increased. Thin prep Papanicolaou smear with manual screeningOrdered By: Dr. Portillo on 08-18-2022 Thin prep Papanicolaou smear with manual screening 18 U/L 15-37 [facility] Comment on above: Slight Lipemia, Resu lt may be falsely increased. Thin prep Papanicolaou smear with manual screening 6 5-15 [facility] .Auto Diffon 06-09-2022 Basophil, Absolute 0.0 10 3/mcL Normal 0.0-0.2 [facility] ([place]) Comment on above: Performed By: #### G HAYES MACE #### [address] [address] Basophils/100 WBC (Bld) 0.3 % Normal 0.0-2.5 [facility] ([place]) Comment on above: Performed By: #### G FR BMP #### [id number] [place], [place] [address] Eosinophil, Absolute 0.0 10 3/mcL Normal 0.0-0.4 [facility] ([place]) Comment on above: Performed By: #### Gracy MACE BMP #### [address] [address] Eosinophils/100 WBC (Bld) 0.2 % Normal 0.0-7.0 [facility] ([place]) Comment on above: Performed By: #### G FR, BMP #### [address] [address] Lymphocyte, Absolute 1.4 10 3/mcL Normal 0.8-3.9 [facility] ([place]) Comment on above: Performed By: #### G FR, BMP #### [address] [address] Lymphocytes/100 WBC (Bld) 16.1 % Normal 10.0-50.0 [facility] ([place] Comment on above: Performed By: #### G FR, BMP #### [address] [address] Monocyte, Absolute 0.9 10 3/mcL Normal 0.2-1.0 [facility] ([place]) Comment on above: Performed By: #### G FR, BMP #### [address] [address] Monocytes/100 WBC (Bld) 9.9 % Normal 1.7-13.0 [facility] ([place]) Comment on above: Performed By: #### G FR, BMP #### [address] [address] Neutrophils/100 WBC (Bld) 73.5 % Normal 37.0-80.0 [facility] ([place]) Comment on above: Performed By: #### G FR, BMP #### [address] [address] .GFRon 06-09-2022 GFR Non- 97 ml/min/1.73sqm Normal [facility] ([place]) Comment on above: Result Comment: GFR Population mean for , Non- Americans Ages 20-29 = 116 mL/min/1.73 sq.m. Ages 30-39 = 107 mL/min/1.73 sq.m. Ages 40-49 = 99 mL/min/1.73 sq.m. Ages 50-59 = 93 mL/min/1.73 sq.m. Ages 60-69 = 85 mL/min/1.73 sq.m. Ages 70+ = 75 mL/min/1.73 sq.m. Chronic Kidney Disease: Less than 60 mL/min/1.73 square meters End Stage Renal Disease: Less than 15 mL/min/1.73 square meters Performed By: #### Gracy MACE, HAYES #### [address] [address] GFR 117 ml/min/1.73sqm Normal [facility] ([place]) Comment on above: Result Comment: GFR Population mean for , Non- Americans Ages 20-29 = 116 mL/min/1.73 sq.m. Ages 30-39 = 107 mL/min/1.73 sq.m. Ages 40-49 = 99 mL/min/1.73 sq.m. Ages 50-59 = 93 mL/min/1.73 sq.m. Ages 60-69 = 85 mL/min/1.73 sq.m. Ages 70+ = 75 mL/min/1.73 sq.m. Chronic Kidney Disease: Less than 60 mL/min/1.73 square meters End Stage Renal Disease: Less than 15 mL/min/1.73 square meters Performed By: #### Gracy MACE, BMP #### [address] [address] .NEUABSon 06-09-2022 Neutrophil, Absolute 6.4 10 3/mcL High 2.9-6.2 [facility] ([place]) Comment on above: Performed By: ###Cortez MACE, BMP #### [address] [address] BMPon 06-09-2022 BUN/Creatinine Ratio 29 ratio High 7-27 [facility] ([place]) Comment on above: Performed By: ###Cortez MACE, BMP #### [place] [address] [address] Calcium [Mass/Vol] 8.6 mg/dL Normal 8.4-10.2 [facility] [facility] ([place] Comment on above: Performed By: #### Gracy MACE, BMP #### [address] [address] Chloride [Moles/Vol] 104 mmol/L Normal 98-107 [facility] ([place]) Comment on above: Performed By: #### Gracy MACE, BMP #### [address] [address] CO2 [Moles/Vol] 30 mmol/L High 22-29 [facility] ([place]) Comment on above: Performed By: #### Gracy MACE, BMP #### [address] [address] Creatinine [Mass/Vol] 0.63 mg/dL Normal 0.55-1.02 Counts include 234 beds at the [facility] ([place]) Comment on above: Performed By: #### Gracy MACE, BMP #### [address] [address] Electrolyte Balance 6.0 mEq/L Normal 4.0-15.0 [facility] ([place]) Comment on above: Performed By: #### Gracy MACE, BMP #### [address] [address] Glucose [Mass/Vol] 107 mg/dL High 70-105 [facility] ([place]) Comment on above: Performed By: #### Gracy MACE, BMP #### [address] [address] Potassium [Moles/Vol] 4.0 mmol/L Normal 3.5-5.1 Counts include 234 beds at the [facility] ([place]) Comment on above: Performed By: #### Gracy MACE, BMP #### [address] [address] Sodium [Moles/Vol] 140 mmol/L Normal 136-145 [facility] ([place]) Comment on above: Performed By: #### Gracy MACE, BMP #### [address] [address] Urea nitrogen [Mass/Vol] 18 mg/dL Normal 7-18 [facility] ([place]) Comment on above: Performed By: #### Gracy MACE, BMP #### [address] [place] [address] CBCon 06-09-2022 Erythrocyte distribution width (RBC) [Ratio] 15.6 % High 11.5-14.5 [facility] ([place]) Comment on above: Performed By: #### Gracy MACE, BMP #### [address] [address] Hematocrit (Bld) [Volume fraction] 28.8 % Low 37.0-47.0 [facility] ([place]) Comment on above: Performed By: #### Gracy MACE, BMP #### [address] [address] Hgb 9.6 G/dL Low 12.0-16.0 [facility] ([place]) Comment on above: Performed By: #### Gracy MACE, BMP #### [address] [address] MCH (RBC) [Entitic mass] 29.2 pg Normal 27.0-31.2 [facility] ([place]) Comment on above: Performed By: #### Gracy MACE, BMP #### [address] [address] MCHC 33.4 G/dL Normal 33.0-37.0 [facility] ([place]) Comment on above: Performed By: #### Gracy MACE, BMP #### [address] [address] MCV (RBC) [Entitic vol] 87.5 fL Normal 80.0-94.0 [facility] ([place]) Comment on above: Performed By: #### Gracy MACE, BMP #### [address] [address] Platelet 224 10 3/mcL Normal 130-400 [facility] ([place]) Comment on above: Performed By: #### Gracy MACE, BMP #### Alfred [address] [address] Platelet mean volume (Bld) [Entitic vol] 8.2 fL Normal 7.4-10.4 [facility] ([place]) Comment on above: Performed By: #### Gracy MACE, BMP #### [facility] [address] [place], [place] [address] RBC 3.29 10 6/mcL Low 4.20-5.40 [facility] ([place]) Comment on above: Performed By: #### G , BMP #### Alfred [address] [place], [place] [address] WBC 8.6 10 3/mcL Normal 4.6-10.8 [facility] ([place]) Comment on above: Performed By: #### G , BMP #### Alfred [address] [place], [place] [address] LABORATORYOrdered By: Kayy Denton on 06-09-2022 Calcium [Mass/Vol] 8.6 mg/dL Invalid Interpretation Code 8.4 - 10.2 mg/dL AO ADM SS Chloride [Moles/Vol] 104 mmol/L Invalid Interpretation Code 98 - 107 mmol/L AO ADM SS CO2 [Moles/Vol] 30 mmol/L Invalid Interpretation Code 22 - 29 mmol/L AO ADM SS Creatinine [Mass/Vol] 0.63 mg/dL Invalid Interpretation Code 0.55 - 1.02 mg/dL AO ADM SS Electrolyte Balance 6.0 mEq/L Invalid Interpretation Code 4.0 - 15.0 mEq/L AO ADM SS Glucose [Mass/Vol] 107 mg/dL Invalid Interpretation Code 70 - 105 mg/dL AO ADM SS Potassium [Moles/Vol] 4.0 mmol/L Invalid Interpretation Code 3.5 - 5.1 mmol/L AO ADM SS Sodium [Moles/Vol] 140 mmol/L Invalid Interpretation Code 136 - 145 mmol/L AO ADM SS Urea nitrogen [Mass/Vol] 18 mg/dL Invalid Interpretation Code 7 - 18 mg/dL AO ADM SS Urea nitrogen/Creatinine [Mass ratio] 29 ratio Invalid Interpretation Code 7 - 27 ratio AO ADM SS Basophil, Absolute 0.0 103/mcL Invalid Interpretation Code 0.0 - 0.2 10^3/mcL AO Workflow SS Basophils/100 WBC (Bld) 0.3 % Invalid Interpretation Code 0.0 - 2.5 % AO Workflow SS Eosinophil, Absolute 0.0 103/mcL Invalid Interpretation Code 0.0 - 0.4 10^3/mcL AO Workflow SS Eosinophils/100 WBC (Bld) 0.2 % Invalid Interpretation Code 0.0 - 7.0 % AO Workflow SS Erythrocyte distribution width (RBC) [Ratio] 15.6 % Invalid Interpretation Code 11.5 - 14.5 % AO Workflow SS Hematocrit (Bld) [Volume fraction] 28.8 % Invalid Interpretation Code 37.0 - 47.0 % AO Workflow SS Hemoglobin (Bld) [Mass/Vol] 9.6 G/dL Invalid Interpretation Code 12.0 - 16.0 G/dL AO Workflow SS Lymphocyte, Absolute 1.4 103/mcL Invalid Interpretation Code 0.8 - 3.9 10^3/mcL AO Workflow SS Lymphocytes/100 WBC (Bld) 16.1 % Invalid Interpretation Code 10.0 - 50.0 % AO Workflow SS MCH (RBC) [Entitic mass] 29.2 pg Invalid Interpretation Code 27.0 - 31.2 pg AO Workflow SS MCHC 33.4 G/dL Invalid Interpretation Code 33.0 - 37.0 G/dL AO Workflow SS MCV (RBC) [Entitic vol] 87.5 fL Invalid Interpretation Code 80.0 - 94.0 fL AO Workflow SS Monocyte, Absolute 0.9 103/mcL Invalid Interpretation Code 0.2 - 1.0 10^3/mcL AO Workflow SS Monocytes/100 WBC (Bld) 9.9 % Invalid Interpretation Code 1.7 - 13.0 % AO Workflow SS Neutrophil, Absolute 6.4 103/mcL Invalid Interpretation Code 2.9 - 6.2 10^3/mcL AO Workflow SS Neutrophils/100 WBC (Bld) 73.5 % Invalid Interpretation Code 37.0 - 80.0 % AO Workflow SS Platelet mean volume (Bld) [Entitic vol] 8.2 fL Invalid Interpretation Code 7.4 - 10.4 fL AO Workflow SS Platelets (Bld) [#/Vol] 224 103/mcL Invalid Interpretation Code 130 - 400 10^3/mcL AO Workflow SS RBC (Bld) [#/Vol] 3.29 106/mcL Invalid Interpretation Code 4.20 - 5.40 10^6/mcL AO Workflow SS WBC (Bld) [#/Vol] 8.6 103/mcL Invalid Interpretation Code 4.6 - 10.8 10^3/mcL AO Workflow SS LABORATORYOrdered By: SYSTEM SYSTEM on 06-09-2022 GFR 117 ml/min/1.73sqm Invalid Interpretation Code AO Chemistry S GFR Non- 97 ml/min/1.73sqm Invalid Interpretation Code AO Chemistry S Gel ABOon 06-08-2022 ABO/Rh Interp Positive Invalid Interpretation Code [facility] ([place]) Comment on above: Performed By: #### A CHELITAG, ANTONIAG #### [facility] [address] [place], [place] [address] Gel ABSon 06-08-2022 Antibody Screen Gel Negative Normal [facility] ([place]) Comment on above: Performed By: #### A CHELITAG, ANTONIAG #### Alfred [address] [address] LABORATORYOrdered By: Melissa Pyle on 06-08-2022 ABO/Rh Interp Positive Invalid Interpretation Code AO BB SS Antibody Screen Gel Negative ABSC (06/08/22 6:05 AM) Invalid Interpretation Code AO BB SS XR KNEE 1 OR 2 VIEWS RIGHTon 06-08-2022 XR KNEE 1 OR 2 VIEWS RIGHT ORIGINAL EXAMINATION: TWO XRAY VIEWS OF THE [...] fracture, dislocation, or hardware failure. Interpreted by: Jony Khan MD Preliminary Report By: Jony Khan MD Electronically signed By Jony Khan MD Dictated Date: 06/08/2022 9:29:20 AM Prelim Date: 06/08/2022 9:30:28 AM Sign Date: 06/08/2022 9:30:28 AM Ordering Provider: ALYSSIA Zeng [facility] ([place]) CT KNEE W/O CONTRAST RIGHTon 05-28-2022 CT KNEE W/O CONTRAST RIGHT ORIGINAL EXAMINATION: CT OF THE RIGHT KNEE WITHOUT RKMYVDYU25/14/2022 12:[address] of the right knee [...] 05/28/2022 3:02:33 PM Ordering Provider: ALYSSIA MARAVILLA Normal [facility]) Gel ABOon 05-28-2022 ABO/Rh Interp Positive Invalid Interpretation Code [facility]) Comment on above: Performed By: #### A MAGGI SHERIDAN #### [address] [address] Gel ABSon 05-28-2022 Antibody Screen Gel Negative Normal [facility] ([place]) Comment on above: Performed By: #### A MAGGI SHERIDAN #### [address] [address] LABORATORYOrdered By: Tessa Choe on 05-28-2022 ABO/Rh Interp Positive Invalid Interpretation Code AO BB SS Antibody Screen Gel Negative ABSC (05/28/22 12:07 PM) Invalid Interpretation Code AO BB SS Absolute lymphocyte countOrd ered By: Dr. Portillo on 05-26-2022 Lymphocytes Auto (Unsp spec) [#/Vol] 1.30 10*3/uL 0.83-4.51 [facility] Basophil percentageOrdered B y: Dr. Portillo on 05-26-2022 Basophils/100 WBC (Bld) 0.4 % 0-1 [facility] Bilirubin [Mass/Vol] 0.30 mg/dL 0.20-1.00 [facility] Comment on above: Slight Lipemia, Resu lt may be falsely increased. For patients on eltrombopag therapy, use of Dimension Baring TBIL is not recommended. Chloride [Moles/Vol] 106 mmol/L 98-107 [facility] Eosinophils/100 WBC (Bld) 7.1 % 0-5 [facility] Glucose [Mass/Vol] 97 mg/dL 74-106 [facility] Comment on above: Slight Lipemia, Resu lt may be falsely increased. Neutrophils (Bld) [#/Vol] 2.4 10*3/uL 2.0-7.7 [facility] Neutrophils/100 WBC (Bld) 53.5 % 47-70 [facility] Potassium [Moles/Vol] 4.0 mmol/L 3.5-5.1 [facility] Comment on above: Slight Lipemia, Resu lt may be falsely increased. Protein [Mass/Vol] 8.1 g/dL 6.4-8.2 [facility] Comment on above: Slight Lipemia, Resu lt may be falsely increased. Sodium [Moles/Vol] 139 mmol/L 136-145 [facility] WBC (Bld) [#/Vol] 4.5 10*3/uL 4.4-11.0 [facility] Blood erythrocytes count (nu mber/volume)Ordered By: Dr. Portillo on 05-26-2022 RBC (Bld) [#/Vol] 4.42 10*6/uL 4.2-5.4 [facility] Blood hemoglobin measurement (mass/volume)Ordered By: Dr. Portillo on 05-26-2022 Hemoglobin (Bld) [Mass/Vol] 12.8 g/dL 12.0-15.0 [facility] Blood lymphocytes/100 leukoc ytesOrdered By: Dr. Portillo on 05-26-2022 Lymphocytes/100 WBC (Bld) 29.0 % 19-41 [facility] Blood monocytes/100 leukocyt esOrdered By: Dr. Portillo on 05-26-2022 Monocytes/100 WBC (Bld) 9.8 % 0-10 [facility] Blood platelet mean volumeOr dered By: Dr. Portillo on 05-26-2022 Platelet mean volume (Bld) [Entitic vol] 10.8 fL 6.2-12.0 [facility] Determination of erythrocyte mean corpuscular volume (MCV)Ordered By: Dr. Portillo on 05-26-2022 MCV (RBC) [Entitic vol] 87.1 fL 81-99 [facility] Hematocrit Auto (Bld) [Volum e fraction]Ordered By: Dr. Portillo on 05-26-2022 Hematocrit (Bld) [Volume fraction] 38.5 % 37-47 [facility] Laboratory - Chemistry and C hemistry - challengeOrdered By: Dr. Portillo on 05-26-2022 ALP [Catalytic activity/Vol] 153 U/L 45-117 [facility] ALT [Catalytic activity/Vol] 39 U/L 13-56 [facility] Comment on above: Slight Lipemia, Resu lt may be falsely increased. CO2 [Moles/Vol] 26.0 mmol/L 21.0-32.0 [facility] Comment on above: Slight Lipemia, Resu lt may be falsely increased. Globulin (S) [Mass/Vol] 4.2 g/dL 2.2-4.2 [facility] Urea nitrogen/Creatinine [Mass ratio] 20.1 mg/mg 10-20 [facility] Laboratory - Hematology and Cell countsOrdered By: Dr. Portillo on 05-26-2022 Erythrocyte distribution width (RBC) [Entitic vol] 48.0 fL 35.1-43.9 [facility] Erythrocyte distribution width (RBC) [Ratio] 14.8 % 11.6-14.6 [facility] Immature granulocytes/100 WBC (Bld) 0.200 % 0.0-0.9 [facility] Comment on above: IG% - Immature Granu locytes (promyelocytes, myelocytes and metamyelocytes) > 1% indicates that a LEFT SHIFT is Present. MCH (RBC) [Entitic mass] 29.0 pg 27.0-32.0 [facility] Nucleated RBC/100 WBC (Bld) [Ratio] 0 % 0-5 [facility] MCHC Auto (RBC) [Mass/Vol]Or dered By: Dr. Portillo on 05-26-2022 MCHC (RBC) [Mass/Vol] 33.2 g/dL 32-36 [facility] No Panel InformationOrdered By: Dr. Portillo on 05-26-2022 Estimated GFR (MDRD) Amer 95 mL/min >60 [facility] Comment on above: GFR Calc Estimated GFR (MDRD) Non-Af Amer 78 mL/min >60 [facility] Comment on above: Non- GFR Calc Platelets bldOrdered By: Dr. Portillo on 05-26-2022 Platelets (Bld) [#/Vol] 286 10*3/uL 150-450 [facility] Serum or plasma albumin myriam urement (mass/volume)Ordered By: Dr. Portillo on 05-26-2022 Albumin [Mass/Vol] 3.9 g/dL 3.2-5.0 [facility] Serum or plasma albumin/glob ulin mass ratioOrdered By: Dr. Portillo on 05-26-2022 Albumin/Globulin [Mass ratio] 0.9 {ratio} 0.9-2.4 [facility] Serum or plasma calcium myriam urement (mass/volume)Ordered By: Dr. Portillo on 05-26-2022 Calcium [Mass/Vol] 9.1 mg/dL 8.5-10.1 [facility] Comment on above: Slight Lipemia, Resu lt may be falsely increased. Serum or plasma creatinine m easurement (mass/volume)Ordered By: Dr. Portillo on 05-26-2022 Creatinine [Mass/Vol] 0.80 mg/dL 0.55-1.02 [facility] Comment on above: Slight Lipemia, Resu lt may be falsely increased.The validity of the calculated GFR & GFRAA in patients over 70 years has not been determined. Clinical correlation is essential. Serum or plasma urea nitroge n measurement (mass/volume)Ordered By: Dr. Portillo on 05-26-2022 Urea nitrogen [Mass/Vol] 16 mg/dL 7-18 [facility] Comment on above: Slight Lipemia, Resu lt may be falsely increased. Thin prep Papanicolaou smear with manual screeningOrdered By: Dr. Portillo on 05-26-2022 Thin prep Papanicolaou smear with manual screening 42 U/L 15-37 [facility] Comment on above: Slight Lipemia, Resu lt may be falsely increased. Thin prep Papanicolaou smear with manual screening 7 5-15 [facility] Absolute lymphocyte counton 03-09-2022 Lymphocytes Auto (Unsp spec) [#/Vol] 1.20 10*3/uL 0.83-4.51 [facility] Work Phone: Basophil percentageon 2021 Basophils/100 WBC (Bld) 1.1 % 0-1 [facility] Work Phone: Bilirubin [Mass/Vol] 0.30 mg/dL 0.20-1.00 [facility] Work Phone: Comment on above: Slight Lipemia, Resu lt may be falsely increased. For patients on eltrombopag therapy, use of Dimension [place] TBIL is not recommended. Chloride [Moles/Vol] 107 mmol/L 98-107 [facility] Work Phone: Eosinophils/100 WBC (Bld) 10.5 % 0-5 [facility] Work Phone: Glucose [Mass/Vol] 90 mg/dL 74-106 [facility] Work Phone: Comment on above: Slight Lipemia, Resu lt may be falsely increased. Neutrophils (Bld) [#/Vol] 1.6 10*3/uL 2.0-7.7 [facility] Work Phone: Neutrophils/100 WBC (Bld) 43.0 % 47-70 [facility] Work Phone: Potassium [Moles/Vol] 3.9 mmol/L 3.5-5.1 [facility] Work Phone: Comment on above: Slight Lipemia, Resu lt may be falsely increased. Protein [Mass/Vol] 7.0 g/dL 6.4-8.2 [facility] Work Phone: Comment on above: Slight Lipemia, Resu lt may be falsely increased. Sodium [Moles/Vol] 139 mmol/L 136-145 [facility] Work Phone: WBC (Bld) [#/Vol] 3.7 10*3/uL 4.4-11.0 [facility] Work Phone: [phone] Blood erythrocytes count (nu mber/volume)on 03-09-2022 RBC (Bld) [#/Vol] 4.18 10*6/uL 4.2-5.4 [facility] Work Phone: Blood hemoglobin measurement (mass/volume)on 03-09-2022 Hemoglobin (Bld) [Mass/Vol] 12.1 g/dL 12.0-15.0 [facility] Work Phone: [phone] Blood lymphocytes/100 leukoc yteson 03-09-2022 Lymphocytes/100 WBC (Bld) 32.2 % 19-41 [facility] Work Phone: [phone] Blood monocytes/100 leukocyt eson 03-09-2022 Monocytes/100 WBC (Bld) 12.9 % 0-10 [facility] Work Phone: [phone] Blood platelet mean volumeon 03-09-2022 Platelet mean volume (Bld) [Entitic vol] 9.9 fL 6.2-12.0 [facility] Work Phone: Determination of erythrocyte mean corpuscular volume (MCV)on 03-09-2022 MCV (RBC) [Entitic vol] 91.4 fL 81-99 [facility] Work Phone: Hematocrit Auto (Bld) [Volum e fraction]on 03-09-2022 Hematocrit (Bld) [Volume fraction] 38.2 % 37-47 [facility] Work Phone: [phone] Laboratory - Chemistry and C hemistry - challengeon 03-09-2022 ALP [Catalytic activity/Vol] 128 U/L 45-117 [facility] Work Phone: [phone] ALT [Catalytic activity/Vol] 24 U/L 13-56 [facility] Work Phone: [phone] Comment on above: Slight Lipemia, Resu lt may be falsely increased. CO2 [Moles/Vol] 26.0 mmol/L 21.0-32.0 [facility] Work Phone: [phone] Comment on above: Slight Lipemia, Resu lt may be falsely increased. Globulin (S) [Mass/Vol] 3.6 g/dL 2.2-4.2 [facility] Work Phone: [phone] Urea nitrogen/Creatinine [Mass ratio] 24.6 mg/mg 10-20 [facility] Work Phone: [phone] Laboratory - Hematology and Cell countson 03-09-2022 Erythrocyte distribution width (RBC) [Entitic vol] 49.7 fL 35.1-43.9 [facility] Work Phone: [phone] Erythrocyte distribution width (RBC) [Ratio] 14.9 % 11.6-14.6 [facility] Work Phone: [phone] Immature granulocytes/100 WBC (Bld) 0.300 % 0.0-0.9 [facility] Work Phone: [phone] Comment on above: IG% - Immature Granu locytes (promyelocytes, myelocytes and metamyelocytes) > 1% indicates that a LEFT SHIFT is Present. MCH (RBC) [Entitic mass] 28.9 pg 27.0-32.0 [facility] Work Phone: [phone] Nucleated RBC/100 WBC (Bld) [Ratio] 0 % 0-5 [facility] Work Phone: [phone] MCHC Auto (RBC) [Mass/Vol]on 03-09-2022 MCHC (RBC) [Mass/Vol] 31.7 g/dL 32-36 [facility] Work [facility]: [phone] Panel Informationon 03-09 Estimated GFR (MDRD) Amer 112 mL/min >60 [facility] Work Phone: Comment on above: GFR Calc Estimated GFR (MDRD) Non-Af Amer 92 mL/min >60 [facility] Work Phone: Comment on above: Non- GFR Calc Platelets bldon 03-09-2022 Platelets (Bld) [#/Vol] 242 10*3/uL 150-450 [facility] Work Phone: Serum or plasma albumin myriam urement (mass/volume)on 03-09-2022 Albumin [Mass/Vol] 3.4 g/dL 3.2-5.0 [facility] Work Phone: Serum or plasma albumin/glob ulin mass ratioon 03-09-2022 Albumin/Globulin [Mass ratio] 0.9 {ratio} 0.9-2.4 [facility] Work Phone: Serum or plasma calcium myriam urement (mass/volume)on 03-09-2022 Calcium [Mass/Vol] 8.7 mg/dL 8.5-10.1 [facility] Work Phone: Comment on above: Slight Lipemia, Resu lt may be falsely increased. Serum or plasma creatinine m easurement (mass/volume)on 03-09-2022 Creatinine [Mass/Vol] 0.69 mg/dL 0.55-1.02 [facility] Work Phone: Comment on above: Slight Lipemia, Resu lt may be falsely increased.The validity of the calculated GFR & GFRAA in patients over 70 years has not been determined. Clinical correlation is essential. Serum or plasma urea nitroge n measurement (mass/volume)on 03-09-2022 Urea nitrogen [Mass/Vol] 17 mg/dL 7-18 [facility] Work Phone: Comment on above: Slight Lipemia, Resu lt may be falsely increased. Thin prep Papanicolaou smear with manual screeningon 03-09-2022 Thin prep Papanicolaou smear with manual screening 29 U/L 15-37 [facility] Work Phone: Comment on above: Slight Lipemia, Resu lt may be falsely increased. Thin prep Papanicolaou smear with manual screening 6 5-15 [facility] Work Phone: Absolute lymphocyte counton 11-25-2021 Lymphocytes Auto (Unsp spec) [#/Vol] 1.39 10*3/uL 0.83-4.51 [facility] Work Phone: Basophil percentageon 2021 Basophils/100 WBC (Bld) 0.6 % 0-1 [facility] Work Phone: Bilirubin [Mass/Vol] 0.30 mg/dL 0.20-1.00 [facility] Work Phone: Comment on above: Slight Lipemia, Resu lt may be falsely increased. For patients on eltrombopag therapy, use of Dimension Baring TBIL is not recommended. Chloride [Moles/Vol] 108 mmol/L 98-107 [facility] Work Phone: Eosinophils/100 WBC (Bld) 9.9 % 0-5 [facility] Work Phone: Glucose [Mass/Vol] 92 mg/dL 74-106 [facility] Work Phone: Comment on above: Slight Lipemia, Resu lt may be falsely increased. Neutrophils (Bld) [#/Vol] 2.7 10*3/uL 2.0-7.7 [facility] Work Phone: Neutrophils/100 WBC (Bld) 53.4 % 47-70 [facility] Work Phone: Potassium [Moles/Vol] 4.1 mmol/L 3.5-5.1 [facility] Work Phone: Comment on above: Slight Lipemia, Resu lt may be falsely increased. Protein [Mass/Vol] 7.0 g/dL 6.4-8.2 [facility] Work Phone: Comment on above: Slight Lipemia, Resu lt may be falsely increased. Sodium [Moles/Vol] 139 mmol/L 136-145 [facility] Work Phone: [phone] WBC (Bld) [#/Vol] 5.1 10*3/uL 4.4-11.0 [facility] Work Phone: [phone] Blood erythrocytes count (nu mber/volume)on 11-25-2021 RBC (Bld) [#/Vol] 4.21 10*6/uL 4.2-5.4 [facility] Work Phone: [phone] Blood hemoglobin measurement (mass/volume)on 11-25-2021 Hemoglobin (Bld) [Mass/Vol] 12.2 g/dL 12.0-15.0 [facility] Work Phone: [phone] Blood lymphocytes/100 leukoc yteson 11-25-2021 Lymphocytes/100 WBC (Bld) 27.1 % 19-41 [facility] Work Phone: [phone] Blood monocytes/100 leukocyt eson 11-25-2021 Monocytes/100 WBC (Bld) 8.8 % 0-10 [facility] Work Phone: [phone] Blood platelet mean volumeon 11-25-2021 Platelet mean volume (Bld) [Entitic vol] 10.1 fL 6.2-12.0 [facility] Work Phone: [phone] Determination of erythrocyte mean corpuscular volume (MCV)on 11-25-2021 MCV (RBC) [Entitic vol] 91.0 fL 81-99 [facility] Work Phone: [phone] Hematocrit Auto (Bld) [Volum e fraction]on 11-25-2021 Hematocrit (Bld) [Volume fraction] 38.3 % 37-47 [facility] Work Phone: [phone] Laboratory - Chemistry and C hemistry - challengeon 11-25-2021 ALP [Catalytic activity/Vol] 135 U/L 45-117 [facility] Work Phone: [phone] ALT [Catalytic activity/Vol] 34 U/L 13-56 [facility] Work Phone: [phone] Comment on above: Slight Lipemia, Resu lt may be falsely increased. CO2 [Moles/Vol] 27.0 mmol/L 21.0-32.0 [facility] Work Phone: [phone] Comment on above: Slight Lipemia, Resu lt may be falsely increased. Globulin (S) [Mass/Vol] 3.4 g/dL 2.2-4.2 [facility] Work Phone: [phone] Urea nitrogen/Creatinine [Mass ratio] 21.6 mg/mg 10-20 [facility] Work Phone: [phone] Laboratory - Hematology and Cell countson 11-25-2021 Erythrocyte distribution width (RBC) [Entitic vol] 47.2 fL 35.1-43.9 [facility] Work Phone: [phone] Erythrocyte distribution width (RBC) [Ratio] 14.0 % 11.6-14.6 [facility] Work Phone: [phone] Immature granulocytes/100 WBC (Bld) 0.200 % 0.0-0.9 [facility] Work Phone: [phone] Comment on above: IG% - Immature Granu locytes (promyelocytes, myelocytes and metamyelocytes) > 1% indicates that a LEFT SHIFT is Present. MCH (RBC) [Entitic mass] 29.0 pg 27.0-32.0 [facility] Work Phone: [phone] Nucleated RBC/100 WBC (Bld) [Ratio] 0 % 0-5 [facility] Work Phone: [phone] MCHC Auto (RBC) [Mass/Vol]on 11-25-2021 MCHC (RBC) [Mass/Vol] 31.9 g/dL 32-36 [facility] Work Phone: [phone] No Panel Informationon 11-25 Estimated GFR (MDRD) Amer 121 mL/min >60 [facility] Work Phone: [phone] Comment on above: GFR Calc Estimated GFR (MDRD) Non-Af Amer 100 mL/min >60 [facility] Work Phone: [phone] Comment on above: Non- GFR Calc Platelets bldon 11-25-2021 Platelets (Bld) [#/Vol] 280 10*3/uL 150-450 [facility] Work Phone: Serum or plasma albumin myriam urement (mass/volume)on 11-25-2021 Albumin [Mass/Vol] 3.6 g/dL 3.2-5.0 [facility] Work Phone: Serum or plasma albumin/glob ulin mass ratioon 11-25-2021 Albumin/Globulin [Mass ratio] 1.1 {ratio} 0.9-2.4 [facility] Work Phone: Serum or plasma calcium myriam urement (mass/volume)on 11-25-2021 Calcium [Mass/Vol] 8.3 mg/dL 8.5-10.1 [facility] Work Phone: Comment on above: Slight Lipemia, Resu lt may be falsely increased. Serum or plasma creatinine m easurement (mass/volume)on 11-25-2021 Creatinine [Mass/Vol] 0.65 mg/dL 0.55-1.02 [facility] Work Phone: Comment on above: Slight Lipemia, Resu lt may be falsely increased.The validity of the calculated GFR & GFRAA in patients over 70 years has not been determined. Clinical correlation is essential. Serum or plasma urea nitroge n measurement (mass/volume)on 11-25-2021 Urea nitrogen [Mass/Vol] 14 mg/dL 7-18 [facility] Work Phone: Comment on above: Slight Lipemia, Resu lt may be falsely increased. Thin prep Papanicolaou smear with manual screeningon 11-25-2021 Thin prep Papanicolaou smear with manual screening 37 U/L 15-37 [facility] Work Phone: Comment on above: Slight Lipemia, Resu lt may be falsely increased. Thin prep Papanicolaou smear with manual screening 4 5-15 [facility] Work Phone: CT Head or Brain w/o Contras ton 05-06-2019 CT Head or Brain w/o Contrast Exam Date/Time: 05/06/2019 12:55 EDT Reason for Exam: Injury Report STUDY: CT Head or Brain w/o Contrast; 05/06/2019 12:55 pm INDICATION: Injury. COMPARISON: MRI of the brain dated 09/18/2013 ACCESSION NUMBER(S): [id number] ORDERING CLINICIAN: Ludwig Gallardo TECHNIQUE: Noncontrast axial CT scan of head was performed. Angled reformats in brain and bone windows were generated. The images were reviewed in bone, brain, blood and soft tissue windows. Sagittal and coronal reconstructions were acquired FINDINGS: BRAIN PARENCHYMA: Bruner-white matter interface well maintained. No masses are seen. No mass effect. HEMORRHAGE: None. VENTRICLES and EXTRA-AXIAL SPACES: Normal size. INTRACRANIAL VESSELS: No atherosclerotic calcification. EXTRACRANIAL SOFT TISSUES: Within normal limits. PARANASAL SINUSES/MASTOIDS: Within normal limits. CALVARIUM: No destructive lesion or fracture. IMPRESSION: No acute intracranial abnormality. Exam Date/Time: 05/06/2019 12:55 EDT Report No evidence of displaced skull fracture. FINAL REPORT Dictated: 05/06/2019 1:11 pm Maryana Higgins MD Signed (Electronic Signature): 05/06/2019 1:11 pm Signed by: Maryana Higgins MD Technologist: [facility] CT Spine Cervical w/o Contra ab 05-06-2019 CT Spine Cervical w/o Contrast Exam Date/Time: 05/06/2019 12:55 EDT Reason for Exam: Trauma Report STUDY: CT Spine Cervical w/o Contrast; 05/06/2019 12:55 pm INDICATION: Trauma. COMPARISON: None. ACCESSION NUMBER(S): [id number] ORDERING CLINICIAN: Ludwig Gallardo TECHNIQUE: Axial CT images of the cervical spine are obtained. Axial, coronal and sagittal reconstructions are provided for review. FINDINGS: Fractures: There is no evidence for an acute fracture of the cervical spine. Vertebral Alignment: Reversal normal cervical lordosis is seen. Craniocervical Junction: The odontoid process and craniocervical junction are intact. Vertebrae/Disc Spaces: The cervical vertebral body heights are intact. Mild endplate sclerosis and small spur formation is seen throughout the cervical spine. Uncovertebral joint hypertrophy is seen. Narrowing of C5-6 disc space is noted. Prevertebral/Paraspinal Soft Tissues: The prevertebral and paraspinal soft tissues are unremarkable. IMPRESSION: No evidence for an acute fracture or subluxation of the cervical spine. Reversal normal cervical lordosis. Exam Date/Time: 05/06/2019 12:55 EDT Report Degenerative changes. FINAL REPORT Dictated: 05/06/2019 1:13 pm Maryana Higgins MD Signed (Electronic Signature): 05/06/2019 1:13 pm Signed by: Maryana Higgins MD Technologist: MM Normal [facility] Vital Signs Date Time Vital Sign Value Performing Clinician Facility 03-27-2025 13:04-0400 Body height 162.6 cm Silvia HERNANDEZ Work Phone: [facility] 03-27-2025 13:04-0400 Body mass index (BMI) [Ratio] 37.18 kg/m2 Silvia Nava APRN-BLENDING COORDINATOR Work Phone: [facility] 03-27-2025 13:04-0400 Body weight 98.25 kg Silvia Nava APRN-BLENDING COORDINATOR Work Phone: [facility] 03-27-2025 13:04-0400 Diastolic blood pressure 82 mm[Hg] Silvia Nava APRN-BLENDING COORDINATOR Work Phone: [facility] 03-27-2025 13:04-0400 Heart rate 74 /min Silvia Nava APRN-BLENDING COORDINATOR Work Phone: [facility] 03-27-2025 13:04-0400 Systolic blood pressure 117 mm[Hg] Silvia Nava APRN-BLENDING COORDINATOR Work Phone: [facility] 11-28-2024 10:24-0400 Diastolic blood pressure 93 mm[Hg] [address] 11-28-2024 10:24-0400 Systolic blood pressure 136 mm[Hg] [address] 11-28-2024 10:02-0400 Heart rate 68 /min [address] 11-28-2024 10:02-0400 SaO2% (BldA) [Mass fraction] 97 % [address] 11-21-2024 13:45-0400 Body height 162.6 cm Silvia Nava 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 Work Phone: [facility] 11-21-2024 13:45-0400 Body mass index (BMI) [Ratio] 35.46 kg/m2 Silvia Nava 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 Work Phone: [facility] 11-21-2024 13:45-0400 Body weight 93.71 kg Silvia Nava 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 Work Phone: [phone] [place] [address] 11-21-2024 13:45-0400 Diastolic blood pressure 83 mm[Hg] Silvia Nava 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 Work Phone: [phone] [place] [address] 11-21-2024 13:45-0400 Heart rate 79 /min Silvia Nava 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 Work Phone: [phone] [place] [address] 11-21-2024 13:45-0400 Systolic blood pressure 123 mm[Hg] Silvia Nava 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 Work Phone: [phone] [place] [address] 11-14-2024 08:39-0400 Body height 162.6 cm [facility] 11-14-2024 08:39-0400 Body mass index (BMI) [Ratio] 34.88 kg/m2 [facility] 11-14-2024 08:39-0400 Body weight 92.17 kg [facility] 10-31-2024 08:26-0400 Body height 162.6 cm Silvia Nava 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 Work Phone: [phone] [place] [address] 10-31-2024 08:26-0400 Body mass index (BMI) [Ratio] 34.88 kg/m2 Silvia Nava 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 Work Phone: [phone] [place] [address] 10-31-2024 08:26-0400 Body weight 92.17 kg Silvia Nava 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 Work Phone: [phone] [place] [address] 03-19-2025 08:26-0400 Diastolic blood pressure 72 mm[Hg] Silvia Nava 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 Work Phone: [facility] 10-31-2024 08:26-0400 Heart rate 80 /min Silvia Nava 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 Work Phone: [facility] 10-31-2024 08:26-0400 Systolic blood pressure 110 mm[Hg] Silvia Nava 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 Work Phone: [facility] 04-11-2024 10:54-0400 Body height 162.6 cm Inderjit Ez PA-C Work Phone: [facility] 04-11-2024 10:54-0400 Body mass index (BMI) [Ratio] 30.21 kg/m2 Inderjit Bath PA-C Work Phone: [facility] 04-11-2024 10:54-0400 Body weight 79.83 kg Inderjit Ez PA-C Work Phone: [facility] 04-11-2024 10:54-0400 Diastolic blood pressure 78 mm[Hg] Inderjit Bath PA-C Work Phone: [facility] 04-11-2024 10:54-0400 Heart rate 71 /min Inderjit Ez PA-C Work Phone: [facility] 04-11-2024 10:54-0400 Systolic blood pressure 122 mm[Hg] Inderjit Ez PA-C Work Phone: [facility] 03-03-2024 09:05-0400 Body height 162.6 cm Smiley Ramirezta 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 Work Phone: [facility] 03-03-2024 09:05-0400 Body mass index (BMI) [Ratio] 30.38 kg/m2 Smiley Kaleb 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 Work Phone: [facility] 03-03-2024 09:05-0400 Body temperature 96.91 [degF] Smiley Kaleb 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 Work Phone: [facility] 03-03-2024 09:05-0400 Body weight 80.29 kg 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 Work Phone: [facility] 03-03-2024 09:05-0400 Diastolic blood pressure 86 mm[Hg] Smiley Ramirezta 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 Work Phone: [facility] 03-03-2024 09:05-0400 Heart rate 62 /min Smiley Ramirezta 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 Work Phone: [facility] 03-03-2024 09:05-0400 Respiratory rate 14 /min 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 Work Phone: [facility] 03-03-2024 09:05-0400 SaO2% (BldA) [Mass fraction] 99 % 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 Work Phone: [facility] 03-03-2024 09:05-0400 Systolic blood pressure 129 mm[Hg] Smiley Ramirezta 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 Work Phone: [facility] 12-08-2023 13:01-0400 Body height 160 cm Jaylin Oquendo MD Work Phone: [facility] 12-08-2023 13:01-0400 Body mass index (BMI) [Ratio] 36.49 kg/m2 Jaylin Oquendo MD Work Phone: [facility] 12-08-2023 13:01-0400 Body temperature 97.3 [degF] Jaylin Oquendo MD Work Phone: [facility] 12-08-2023 13:01-0400 Body weight 93.44 kg Jaylin Oquendo MD Work Phone: [facility] 12-08-2023 13:01-0400 Diastolic blood pressure 76 mm[Hg] Jaylin Oquendo MD Work Phone: [facility] 12-08-2023 13:01-0400 Heart rate 77 /min Jaylin Oquendo MD Work Phone: [facility] 12-08-2023 13:01-0400 Respiratory rate 16 /min Jaylin Oquendo MD Work Phone: [facility] 12-08-2023 13:01-0400 SaO2% (BldA) [Mass fraction] 96 % Jaylin Oquendo MD Work Phone: [facility] Comment on above: room air 12-08-2023 13:01-0400 Systolic blood pressure 131 mm[Hg] Jaylin Oquendo MD Work Phone: [facility] 11-08-2023 10:43-0400 Body height 160 cm Benigno Linn MD Work Phone: [facility] 11-08-2023 10:43-0400 Body mass index (BMI) [Ratio] 38.32 kg/m2 Benigno Linn MD Work Phone: [facility] 11-08-2023 10:43-0400 Body temperature 97.2 [degF] Benigno Linn MD Work Phone: [facility] 11-08-2023 10:43-0400 Body weight 98.11 kg Benigno Linn MD Work Phone: [facility] 11-08-2023 10:43-0400 Diastolic blood pressure 61 mm[Hg] Benigno Linn MD Work Phone: [facility] 11-08-2023 10:43-0400 Heart rate 75 /min Benigno Linn MD Work Phone: [facility] 11-08-2023 10:43-0400 Respiratory rate 16 /min Benigno Linn MD Work Phone: [facility] 11-08-2023 10:43-0400 SaO2% (BldA) [Mass fraction] 98 % Benigno Linn MD Work Phone: [facility] Comment on above: room air 11-08-2023 10:43-0400 Systolic blood pressure 136 mm[Hg] Benigno Linn MD Work Phone: [facility] 10-24-2023 10:00-0400 Body temperature 97.9 [degF] Regino Hadley MD Work Phone: [facility] 10-24-2023 10:00-0400 Diastolic blood pressure 71 mm[Hg] Regino Hadley MD Work Phone: [facility] 10-24-2023 10:00-0400 Heart rate 72 /min Regino Hadley MD Work Phone: [facility] 10-24-2023 10:00-0400 Respiratory rate 16 /min Regino Hadley MD Work Phone: [facility] 10-24-2023 10:00-0400 SaO2% (BldA) [Mass fraction] 97 % Regino Hadley MD Work Phone: [facility] 10-24-2023 10:00-0400 Systolic blood pressure 121 mm[Hg] Regino Hadley MD Work Phone: [facility] 10-21-2023 04:00-0500 Body height 167.6 cm Regino Hadley MD Work Phone: [facility] 10-21-2023 04:00-0500 Body mass index (BMI) [Ratio] 36.61 kg/m2 Regino Hadley MD Work Phone: [facility] 10-21-2023 04:00-0500 Body weight 102.83 kg Regino Hadley MD Work Phone: [facility] 10-20-2023 21:55-0500 Diastolic blood pressure 78 mm[Hg] Quentin Go DO Work Phone: [facility] 10-20-2023 21:55-0500 Heart rate 63 /min Quentin Go DO Work Phone: [facility] 10-20-2023 21:55-0500 Respiratory rate 20 /min Quentin Go DO Work Phone: [facility] 10-20-2023 21:55-0500 Systolic blood pressure 140 mm[Hg] Quentin Go DO Work Phone: [facility] 10-20-2023 21:43-0500 SaO2% (BldA) [Mass fraction] 94 % Quentin Go DO Work Phone: [facility] 10-20-2023 16:25-0500 Body height 167.6 cm Quentin Go DO Work Phone: [facility] 10-20-2023 16:25-0500 Body mass index (BMI) [Ratio] 35.51 kg/m2 Quentin Go DO Work Phone: [facility] 10-20-2023 16:25-0500 Body temperature 97.11 [degF] Quentin Go DO Work Phone: [facility] 10-20-2023 16:25-0500 Body weight 99.79 kg Quentin Go DO Work Phone: [facility] 09-30-2023 10:51-0500 Body height 167.6 cm Silvia Nava 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 Work Phone: [facility] 09-30-2023 10:51-0500 Body mass index (BMI) [Ratio] 37.45 kg/m2 Silvia Nava APRN-BLENDING COORDINATOR Work Phone: [facility] 09-30-2023 10:51-0500 Body weight 105.23 kg Silvia Nava APRN-BLENDING COORDINATOR Work Phone: [facility] 09-30-2023 10:51-0500 Diastolic blood pressure 83 mm[Hg] Silvia Nava 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 Work Phone: [facility] 09-30-2023 10:51-0500 Heart rate 62 /min Silvia Nava 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 Work Phone: [facility] 09-30-2023 10:51-0500 SaO2% (BldA) [Mass fraction] 98 % Silvia Nava 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 Work Phone: [phone] [place] [address] 09-30-2023 10:51-0500 Systolic blood pressure 126 mm[Hg] Silvia Nava 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 Work Phone: 7(604)[phone] [place] [address] 09-14-2023 10:57-0500 Body height 167.6 cm Silvia Nava 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 Work Phone: 3([phone] [place] [address] 09-14-2023 10:57-0500 Body mass index (BMI) [Ratio] 39.38 kg/m2 Silvia Nava 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 Work Phone: 4(117)[phone] [place] [address] 09-14-2023 10:57-0500 Body weight 110.68 kg Silvia Nvaa 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 Work Phone: [facility] 09-14-2023 10:57-0500 Diastolic blood pressure 72 mm[Hg] Silvia Nava 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 Work Phone: 6(912)[phone] [place] [address] 09-14-2023 10:57-0500 Systolic blood pressure 128 mm[Hg] Silvia Nava 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 Work Phone: 5([phone] [place] [address] 07-20-2023 13:04-0500 Body height 165.1 cm Silvia Nava 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 Work Phone: [phone] [place] [address] 07-20-2023 13:04-0500 Body mass index (BMI) [Ratio] 39.11 kg/m2 Silvia Nava 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 Work Phone: 0(182)[phone] [place] [address] 07-20-2023 13:04-0500 Body weight 106.59 kg Silvia John 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 Work Phone: [facility] 07-20-2023 13:04-0500 Diastolic blood pressure 74 mm[Hg] Silvia Nava 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 Work Phone: [facility] 07-20-2023 13:04-0500 Systolic blood pressure 128 mm[Hg] Silvia Nava 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 Work Phone: [facility] 06-09-2022 09:26-0400 Body temperature 97.7 [degF] DR ALYSSIA MARAVILLA MD [facility] 06-09-2022 09:26-0400 Diastolic blood pressure 64 mm[Hg] DR ALYSSIA MARAVILLA MD [facility] 06-09-2022 09:26-0400 Heart rate 68 /min DR ALYSSIA MARAVILLA MD [facility] 06-09-2022 09:26-0400 Reason For Taking VItal Signs DR ALYSSIA MARAVILLA MD [facility] 06-09-2022 09:26-0400 Respiratory rate 18 /min DR ALYSSIA MARAVILLA MD [facility] 06-09-2022 09:26-0400 Systolic blood pressure 111 mm[Hg] DR ALYSSIA MARAVILLA MD [facility] 06-09-2022 05:21-0400 Body temperature 97.34 [degF] DR ALYSSIA MARAVILLA MD [facility] 06-09-2022 05:21-0400 Diastolic blood pressure 74 mm[Hg] DR ALYSSIA MARAVILLA MD [facility] 06-09-2022 05:21-0400 Heart rate 65 /min DR ALYSSIA MARAVILLA MD [facility] 06-09-2022 05:21-0400 Respiratory rate 18 /min DR ALYSSIA MARAVILLA MD [facility] 06-09-2022 05:21-0400 Systolic blood pressure 116 mm[Hg] DR ALYSSIA MARAVILLA MD [facility] 06-09-2022 04:00-0400 Body temperature 97.88 [degF] DR ALYSSIA MARAVILLA MD [facility] 06-09-2022 04:00-0400 Diastolic blood pressure 67 mm[Hg] DR ALYSSIA MARAVILLA MD [facility] 06-09-2022 04:00-0400 Mean blood pressure 82 mm[Hg] DR ALYSSIA MARAVILLA MD [facility] 06-09-2022 04:00-0400 Respiratory rate 16 /min DR ALYSSIA MARAVILLA MD [facility] 06-09-2022 04:00-0400 Systolic blood pressure 112 mm[Hg] DR ALYSSIA MARAVILLA MD [facility] 06-08-2022 23:49-0400 Heart rate 75 /min DR ALYSSIA MARAVILLA MD [facility] 06-08-2022 23:49-0400 Mean blood pressure 69 mm[Hg] DR ALYSSIA MARAVILLA MD [facility] 06-08-2022 23:49-0400 Reason For Taking VItal Signs DR ALYSSIA MARAVILLA MD [facility] 06-08-2022 19:15-0400 Heart rate 77 /min DR ALYSSIA MARAVILLA MD [facility] 06-08-2022 19:15-0400 Mean blood pressure 87 mm[Hg] DR ALYSSIA MARAVILLA MD [facility] 06-08-2022 15:08-0400 Heart rate 82 /min DR ALYSSIA MARAVILLA MD [facility] 06-08-2022 10:22-0400 Body height 165.[address] ALYSSIA MARAVILLA MD [facility] 06-08-2022 10:22-0400 Body temperature 97.52 [degF] DR ALYSSIA MARAVILLA MD [facility] 06-08-2022 10:22-0400 Body weight [address] ALYSSIA MARAVILLA MD [facility] 06-08-2022 10:22-0400 Body weight 36.69 kg/m2 DR ALYSSIA MARAVILLA MD [facility] 06-08-2022 09:48-0400 Diastolic Blood Pressure NBP [address] ALYSSIA MARAVILLA MD [facility] 06-08-2022 09:48-0400 Systolic Blood Pressure NBP [address] ALYSSIA MARAVILLA MD [facility] 06-08-2022 09:30-0400 Diastolic Blood Pressure NBP [address] ALYSSIA MARAVILLA MD [facility] 06-08-2022 09:30-0400 Systolic Blood Pressure NBP [address] ALYSSIA MARAVILLA MD [facility] 06-08-2022 09:15-0400 Diastolic Blood Pressure NBP [address] ALYSSIA MARAVILLA MD [facility] 06-08-2022 09:15-0400 Systolic Blood Pressure NBP [address] ALYSSIA MARAVILLA MD [facility] 06-08-2022 09:00-0400 Body temperature 96.26 [degF] DR ALYSSIA MARAVILLA MD [facility] 06-08-2022 05:47-0400 Body height 165.[address] ALYSSIA MARAVILLA MD [facility] 06-08-2022 05:47-0400 Body temperature 96.62 [degF] DR ALYSSIA MARAVILLA MD [facility] 06-08-2022 05:47-0400 Body weight [address] ALYSSIA MARAVILLA MD [facility] 06-08-2022 05:47-0400 Body weight 36.69 kg/m2 DR ALYSSIA MARAVILLA MD [facility] 06-08-2022 05:47-0400 diastolic 76 mm[Hg] DR ALYSSIA MARAVILLA MD [facility] 06-08-2022 05:47-0400 Heart rate 69 /min DR ALYSSIA MARAVILLA MD [facility] 06-08-2022 05:47-0400 systolic 137 mm[Hg] DR ALYSSIA MARAVILLA MD [facility] 05-28-2022 11:36-0400 Body height [address] ALYSSIA MARAVILLA MD [facility] 05-28-2022 11:36-0400 Body weight 103.[address] ALYSSIA MARAVILLA MD [facility] 05-28-2022 11:36-0400 Body weight 38.92 kg/m2 DR ALYSSIA MARAVILLA MD [facility] 05-28-2022 11:36-0400 diastolic 88 mm[Hg] DR ALYSSIA MARAVILLA MD [facility] 05-28-2022 11:36-0400 Heart rate 68 /min DR ALYSSIA MARAVILLA MD [facility] 05-28-2022 11:36-0400 Respiratory rate 20 /min DR ALYSSIA MARAVILLA MD [facility] 05-28-2022 11:36-0400 systolic 128 mm[Hg] DR ALYSSIA MARAVILLA MD [facility] Encounters Encounter Date Encounter Type Care Provider Facility Start: 03-27-2025 End: 03-27-2025 Office outpatient visit 25 minutes Silvia Nava 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 Work Phone: [facility] Comment on above: 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, including poison ed, sumac, and oak (Primary Dx); Rheumatoid arthritis, involving unspecified site, unspecified whether rheumatoid factor present (Multi); Class 2 severe obesity due to excess calories with serious comorbidity and body mass index (BMI) of 37.0 to 37.9 in adult; Primary hypertension Start: 03-27-2025 End: 03-27-2025 ambulatory SILVIA Ling [facility] Start: 02-20-2025 End: 02-20-2025 ambulatory [facility] Start: 02-13-2025 End: 02-13-2025 ambulatory [facility] Start: 02-06-2025 End: 02-06-2025 [facility] Start: 01-30-2025 End: 01-30-2025 [facility] Start: 01-23-2025 End: 01-23-2025 ambulatory [facility] Start: 01-16-2025 End: 01-16-2025 ambulatory [facility] Start: 01-09-2025 End: 01-09-2025 ambulatory [facility] Start: 12-25-2024 End: 12-25-[address] Alvin Walker MD Work Phone: [facility] Work Phone: Start: 12-25-2024 End: 12-25-[address] Nadya Portillo MD [facility] [place] Work Phone: Start: 12-25-2024 End: 12-25-2024 ambulatory Nadya Portillo Facility:[facility] Start: 12-05-2024 End: 12-05-2024 Subsequent hospital visit by physician Ranjit Leal [address] [facility] Comment on above: Pure hypercholestero lemia Start: 12-05-2024 End: 12-05-2024 ambulatory SILVIA [facility] Start: 11-28-2024 End: 11-28-2024 Subsequent hospital visit by physician Ranjit Garduno [address] [facility] Comment on above: Thyroid nodule Start: 11-28-2024 End: 11-28-2024 ambulatory SILVIA Ling [facility] Start: 11-21-2024 End: 11-21-2024 Office outpatient visit 25 minutes Silvia Nava 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 Work Phone: [facility] Comment on above: Low back pain radiat ing down leg (Primary Dx); Class 2 severe obesity due to excess calories with serious comorbidity and body mass index (BMI) of 35.0 to 35.9 in adult Start: 11-21-2024 End: 11-21-2024 ambulatory [facility] Anuradha [facility] Start: 11-14-2024 End: 11-14-2024 Subsequent hospital visit by physician Ranjit Juarez [facility] Comment on above: Breast cancer screen ing by mammogram Hyperparathyroidism (Multi) Start: 11-14-2024 End: 11-14-2024 ambulatory SILVIA D [facility] Start: 10-31-2024 End: 10-31-2024 Patient encounter status Silvia Nava 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 Work Phone: [facility] Work Phone: Start: 10-31-2024 End: 10-31-2024 Periodic preventive med est patient 40-64yrs Silvia Nava 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 Work Phone: [facility] Comment on above: Hyperparathyroidism (Multi) (Primary Dx); Vitamin D deficiency; Rheumatoid arthritis, involving unspecified site, unspecified whether rheumatoid factor present (Multi); Breast cancer screening by mammogram; Pure hypercholesterolemia; Wellness examination Start: 10-31-2024 End: 10-31-2024 ambulatory [facility] Anuradha [facility] Ambulatory Start: 09-26-2024 End: 09-26-[address] Nadya Portillo MD -Laboratory [place] Work Phone: Start: 09-26-2024 End: 09-26-2024 [facility] Start: 09-05-2024 ambulatory SILVIA [facility] Start: 09-05-2024 Encounter for genera l adult medical examination without abnormal findings SILVIA Anuradha NAVA [facility] Start: 07-03-2024 End: 07-03-2024 ambulatory Alvin Walker Facility:[facility] Start: 05-30-2024 End: 05-30-2024 [facility] Start: 04-11-2024 End: 04-11-2024 ambulatory INDERJIT Josefa [facility] Ambulatory Start: 04-11-2024 End: 04-11-2024 Office outpatient visit 15 minutes Inderjit Short PA-C Work Phone: [facility] Comment on above: Abdominal wall cellu litis (Primary Dx); Class 1 obesity due to excess calories with serious comorbidity and body mass index (BMI) of 30.0 to 30.9 in adult Start: 03-08-2024 End: 03-12-2024 Evaluation and management of inpatient SILVIA Ling [facility] Start: 03-03-2024 End: 03-03-2024 Patient encounter procedure 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 Work Phone: [facility] Comment on above: Rash and other nonsp ecific skin eruption (Primary Dx) Start: 03-03-2024 End: 03-03-2024 ambulatory SILVIA D [facility] Start: 02-20-2024 End: 02-20-2024 [facility] Start: 12-08-2023 End: 12-08-2023 Postop follow up visit related to original px Jaylin Oquendo MD Work Phone: [facility] Comment on above: Status post gastric bypass for obesity (Primary Dx); Small bowel obstruction Start: 12-08-2023 ambulatory TOMAS GALVEZ Facility: [facility] Start: 11-18-2023 End: 11-18-2023 ambulatory [facility] Work Phone: Start: 11-18-2023 End: 11-18-2023 Patient encounter procedure [facility] Work Phone: Start: 11-08-2023 End: 11-08-2023 Patient encounter procedure Mookie Weston RD Work Phone: [facility] Comment on above: Encounter for weight loss counseling (Primary Dx) Start: 11-08-2023 End: 11-08-2023 Office outpatient visit 15 minutes Benigno Linn MD Work Phone: [facility] Comment on above: Small bowel obstruct ion (Primary Dx); Status post gastric bypass for obesity Start: 10-21-2023 End: 10-21-2023 Patient encounter procedure [facility] Outside Imaging Ct Scan So Outside Imaging Second Opinion Start: 10-20-2023 End: 10-24-2023 Evaluation and management of inpatient Regino Hadley MD Work Phone: [email or web address] Comment on above: Small bowel obstruct ion Start: 10-20-2023 End: 10-20-2023 Subsequent hospital visit by physician Ranjit Rios [facility] Comment on above: Arrived Start: 10-20-2023 End: 10-20-2023 Emergency department patient visit Quentin Go DO Work Phone: [facility] Emergency Medicine Comment on above: Nausea and vomiting, unspecified vomiting type (Primary Dx); Intestinal obstruction, unspecified cause, unspecified whether partial or complete (CMS/HCC) Start: 09-30-2023 End: 09-30-2023 Office outpatient visit 10 minutes Silvia Nava CREATIVE INTERN-[employer] Work Phone: [facility] Comment on above: Encounter for screen ing for malignant neoplasm of colon (Primary Dx); Class 2 severe obesity due to excess calories with serious comorbidity and body mass index (BMI) of 37.0 to 37.9 in adult (CMS/HCC); Pharyngitis, unspecified etiology Start: 09-14-2023 End: 09-14-2023 Patient encounter status Silvia Nava CREATIVE INTERN-[employer] Work Phone: [facility] Work Phone: Start: 09-14-2023 End: 09-14-2023 Periodic preventive med est patient 40-64yrs Silvia Nava CREATIVE INTERN-[employer] Work Phone: [facility] Comment on above: Wellness examination (Primary Dx); Vitamin D deficiency; Class 2 severe obesity due to excess calories with serious comorbidity and body mass index (BMI) of 39.0 to 39.9 in adult (CMS/HCC); Moderate episode of recurrent major depressive disorder (CMS/HCC); Rheumatoid arthritis, involving unspecified site, unspecified whether rheumatoid factor present (CMS/HCC) Start: 08-24-2023 End: 08-24-2023 ambulatory [facility] Work Phone: Start: 08-24-2023 End: 08-24-2023 Patient encounter procedure [facility] [place] Work Phone: Start: 08-17-2023 End: 08-17-2023 Subsequent hospital visit by physician Ranjit Juarez [facility] Comment on above: Breast cancer screen ing by mammogram Start: 07-20-2023 End: 07-20-2023 Office outpatient new 45 minutes Silvia Nava APRN-BLENDING COORDINATOR Work Phone: [facility] Comment on above: Primary hypertension (Primary Dx); Moderate episode of recurrent major depressive disorder (CMS/HCC); Compression of lumbar nerve root; Lumbar disc herniation; Iron deficiency; Wellness examination; Vitamin D deficiency; B12 deficiency; Low back pain radiating to left leg; Establishing care with new doctor, encounter for; Rheumatoid arthritis, involving unspecified site, unspecified whether rheumatoid factor present ([facility]/HCC); Class 2 severe obesity due to excess calories with serious comorbidity and body mass index (BMI) of 39.0 to 39.9 in adult (CMS/HCC); Breast cancer screening by mammogram Start: 07-20-2023 End: 03-22-2024 Patient encounter status Silvia Nava APRN-BLENDING COORDINATOR Work Phone: [facility] Work Phone: Start: 05-25-2023 End: 05-25-2023 ambulatory [facility] Work Phone: Start: 05-25-2023 End: 05-25-2023 Patient encounter procedure [facility] Work Phone: Start: 05-10-2023 End: 05-11-2023 Emergency department patient visit GAMA HUBBARD Facility:[facility] Start: 05-10-2023 End: 05-10-2023 Emergency department patient visit Dr. Giovanni Ratliff Facility:[id number] Start: 02-21-2023 End: 02-21-2023 ambulatory [facility] Work Phone: Start: 02-21-2023 End: 02-21-2023 Patient encounter procedure [facility] Work Phone: Start: 11-17-2022 End: 11-17-2022 ambulatory [facility] Work Phone: Start: 11-17-2022 End: 11-17-2022 Patient encounter procedure [facility] Start: 10-27-2022 End: 10-27-2022 ambulatory [facility] Work Phone: Start: 10-27-2022 End: 10-27-2022 Patient encounter procedure [facility] Start: 08-18-2022 End: 08-18-2022 ambulatory [facility] Work Phone: Start: 08-18-2022 End: 08-18-2022 Patient encounter procedure [facility] Start: 07-15-2022 End: 07-19-2022 [facility] Start: 07-15-2022 End: 07-15-2022 ambulatory Ray Eshenaur PA-C Work Phone: [facility] Comment on above: Primary osteoarthrit is of right knee (Primary Dx) Start: 07-13-2022 End: 07-17-2022 [facility] Start: 07-13-2022 End: 07-13-2022 ambulatory Ray Eshenaur PA-C Work Phone: [facility] Comment on above: Primary osteoarthrit is of right knee (Primary Dx) Start: 07-07-2022 End: 07-11-2022 [facility] Start: 07-07-2022 End: 07-07-2022 ambulatory Ray Eshenaur PA-C Work Phone: [facility] Comment on above: Primary osteoarthrit is of right knee (Primary Dx) Start: 07-01-2022 End: 07-05-2022 ambulatory [facility] Start: 06-29-2022 End: 07-03-2022 ambulatory [facility] Start: 06-29-2022 End: 06-29-2022 ambulatory Ray henaur PA-C Work Phone: [facility] Comment on above: Primary osteoarthrit is of right knee (Primary Dx) Start: 06-24-2022 End: 06-28-2022 ambulatory [facility] Start: 06-24-2022 End: 06-24-2022 ambulatory Ray Eshenaur PA-C Work Phone: [facility] Comment on above: Primary osteoarthrit is of right knee (Primary Dx) Start: 06-22-2022 End: 06-26-2022 ambulatory [facility] Start: 06-18-2022 End: 06-22-2022 [facility] Start: 06-18-2022 End: 06-18-2022 ambulatory Ray Eshenaur PA-C Work Phone: [facility] Comment on above: Primary osteoarthrit is of right knee (Primary Dx) Start: 06-16-2022 End: 06-20-2022 [facility] Start: 06-16-2022 End: 06-16-2022 ambulatory Ray Eshenaur PA-C Work Phone: [facility] Comment on above: Primary osteoarthrit is of right knee (Primary Dx) Start: 06-11-2022 End: 06-15-2022 [facility] Start: 06-11-2022 End: 06-11-2022 ambulatory Ray Eshenaur PA-C Work Phone: [facility] Comment on above: Primary osteoarthrit is of right knee Start: 06-08-2022 End: 06-09-2022 ambulatory ALYSSIA MARAVILLA MD Facility:B Start: 06-08-2022 End: 06-09-[address] ALYSSIA MARAVILLA MD [facility] Start: 05-28-2022 End: 05-29-2022 ambulatory ALYSSIA MARAVILLA MD Facility:[facility] Start: 05-28-2022 End: 05-28-[address] ALYSSIA MARAVILLA MD [facility] Start: 05-26-2022 End: 05-26-2022 ambulatory [facility] Work Phone: Start: 05-26-2022 End: 05-26-2022 Patient encounter procedure [facility] Start: 05-24-2022 Transcribe Orders Vitor Yoder PA-C Work Phone: [facility] Comment on above: Primary osteoarthrit is of right knee (Primary Dx) Start: 04-26-2022 ambulatory ALYSSIA MARAVILLA MD Faci lity:B Start: 04-04-2022 End: 04-05-2022 Emergency department patient visit Leti Kamara [facility] Emergency 03 Start: 03-09-2022 End: 03-09-2022 Patient encounter procedure [facility] Start: 11-25-2021 End: 11-25-2021 Patient encounter procedure [facility] Start: 04-04-2018 Patient encounter NANDA RUELAS [facility] Ambulatory Procedures Date Procedure Procedure Detail Performing Clinician Start: 12-05-2024 Ct heart no contrast quant eval coronry calcium Silvia Nava 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 Work Phone: Start: 11-28-2024 Biopsy thyroid percu taneous core needle Silvia Nava APRN-BLENDING COORDINATOR Work Phone: Start: 11-14-2024 Mammography Silvia Nava 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 Work Phone: Start: 09-26-2024 Measurement of renal function Dr. Alvin Walker MD Work Phone: Comment on above: GFR Calc Start: 09-05-2024 Lipid 1996 panel - S aaron or Plasma Silvia Nava 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 Work Phone: Start: 04-11-2024 Follow-up visit Follow-up INDERJIT SHORT Start: 10-24-2023 Calcium ionized Eri Skinner MD Work Phone: Start: 10-23-2023 Calcium ionized Eri Skinner MD Work Phone: Start: 10-22-2023 CONTINUOUS CARDIAC MONITORING STRIP Other Other Start: 10-22-2023 Blood count complete automated Leena Skinner MD Work Phone: Start: 10-22-2023 Calcium ionized Eri Skinner MD Work Phone: Start: 10-21-2023 CARDIAC RHYTHM Other Ot her Start: 10-21-2023 ABORH TYPE RECONFIRMATION Gurmeet Love MD Work Phone: Start: 10-21-2023 Antibody screen Regino Hadley MD Work Phone: Start: 10-21-2023 Ct abdomen & pelvis w/o contrast material Benjamín Landeros MD Work Phone: Start: 10-21-2023 CT Abdomen and Pelvis T princess Landeros MD Work Phone: Start: 10-21-2023 End: 10-21-2023 Assay of lipase Jose Quintero MD Work Phone: Start: 10-21-2023 CBC AND ELECTRONIC DIFF Jose Quintero MD Work Phone: Start: 10-21-2023 Complete blood count with white cell differential, automated Jose Quintero MD Work Phone: Start: 10-21-2023 GOLD TOP TUBE Jose Quintero MD Work Phone: Start: 10-21-2023 End: 10-21-2023 Hepatic function panel Jose Quintero MD Work Phone: Start: 10-21-2023 LAVENDER TOP TUBE Darion Quintero MD Work Phone: Start: 10-21-2023 LT BLUE TOP TUBE Jeanna Quintero MD Work Phone: Start: 10-21-2023 MINT GREEN TOP TUBE Marcial girma Quintero MD Work Phone: Start: 10-21-2023 RAINBOW DRAW Jose Quintero MD Work Phone: Start: 10-20-2023 Urinalysis complete W Reflex Culture panel - Urine Leti Kamara 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 Work Phone: Start: 10-20-2023 Urnls dip stick/tabl et rgnt auto w/o microscopy Leti Kamara 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 Work Phone: Start: 10-20-2023 Ct thorax w/contrast material Leti Kamara 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 Work Phone: Start: 10-20-2023 Assay of troponin quantitative Leti Kamara 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 Work Phone: Start: 10-20-2023 EXTRA TUBES Quentin D Lemasters DO Work Phone: Start: 10-20-2023 LIGHT BLUE TOP Quentin D Lemasters DO Work Phone: Start: 10-20-2023 SST TOP Quentin D Lemasters DO Work Phone: Start: 10-20-2023 Comprehensive metabo lic panel Leti Kamara 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 Work Phone: Start: 10-20-2023 Troponin I.cardiac p swetha - Serum or Plasma by High sensitivity method Leti Kamara 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 Work Phone: Start: 10-20-2023 Ecg routine ecg w/le ast 12 lds trcg only w/o i&r Leti Kamara 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 Work Phone: Start: 08-17-2023 End: 08-17-2023 Screening digital breast tomosynthesis bi Silvia Nava 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 Work Phone: Start: 08-17-2023 Lipid 1996 panel - S aaron or Plasma Ranjit Mammo Start: 05-11-2023 Antibody screen GAMA LORENZO Comment on above: Performed By: #### T +S #### [facility] [id number] [place] [address] Start: 04-02-2020 Mammography Silvia Nava APRN-BLENDING COORDINATOR Work Phone: Start: 07-02-2008 Lipid 1996 panel - S aaron or Plasma Regino Hadley MD Work Phone: Amputation of finger tip DR ALYSSIA MARAVILLA MD Comment on above: Right ring Arthroscopic repair of rotator cuff DR ALYSSIA MARAVILLA MD Comment on above: right Bilateral cyst of br easts (disorder) DR ALYSSIA MARAVILLA MD Bypass of stomach DR ALYSSIA MARAVILLA MD Cholecystectomy DR ALYSSIA HOLLOWAY MD Decompression of med amol nerve DR ALYSSIA MARAVILLA MD Comment on above: bilateral Total replacement of left knee joint DR ALYSSIA MARAVILLA MD Plan of Treatment Date Care Activity Detail Author Start: 2038 RSV VACCINE (1 - 1-dose 75+ series) RSV VACCINE (1 - 1-dose 75+ series) [facility] Start: 04-04-2032 DTaP/Tdap/Td Vaccines (2 - Td or Tdap) DTaP/Tdap/Td Vaccines (2 - Td or Tdap) [facility] Start: 04-04-2032 Tetanus vaccination [facility] Start: 09-05-2029 Lipid panel Lipid Panel [facility] Start: 08-17-2028 Lipid panel Lipid Panel [facility] Start: 09-05-2027 Diabetes mellitus screening Diabetes Screening [facility] Start: 10-23-2026 Diabetes mellitus screening Diabetes Screening [facility] Start: 10-06-2026 Screening for malignant neoplasm of colon [facility] Start: 08-17-2026 Diabetes mellitus screening Diabetes Screening [facility] Start: 11-14-2025 Screening for malignant neoplasm of breast Mammogram [facility] Start: 11-07-2025 End: 11-07-2025 Patient encounter procedure 11/07/2025 1:00 PM EDT Office Visit [facility] [address] [place] [id number] Silvia Nvaa, 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 [address] [place] [address] [facility] Start: 11-01-2025 Yearly Adult Physical Yearly Adult Physical [facility] Start: 10-31-2025 End: 05-03-2026 25-hydroxyvitamin D3 [Mass/volume] in Serum or Plasma Vitamin D 25-Hydroxy,Total (for eval of Vitamin D levels) Lab Routine Vitamin D deficiency Expected: 10/31/2025 (Approximate), Expires: 05/03/2026 [facility] Work Phone: Comment on above: Expected: 10/31/2025 (Approximate), Expi res: 05/03/2026 Start: 10-31-2025 End: 05-03-2026 CBC W Auto Differential panel - Blood CBC and Auto Differential Lab Routine Wellness examination Expected: 10/31/2025 (Approximate), Expires: 05/03/2026 [facility] Work Phone: Comment on above: Expected: 10/31/2025 (Approximate), Expi res: 05/03/2026 Start: 10-31-2025 End: 05-03-2026 Comprehensive metabolic 2000 panel - Serum or Plasma Comprehensive Metabolic Panel Lab Routine Wellness examination Expected: 10/31/2025 (Approximate), Expires: 05/03/2026 [facility] Work Phone: Comment on above: Expected: 10/31/2025 (Approximate), Expi res: 05/03/2026 Start: 10-31-2025 End: 05-03-2026 Hemoglobin A1c/Hemoglobin.total in Blood Hemoglobin A1C Lab Routine Wellness examination Expected: 10/31/2025 (Approximate), Expires: 05/03/2026 [facility] Work Phone: Comment on above: Expected: 10/31/2025 (Approximate), Expi res: 05/03/2026 Start: 10-31-2025 End: 05-03-2026 Lipid 1996 panel - Serum or Plasma Lipid Panel Lab Routine Wellness examination Expected: 10/31/2025 (Approximate), Expires: 05/03/2026 [facility] Work Phone: Comment on above: Expected: 10/31/2025 (Approximate), Expi res: 05/03/2026 Start: 10-31-2025 End: 05-03-2026 Parathyrin.intact [Mass/volume] in Serum or Plasma Parathyroid Hormone, Intact Lab Routine Vitamin D deficiency Expected: 10/31/2025 (Approximate), Expires: 05/03/2026 [facility] Work Phone: Comment on above: Expected: 10/31/2025 (Approximate), Expi res: 05/03/2026 Start: 10-31-2025 End: 05-03-2026 TSH with reflex to Free T4 if abnormal TSH with reflex to Free T4 if abnormal Lab Routine Wellness examination Expected: 10/31/2025 (Approximate), Expires: 05/03/2026 [facility] Work Phone: Comment on above: Expected: 10/31/2025 (Approximate), Expi res: 05/03/2026 Start: 10-23-2025 End: 10-23-2025 Patient encounter procedure 10/23/2025 1:00 PM EDT Office Visit [facility] [address] [place] [address] Silvia Nava, 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 [address] [place] [address] [facility] Start: 09-05-2025 Hemoglobin A1c measurement Diabetes: Hemoglobin A1C [facility] Start: 04-15-2025 Influenza vaccination Influenza Vaccine (#1) [facility] Start: 12-06-2024 End: 12-06-2024 Patient encounter procedure 12/06/2024 8:40 AM EDT Office Visit [facility] [address] [place] [address] Silvia Nava, 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 [address] [facility] [place] [address] [facility] Start: 12-05-2024 End: 12-05-2024 Patient encounter procedure 12/05/2024 9:00 AM EDT Appointment [address] [phone] [facility] Start: 11-30-2024 Zoster Vaccines (2 of 2) Zoster Vaccines (2 of 2) [facility] Start: 11-20-2024 End: 11-20-2024 Patient encounter procedure 11/20/2024 9:00 AM EDT Office Visit [facility] [address] [place] [address] Silvia Nava, 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 [address] [place] [address] [facility] Start: 11-16-2024 End: 11-16-2024 Patient encounter procedure 11/16/2024 2:40 PM EDT Office Visit [facility] [address] [place] [address] Silvia Nava, 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 [address] [place] [address] [facility] Start: 11-01-2024 End: 11-01-2024 Patient encounter procedure 11/01/2024 8:15 AM EDT Appointment [address] [phone] [facility] Start: 10-31-2024 End: 10-31-2025 CT for calcium scoring WO contrast and CTA W contrast IV Heart and coronary arteries CT cardiac scoring wo IV contrast Imaging Routine Pure hypercholesterolemia Expected: 10/31/2024, Expires: 10/31/2025 [facility] Work Phone: Comment on above: Expected: 10/31/2024, Expires: Start: 10-31-2024 End: 12-31-2025 DBT Breast - bilateral BI mammo bilateral screening tomosynthesis Imaging Routine Breast cancer screening by mammogram Expected: 10/31/2024, Expires: 12/31/2025 [facility] Work Phone: Comment on above: Expected: 10/31/2024, Expires: Start: 10-31-2024 End: 10-31-2025 US Parathyroid gland US neck parathyroid Imaging Routine Hyperparathyroidism (Multi) Expected: 10/31/2024, Expires: 10/31/2025 [facility] Service Area Work Phone: Comment on above: Expected: 10/31/2024, Expires: Start: 09-15-2024 Yearly Adult Physical Yearly Adult Physical [facility] Start: 09-14-2024 End: 09-14-2024 25-hydroxyvitamin D3 [Mass/volume] in Serum or Plasma Vitamin D 25-Hydroxy,Total (for eval of Vitamin D levels) Lab Routine Vitamin D deficiency Expected: 09/14/2024 (Approximate), Expires: 09/14/2024 [facility] Work Phone: Comment on above: Expected: 09/14/2024 (Approximate), Expi res: 09/14/2024 Start: 09-14-2024 End: 09-14-2024 CBC W Auto Differential panel - Blood CBC and Auto Differential Lab Routine Wellness examination Expected: 09/14/2024 (Approximate), Expires: 09/14/2024 [facility] Service Area Work Phone: Comment on above: Expected: 09/14/2024 (Approximate), Expi res: 09/14/2024 Start: 09-14-2024 End: 09-14-2024 Comprehensive metabolic 2000 panel - Serum or Plasma Comprehensive Metabolic Panel Lab Routine Wellness examination Expected: 09/14/2024 (Approximate), Expires: 09/14/2024 [facility] Work Phone: Comment on above: Expected: 09/14/2024 (Approximate), Expi res: 09/14/2024 Start: 09-14-2024 End: 09-14-2024 Hemoglobin A1c/Hemoglobin.total in Blood Hemoglobin A1C Lab Routine Wellness examination Expected: 09/14/2024 (Approximate), Expires: 09/14/2024 [facility] Work Phone: Comment on above: Expected: 09/14/2024 (Approximate), Expi res: 09/14/2024 Start: 09-14-2024 End: 09-14-2024 Lipid 1996 panel - Serum or Plasma Lipid Panel Lab Routine Wellness examination Expected: 09/14/2024 (Approximate), Expires: 09/14/2024 [facility] Work Phone: Comment on above: Expected: 09/14/2024 (Approximate), Expi res: 09/14/2024 Start: 09-14-2024 End: 09-14-2024 Parathyrin.intact [Mass/volume] in Serum or Plasma Parathyroid Hormone, Intact Lab Routine Vitamin D deficiency Expected: 09/14/2024 (Approximate), Expires: 09/14/2024 [facility] Work Phone: Comment on above: Expected: 09/14/2024 (Approximate), Expi res: 09/14/2024 Start: 09-14-2024 End: 09-14-2024 TSH with reflex to Free T4 if abnormal TSH with reflex to Free T4 if abnormal Lab Routine Wellness examination Expected: 09/14/2024 (Approximate), Expires: 09/14/2024 [facility] Work Phone: Comment on above: Expected: 09/14/2024 (Approximate), Expi res: 09/14/2024 Start: 09-12-2024 End: 09-12-2024 Patient encounter procedure 09/12/2024 10:00 AM EST Office Visit [facility] [address] [place] [address] Silvia Nava, 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 [address] [place] [address] [facility] Start: 08-17-2024 Screening for malignant neoplasm of breast Mammogram [facility] Start: 04-15-2024 COVID-19 Vaccine ( season) COVID-19 Vaccine () [facility] Start: 04-15-2024 COVID-19 VACCINE () COVID-19 VACCINE () [facility] Start: 04-15-2024 Influenza vaccination Influenza Vaccine (#1) [facility] Start: 12-09-2023 End: 12-09-2023 Patient encounter procedure 12/09/2023 11:00 AM EDT Office Visit Bariatric Surgery [facility] [address] [facility] [address] [id number] Lyla Olmstead, 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 [address] [facility] [address] [place] [address] Bariatric Surgery [facility] Start: 11-08-2023 End: 11-08-2023 Patient encounter procedure 11/08/2023 11:00 AM EDT Office Visit Bariatric Surgery [facility] [address] [facility] [address] [place] [address] Benigno Linn MD [address] [facility] [address] [place] [address] Bariatric Surgery [facility] Start: 09-30-2023 End: 09-30-2024 Cologuard colon cancer screening Cologuard colon cancer screening Lab Routine Encounter for screening for malignant neoplasm of colon Expected: 09/30/2023 (Approximate), Expires: 09/30/2024 [facility] Service [facility] Work Phone: Comment on above: Expected: 09/30/2023 (Approximate), Expi res: 09/30/2024 Start: 08-24-2023 End: 08-24-2023 Patient encounter procedure [facility] Start: 08-17-2023 End: 08-17-2023 Patient encounter procedure 08/17/2023 9:[address] [facility] [address] [place] [address] [facility] Start: 07-20-2023 End: 07-20-2024 25-hydroxyvitamin D3 [Mass/volume] in Serum or Plasma Vitamin D 25-Hydroxy,Total (for eval of Vitamin D levels) Lab Routine Vitamin D deficiency Expected: 07/20/2023 (Approximate), Expires: 07/20/2024 [facility] Work Phone: Comment on above: Expected: 07/20/2023 (Approximate), Expi res: 07/20/2024 Start: 07-20-2023 End: 07-20-2024 CBC W Auto Differential panel - Blood CBC and Auto Differential Lab Routine Wellness examination Expected: 07/20/2023 (Approximate), Expires: 07/20/2024 [facility] Work Phone: Comment on above: Expected: 07/20/2023 (Approximate), Expi res: 07/20/2024 Start: 07-20-2023 End: 07-20-2024 Cobalamin (Vitamin B12) [Mass/volume] in Serum or Plasma Vitamin B12 Lab Routine B12 deficiency Expected: 07/20/2023 (Approximate), Expires: 07/20/2024 [facility] Work Phone: Comment on above: Expected: 07/20/2023 (Approximate), Expi res: 07/20/2024 Start: 07-20-2023 End: 07-20-2024 Comprehensive metabolic 2000 panel - Serum or Plasma Comprehensive Metabolic Panel Lab Routine Wellness examination Expected: 07/20/2023 (Approximate), Expires: 07/20/2024 [facility] Work Phone: Comment on above: Expected: 07/20/2023 (Approximate), Expi res: 07/20/2024 Start: 07-20-2023 End: 09-20-2024 DBT Breast - bilateral BI mammo bilateral screening tomosynthesis Imaging Routine Breast cancer screening by mammogram Expected: 07/20/2023, Expires: 09/20/2024 [facility] Work Phone: Comment on above: Expected: 07/20/2023, Expires: Start: 07-20-2023 End: 07-20-2024 Hemoglobin A1c/Hemoglobin.total in Blood Hemoglobin A1C Lab Routine Wellness examination Expected: 07/20/2023 (Approximate), Expires: 07/20/2024 [facility] Service Area Work Phone: Comment on above: Expected: 07/20/2023 (Approximate), Expi res: 07/20/2024 Start: 07-20-2023 End: 07-20-2024 Lipid 1996 panel - Serum or Plasma Lipid Panel Lab Routine Wellness examination Expected: 07/20/2023 (Approximate), Expires: 07/20/2024 [facility] Work Phone: Comment on above: Expected: 07/20/2023 (Approximate), Expi res: 07/20/2024 Start: 07-20-2023 End: 07-20-2024 TSH with reflex to Free T4 if abnormal TSH with reflex to Free T4 if abnormal Lab Routine Wellness examination Expected: 07/20/2023 (Approximate), Expires: 07/20/2024 [facility] Work Phone: Comment on above: Expected: 07/20/2023 (Approximate), Expi res: 07/20/2024 Start: 04-15-2023 COVID-19 Vaccine ( season) COVID-19 Vaccine ( season) [facility] Start: 04-15-2023 COVID-19 Vaccine ( season) COVID-19 Vaccine ( season) [facility] Start: 2023 RSV patients and/or patients aged 60+ years (1 - 1-dose 60+ series) RSV patients and/or patients aged 60+ years (1 - 1-dose 60+ series) [facility] Start: 11-29-2022 COVID-19 Vaccine (5 - Pfizer risk series) COVID-19 Vaccine (5 - Pfizer risk series) [facility] Start: 07-27-2022 End: 07-27-2022 ambulatory 07/27/2022 Treatment Rehabilitation Vitor Yoder PA-C [id number] [place] [address] Lili Coon, PT [facility] Start: 07-15-2022 End: 07-15-2022 ambulatory 07/15/2022 Treatment Rehabilitation Vitor Yoder PA-C [address] [place] [address] Yenni Phillips [facility] Start: 07-13-2022 End: 07-13-2022 ambulatory 07/13/2022 Treatment Rehabilitation Vitor Yoder PA-C [address] [place] [address] Yanira Thorpe [facility] Start: 07-07-2022 End: 07-07-2022 ambulatory 07/07/2022 Treatment Rehabilitation Vitor Yoder PA-C [address] [place] [address] Yanira Thorpe [facility] Start: 07-05-2022 End: 07-05-2022 ambulatory 07/05/2022 Treatment Rehabilitation Vitor Yoder PA-C [address] [place] [address] Yanira Thorpe [facility] Start: 07-01-2022 End: 07-01-2022 ambulatory 07/01/2022 Treatment Rehabilitation Vtior Yoder PA-C [address] [place] [address] Ryan Luke [facility] Start: 06-29-2022 End: 06-29-2022 ambulatory 06/29/2022 Treatment Rehabilitation Vitor Yoder PA-C [address] [place] [address] [facility] Start: 06-24-2022 End: 06-24-2022 ambulatory 06/24/2022 Treatment Rehabilitation Vitor Yoder PA-C [address] [place] [address] Ryan Luke [facility] Start: 06-22-2022 End: 06-22-2022 ambulatory 06/22/2022 Treatment Rehabilitation Vitor Yoder PA-C [address] [place] [address] [facility] Start: 06-18-2022 End: 06-18-2022 ambulatory 06/18/2022 Treatment Rehabilitation Vitor Yoder PA-C [address] [place] [address] [facility] Start: 06-16-2022 End: 06-16-2022 ambulatory 06/16/2022 Treatment Rehabilitation Vitor Yoder PA-C [address] [place] [address] Yenni Phillips [facility] Start: 06-11-2022 End: 06-11-2022 ambulatory 06/11/2022 Evaluation Rehabilitation Vitor Yoder PA-C [address] [facility] [address] [place] [address] Lili Coon PT [facility] Start: 04-15-2022 Influenza vaccination Sequential Influenza Vaccine (#1) [facility] Start: 02-03-2022 COVID-19 Vaccine (5 - Booster for Pfizer series) COVID-19 Vaccine (5 - Booster for Pfizer series) [facility] Start: 04-02-2021 Screening for malignant neoplasm of breast Mammogram [facility] Start: 07-02-2013 Lipid panel LIPID SCREENING [facility] Start: 2013 Administration of herpes zoster vaccine Zoster Vaccines (1 of 2) [facility] Start: 2013 Pneumococcal vaccination PNEUMOCOCCAL VACCINE SERIES (1 of 1 - PCV) [facility] Start: 2013 Screening for malignant neoplasm of colon Flexible sigmoidoscopy [facility] Start: 2013 Zoster vaccine hzv live for subcutaneous use ZOSTER (SHINGLES) VACCINE (1 of 2) [facility] Start: 2013 Zoster Vaccines (1 of 2) Zoster Vaccines (1 of 2) [facility] Start: 01-08-2008 Screening for malignant neoplasm of colon COLORECTAL CANCER SCREENING DISCUSSION [facility] Start: 2003 Screening for malignant neoplasm of breast [facility] Start: 01-08-1984 Screening for malignant neoplasm of cervix [facility] Start: 1981 Diabetes mellitus screening Diabetes Screening [facility] Start: 1981 Hepatitis C screening Hepatitis C Screening [facility] Start: 1978 HIV screening [facility] Start: 1975 Depression screening using PHQ-9 (Patient Health Questionnaire 9) score Depression Screening (PHQ-2/9) [facility] Start: 1966 History and physical examination, annual for health maintenance Wellness Visit [facility] Start: 01-08-1964 MMR Vaccines (1 of 1 - Standard series) MMR Vaccines (1 of 1 - Standard series) [facility] Start: 1963 COVID-19 Vaccine (#1) COVID-19 Vaccine (#1) [facility] Start: 1963 Hepatitis C screening HEPATITIS C VIRUS SCREENING [facility] Start: 1963 HIV screening HIV Screening [facility] Start: 1963 Lipid panel Lipid Panel [facility] Start: 1963 Screening for malignant neoplasm of cervix Pap Smear [facility] Start: 1963 Screening for malignant neoplasm of colon [facility] Start: 1963 Tetanus vaccination Tetanus: Every 10yrs [facility] Start: 1963 Yearly Adult Physical Yearly Adult Physical [facility] End: 11-14-2024 DBT Breast - bilateral [facility] Service Area Work Phone: Comment on above: Once for 1 Occurrences starting 11/15/19 25 until 11/14/2024 End: 10-20-2023 ECG 12 lead [facility] Work Phone: Comment on above: Every 1 hour for 2 Occurrences starting 10/20/2023 until 10/20/2023 As needed until disc ontinued starting 10/20/2023 End: 10-20-2023 Extra Urine Bruner Tube [facility] Work Phone: Comment on above: Once for 1 Occurrences starting 10/20/19 24 until 10/20/2023 End: 11-28-2024 Non-gynecological cytology method study [facility] Work Phone: Comment on above: Once (Lab) for 1 Occurrences starting until 11/28/2024 End: 10-20-2023 Pulse oximetry, continuous Pulse oximetry, continuous Respiratory Care STAT Continuous until discontinued starting 10/20/2023 [facility] Work Phone: Comment on above: Continuous until discontinued starting 0 10/20/2023 Standard ECG ECG ECG STAT 03/2024 12:04 AM EST [facility] Work Phone: End: 10-20-2023 Urinalysis complete W Reflex Culture panel - Urine [facility] Work Phone: Comment on above: Once (Lab) for 1 Occurrences starting until 10/20/2023 End: 11-14-2024 US Parathyroid gland [facility] Service Area Work Phone: Comment on above: Once for 1 Occurrences starting 11/15/19 25 until 11/14/2024 Immunizations Immunization Date Immunization Notes Care Provider Marta kitchentres 10-05-2024 zoster vaccine recombinant Silvia Nava APRN-BLENDING COORDINATOR Work Phone: [facility] Work Phone: 05-31-2024 Pneumococcal conjuga te vaccine, 20-valent (PREVNAR 20) Silvia Nava APRN-BLENDING COORDINATOR Work Phone: [facility] Work Phone: 05-31-2024 RESPIRATORY SYNCYTIA L VIRUS (RSV), ELIGIBLE PTS, 0.5 ML (ABRYSVO) Silvia Nava APRN-BLENDING COORDINATOR Work Phone: [facility] Work Phone: 05-04-2024 influenza virus vaccine, unspecified formulation Silvia Nava APRN-BLENDING COORDINATOR Work Phone: [facility] 05-18-2023 influenza virus vaccine, unspecified formulation Silvia Nava 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 Work Phone: [facility] Work Phone: 05-18-2023 Influenza, injectabl e, Madin [place] Canine Kidney, preservative free, quadrivalent Silvia Nava APRN-BLENDING COORDINATOR Work Phone: [facility] Work Phone: 10-04-2022 Moderna COVID-19 vaccine, bivalent, blue cap/bruner label *Check age/dose* Silvia Nava APRN-BLENDING COORDINATOR Work Phone: [facility] Work Phone: 05-18-2022 Flu vaccine, quadrivalent, high-dose, preservative free, age 65y+ (FLUZONE) Silvia Nava APRN-BLENDING COORDINATOR Work Phone: [facility] Work Phone: 04-04-2022 tetanus toxoid, redu aleida diphtheria toxoid, and acellular pertussis vaccine, adsorbed Gama Stefano [facility] 12-09-2021 SARS-CoV-2 (COVID-19 ) mRNA-[address] ALYSSIA MARAVILLA MD [facility] Comment on above: Result Comment: 2021: TPV4 04-16-2021 SARS-CoV-2 mRNA (tozinameran) vaccine DR ALYSSIA MARAVILLA MD [facility] Comment on above: Result Comment: 2021: TPV50 09-23-2020 SARS-CoV-2 mRNA (tozinameran) vaccine DR ALYSSIA MARAVILLA MD [facility] Comment on above: Result Comment: 2021: [id number] 09-02-2020 SARS-CoV-2 mRNA (tozinameran) vaccine DR ALYSSIA MARAVILLA MD [facility] Comment on above: Result Comment: 2021: [id number] Payers Date Payer Category Payer Self-pay [id number] 2023 Managed Care (unspecified) MMO [id number] 2022 [facility] Care (Private) [facility] HMO [id number] 2017 Unknown 2015 Unknown [id number] 1963 Unknown [id number] 2.16.840.1.053935.3.579.2. 62 1963 Unknown [id number] 2.16.840.1.247908.3.579.2. 62 1963 Unknown [id number] 2.16.840.1.961758.3.579.2. 90 1963 Unknown [id number] 2.16.840.1.259884.3.579.2. 1963 Unknown [id number] 2.16.840.1.755349.3.579.2. 90 1963 Unknown [id number] 2.16.840.1.885076.3.579.2. 1963 Unknown [id number] 2.16.840.1.985430.3.579.2. 90 1963 Unknown [id number] 2.16.840.1.559796.3.579.2. 1963 Unknown [id number] 2.16.840.1.097094.3.579.2. 1963 Unknown [id number] 2.16.840.1.901910.3.579.2. 1963 Unknown [id number] 2.16.840.1.342992.3.579.2. 90 1963 Unknown [id number] 2.16.840.1.513271.3.579.2. 1963 Unknown [id number] 2.16.840.1.591202.3.579.2. 1069 1963 Unknown [id number] 2.16.840.1.990598.3.579.2. 356 1963 Unknown [id number] 2.16.840.1.701233.3.579.2. 5 1963 Unknown [id number] 2.16.840.1.926835.3.579.2. 594 1963 Unknown [id number] 2.16.840.1.224743.3.579.2. 1242 1963 Unknown [id number] 2.16.840.1.642534.3.579.2. 1242 1963 Unknown [id number] 2.16.840.1.672328.3.579.2. 1242 1963 Unknown [id number] 2.16.840.1.544189.3.579.2. 1242 1963 Unknown [id number] 2.16.840.1.241937.3.579.2. 1242 1963 Unknown [id number] 2.16.840.1.361534.3.579.2. 1242 1963 Unknown [id number] 2.16.840.1.283309.3.579.2. 1242 1963 Unknown [id number] 2.16.840.1.707718.3.579.2. 1242 1963 Unknown [id number] 2.16.840.1.385811.3.579.2. 1242 1963 Unknown [id number] 2.16.840.1.053433.3.579.2. 1242 1963 Unknown [id number] 2.16.840.1.092301.3.579.2. 1242 1963 Unknown [id number] 2.16.840.1.460032.3.579.2. 1243 1963 Unknown [id number] 2.16.840.1.604935.3.579.2. 1243 1963 Unknown [id number] 2.16.840.1.624146.3.579.2. 1244 1963 Unknown [id number] 2.16.840.1.560748.3.579.2. 1244 1963 Unknown [id number] 2.16.840.1.142660.3.579.2. 1244 1963 Unknown [id number] 2.16.840.1.270334.3.579.2. 1244 Unknown [id number] 2.16.840.1.682564.3.579.2. 462 Unknown [id number] 2.16.840.1.256075.3.579.2. 462 Unknown [id number] 2.16.840.1.709309.3.579.2. 462 Unknown [id number] 2.16.840.1.720123.3.579.2. 462 Unknown [id number] 2.16.840.1.776181.3.579.2. 462 Social History Date Type Detail Facility Start: 08-23-2021 End: 08-23-2021 Tobacco smoking status ALIS Unknown if ever smoked [facility] Start: 1965 Sex Assigned At Female [facility] Start: 1965 Sex Assigned At Not on file [facility] Start: 05-28-2022 End: 07-19-2023 Tobacco smoking status Never smoked tobacco (finding) [facility] Start: 06-01-2022 End: 12-05-2024 Exposure to SARS-CoV-2 (event) Not sure [facility] Start: 07-19-2023 End: 11-08-2023 Tobacco use and exposure Smokeless tobacco non-user [facility] Work Phone: Start: 07-20-2023 End: 03-27-2025 Alcohol intake Ex-drinker (finding) [facility] Work Phone: Start: 07-20-2023 End: 03-09-2024 Alcohol intake [facility] Work Phone: Start: 07-20-2023 End: 03-09-2024 Tobacco use panel [facility] Work Phone: Start: 07-19-2023 Alcohol Comment 1 or 2 every few months [facility] Work Phone: Start: 08-07-2023 End: 08-17-2023 Exposure to SARS-CoV-2 (event) Yes [facility] Start: 06-11-2009 Alcoholic beverage intake Current non-drinker of alcohol (finding) [facility] Has the [employer], or water [employer] threatened to shut off services in your home in past 12Mo No [facility] (I/We) worried lilo er (my/our) food would run out before (I/we) got money to buy more. Never true [facility] Start: 07-10-2022 In the past 12 months, has lack of transportation kept you from medical appointments or from getting medications? No [facility] History of tobacco use Passive smoker [facility] How often to you hav e a drink containing alcohol? Never [facility] Start: 09-06-2024 Gender identity Identifies as female gender (finding) [facility] Work Phone: Start: 09-06-2024 Sexual orientation Heterosexual (finding) [facility] Work Phone: Start: 09-17-2012 Sex Female (finding) [facility] Functional Status Date Assessment Result Facility 03-27-2025 Patient Health Questionnaire 2 item (PHQ-2) [Reported] [facility] Work Phone: 10-21-2023 Within the last year , have you been humiliated or emotionally abused in other ways by your partner or ex-partner? No 10/21/2023 4:00 AM Angela Swift RN No [facility] 10-21-2023 Within the last year , have you been afraid of your partner or ex-partner? No 10/21/2023 4:00 AM Angela Swift RN No [facility] 10-21-2023 Within the last year , have you been raped or forced to have any kind of sexual activity by your partner or ex-partner? No 10/21/2023 4:00 AM Angela Swift RN No [facility] 10-21-2023 Within the last year , have you been kicked, hit, slapped, or otherwise physically hurt by your partner or ex-partner? No 10/21/2023 4:00 AM Angela Swift RN No [facility] 10-21-2023 Are you deaf, or do you have serious difficulty hearing No 10/21/2023 4:00 AM Angela Swift RN No [facility] 10-21-2023 Are you blind, or do you have serious difficulty seeing, even when wearing glasses Yes 10/21/2023 4:00 AM Angela Swift, TONO Yes [facility] 10-21-2023 Do you have serious difficulty walking or climbing stairs No 10/21/2023 4:00 AM Angela Swift, TONO No [facility] 10-21-2023 Do you have difficul ty dressing or bathing No 10/21/2023 4:00 AM Angela Swift RN No [facility] 10-21-2023 Because of a physica l, mental, or emotional condition, do you have difficulty doing errands alone such as visiting a physician's office or shopping No 10/21/2023 4:00 AM Angela Swift RN No [facility] 06-09-2022 Functional Status [facility] 06-09-2022 Functional Status 2 Alfredtrey brady [facility] 06-09-2022 Functional Status Walker Alfred salazartomas [facility] 06-09-2022 Functional Status [facility] 06-09-2022 Functional Status [facility] 06-09-2022 Functional Status [facility] 06-08-2022 Functional Status Lunch Percent 100 [facility] 06-08-2022 Functional Status Single level home [facility] 06-08-2022 Functional Status Maintained [facility] 05-28-2022 Functional Status Sensory Deficits None A [facility] Mental Status Date Assessment Result Facility 10-21-2023 Because of a physica l, mental, or emotional condition, do you have serious difficulty concentrating, remembering, or making decisions No 10/21/2023 4:00 AM Angela Swift, TONO No [facility] 06-09-2022 Mental Status Oriented x 4 [facility] 06-09-2022 Mental Status Orientation Oriented x 4 [facility] 06-09-2022 Mental Status [facility] 06-08-2022 Mental Status [facility] Clinical Notes 05-28-2022 to 03-27-2025 DAVID Vanegas - 03/27/2025 1:20 PM Destiny Mendoza RN - 11/28/2024 10:25 AM Destiny Mendoza RN - 11/28/2024 10:25 AM DAVID Thomas - 11/21/2024 2:00 PM EDTPatient Instructions Note Date & Type Note Facility 03-27-2025 History of Present illness Narrative Subjective Patient ID: Connor Khan is a 60 y.o. female who presents for Follow-up (2 MONTH FOLLOW UP, MEDICATION CHECK). HPI: Presents today for LAB FU. NO LABS DONE. C/O POISON ED X 6 DAYS modifying factors consists of SHE WENT AND PICKED BERRIES associated symptoms consist of RASH TO B/L ARMS AND BREAST. ITCHY. NECK. NOT ON HER FACE. NO DIFFICULTY SWALLOWING. No sores prior treatment consists of medication OTC LOTIONS LUMBAR PAIN- FOLLOWING WITH DR. KHADAR HERNANDEZ [facility]ROUGH [facility]. MRI AND DEXA SCAN DONE 03/26/25. SHE IS WAITING FOR RESULTS. SHE HAS AN APPT WITH THEM NEXT WEEK. HTN- STABLE Visit Vitals BP 117/82 Pulse 74 Ht 1.626 m (5' 4) Wt 98.2 kg (216 lb 9.6 oz) LMP (LMP Unknown) BMI 37.18 kg/m OB Status Postmenopausal Smoking Status Never BSA 2.11 m Review of Systems Constitutional: Negative for [...] flank pain, frequency, hematuria and urgency. Musculoskeletal: Positive for arthralgias and back pain. Negative for gait problem, joint swelling, myalgias and neck pain. Skin: Negative for rash and wound. Neurological: Negative for dizziness, seizures, syncope, facial asymmetry, speech difficulty, weakness, numbness and headaches. Psychiatric/Behavioral: Negative for confusion, sleep disturbance and suicidal ideas. The patient is not nervous/anxious. Objective Physical Exam Constitutional: Appearance: Normal appearance. She [...] Assessment/Plan Problem List Items Addressed This Visit Rheumatoid arthritis Relevant Medications methocarbamol (Robaxin) 750 mg tablet Class 2 severe obesity due to excess calories with serious comorbidity and body mass index (BMI) of 37.0 to 37.9 in adult Other Visit Diagnoses Dermatitis due to plants, including poison ed, sumac, and oak - Primary Relevant Medications predniSONE (Deltasone) 10 mg tablet dexAMETHasone (Decadron) injection 4 mg (Start on 03/27/2025 1:45 PM) clotrimazole-betamethasone (Lotrisone) cream DO LABS. I HAVE AGREED TO CALL IF UNREMARKABLE WE DISCUSSED MOST COMMON SIDE EFFECTS OF PRESCRIBED MEDICATIONS. INDICATIONS, RISK, COMPLICATIONS, AND ALTERNATIVES OF MEDICATION/THERAPEUTICS WERE EXPLAINED AND DISCUSSED. PLEASE MONITOR CLOSELY FOR ANY UNTOWARD SIDE [...] MEDICATIONS ORDERED OR SURGICAL OR PROCEDURE REFERRAL Follow up as before documented in this encounter [facility] Work Phone: 11-28-2024 Nurse Note Patient dc'd home with spouse. Dc instructions provided and reviewed without questions. Patient ambulates to exit with slow and steady gait. [facility] 11-28-2024 Nurse Note Patient dc'd home with spouse. Dc instructions provided and reviewed without questions. Patient ambulates to exit with slow and steady gait. documented in this encounter [facility] Work Phone: 11-21-2024 History of Present illness Narrative Subjective Patient ID: Connor Khan is a 59 y.o. female who presents for Back Pain (C/O; BACK PAIN X 12 MONTHS, RIGHT LOWER BACK). HPI: Presents today for C/O LOW BACK PAIN X 12 MONTHS THAT HAS GOTTEN WORSE OVER THE PAST 2 MONTHS modifying factors consists of 2022 SHE DID INJURY HER BACK AND WAS IN [facility]. NO SURGERY AT THAT TIME. SHE DID SEE [facility] WHO GAVE HER INJECTIONS, THAT HELPED SOME associated symptoms consist of PAIN RADIATES TO prior treatment consists of medication INJECTIONS IN THE PAST HE IS REQUESTING REFERRAL TO [facility] Visit Vitals BP 123/83 Pulse 79 Ht 1.626 m (5' 4) Wt 93.7 kg (206 lb 9.6 oz) LMP (LMP Unknown) BMI 35.46 kg/m OB Status Postmenopausal Smoking Status Never BSA 2.06 m Review of Systems Constitutional: Negative for [...] flank pain, frequency, hematuria and urgency. Musculoskeletal: Positive for arthralgias and back pain. Negative for gait problem, joint swelling, myalgias and neck pain. Skin: Negative for rash and wound. Neurological: Negative for dizziness, seizures, syncope, facial asymmetry, speech difficulty, weakness, numbness and headaches. Psychiatric/Behavioral: Negative for confusion, sleep disturbance and suicidal ideas. The patient is not nervous/anxious. Objective Physical Exam Constitutional: Appearance: Normal appearance. She [...] motion. Cervical back: Normal range of motion. Comments: RIGHT LOW BACK PAIN Skin: General: Skin is warm and dry. Neurological: General: No focal deficit present. Mental Status: She is alert and oriented to person, place, and time. Psychiatric: Mood and Affect: Mood normal. Behavior: Behavior normal. Thought Content: Thought content normal. Judgment: Judgment normal. Assessment/Plan Problem List Items Addressed This Visit Low back pain radiating down leg - Primary Relevant Medications dexAMETHasone (Decadron) injection 4 mg (Completed) predniSONE (Deltasone) 10 mg tablet Other Relevant Orders Referral to Orthopedics and Sports Medicine Class 2 severe obesity due to excess calories with serious comorbidity and body mass index (BMI) of 35.0 to 35.9 in adult [place] body weight: 54.7 kg (120 lb 9.5 oz) Adjusted ideal body weight: 70.3 kg (154 lb 15.9 oz) TIME CODE 1. PREPARATION FOR PATIENT'S VISIT [...] MEDICATIONS ORDERED OR SURGICAL OR PROCEDURE REFERRAL 11 MONTHS WITH LABS documented in this encounter [facility] Work Phone: 10-31-2024 History of Present illness Narrative Subjective Patient ID: Connor Khan is a 59 y.o. female who presents for Annual Exam (WELLNESS, LABS). HPI: Presents today for 12 MONTH WELLNESS WITH LABS. NO NEW COMPLAINTS VIT D- IMPROVED. PTH- ELEVATED.SHE STATES SHE SEEM DR. TONG, ENT ABOUT 10 YEARS AGO FOR NODULES. BIOPSY NEGATIVE AT THAT TIME. VIT D. SHE HAS BEEN TAKING A MULTI VITAMIN. INSTRUCTED TO START CALCIUM WITH VIT D. RECHECK IN 3 MONTHS. OBTAIN PTH US. PREDIABETES- HGA1C 5.8% COMPARED TO 5.6%. DIET MODIFICATIONS DISCUSSED LIPIDS- STABLE Visit Vitals BP 110/72 Pulse 80 Ht 1.626 m (5' 4) Wt 92.2 kg (203 lb 3.2 oz) LMP (LMP Unknown) BMI 34.88 kg/m OB Status Postmenopausal Smoking Status Never BSA 2.04 m Review of Systems Constitutional: Negative for [...] ideas. The patient is not nervous/anxious. Objective Component Latest Ref Rng 09/05/2024 WBC 4.4 - 11.3 x10*3/uL 4.0 (L) nRBC 0.0 - 0.0 /100 WBCs 0.0 RBC 4.00 - 5.20 x10*6/uL 4.18 HEMOGLOBIN 12.0 - 16.0 g/dL 12.3 HEMATOCRIT 36.0 - 46.0 % 39.0 MCV 80 - 100 fL 93 MCH 26.0 - 34.0 pg 29.4 MCHC 32.0 - 36.0 g/dL 31.5 (L) RED CELL DISTRIBUTION WIDTH 11.5 - 14.5 % 14.0 Platelets 150 - 450 x10*3/uL 298 Neutrophils % 40.0 - 80.0 % 48.6 Immature Granulocytes %, Automated 0.0 - 0.9 % 0.0 Lymphocytes % 13.0 - 44.0 % 32.2 Monocytes % 2.0 - 10.0 % 10.6 Eosinophils % 0.0 - 6.0 % 7.9 Basophils % 0.0 - 2.0 % 0.7 Neutrophils Absolute 1.20 - 7.70 x10*3/uL 1.96 Immature Granulocytes Absolute, Automated 0.00 - 0.70 x10*3/uL 0.00 Lymphocytes Absolute 1.20 - 4.80 x10*3/uL 1.30 Monocytes Absolute 0.10 - 1.00 x10*3/uL 0.43 Eosinophils Absolute 0.00 - 0.70 x10*3/uL 0.32 Basophils Absolute 0.00 - 0.10 x10*3/uL 0.03 GLUCOSE 74 - 99 mg/dL 90 SODIUM 136 - 145 mmol/L 139 POTASSIUM 3.5 - 5.3 mmol/L 4.5 CHLORIDE 98 - 107 mmol/L 105 Bicarbonate 21 - 32 mmol/L 28 Anion Gap 10 - 20 mmol/L 11 Blood Urea Nitrogen 6 - 23 mg/dL 12 Creatinine 0.50 - 1.05 mg/dL 0.73 EGFR >60 mL/min/1.73m*2 >90 Calcium 8.6 - 10.3 mg/dL 8.8 Albumin 3.4 - 5.0 g/dL 4.1 Alkaline Phosphatase 33 - 136 U/L 133 Total Protein 6.4 - 8.2 g/dL 6.2 (L) AST 9 - 39 U/L 29 Bilirubin Total 0.0 - 1.2 mg/dL 0.3 ALT 7 - 45 U/L 21 CHOLESTEROL 0 - 199 mg/dL 192 HDL CHOLESTEROL mg/dL 74.0 Cholesterol/HDL Ratio 2.6 LDL Calculated <=99 mg/dL 102 (H) VLDL 0 - 40 mg/dL 16 TRIGLYCERIDES 0 - 149 mg/dL 79 Non HDL Cholesterol 0 - 149 mg/dL 118 Hemoglobin A1C See comment % 5.8 (H) Estimated Average Glucose Not Established mg/dL 120 Thyroid Stimulating Hormone 0.44 - 3.98 mIU/L 1.96 Vitamin D, 25-Hydroxy, Total 30 - 100 ng/mL 35 Parathyroid Hormone, Intact 18.5 - 88.0 pg/mL 130.7 (H) Legend: (L) Low (H) High Physical Exam Constitutional: Appearance: Normal appearance. She [...] Assessment/Plan Problem List Items Addressed This Visit Vitamin D deficiency Relevant Medications calcium carbonate-vitamin D3 (Hi-Kadeem Plus Vit D) 500 mg-5 mcg (200 unit) tablet Rheumatoid arthritis Pure hypercholesterolemia Relevant Orders CT cardiac scoring wo IV contrast Other Visit Diagnoses Hyperparathyroidism (Multi) - Primary Relevant Orders US neck parathyroid Breast cancer screening by mammogram Relevant Orders BI mammo bilateral screening tomosynthesis WE DISCUSSED MOST COMMON SIDE EFFECTS OF PRESCRIBED MEDICATIONS. INDICATIONS, RISK, COMPLICATIONS, AND ALTERNATIVES OF MEDICATION/THERAPEUTICS WERE EXPLAINED AND DISCUSSED. PLEASE MONITOR CLOSELY FOR ANY UNTOWARD SIDE [...] MEDICATIONS ORDERED OR SURGICAL OR PROCEDURE REFERRAL 12 MONTHS WELLNESS WITH LABS AND SCHEDULE FU TO DISCUSS TESTING documented in this encounter [facility] Work Phone: 04-11-2024 History of Present illness Narrative Subjective Patient ID: Connor Khan is a 59 y.o. female who presents for Follow-up (3 WEEK FOLLOW UP FROM CELLULITIS. PT IS FINISHED WITH ALL ANTIBIOTICS NOW.) HPI Patient presents today as Silvia nava patient for FU cellulitis of the chest. She was admitted the [facility] for the infection end of February and then Followed up with Dr Greene Mar 22. She was given an addition 2 courses of Abx which she has since completed. The wounds are full closed and head - slight pink skin and thickening noted with scarring Neg erythema or warmth or discharge We discussed given the location and sweating to monitor closely Med check Preventative Fall - NEG MAR 2024 PHQ2 NEG MAR 2024 Patient Active Problem List Diagnosis Incontinence Numbness and tingling Headache Depression HTN (hypertension) Primary osteoarthritis of right knee Refractory migraine with aura Restless legs Compression of lumbar nerve root Lumbar disc herniation Iron deficiency Low back pain radiating to left leg B12 deficiency Vitamin D deficiency Rheumatoid arthritis (Multi) Pharyngitis Encounter for screening for malignant neoplasm of colon Class 2 severe obesity due to excess calories with serious comorbidity and body mass index (BMI) of 37.0 to 37.9 in adult (Multi) Abdominal wall cellulitis Review of Systems Constitutional: Negative for chills, fatigue and fever. HENT: Negative for congestion, rhinorrhea, sinus pain, sore throat and tinnitus. Eyes: Negative for discharge, redness and visual disturbance. Respiratory: Negative for cough, chest tightness, shortness of breath and wheezing. Cardiovascular: Negative for chest pain, palpitations and leg swelling. Gastrointestinal: Negative for abdominal pain, constipation, diarrhea, nausea and vomiting. Endocrine: Negative for cold intolerance and heat intolerance. Genitourinary: Negative for flank pain, frequency and urgency. Musculoskeletal: Negative for back pain, gait problem and neck pain. Skin: Positive for wound. Negative for rash. Neurological: Negative for dizziness, tremors, syncope, numbness and headaches. Hematological: Does not bruise/bleed easily. Psychiatric/Behavioral: Negative for confusion, sleep disturbance and suicidal ideas. Past Medical History: Diagnosis Date Allergic Anemia Arthritis Depression 2009? Headache 1973 Myocardial infarction (Multi) 12/2022 Past Surgical History: Procedure Laterality Date BOWEL RESECTION 10/20/2023 [facility] - DUE TO SBO BREAST SURGERY 09/08/1993 CHOLECYSTECTOMY 2002 ENDOMETRIAL ABLATION 1990 FRACTURE SURGERY 2021 JOINT REPLACEMENT 2021 SMALL INTESTINE SURGERY 2002 WISDOM TOOTH EXTRACTION 1975? Family History Problem Relation Name Age of Onset Arthritis Mother Jing Cancer Mother Jing Heart disease Mother Jing Hyperlipidemia Mother Jing Hypertension Mother Jing Arthritis Father Gustabo Heart disease Father Gustabo Hyperlipidemia Father Gustabo Hypertension Father Gustabo Arthritis Sister Elysia Depression Sister Elysia Heart disease Sister Elysia Hyperlipidemia Sister Elysia Hypertension Sister Elysia Mental illness Sister Elysia Arthritis Maternal Grandmother Bela Arthritis Maternal Grandfather Cornelio Cancer Maternal Grandfather Cornelio Stroke Paternal Grandmother Bela Heart disease Paternal Grandfather Humberto Stroke Paternal Grandfather Humberto Breast cancer Mother's Sister Ifeoma 60 Social History Tobacco Use Smoking status: Never Smokeless tobacco: Never Vaping Use Vaping status: Never Used Substance Use Topics Alcohol use: Not Currently Alcohol/week: 1.0 standard drink of alcohol Types: 1 Glasses of wine per week Comment: 1 or 2 every few months Drug use: Never Allergies Allergen Reactions Aspirin Bleeding and Other Sulfa (Sulfonamide Antibiotics) Other Tongue burning Current Outpatient Medications Medication Sig Dispense Refill amitriptyline (Elavil) 25 mg tablet Take 1 tablet (25 mg) by mouth once daily at bedtime. celecoxib (CeleBREX) 200 mg capsule take 1 capsule by mouth once daily if needed citalopram (CeleXA) 20 mg tablet Take 1 tablet (20 mg) by mouth once daily. 90 tablet 1 cyanocobalamin, vitamin B-12, 1,000 mcg tablet, sublingual take 1 by Oral route every day folic acid (Folvite) 1 mg tablet Take by mouth twice a day. gabapentin (Neurontin) 600 mg tablet Take 1 tablet (600 mg) by mouth once daily at bedtime. methocarbamol (Robaxin) 750 mg tablet Take 2 tablets (1,500 mg) by mouth 3 times a day as needed for muscle spasms. 180 tablet 1 methotrexate (Trexall) 2.5 mg tablet Take by mouth. multivitamin with minerals tablet Take 1 tablet by mouth 2 times a day. pramipexole (Mirapex) 0.5 mg tablet Take 1 tablet (0.5 mg) by mouth once daily at bedtime. SUMAtriptan (Imitrex) 100 mg tablet Take by mouth once daily as needed. traMADol (Ultram) 50 mg tablet Take 1 tablet (50 mg) by mouth 3 times a day as needed. UNKNOWN TO PATIENT Administer 1 drop into both eyes if needed. calcium carbonate-vitamin D3 (Hi-Kadeem Plus Vit D) 500 mg-5 mcg (200 unit) tablet Take 1 tablet by mouth 2 times a day. (Patient not taking: Reported on 03/22/2024) 180 tablet 3 predniSONE (Deltasone) 10 mg tablet take 1 tablet by mouth once daily if needed (TAKE FOR 3-5 DAYS WITH A FLARE) No current facility-administered medications for this visit. Objective BP 122/78 Pulse 71 Ht 1.626 m (5' 4) Wt 79.8 kg (176 lb) LMP (LMP Unknown) BMI 30.21 kg/m Physical Exam Vitals reviewed. Constitutional: Appearance: Normal appearance. She is obese. HENT: Head: Normocephalic. Right Ear: External ear normal. Left Ear: External ear normal. Nose: Nose normal. No congestion or rhinorrhea. Mouth/Throat: Mouth: Mucous membranes are moist. Eyes: Extraocular Movements: Extraocular movements intact. Conjunctiva/sclera: Conjunctivae normal. Pupils: Pupils are equal, round, and reactive to light. Cardiovascular: Rate and Rhythm: Normal rate and regular rhythm. Pulses: Normal pulses. Pulmonary: Effort: Pulmonary effort is normal. Breath sounds: Normal breath sounds. Abdominal: General: Bowel sounds are normal. Palpations: Abdomen is soft. Tenderness: There is no abdominal tenderness. There is no right CVA tenderness or left CVA tenderness. Musculoskeletal: General: No tenderness. Normal range of motion. Cervical back: Normal range of motion and neck supple. No tenderness. Skin: General: Skin is warm and dry. Neurological: General: No focal deficit present. Mental Status: She is alert and oriented to person, place, and time. Psychiatric: Mood and Affect: Mood normal. Behavior: Behavior normal. Testing Reviewed labs ordered to be done in 4-5 mo Impression Reviewed labs and Testing on file Patient to follow diet low in cholesterol, fat, and sodium. Patient is advised to increase Exercise. Patient is recommended to lose weight. Reviewed Meds and discussed common side effects Continue as directed Patient is strongly advised to be compliant with recommendations. Return to Clinic sooner if needed. Patient denies further questions/concerns at this time Assessment/Plan Problem List Items Addressed This Visit ICD-10-CM Class 1 obesity due to excess calories with serious comorbidity and body mass index (BMI) of 30.0 to 30.9 in adult E66.09, Z68.30 Abdominal wall cellulitis - Primary L03.311 FU as before with wellness and labs with Silvia nava in [place] documented in this encounter [facility] Work Phone: 03-03-2024 History of Present illness Narrative [facility] 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 APRN-BLENDING COORDINATOR Visit Note - 03/03/2024 9:59 AM This note was generated with voice recognition software and may contain errors including spelling, grammar, syntax, and misrecognization of what was dictated. Patient: Connor Khan, , 59 y.o., female PCP: DAVID Vanegas -- ALLERGIES: Allergies Allergen Reactions Aspirin Bleeding and Other Sulfa (Sulfonamide Antibiotics) Other CURRENT MEDICATIONS: Current Outpatient Medications Medication Instructions amitriptyline (ELAVIL) 25 mg, oral, Nightly calcium carbonate-vitamin D3 (Hi-Kadeem Plus Vit D) 500 mg-5 mcg (200 unit) tablet 1 tablet, oral, 2 times daily celecoxib (CeleBREX) 200 mg capsule take 1 capsule by mouth once daily if needed citalopram (CELEXA) 20 mg, oral, Daily cyanocobalamin, vitamin B-12, 1,000 mcg tablet, sublingual take 1 by Oral route every day ferrous sulfate, 325 mg ferrous sulfate, tablet 1 tablet, oral, Daily folic acid (Folvite) 1 mg tablet oral, 2 times daily gabapentin (NEURONTIN) 600 mg, oral, Nightly methocarbamol (ROBAXIN) 1,500 mg, oral, 3 times daily PRN methotrexate (Trexall) 2.5 mg tablet oral mupirocin (Bactroban) 2 % ointment 1 Application, Topical, 3 times daily RT pramipexole (MIRAPEX) 0.5 mg, oral, Nightly predniSONE (Deltasone) 10 mg tablet take 1 tablet by mouth once daily if needed (TAKE FOR 3-5 DAYS WITH A FLARE) predniSONE (Deltasone) 10 mg tablet Take 6 tabs PO daily x1 day, then take 5 tabs daily x1 day, then take 4 tabs daily x1 day, then take 3 tabs daily x1 day, then take 2 tabs daily x1 day, then take 1 tab daily x1 day. Take with a meal. predniSONE (DELTASONE) 30 mg, oral, Daily SUMAtriptan (Imitrex) 100 mg tablet oral, Daily PRN traMADol (Ultram) 50 mg tablet oral valACYclovir (VALTREX) 1,000 mg, oral, 3 times daily -- PAST MEDICAL HX: Patient Active Problem List Diagnosis Incontinence Numbness and tingling Allergic Headache Depression HTN (hypertension) Primary osteoarthritis of right knee Refractory migraine with aura Restless legs Compression of lumbar nerve root Lumbar disc herniation Iron deficiency Wellness examination Low back pain radiating to left leg B12 deficiency Vitamin D deficiency Rheumatoid arthritis (Multi) Breast cancer screening by mammogram Pharyngitis Encounter for screening for malignant neoplasm of colon Class 2 severe obesity due to excess calories with serious comorbidity and body mass index (BMI) of 37.0 to 37.9 in adult (Multi) SURGICAL HX: Past Surgical History: Procedure Laterality Date BREAST SURGERY 09/08/1993 CHOLECYSTECTOMY 2002 ENDOMETRIAL ABLATION 1989 FRACTURE SURGERY 2021 JOINT REPLACEMENT 2021 SMALL INTESTINE SURGERY 2002 WISDOM TOOTH EXTRACTION 1974? FAMILY HX: No pertinent history. SOCIAL HX: reports that she has never smoked. She has never used smokeless tobacco. -- CHIEF COMPLAINT: Chief Complaint Patient presents with Rash RASH ON CHEST X 2 DAYS, MIGRAINES X 4 DAYS HISTORY OF PRESENT ILLNESS: The history was obtained from patient. Connor is a 59 y.o. female, who presents with a chief complaint of painful, slightly itchy rash to her chest, over her sternum - sxs started on , when she noticed just a few small bumps, and has worsened since then. Reports the rash is both itchy and tender/sensitive to touch. Denies having rash anywhere else. Denies any drainage; no known injury or irritants. Reports had migraines on Tuesday/, but otherwise, has not noticed any fever/chills, n/v, or other systemic symptoms. Has been applying cortisone cream and lidoderm gel- does not feel they are helping; has not tried any other OTC medications for symptoms. Denies any other complaints. No known ill contacts. States has not received the Herpes Zoster vaccine, but does have a history of chicken pox, and had shingles on her neck ~15 years ago. REVIEW OF SYSTEMS: 10 systems reviewed negative with exception of history of present illness as listed above. TODAY'S VITALS: BP 129/86 Pulse 62 Temp 36.1 C (96.9 F) Resp 14 Ht 1.626 m (5' 4) Wt 80.3 kg (177 lb) LMP (LMP Unknown) SpO2 99% BMI 30.38 kg/m PHYSICAL EXAMINATION: General: Pleasant female, alert and oriented, in no acute distress. Eyes: Pupils equal, round and reactive to light. Eyes non-icteric; conjunctiva clear. HENT: Airway patent. Neck: Supple; no palpable lymphadenopathy Respiratory: Respirations are non-labored; lungs clear to auscultation - no wheezes, rhonchi, or rales. Breath sounds are equal, Symmetrical chest wall expansion. Non-dyspneic. Cardiovascular: Normal rate, Regular rhythm. Normal S1S2. No m/r/g. Musculoskeletal: Grossly normal. Gait unremarkable. Has FROM all extremities. Integumentary: Clusters of clear vesicles (on erythematous base), few pustules, and maculopapular rash scattered to center of chest, just over the sternum - rash does cross the midline, but is limited to ~the T4/T5 dermatomes. No no drainage or crusting; rash very tender to palpation. No swelling generalized erythema noted.. No rash noted elsewhere on body. Neurologic: Alert, Oriented, Normal sensory, Normal motor function. Cognition and Speech: Oriented, Speech clear and coherent. Psychiatric: Cooperative, Appropriate mood & affect. -- Medical Decision Making LABORATORY or RADIOLOGICAL IMAGING ORDERS/RESULTS: None IMPRESSION/PLAN: Course: Worsening; stable 1. Rash and other nonspecific skin eruption - valACYclovir (Valtrex) 1 gram tablet; Take 1 tablet (1,000 mg) by mouth 3 times a day for 7 days. Dispense: 21 tablet; Refill: 0 - predniSONE (Deltasone) 10 mg tablet; Take 6 tabs PO daily x1 day, then take 5 tabs daily x1 day, then take 4 tabs daily x1 day, then take 3 tabs daily x1 day, then take 2 tabs daily x1 day, then take 1 tab daily x1 day. Take with a meal. Dispense: 21 tablet; Refill: 0 - mupirocin (Bactroban) 2 % ointment; Apply 1 Application topically 3 times a day for 10 days. Dispense: 22 g; Refill: 0 Unclear etiology for current rash - some suspicion for shingles, although rash does cross the midline. Reviewed other potential etiologies. Low suspicion for fungal dermatitis at this point. Will start oral antiviral LONG, as well as prednisone taper and mupirocin ointment. Cool compresses and calamine lotion may also be helpful. Advised should hold NSAIDs until steroid course is complete. Discussed expectations for treatment and resolution of symptoms at length, as well as the possibility of complications, including postherpetic neuralgia if rash is, indeed, shingles. Urged to monitor closely for any s/sxs of bacterial infection, and reviewed precautionary measures - should avoid contact with and immunocompromised individuals, as well as children who have not yet had the chicken pox virus. Encouraged to f/u with PCP if not improving over the next week, or sooner if any additional problems develop. Patient agreed with plan of care; questions were encouraged and answered. DAVID Quintana Advanced Practice Provider [facility] documented in this encounter [facility] Work Phone: 12-08-2023 History of Present illness Narrative Chief Complaint Patient presents with Follow-up Presents for surgical weight management follow up s/p RNY 2002, s/p G-tube placement 10/21/2023. Weight is down 10# since last clinic visit on 11/08/2023. She reported occasional nausea & frequent constipation. Denied vomiting, diarrhea, bloating or symptoms of reflux. Is drinking 64 oz + of fluid and taking in 70 grams of protein daily. For exercise she is walking 1-2 days per week for 60 minutes. 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 She reports that when following the diet does not have negative symptoms commonly seen after gastric bypass including nausea, vomiting, reflux symptoms, bloating, dumping syndrome, or diarrhea. She reports an intact satiety mechanism. She is no longer taking pain medication. She is tolerating the appropriate gastric bypass diet. She is taking in >64 oz/day of fluids and getting 70 gms/day of protein. Has occasional nausea that is alleviated with eating, not associated with PO intake and never follows, attributed to hunger. Also reports constipation. Pre-op symptoms are resolved and have not recurred. GT in place, site appears appropriate, tolerating flushes without issue. She is remaining active and energy level is as expected. Past Medical History: Diagnosis Date Aortic valve regurgitation, acquired Asthma Back pain HTN (hypertension) Morbid obesity Obesity Pulmonic valve regurgitation Tricuspid valve disorder Past Surgical History: Procedure Laterality Date LAPAROSCOPY ABDOMEN PERITONEUM OMENTUM DIAGNOSTIC N/A 10/21/2023 Laterality: N/A; Surgeon: Tomas Galvez MD; Location: [facility] MAIN OR GASTRIC BYPASS 05/27/2003 RELEASE CARPAL TUNNEL 1993 CHOLECYSTECTOMY, LAPAROSCOPIC 1993 BREAST LUMPECTOMY 1989 x2 Current Outpatient Medications Medication Sig Celecoxib (CELEBREX PO) Take 1 tablet by mouth. Citalopram 20 MG tablet Take 1 tablet by mouth daily. Cobalamine Combinations (B-12) 100-5000 MCG SL SUBL take by mouth Daily. Folic acid 1 MG tablet Take 1 tablet by mouth 2 times daily. gabapentin 600 MG tablet Take 1 tablet by mouth every evening. Methocarbamol 750 MG tablet Take 1 tablet by mouth 4 times daily. methotrexate 2.5 MG tablet take 6 tablets every week MISC NATURAL PRODUCTS PO Take by mouth. Multiple Vitamin (multivitamin) capsule Take 1 capsule by mouth 2 times daily. SUMAtriptan 50 MG tablet Take 1 tablet by mouth once. May repeat in 2 hr, MAX 200MG/24HR traMADol 50 MG tablet Take 1 tablet by mouth every 6 hours as needed. Pantoprazole [address] tablet DR Take 1 tablet by mouth daily. Vit-Fe Sulfate-FA ( VITAMIN PO) take by mouth Daily. Wt Readings from Last 3 Encounters: 12/08/23 93.4 kg (206 lb) 11/08/23 98.1 kg (216 lb 4.8 oz) 10/21/23 102.8 kg (226 lb 11.2 oz) Body mass index is 36.49 kg/m . BP 131/76 (BP Location: Left arm, BP Position: Sitting) Pulse 77 Temp 97.3 F (36.3 C) (Temporal) Resp 16 Ht 1.6 m (5' 3) Wt 93.4 kg (206 lb) SpO2 96% Comment: room air BMI 36.49 kg/m Smoking Status Never On exam: Abdomen in soft and non-tender, no hernias palpated. The incisions are well-healed without hernias or signs of infection. No lower extremity edema. Assessment: She is s/p Rocío-en-Y gastric bypass, recent Enteroenterostomy & Cyrus remnant gastrostomy tube placement and is doing as expected. She has lost 20# since her admission, related to dietary changes as she desired additional weight loss. Found discussion with wigs salesperson at last visit very helpful. G tube was removed at visit today and site covered with gauze dressing. Anticipate healing in the next several days and dressing instructions given. Discussed addressing constipation with titration of miralax daily up to BID and increasing fluid intake. Also discussed return/contact precautions. No additional interventions or follow-up planned at this time. No activity restrictions. Overall doing very well. Tomas Galvez MD Minimally Invasive Surgery/ Bariatric Fellow Clinical Instructor, General Surgery Presents for surgical weight management follow up s/p RNY 2002, s/p G-tube placement 10/21/2023. Weight is down 10# since last clinic visit on 11/08/2023. She reported occasional nausea & frequent constipation. Denied vomiting, diarrhea, bloating or symptoms of reflux. Is drinking 64 oz + of fluid and taking in 70 grams of protein daily. For exercise she is walking 1-2 days per week for 60 minutes. LEARNING ASSESSMENT Learning needs identified: No Learner: patient Readiness to learn: No barriers; Ready to learn EDUCATION PLAN Educational packet: No Reviewed action plan and expected sequence of events for today s visit. Oriented to room and clinic environment Other patient education provided during visit: Extended education provided to patient on the importance of hydration goal, minimum 64 oz & protein intake of minimum of 60 grams daily. Extended education provided to patient on the importance of diet, exercise, & tracking reviewed for exterminator helper termite success of weight loss. Extended education provided to patient regarding strict precautions of need to call office long in morning (or ocean transportation intermediary service after business hours), to include s/s of infection (reviewed), wound complications, with s/s of dehydration (dizziness, lightheadedness, concentrated urine), if not meeting fluid protein goals (reviewed) etc., & need to report to ER with uncontrolled nausea/vomiting, uncontrolled pain, or worsened condition. Patient verbalized understanding, denied needs/questions. LEARNING RESPONSE Teaching method Verbal Response to teaching States/Identifies LENGTH OF TIME TEACHING Time spent teaching 15 documented in this encounter [facility] 11-08-2023 History of Present illness Narrative Patient was referred to music writer by Dr Tomas Galvez MD for step IV diet advancement. Patient is about 6-8 weeks s/p recent enteroenterostomy and cyrus remnant gtube placement in the setting of previous RNYGB. BMI: Estimated body mass index is 38.32 kg/m as calculated from the following: Height as of an earlier encounter on 11/08/23: 1.6 m (5' 3). Weight as of an earlier encounter on 11/08/23: 98.1 kg (216 lb 4.8 oz). Patient stated they have been tolerating step III diet well and denies any regular nausea, vomiting, abdominal pain/dumping. Pt said their current intake is at least >60 grams of protein and >64 oz fluid daily. Advanced to step IV, encouraging 60-80 gm of protein and >64oz of sugar free, decaf, and non-carbonated fluids. Discussed supplementing protein intake at meals/snacks. Advised to advance slowly with well-tolerated foods. Discussed continuing with pre-godfrey/multivitamin, 1,200-1,500 mg calcium citrate, and 500 mcg of vitamin B12, or Bariatric Fusion Complete Chewables. Patient states understanding of info presented. Subjective/Goals Discussed: -Step 3 diet education and handout provided. Malnutrition Assessment: Patient does not meet malnutrition criteria for diagnosis; *based on the AND/ASPEN Malnutrition Criteria 2012 NFPE not warranted at this time; deferred at this time. Learning Barriers Identified: can read and write adequately Spent 15 minutes with patient [id number] providing nutrition assessment and/or counseling/education and discussing step IV dietary guidelines. Mookie Weston MS RD LD documented in this encounter [facility] 11-08-2023 History of Present illness Narrative Presents for surgical weight management follow up s/p RNY 2002 & Diagnostic laparoscopy, Enteroenterostomy, & Cyrus remnant gastrostomy tube placement 10/21/2023.Weight is down 9.81# since DOS. She reported diarrhea since yesterday, x 6 episodes since yesterday. Denied nausea, vomiting, constipation, bloating or symptoms of reflux. Is drinking 90+ of fluid (and 120 cc water via g-tube daily) and taking in 60 grams of protein daily. Walking daily for 30 minutes. Incisions are healing without redness, swelling or drainage at sites. First Post-Operative Visit Goals Marker Response/Education Standards Reviewed MD/WARP PICKER notified of deviation from standard 1. 64 oz water/fluid [x] Yes [] No Ounces: 90 + [] If no, Post op standard reviewed, education provided [] Comment: 2. 60 gm protein [x] Yes [] No Grams: [] If no, Post op standard reviewed, education provided [] Comment: 3. Exercise/activity began [x] Yes Activity:walking How many minutes: 30 [] No [] If no, Post op standard reviewed, education provided [] Comment: 4. Pain Controlled [x] Yes [] No Pain Number: [] If no, Post op standard reviewed, education provided [] Comment: 5. Wearing Binder [] Yes [x] No [x] If no, Post op standard reviewed, education provided [] Comment: 6. Incisions closed [x] Yes [] No. [] If no, Post op Standard discussed. Reviewed with MD/WARP PICKER. Gave wound care and instructions. Verbal understanding reciprocated. [] Other Comment: 7. Voiding clear yellow urine regularly [x] Yes [] No [] If no, Post op standard reviewed, education provided [] Comment: 8. Stools soft, w/o constipation, diarrhea, bloating [] Yes [x] No [x] If no, Post op standard reviewed, education provided [] Comment:Diarrhea x 6 since yesterday. 9. Energy, weakness, fatigue resolving [x] Yes [] No [] If no, Post op standard reviewed, education provided [] Comment: 10. Swallowing with ease [x] Yes [] No [] If no, Post op standard reviewed, education provided [] Comment: 11. Nausea is present [] Yes [] If yes, Post op standard reviewed, education provided [] Comment: [x] No 12. Vomiting is present [] Yes [] If yes, Post op standard reviewed, education provided [] Comment: [x] No 13. Reflux is present [] Yes [] If yes, Post op standard reviewed, education provided [] Comment: [x] No 14. Aware of activity restrictions protocol [x] Yes [] No [] If no, Post op standard reviewed, education provided [] Comment: 15. Medication refill requests [] Yes [] If yes, med(s) requested: 1. 2. 3. [x] No 16. Work restrictions/FMLA paperwork needed [] Yes [] If Yes, post op education provided as needed. Referred to FML office staff as needed. [] Comment: [x] No 17. Primary care 1 month post op scheduled [] Yes [x] No [x] If no, Post op standard reviewed, education provided [] Comment: 18. Have you disposed of the [facility] prescribed opioid pills? Other patient education provided during visit: Patient to see wigs salesperson today. Extended education provided to patient on the importance of hydration goal, minimum 64 oz & protein intake of minimum of 60 grams daily. Extended education provided to patient on the importance of diet, exercise, & tracking reviewed for fpc success of weight loss. Extended education provided to patient regarding strict precautions of need to call office long in morning (or ocean transportation intermediary service after business hours), to include s/s of infection (reviewed), wound complications, with s/s of dehydration (dizziness, lightheadedness, concentrated urine), if not meeting fluid protein goals (reviewed) etc., & need to report to ER with uncontrolled nausea/vomiting, uncontrolled pain, or worsened condition. Patient verbalized understanding, denied needs/questions. [] Yes [x] No [x] If no, discussed disposal how, where, and why. [] Comment: Chief Complaint Patient presents with Surgical Follow-up Presents for surgical weight management follow up s/p RNY 2002 & Diagnostic laparoscopy, Enteroenterostomy, & Cyrus remnant gastrostomy tube placement 10/21/2023. Weight is down 9.81# since DOS. She reported diarrhea since yesterday, x 6 episodes since yesterday. Denied nausea, vomiting, constipation, bloating or symptoms of reflux. Is drinking 90+ of fluid (and 120 cc water via g-tube daily) and taking in 60 grams of protein daily. Walking daily for 30 minutes. See progress note/flow sheets. 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 She reports that when following the diet does not have negative symptoms commonly seen after gastric bypass including nausea, vomiting, reflux symptoms, bloating, dumping syndrome, diarrhea or constipation. She reports an intact satiety mechanism. She is no longer taking pain medication. She is tolerating the appropriate gastric bypass diet. She is taking in >200 oz/day of fluids and getting 60 gms/day of protein. Pre-op symptoms are resolved and have not recurred. GT in place, site appears appropriate, tolerating flushes without issue. She is remaining active and energy level is as expected. Past Medical History: Diagnosis Date Aortic valve regurgitation, acquired Asthma Back pain HTN (hypertension) Obesity Pulmonic valve regurgitation Tricuspid valve disorder Past Surgical History: Procedure Laterality Date LAPAROSCOPY ABDOMEN PERITONEUM OMENTUM DIAGNOSTIC N/A 10/21/2023 Laterality: N/A; Surgeon: Tomas Galvez MD; Location: [facility] MA[facility] GASTRIC BYPASS 05/27/2003 RELEASE CARPAL TUNNEL 1993 CHOLECYSTECTOMY, LAPAROSCOPIC 1993 BREAST LUMPECTOMY 1989 x2 Current Outpatient Medications Medication Sig Cobalamine Combinations (B-12) 100-5000 MCG SL SUBL take by mouth Daily. Ondansetron (Zofran) 4 MG tablet Take 1 tablet by mouth every 8 hours as needed for Nausea / Vomiting. oxyCODONE 5 MG tablet Take 1 tablet by mouth every 6 hours as needed for Moderate Pain or Severe Pain for up to 3 days. Pantoprazole [address] tablet DR Take 1 tablet by mouth daily. Vit-Fe Sulfate-FA ( VITAMIN PO) take by mouth Daily. Wt Readings from Last 3 Encounters: 11/08/23 98.1 kg (216 lb 4.8 oz) 10/21/23 102.8 kg (226 lb 11.2 oz) 06/11/09 91.7 kg (202 lb 3.2 oz) Body mass index is 38.32 kg/m . BP 136/61 (BP Location: Left arm, BP Position: Sitting) Pulse 75 Temp 97.2 F (36.2 C) (Temporal) Resp 16 Ht 1.6 m (5' 3) Wt 98.1 kg (216 lb 4.8 oz) SpO2 98% Comment: room air BMI 38.32 kg/m On exam: Abdomen in soft and non-tender, no hernias palpated. The incisions are well-healed without hernias or signs of infection. No lower extremity edema. Assessment: She is s/p Rocío-en-Y gastric bypass, recent Enteroenterostomy & Cyrus remnant gastrostomy tube placement and is doing as expected. She has lost 10# since her admission We have recommended a Step 4 diet, encouraged compliance and referred the patient to meet with our dietitian. We encouraged increasing activity as appropriate. Continued light duty - no lifting >10 lbs for a total of 10 weeks after surgery. Patient instructions and after visit summary were given to the patient. The patient will follow up in 4 weeks or earlier if needed, with plan to remove gastrostomy tube at that time. This may be removed any day following 12/05/2023, which was discussed with the patient. Tomas Galvez MD Minimally Invasive Surgery/ Bariatric Fellow Clinical Instructor, General Surgery documented in this encounter [facility] 11-08-2023 Instructions Tomas Galvez MD - 11/08/2023 11:00 AM EDT May resume regular diet. May return to work, but continue lifting restrictions <10 lbs and light duty for a total of 10 weeks following surgery. G tube may be removed any date after 12/05/2023. documented in this encounter [facility] 10-24-2023 Nurse Note AVS reviewed with patient, including diet, activity, and G-tube caare. Demonstrated proper flushing technique. IV's removed. Belongings gathered. Luan, RUG RECEIVING CLERK, wheeled patient off unit. will be driving her home. [facility] 10-24-2023 Miscellaneous Notes AVS reviewed with patient, including diet, activity, and G-tube caare. Demonstrated proper flushing technique. IV's removed. Belongings gathered. Luan, RUG RECEIVING CLERK, wheeled patient off unit. will be driving her home. Problem: Surgery Nonspecified (Adult) Goal: Signs and Symptoms of Listed Potential Problems Will be Absent, Minimized or Managed (Surgery Nonspecified) Description: Signs and symptoms of listed potential problems will be absent, minimized or managed by discharge/transition of care (reference Surgery Nonspecified (Adult) CPG). Outcome: Progressing Flowsheets (Taken 10/24/20235) Problems Assessed (Surgery): all Problems Present (Surgery): none Problem: Bariatric Surgery (Adult,Pediatric) Goal: Signs and Symptoms of Listed Potential Problems Will be Absent, Minimized or Managed (Bariatric Surgery) Description: Signs and symptoms of listed potential problems will be absent, minimized or managed by discharge/transition of care (reference Bariatric Surgery (Adult,Pediatric) CPG). Outcome: Progressing Flowsheets (Taken 10/24/20235) Problems Assessed (Bariatric Surgery): all Problems Present (Bariatric Surgery): none Problem: Pain, Acute (Adult) Goal: Identify Related Risk Factors and Signs and Symptoms Description: Related risk factors and signs and symptoms are identified upon initiation of Human Response Clinical Practice Guideline (CPG) Outcome: Completed Goal: Acceptable Pain Control/Comfort Level Description: Patient will demonstrate the desired outcomes by discharge/transition of care. Outcome: Completed Problem: Nausea/Vomiting (Adult) Goal: Identify Related Risk Factors and Signs and Symptoms Description: Related risk factors and signs and symptoms are identified upon initiation of Human Response Clinical Practice Guideline (CPG) Outcome: Completed Goal: Symptom Relief Description: Patient will demonstrate the desired outcomes by discharge/transition of care. Outcome: Completed Goal: Adequate Hydration Description: Patient will demonstrate the desired outcomes by discharge/transition of care. Outcome: Completed Problem: Pain, Acute (Adult) Goal: Identify Related Risk Factors and Signs and Symptoms Description: Related risk factors and signs and symptoms are identified upon initiation of Human Response Clinical Practice Guideline (CPG) Outcome: Progressing Flowsheets (Taken 10/22/20232224) Related Risk Factors (Acute Pain): surgery Signs and Symptoms (Acute Pain): verbalization of pain descriptors Goal: Acceptable Pain Control/Comfort Level Description: Patient will demonstrate the desired outcomes by discharge/transition of care. Outcome: Progressing Flowsheets (Taken 10/22/20232224) Acceptable Pain Control/Comfort Level: making progress toward outcome Problem: Bariatric Surgery (Adult,Pediatric) Goal: Signs and Symptoms of Listed Potential Problems Will be Absent, Minimized or Managed (Bariatric Surgery) Description: Signs and symptoms of listed potential problems will be absent, minimized or managed by discharge/transition of care (reference Bariatric Surgery (Adult,Pediatric) CPG). Outcome: Progressing Flowsheets (Taken 10/22/20232224) Problems Assessed (Bariatric Surgery): all Problems Present (Bariatric Surgery): postoperative nausea and vomiting pain situational response Problem: Nausea/Vomiting (Adult) Goal: Identify Related Risk Factors and Signs and Symptoms Description: Related risk factors and signs and symptoms are identified upon initiation of Human Response Clinical Practice Guideline (CPG) Outcome: Progressing Flowsheets (Taken 10/22/20232224) Related Risk Factors (Nausea/Vomiting): recent surgery with general anesthesia Signs and Symptoms (Nausea/Vomiting): report of queasy sensation Goal: Symptom Relief Description: Patient will demonstrate the desired outcomes by discharge/transition of care. Outcome: Progressing Flowsheets (Taken 10/22/20232224) Symptom Relief: making progress toward outcome Goal: Adequate Hydration Description: Patient will demonstrate the desired outcomes by discharge/transition of care. Outcome: Progressing Flowsheets (Taken 10/22/20232224) Adequate Hydration: making progress toward outcome Problem: Bariatric Surgery (Adult,Pediatric) Goal: Anesthesia/Sedation Recovery Outcome: Completed Flowsheets (Taken 10/22/2023 2225) Anesthesia/Sedation Recovery: recovered to baseline Pt has watched ruiz video (discharge and post-op) and verbalizes understanding Problem: Patient Care Overview Goal: Plan of Care Review Outcome: Progressing Goal: Individualization & Mutuality Outcome: Progressing Goal: Discharge Needs Assessment Outcome: Progressing Goal: Interdisciplinary Rounds/Family Conf Outcome: Progressing Flowsheets (Taken 10/22/2023 164) Participants: physician nursing patient Problem: Surgery Nonspecified (Adult) Goal: Signs and Symptoms of Listed Potential Problems Will be Absent, Minimized or Managed (Surgery Nonspecified) Description: Signs and symptoms of listed potential problems will be absent, minimized or managed by discharge/transition of care (reference Surgery Nonspecified (Adult) CPG). Outcome: Progressing Flowsheets (Taken 10/22/2023 0323 by Wendi Gutierrez RN) Problems Assessed (Surgery): all Problems Present (Surgery): pain Problem: Pain, Acute (Adult) Goal: Identify Related Risk Factors and Signs and Symptoms Description: Related risk factors and signs and symptoms are identified upon initiation of Human Response Clinical Practice Guideline (CPG) Outcome: Progressing Goal: Acceptable Pain Control/Comfort Level Description: Patient will demonstrate the desired outcomes by discharge/transition of care. Outcome: Progressing Intervention: Mutually Develop/Implement Acute Pain Management Plan Flowsheets (Taken 10/22/2023 1649) Sensory Stimulation Regulation: care clustered quiet environment promoted Complementary Therapy: other (see comments) Problem: Patient Care Overview Goal: Plan of Care Review Outcome: Progressing Flowsheets (Taken 10/22/2023 1212) Plan Of Care Reviewed With: patient Progress: progress toward functional goals as expected Problem: Pain, Acute (Adult) Goal: Identify Related Risk Factors and Signs and Symptoms Description: Related risk factors and signs and symptoms are identified upon initiation of Human Response Clinical Practice Guideline (CPG) Outcome: Progressing Flowsheets (Taken 10/22/2023 1212) Related Risk Factors (Acute Pain): surgery Signs and Symptoms (Acute Pain): verbalization of pain descriptors Goal: Acceptable Pain Control/Comfort Level Description: Patient will demonstrate the desired outcomes by discharge/transition of care. Outcome: Progressing Flowsheets (Taken 10/22/2023 1212) Acceptable Pain Control/Comfort Level: making progress toward outcome Problem: Pain, Acute (Adult) Intervention: Monitor/Manage Analgesia Flowsheets Taken 10/22/2023 1212 Bowel Intervention: ambulation promoted privacy promoted diet adjusted Taken 10/22/2023 1049 Pain Management Interventions: positioning pillow support Intervention: Mutually Develop/Implement Acute Pain Management Plan Flowsheets (Taken 10/22/2023 1212) Sensory Stimulation Regulation: care clustered Intervention: Support/Optimize Psychosocial Response to Acute Pain Flowsheets Taken 10/22/2023 121 Trust Relationship/Rapport: care explained choices provided questions encouraged questions answered Taken 10/22/2023 1049 Supportive Measures: active listening utilized self-care encouraged verbalization of feelings encouraged Problem: Surgery Nonspecified (Adult) Goal: Signs and Symptoms of Listed Potential Problems Will be Absent, Minimized or Managed (Surgery Nonspecified) Description: Signs and symptoms of listed potential problems will be absent, minimized or managed by discharge/transition of care (reference Surgery Nonspecified (Adult) CPG). Outcome: Progressing Flowsheets (Taken 10/22/2023 032) Problems Assessed (Surgery): all Problems Present (Surgery): pain Problem: Pain, Acute (Adult) Goal: Identify Related Risk Factors and Signs and Symptoms Description: Related risk factors and signs and symptoms are identified upon initiation of Human Response Clinical Practice Guideline (CPG) Outcome: Progressing Flowsheets (Taken 10/22/2023 0323) Related Risk Factors (Acute Pain): surgery Signs and Symptoms (Acute Pain): verbalization of pain descriptors Goal: Acceptable Pain Control/Comfort Level Description: Patient will demonstrate the desired outcomes by discharge/transition of care. Outcome: Progressing Flowsheets (Taken 10/22/2023 032) Acceptable Pain Control/Comfort Level: making progress toward outcome Problem: Surgery Nonspecified (Adult) Goal: Anesthesia/Sedation Recovery Outcome: Completed Flowsheets (Taken 10/22/2023 032) Anesthesia/Sedation Recovery: recovered to baseline Skin WNL except for drain site, dual RN skin check with TONO Bailon On admission to [facility], from PACU a dual RN initial assessment of skin condition was performed by Maryam Weston RN and Harriet Woodson RN. Skin Assessment: Skin not within defined limits. - Photo taken and uploaded into notes in IHIS: Yes Mat Score: 23 LDA Added:LDA's in place Maryam Weston RN Paged [facility] bariatric surgery Hi! Patient in 760 khan- patient is requesting imitrex for her migraine. Thanks! Maryam [phone] Report called to TONO Francisco, all questions answered, VSS. Connor Khan ([id number]) PRE OPERATIVE DIAGNOSIS Small bowel obstruction [K56.609] POST OPERATIVE DIAGNOSIS Small bowel obstruction [K56.609] PROCEDURE PERFORMED Procedure(s) (LRB): LAPAROSCOPY ABDOMEN PERITONEUM OMENTUM DIAGNOSTIC (N/A) PRIMARY CLOSURE Yes INTRAOPERATIVE FINDINGS Dilated BP limb and remnant stomach. Normal appearing Rocío and common channel . Sandoval enterostomy from BP limb to common channel. Remnant G tube. SURGEON Surgeons and Role: * Tomas Galvez MD - Primary * Audrey Edwards MD - Assisting ANESTHESIOLOGIST Anesthesiologist: Jaylan Roper MD; Earl Bermudez MD SILVER MINER: Marialuisa Baltazar APRN-SILVER MINER Nut And Bolt Assembler Assisting: Alysa Buchanan MD; Aimee Barragan MD SURGICAL STAFF Paper Products Inspector: Adrianna Denise RN; Stevan Veloz RN Relief Paper Products Inspector: Camila Baca RN Scrub Person: Yaima Ratliff Resident Assisting: Leena Skinner MD Ela Teacher: Geno Gonzales; Florian Plata COMPLICATIONS None ESTIMATED BLOOD LOSS Minimal SPECIMENS No specimen sent * No specimens in log * Leena Skinner MD October 21, 2023 10:00 AM Images from the original note were not included. 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 female with the above medical history who presented to the emergency department with acute abdominal pain, distension, and associated retching. She was found on imaging to have findings concerning for an obstruction at her jejunojejunostomy with dilatation of her biliopancreatic limb and remnant stomach. Given these symptoms and findings, the patient was taken to the operating room for diagnostic laparoscopy. Details of procedure: The patient was brought into the operative suite, placed on the operative table in supine position. General anesthesia was then initiated per anesthesia protocol. The patient's abdomen was then prepped and draped in the usual sterile fashion. Following this a time-out was performed during which the surgical, nursing and anesthesia staff agreed upon the patient, site of operation and nature of operation to be performed. A Veress needle was used to establish pneumoperitoneum to 15 mm through a left upper quadrant incision after intraabdominal placement was confirmed with saline drop test and pressure and flow readings. A 5-mm optical trocar was placed through the same incision and visual access to the peritoneal cavity was obtained. We confirmed there was no injury from our entry. Additional 5 mm trocars were placed infraumbilical, in the left upper quadrant and the right upper quadrant and a 12 mm VersaStep port was placed in the right gema-abdomen, all under direct visualization. We then proceeded with our exploration. Omental adhesions to the abdominal wall and falciform were taken down with a combination of blunt dissection and the Ligasure. The omentum was then reflected superiorly. The terminal ileum was identified and run until we reached the jejunojejunostomy and all of this small bowel appeared of normal calibre, without adhesions or other abnormalities. From the jejunojejunostomy, the biliopancreatic limb was identified and traced back to the ligament of treitz, this was significantly dilated but all healthy and viable appearing. The Rocío limb was then run to the gastrojejunostomy and found to all be of normal calibre, without adhesions, or other abnormalities. Parish's and the mesenteric defect were closed and there was no evidence of internal hernia. We turned our attention to the jejunojejunostomy, and did not find any tethering that would cause an obstruction. Given the findings of a normal rocío limb and common channel, at this point I opted to proceed with an enteroenterostomy of the biliopancreatic limb just proximal and the common channel just distal to the existing anastomosis to bypass the area of obstruction as identified by both imaging and our intraoperative findings. The bowel was aligned and adjacent enterotomies were created with hook cautery and a 60mm crook load of the EndoGIA stapler was used to create a [id number]-tp-[id number] anastomosis. The common opening was then closed with a transverse firing of the stapler. The prior anastomosis effectively served as an anti-torsion fixation point, and we once again confirmed that the mesenteric defect was previously closed. Clips were used to ensure hemostasis of our transverse staple line. The patient was then positioned in reverse trendelenburg and we turned our attention to the remnant stomach. This was dilated. We identified an area on the stomach, away from the pylorus and from the course of the Rocío limb to use for the gastrostomy tube. Superior, lateral, and medial cyrus sutures were placed using 2-0 Surgidec and, and brought trans fascial with the Alec-Hernandez. A full thickness gastrotomy was then made using electrocautery. A skin incision was made in the left upper quadrant and a 20F gastrostomy tube brought through this into the abdomen. We confirmed that the balloon was intact, then the tube was placed into the stomach and the balloon inflated with 10 mL of sterile water. An additional inferior Cyrus suture was placed and brought trans-fascial. Then we dropped the penumoperitoenum to 10 mmHg and the tube and the sutures were tightened to gently oppose the anterior remnant stomach to the abdominal wall, and secured here. The gastrostomy tube was noted to be at 4 cm at the skin. Adequate hemostasis was ensured. The abdomen was allowed to desufflate and all of our ports removed. Skin incisions were closed with 4-0 monocryl before being covered with Dermabond. The patient was then extubated per anesthesia protocol and transferred to the postoperative bed in stable condition. There were no complications. All sponge, needle, and instrument counts at the end case . I was personally scrubbed and participated in the entirety of the case including all russo portions of the procedure. Tomas Galvez MD Minimally Invasive Surgery/ Bariatric Fellow Clinical Instructor, General Surgery On admission to [facility], from ED a dual RN initial assessment of skin condition was performed by Angela Sifuentes RN and Tirso Falcon. Skin Assessment: Skin within defined limits:Yes LDA Added:No Angela Sifuentes RN documented in this encounter [facility] 10-24-2023 Hospital course Narrative Discharge Summary Name: Connor Khan Age: 58 y.o. Birthday: 1965 Admit Date: 10/20/2023 11:49 PM Discharge Date: 10/24/23 Discharge Time: 1400 Discharge Unit: [id number] Admission Information Admitting Physician: Benigno Linn MD Discharge Information Discharge Physician: Tomas Galvez MD Problem List Active Hospital Problems Diagnosis Small bowel obstruction Resolved Hospital Problems No resolved problems to display. Brief Summary of Hospital Course for Discharge Summary: Connor Khan is a 58 y.o. female with history of HTN, lap kayy, BMI 36.61, lap RnYGB in 2002 who presents with epigastric abdominal pain, nausea, dry heave, on admission had no leukocytosis but lipase of 500. CT findings of dilated BP limb with abrupt transition point at the J-J anastomosis concern for stricture or SBO. Patient went to OR for diagnostic laparoscopy on 10/21/23 with findings of dilated BP limb and remnant stomach, normal appearing Rocío and common channel, Sandoval enterostomy from BP limb to common channel, remnant G tube. The patient tolerated the procedure well and there were no immediate complications. The patient is being discharged in stable condition and was able to tolerate a Step 2 post bariatric surgery diet, therefore will transition to the Step 3 diet at discharge. The patient is maintaining adequate hydration, able to ambulate and pain is controlled on oral pain medication. The patient is scheduled for a post operative follow-up visit on 11/07 at 11am with Sarah the bariatric clinic. OARRS has been reviewed for this patient. Based on the information, it is appropriate to prescribe oxycodone at discharge. She will also continue with daily protonix 40mg for the next month. She was given education on how to care for her g-tube and instructions in her AVS. Further discharge instructions can be found on the after visit summary which was provided to the patient at the time of discharge. Brief Summary of Consults for Discharge Summary: None Brief Summary of Procedures and Imaging for Discharge Summary: CT ABDOMEN/ABDOMEN-PELVIS (INTERPRETATION - OUTSIDE IMAGE) Final Result IMPRESSION: 1. 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 There is abrupt transition at the jejunojejunal anastomosis. There are no associated findings to suggest this is related to an internal hernia or volvulus. Edema of the associated mesentery and a small volume of pelvic free fluid are likely reactive in nature. 2. No other acute findings of the chest, abdomen, and pelvis. 3. Ancillary findings are noted in the body of the report. Summary of last selected lab results and date obtained: Lab Results Component Value Date WBC 6.10 10/24/2023 HGB 10.9 (L) 10/24/2023 HCT 33.8 (L) 10/24/2023 PLATELET 206 10/24/2023 MCV 93.1 10/24/2023 Lab Results Component Value Date SODIUM 142 10/24/2023 POTASSIUM 3.5 10/24/2023 CHLORIDE 104 10/24/2023 CO2 27 10/24/2023 BUN 7 10/24/2023 CREATSERUM 0.42 (L) 10/24/2023 GLUCOSE 90 10/24/2023 Lab Results Component Value Date ALT 25 10/21/2023 AST 32 10/21/2023 ALKPHOS 137 (H) 10/21/2023 BILITOTAL 0.3 10/21/2023 BILIDIRECT <0.1 10/21/2023 Brief Summary of Labs for Discharge Summary: No discharge procedures on file. Current Outpatient Meds: Medication List for when you go home START taking these medications Morning Afternoon Evening Bedtime As Needed Ondansetron 4 MG TABS Take 1 tablet by mouth every 8 hours as needed for Nausea / Vomiting. Commonly known as: Zofran Last time this was given: Ask your nurse or doctor oxyCODONE 5 MG TABS Take 1 tablet by mouth every 6 hours as needed for Moderate Pain or Severe Pain for up to 3 days. Commonly known as: ROXICODONE For diagnoses: Small bowel obstruction Last time this was given: 5 mg on October 24, 2023 1:39 PM Pantoprazole [address] tablet DR Take 1 tablet by mouth daily. Commonly known as: PROTONIX Last time this was given: Ask your nurse or doctor CONTINUE taking these medications Morning Afternoon Evening Bedtime As Needed B-12 100-5000 MCG tab SL take by mouth Daily. For diagnoses: Malnutrition following gastrointestinal surgery, HTN (hypertension) VITAMIN PO take by mouth Daily. For diagnoses: Malnutrition following gastrointestinal surgery, HTN (hypertension) STOP taking these medications Ferrous Fumarate 50 MG tab ER Commonly known as: Norman-Sequels Patient Instructions on Discharge Future Appointments Date Time Provider Department Center 11/08/2023 11:00 AM Benigno Linn MD [facility] No follow-up provider specified. Medication List START taking these medications Ondansetron 4 MG TABS Commonly known as: Zofran Take 1 tablet by mouth every 8 hours as needed for Nausea / Vomiting. oxyCODONE 5 MG TABS Commonly known as: ROXICODONE Take 1 tablet by mouth every 6 hours as needed for Moderate Pain or Severe Pain for up to 3 days. Pantoprazole 40 MG tab tablet Commonly known as: PROTONIX Take 1 tablet by mouth daily. CONTINUE taking these medications B-12 100-5000 MCG tab SL VITAMIN PO STOP taking these medications Ferrous Fumarate 50 MG tab ER Commonly known as: Norman-Sequels Where to Get Your Medications These medications were sent to [id number] - [place] [address] - [address] [facility] [address] [facility] [id number] Ondansetron 4 MG TABS oxyCODONE 5 MG TABS Pantoprazole [address] karen SHOEMAKER documented in this encounter [facility] 10-24-2023 Plan of care note Problem: Surgery Nonspecified (Adult) Goal: Signs and Symptoms of Listed Potential Problems Will be Absent, Minimized or Managed (Surgery Nonspecified) Description: Signs and symptoms of listed potential problems will be absent, minimized or managed by discharge/transition of care (reference Surgery Nonspecified (Adult) CPG). Outcome: Progressing Flowsheets (Taken 10/24/20235) Problems Assessed (Surgery): all Problems Present (Surgery): none Problem: Bariatric Surgery (Adult,Pediatric) Goal: Signs and Symptoms of Listed Potential Problems Will be Absent, Minimized or Managed (Bariatric Surgery) Description: Signs and symptoms of listed potential problems will be absent, minimized or managed by discharge/transition of care (reference Bariatric Surgery (Adult,Pediatric) CPG). Outcome: Progressing Flowsheets (Taken 10/24/20235) Problems Assessed (Bariatric Surgery): all Problems Present (Bariatric Surgery): none Problem: Pain, Acute (Adult) Goal: Identify Related Risk Factors and Signs and Symptoms Description: Related risk factors and signs and symptoms are identified upon initiation of Human Response Clinical Practice Guideline (CPG) Outcome: Completed Goal: Acceptable Pain Control/Comfort Level Description: Patient will demonstrate the desired outcomes by discharge/transition of care. Outcome: Completed Problem: Nausea/Vomiting (Adult) Goal: Identify Related Risk Factors and Signs and Symptoms Description: Related risk factors and signs and symptoms are identified upon initiation of Human Response Clinical Practice Guideline (CPG) Outcome: Completed Goal: Symptom Relief Description: Patient will demonstrate the desired outcomes by discharge/transition of care. Outcome: Completed Goal: Adequate Hydration Description: Patient will demonstrate the desired outcomes by discharge/transition of care. Outcome: Completed [facility] 10-23-2023 History of Present illness Narrative Images from the original note were not included. GENERAL SURGERY PROGRESS NOTE SUBJECTIVE: NAEO. Feeling well this morning. Tolerated Step 1 diet yesterday without issue. Denies nausea, vomiting, shortness of breath, chest pain, lightheadedness, dizziness, fevers or chills. OBJECTIVE: Temp: [97.5 F (36.4 C)-98.6 F (37 C)] 98.1 F (36.7 C) Pulse (Heart Rate): [72-92] 78 Resp Rate: [16-18] 16 BP: (112-155)/(58-74) 112/67 O2 Sat (%): [93 %-97 %] 93 % O2 Sat (%): [93 %-97 %] 93 % O2 Device: room air I&O Physical Exam General: Awake, alert, in NAD. Resting comfortably in bed. Cardiovascular: Hemodynamically stable. Regular rate as evaluated by palpation of pulse. Pulmonary: Normal respiratory effort. Equal chest rise. Abdomen: Soft, non-tender, non-distended, no rebound/guarding/rigidity or other signs of peritonitis, surgical incision is c/d/i, G tube with dressing intact- nonerythematous, minimal output Extremities: Warm and well perfused with gross sensation and motor intact Labs: WBC/Hgb/Hct/Plts: 7.99/11.9/37.8/228 (10/22 116) Na/K+/Phos/Mg/Ca: 141/3.4/2.8/1.7/-- (10/22 116) Bun/Creat/Cl/CO2/Glucose: 9/0.46/105/24/75 (10/22 116) Lab Results Component Value Date ALT 25 10/21/2023 AST 32 10/21/2023 ALKPHOS 137 (H) 10/21/2023 BILITOTAL 0.3 10/21/2023 BILIDIRECT <0.1 10/21/2023 ASSESSMENT/PLAN: Connor Khan is a 58 y.o. 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 s/p lap Sandoval enteroenterostomy and remnant gastrostomy 10/21/23 -- Advance to Step 2 Bariatric diet - G tube - clamped Migraines: - sumatriptan prn -- Diet: DIET BARIATRIC STEP 1 -- IVF: stopped -- Antibiotics: none -- Pain Control: tylenol, dilaudid, oxy prn -- Prophylaxis: SCDs, VTE Chemoprophylaxis - ok to shower -- Bowel Regimen: -- Activity: OOB x4, ambulation, IS use Complexity. Hypokalemia - Continue to monitor and replete. Obesity Body mass index is 36.61 kg/m . - Follow with PCP for dietary and lifestyle modifications. Dispo: Home on 10/23 if tolerates Step 2 diet Please page the Gomez pager with questions or concerns. (Found in [employer] / WebExchange) ALL URGENT ISSUES SHOULD BE PAGED TO THE ABOVE PAGER - IHIS chat is not a reliable method of communication with a surgical service at any time. - The person who wrote this note may be in the operating room, off service, post call, or otherwise unavailable. Roxanna Liu MD General Surgery Associated attestation - William Hunt MD - 10/23/2023 10:09 AM EDT ATTENDING ADDENDUM: I have independently seen and examined this patient today and discussed the case with the resident team. I agree with the documentation in the attached note and have made any necessary changes. Recovering well, ambulating halls, tolerating >1.5L PO. Ok for Step 2 diet and clamp G tube. Anticipate DC home tomorrow if uneventful evening. William Hunt MD nut and bolt assembler Division of General and Gastrointestinal Surgery Department of Surgery ATTENDING ADDENDUM: I have independently seen and examined this patient today and discussed the case with the resident team. I agree with the documentation in the associated note and have made any necessary changes. 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 She is recovering well and feels her preoperative symptoms have largely resolved. Will trial gently step 1 diet today. Keeping G to gravity. William Hunt MD nut and bolt assembler Division of General and Gastrointestinal Surgery Department of Surgery Images from the original note were not included. GENERAL SURGERY PROGRESS NOTE SUBJECTIVE: No acute interval events. s/p lap Sandoval enteroenterostomy and remnant gastrostomy 10/21/23 . Was NPO overnight with minimal output from G tube. Labs wnl and reassuring this morning. Denies nausea, vomiting, shortness of breath, chest pain, lightheadedness, dizziness, fevers or chills. OBJECTIVE: Temp: [97.5 F (36.4 C)-98.9 F (37.2 C)] 98.1 F (36.7 C) Pulse (Heart Rate): [72-92] 92 Resp Rate: [16-23] 18 BP: (110-155)/(56-74) 155/74 O2 Sat (%): [90 %-96 %] 96 % O2 Sat (%): [90 %-96 %] 96 % O2 Device: room air I&O Date 10/22/23 0700 - 10/23/23 0659 Shift 9124-9491 9831-1121 3390-8688 24 Hour Total INTAKE P.O. 0 0 Shift Total(mL/kg) 0(0) 0(0) OUTPUT Urine(mL/kg/hr) 500 500 Other 60 60 Shift Total(mL/kg) 560(5.4) 560(5.4) Weight (kg) 102.8 102.8 102.8 102.8 Physical Exam General: Awake, alert, in NAD. Resting comfortably in bed. Cardiovascular: Hemodynamically stable. Regular rate as evaluated by palpation of pulse. Pulmonary: Normal respiratory effort. Equal chest rise. Abdomen: Soft, non-tender, non-distended, no rebound/guarding/rigidity or other signs of peritonitis, surgical incision is c/d/i, G tube with dressing intact- nonerythematous, minimal output Extremities: Warm and well perfused with gross sensation and motor intact Labs: WBC/Hgb/Hct/Plts: 5.92/12.0/38.2/198 (10/22 815) Na/K+/Phos/Mg/Ca: 138/4.9/2.8/1.8/-- (10/21 617) Bun/Creat/Cl/CO2/Glucose: 7/0.56/107/19/92 (10/21 617) Lab Results Component Value Date ALT 25 10/21/2023 AST 32 10/21/2023 ALKPHOS 137 (H) 10/21/2023 BILITOTAL 0.3 10/21/2023 BILIDIRECT <0.1 10/21/2023 ASSESSMENT/PLAN: Connor Khan is a 58 y.o. 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 s/p lap Sandoval enteroenterostomy and remnant gastrostomy 10/21/23 -- Labs wnl, can advance diet to CLD -- Trial Step 1 Bariatric diet - G tube to gravity Migraines: - sumatriptan prn -- Diet: DIET BARIATRIC STEP 1 -- IVF: 75ml/hr LR -- Antibiotics: none -- Pain Control: tylenol, dilaudid, oxy prn -- Prophylaxis: SCDs, VTE Chemoprophylaxis -- Bowel Regimen: -- Activity: OOB x4, ambulation, IS use Complexity. Obesity Body mass index is 36.61 kg/m . - Follow with PCP for dietary and lifestyle modifications. Dispo: home pending further inpatient management Please page the Jason pager with questions or concerns. (Found in [employer] / WebExchange) ALL URGENT ISSUES SHOULD BE PAGED TO THE ABOVE PAGER - IHIS chat is not a reliable method of communication with a surgical service at any time. - The person who wrote this note may be in the operating room, off service, post call, or otherwise unavailable. Roxanna Liu MD General Surgery Bariatric Surgery Post Op Check Connor Khan is a 58 y.o. yr old female, who is now POD#0 s/p Procedure(s) (LRB): LAPAROSCOPY ABDOMEN PERITONEUM OMENTUM DIAGNOSTIC (N/A). There were no complications to the procedure, and tolerated it well. Subjective: Resting in bed, reports nausea is controlled with medications as ordered, reports pain is controlled with medications provided. Family is at the bedside and has no questions or concerns at this time. Objective: Temp: [97.9 F (36.6 C)-98.9 F (37.2 C)] 97.9 F (36.6 C) Pulse (Heart Rate): [70-80] 74 Resp Rate: [12-20] 14 BP: (98-130)/(54-76) 119/61 O2 Sat (%): [93 %-100 %] 100 % Weight: [102.8 kg (226 lb 11.2 oz)] 102.8 kg (226 lb 11.2 oz) Body mass index is 36.61 kg/m . Exam: General: awake and alert, oriented, in no acute distress Respiratory: equal chest rise, non-labored breathing, no respiratory distress Cardio: regular rate and rhythm on continuous telemetry monitoring Abdomen: soft, appropriately tender post op, non-distended; incisions well approximated, c/d/i Vascular: upper and lower extremities warm to touch Assessment/Plan: Connor Khan is a 58 y.o. female who is Day of Surgery following Procedure(s) (LRB): LAPAROSCOPY ABDOMEN PERITONEUM OMENTUM DIAGNOSTIC (N/A). She is recovering well post-operatively. Post operative orders have been reviewed. - NPO with meds - pain control: scheduled tylenol, dilaudid 0.2 mg or 0.5 mg q3h prn, oxycodone 5 mg q4h prn - anti-emetics with prn zofran and prn compazine - pantoprazole 40 mg daily - IVF: LR @ 125 ml/hr - Lovenox for prophylaxis - incentive spirometer and OOB Shwetha Fitch MD, 10/21/2023 12:01 PM Discharge Planning Patient Assessment Admission Assessment Patient Assessment Completed: Initial Anticipated discharge disposition: Home Reason for Admission: Small Bowel Obstruction Is the patient able to participate in the assessment?: No Explanation of why patient is unable to participate: Patient in the OR Information source: Spouse Information Source Name/Contact: Latrice Erin Demographics Verified and Updated: Yes Has the patient been admitted to any hospital in the last 30 days?: Transferred From Outside Hospital Advanced Care Planning Has the patient completed Advance Directives?: Not Completed Referral to Social Work for Advance Care Planning? : Patient Declines Legal Next of Kin Does the patient have a Guardian?: No Spouse: Yes Name and Contact information: Latrice Khan Reviewed and Updated in Demographics? : Yes Outpatient Providers Does patient have a primary care physician? : Yes When was the patient's last PCP visit?: > 30 days Does the patient follow any specialists?: Yes Reviewed and updated Care Team?: Yes Patient Care Team: Silvia Slade CNP as PCP - General (Nurse Practitioner - Family) Environment/Caregivers Is the patient from a facility or nursing home?: No Patient lives with: Spouse or Partner Living Environment: House How many steps does the patient have to navigate to enter or inside the home? : 2 GLYNN Does the patient have a first floor set-up with bed and bathroom?: Yes Patient Caregiving Responsibilities: Self Patient-identified caregiver/support network: Family Who does the patient identify as a teachable caregiver(s)?: Spouse or Partner Services Does the patient use a home health or hospice agency?: No Does the patient use any community programs or services?: No Does patient use DME? : none Does the patient use oxygen?: No Does patient use medical supplies? : none Anticipated Changes Related to Illness/Injury? : No Initial ADLs Prior to Arrival What is the patient's baseline physical functioning prior to this acute illness?: independent What is the patient's baseline cognitive functioning prior to this acute illness?: independent Is the patient's baseline functioning changed by this acute illness? : No Concerns with patient being able to care for themselves at home? : No Are there therapy or specialists consults?: No Does the patient's home require any home modifications for discharge? : No CM to recommend therapy or other consults? : No Medication Management Does the patient have prescription insurance coverage? : Yes Is the patient on Anticoagulation? : No [id number] - [place], [place] - [address] [facility] [address] [facility] Business Systems Technician Does the patient or product support sales representative express financial concerns? : No Employed?: Yes Coping/Stress Concerns about patient s coping and stress?: No Concerns about patient s caregiver s coping and stress?: No Values and Beliefs Cultural or uatsdin practices that may impact discharge planning and/or medical care?: No Initial Discharge Planning Anticipated discharge disposition: Home Transportation Available for Discharge: Family or Friend, Private Vehicle Anticipated DME: unknown at this time Anticipated Services at Discharge: Outpatient follow up Patient Assessment Completed: Initial Expected Discharge Date: Discharge Planning Summary Patient from home with spouse. 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 Anticipate she will DC home with no needs. Case Management Plan CM will continue to follow for any discharge needs. Gwendolyn WILLARD RN [facility]- Clinical Career Development Coordinator 7 Brain & Spine documented in this encounter [facility] 10-22-2023 Plan of care note Problem: Pain, Acute (Adult) Goal: Identify Related Risk Factors and Signs and Symptoms Description: Related risk factors and signs and symptoms are identified upon initiation of Human Response Clinical Practice Guideline (CPG) Outcome: Progressing Flowsheets (Taken 10/22/20232224) Related Risk Factors (Acute Pain): surgery Signs and Symptoms (Acute Pain): verbalization of pain descriptors Goal: Acceptable Pain Control/Comfort Level Description: Patient will demonstrate the desired outcomes by discharge/transition of care. Outcome: Progressing Flowsheets (Taken 10/22/20232224) Acceptable Pain Control/Comfort Level: making progress toward outcome Problem: Bariatric Surgery (Adult,Pediatric) Goal: Signs and Symptoms of Listed Potential Problems Will be Absent, Minimized or Managed (Bariatric Surgery) Description: Signs and symptoms of listed potential problems will be absent, minimized or managed by discharge/transition of care (reference Bariatric Surgery (Adult,Pediatric) CPG). Outcome: Progressing Flowsheets (Taken 10/22/20232224) Problems Assessed (Bariatric Surgery): all Problems Present (Bariatric Surgery): postoperative nausea and vomiting pain situational response Problem: Nausea/Vomiting (Adult) Goal: Identify Related Risk Factors and Signs and Symptoms Description: Related risk factors and signs and symptoms are identified upon initiation of Human Response Clinical Practice Guideline (CPG) Outcome: Progressing Flowsheets (Taken 10/22/20232224) Related Risk Factors (Nausea/Vomiting): recent surgery with general anesthesia Signs and Symptoms (Nausea/Vomiting): report of queasy sensation Goal: Symptom Relief Description: Patient will demonstrate the desired outcomes by discharge/transition of care. Outcome: Progressing Flowsheets (Taken 10/22/20232224) Symptom Relief: making progress toward outcome Goal: Adequate Hydration Description: Patient will demonstrate the desired outcomes by discharge/transition of care. Outcome: Progressing Flowsheets (Taken 10/22/20232224) Adequate Hydration: making progress toward outcome Problem: Bariatric Surgery (Adult,Pediatric) Goal: Anesthesia/Sedation Recovery Outcome: Completed Flowsheets (Taken 10/22/20232224) Anesthesia/Sedation Recovery: recovered to baseline [facility] 10-22-2023 Nurse Note Pt has watched ruiz video (discharge and post-op) and verbalizes understanding [facility] 10-22-2023 Plan of care note Problem: Patient Care Overview Goal: Plan of Care Review Outcome: Progressing Goal: Individualization & Mutuality Outcome: Progressing Goal: Discharge Needs Assessment Outcome: Progressing Goal: Interdisciplinary Rounds/Family Conf Outcome: Progressing Flowsheets (Taken 10/22/2023 0764) Participants: physician nursing patient Problem: Surgery Nonspecified (Adult) Goal: Signs and Symptoms of Listed Potential Problems Will be Absent, Minimized or Managed (Surgery Nonspecified) Description: Signs and symptoms of listed potential problems will be absent, minimized or managed by discharge/transition of care (reference Surgery Nonspecified (Adult) CPG). Outcome: Progressing Flowsheets (Taken 10/22/2023 0323 by Wendi Gutierrez RN) Problems Assessed (Surgery): all Problems Present (Surgery): pain Problem: Pain, Acute (Adult) Goal: Identify Related Risk Factors and Signs and Symptoms Description: Related risk factors and signs and symptoms are identified upon initiation of Human Response Clinical Practice Guideline (CPG) Outcome: Progressing Goal: Acceptable Pain Control/Comfort Level Description: Patient will demonstrate the desired outcomes by discharge/transition of care. Outcome: Progressing Intervention: Mutually Develop/Implement Acute Pain Management Plan Flowsheets (Taken 10/22/2023 1649) Sensory Stimulation Regulation: care clustered quiet environment promoted Complementary Therapy: other (see comments) [facility] 10-22-2023 Plan of care note Problem: Patient Care Overview Goal: Plan of Care Review Outcome: Progressing Flowsheets (Taken 10/22/2023 1212) Plan Of Care Reviewed With: patient Progress: progress toward functional goals as expected Problem: Pain, Acute (Adult) Goal: Identify Related Risk Factors and Signs and Symptoms Description: Related risk factors and signs and symptoms are identified upon initiation of Human Response Clinical Practice Guideline (CPG) Outcome: Progressing Flowsheets (Taken 10/22/2023 1212) Related Risk Factors (Acute Pain): surgery Signs and Symptoms (Acute Pain): verbalization of pain descriptors Goal: Acceptable Pain Control/Comfort Level Description: Patient will demonstrate the desired outcomes by discharge/transition of care. Outcome: Progressing Flowsheets (Taken 10/22/2023 1212) Acceptable Pain Control/Comfort Level: making progress toward outcome Problem: Pain, Acute (Adult) Intervention: Monitor/Manage Analgesia Flowsheets Taken 10/22/2023 1212 Bowel Intervention: ambulation promoted privacy promoted diet adjusted Taken 10/22/2023 1049 Pain Management Interventions: positioning pillow support Intervention: Mutually Develop/Implement Acute Pain Management Plan Flowsheets (Taken 10/22/2023 1212) Sensory Stimulation Regulation: care clustered Intervention: Support/Optimize Psychosocial Response to Acute Pain Flowsheets Taken 10/22/2023 1212 Trust Relationship/Rapport: care explained choices provided questions encouraged questions answered Taken 10/22/2023 1041 Supportive Measures: active listening utilized self-care encouraged verbalization of feelings encouraged [facility] 10-22-2023 Plan of care note Problem: Surgery Nonspecified (Adult) Goal: Signs and Symptoms of Listed Potential Problems Will be Absent, Minimized or Managed (Surgery Nonspecified) Description: Signs and symptoms of listed potential problems will be absent, minimized or managed by discharge/transition of care (reference Surgery Nonspecified (Adult) CPG). Outcome: Progressing Flowsheets (Taken 10/22/2023322) Problems Assessed (Surgery): all Problems Present (Surgery): pain Problem: Pain, Acute (Adult) Goal: Identify Related Risk Factors and Signs and Symptoms Description: Related risk factors and signs and symptoms are identified upon initiation of Human Response Clinical Practice Guideline (CPG) Outcome: Progressing Flowsheets (Taken 10/22/2023322) Related Risk Factors (Acute Pain): surgery Signs and Symptoms (Acute Pain): verbalization of pain descriptors Goal: Acceptable Pain Control/Comfort Level Description: Patient will demonstrate the desired outcomes by discharge/transition of care. Outcome: Progressing Flowsheets (Taken 10/22/2023322) Acceptable Pain Control/Comfort Level: making progress toward outcome Problem: Surgery Nonspecified (Adult) Goal: Anesthesia/Sedation Recovery Outcome: Completed Flowsheets (Taken 10/22/2023322) Anesthesia/Sedation Recovery: recovered to baseline [facility] 10-21-2023 Nurse Note Skin WNL except for drain site, dual RN skin check with TONO Bailon [facility] 10-21-2023 Hospital Discharge instructions Ioana Hernandez DO - 10/21/2023 12:07 PM EST lap Sandoval enteroenterostomy and remnant gastrostomy/placement of gastrostomy tube Specific Instructions that we discussed: You may follow a step 3 diet (soft/mushy foods). Please avoid raw vegetables, nuts, seeds, popcorn, large pieces of meat. Please take pantoprazole 40mg daily for 30 days. You may discontinue it after 30 days if you do are not having acid reflux. We gave you a script for zofran (nausea as needed) and a short script of oxycodone for break through pain. We would recommend taking Tylenol 650mg every 6 hours for pain for the first 3-5 days. Please follow up in the Bariatric clinic on 11/07 at 11am with Kaveh. You may remove the steri strips in 1 week. Please continue to flush your G-tube daily. Below are general post-hospital recommendations after Bariatric Surgery BARIATRIC SURGERY MEDICATIONS TO PREVENT PAIN Take the pain medications at the times suggested to keep your pain under control. This will allow you to take less of the narcotic medication. Oxycodone - This is a narcotic medication that can be addictive or habit-forming. Take this only as needed for 'rescue' pain and only if you've already taken your scheduled pain medications listed above. As your pain improves, this should be the first pain medication that you stop. Wear the abdominal binder that you were given in the hospital which will hold the abdominal skin in place and help to control pain at the incision sites. TO PREVENT NAUSEA Many patients experience nausea after bariatric surgery. It is important to control your nausea so you can keep drinking and to prevent dehydration. Take your medications for nausea as prescribed whether or not you have nausea. TO PREVENT CONSTIPATION Milk of Magnesia and Miralax: Take Miralax twice per day if you have constipation. If you have regular bowel movements, you can take Miralax daily to keep your bowels moving. Stop taking Miralax if you develop diarrhea. If you are constipated despite taking Miralax twice daily, you may take Milk of Magnesia as directed on the bottle to assist with constipation. It is also okay to use a suppository to assist with constipation after surgery. Please contact the Bariatric Surgery Clinic if you have not had a bowel movement 5 days from the day of surgery. TO DECREASE STOMACH ACID AND PREVENT ULCERS Take scheduled anti-acid medication as directed for the first three months (90 days) after surgery to prevent ulcers. Avoid things that can irritate the stomach lining such as Aspirin, Ibuprofen, Aleve, Advil, Motrin, Excedrin, Alcohol, Caffeine or Cigarette smoke (including second-hand smoke). VITAMINS Crow's Complete Chewable vitamin: take it twice per day rather than once per day. OR Bariatric chewable vitamin: follow the instructions on the bottle. Long-term vitamins will be ordered once you are on Step 3 diet. TO PREVENT BLOOD CLOTS SOME PATIENTS GO HOME ON A BLOOD THINNER/Anticoagulation. LOVENOX (Enoxaparin) Self-Administered Injection: - LOVENOX (Enoxaparin) is an anticoagulant prescribed to reduce risk of DVT's- blood clots a serious medical complication. - Tell your health care providers (doctors, dentist, hygienist, etc.) you are taking LOVENOX . - You will be taught how to administer this medicine at home. - Make sure you understand all instructions before giving yourself an injection. - Refer to your handouts about Lovenox/Enoxaparin and doing the injection. - Call your doctor or nurse with other questions or concerns. ACTIVITY You should walk on a regular basis to reduce the risk of blood clots or pneumonia, and improve healing. Gradually increase your activity over the course of the next week until you are walking at least 20-30 minutes per day. It is ok and encouraged to take the stairs. Driving restrictions: You may not return to driving at this time. Your surgeon will tell you if it is ok to drive at your follow-up appointment. Lifting restrictions: Do not lift, push or pull anything that weighs more than 10 pounds (A gallon of milk weighs 8 pounds). Work restrictions: You may not return to work at this time. Your surgeon will discuss recommendations at your follow-up appointment. DIET See the information in your After Bariatric Surgery booklet for instructions about week one and week two at home. You should remain on the Bariatric Step 2 diet until follow up. DRESSING AND WOUND CARE See the information in your After Bariatric Surgery booklet for instructions. HOME MONITORING INSTRUCTIONS For patients with High blood pressure/hypertension: Please check your blood pressure at home at least three times per week and report values to your primary care provider as we expect that your blood pressure will fluctuate while you are losing weight rapidly and your medications may need to be adjusted. If your blood pressure is consistently higher than 140/90 or the top number is less than 110 consistently, please notify your primary provider. For patients with Diabetes: Test your blood sugar two times per day (before breakfast and at bedtime) when you get home from the hospital to make sure that your blood sugar readings are staying within the target ranges: *Before a meal it should be 100-130 *Bedtime: Less than 180 If your blood sugar readings are outside of the range listed above, please notify the health care provider that manages your diabetes as your medications may need to be adjusted. If your blood sugar is running 70 or below, please contact your diabetes provider. WHEN TO NOTIFY YOUR HEALTH CARE TEAM Sign of Wound Infection Fever over 101 degrees. Wound becomes extremely swollen, shows red streaks, warm to the touch, and/or drainage from the incision site or foul-smelling drainage. Wound edges separate or opens up Bleeding or bruising If you have bleeding, apply pressure to the site and hold the pressure firmly for 5 minutes. If the bleeding continues, apply pressure again and call 911. If the bleeding stopped, call your healthcare team to report it. Call your healthcare team if you have increased bleeding from your site and increased bruising or a lump forms or gets larger under your skin at the site. Unrelieved Pain Call your healthcare team if your pain gets worse or is not eased 1 hour after taking your pain medicine, or if it is severe and uncontrolled. Nausea and Vomiting Call your healthcare team as early as possible if you have nausea and vomiting that is keeping you from taking your medicine or keeping you from drinking fluids and taking in protein Fever, Flu-like symptoms Fever over 101 degrees and/or chills Gastrointestinal Bleeding Symptoms Black tarry bowel movements. This can be normal after surgery on the stomach, but should resolve in a day or two. Call 911 if you suddenly have signs of blood loss such as: Vomiting blood Fast heart rate Feeling faint, sweaty, or blacking out Passing bright red blood from your rectum Blood Clot Symptoms Tender, swollen or reddened areas in your calf muscle or thighs. Numbness or tingling in your lower leg or calf, or at the top of your leg or groin Skin on your leg looks pale or blue or feels cold to touch Chest pain or have trouble breathing, lightheadedness, fast heart rate Sudden Onset of Symptoms Call 911 if you suddenly have: Leg weakness and spasm Loss of bladder or bowel function Seizure Confusion, severe headache, dizziness or feeling unsteady, problems talking, difficulty swallowing, and/or numbness or muscle weakness as these can be signs of a stroke CONTACT INFORMATION During usual business hours 8am-4pm, you may call the Bariatric Surgery Clinic Call Center at [phone]. It is important that you try to contact the Bariatric Surgery Clinic Call Center during morning hours if you feel that you may need to be seen the same day before closing time. After 4pm weekdays and on weekends an urgent need that is not an emergency may be handled by the General Surgery Resident Arcgis Developer: Call the hospital electrolysis needle operator at [phone] to ask for the on-call General Surgery Resident to be paged. You may choose to send a [employer] message to your provider for non-urgent questions that can be addressed on the next business day. If you are unable to reach your doctor and it is a medical emergency, dial 911 or report to the nearest Emergency Department for evaluation. LINK: AFTER BARIATRIC SURGERY BOOKLET: (YOU CAN COPY AND PASTE THIS LINK INTO YOUR WEB BROWSER FROM THE AFTER VISIT SUMMARY IN [email or web address] IF YOU WANT AN ELECTRONIC COPY OF THE BOOKLET YOU WERE GIVEN IN THE HOSPITAL): [email or web address] [facility] Comprehensive Weight Management & Bariatric Surgery The following attachments cannot be sent through Care Everywhere.Pain and Pain Control ([facility]) (Danish)G-Tube (Gastrostomy Tube): Home Care ([facility]) (Danish)documented in this encounter [facility] 10-21-2023 Nurse Note On admission to [facility], from PACU a dual RN initial assessment of skin condition was performed by Maryam Weston RN and Harriet Woodson RN. Skin Assessment: Skin not within defined limits. - Photo taken and uploaded into notes in IHIS: Yes Mat Score: 23 LDA Added:LDA's in place Maryam Weston RN [facility] 10-21-2023 Nurse Note Paged [facility] bariatric surgery Hi! Patient in [address] khan- patient is requesting imitrex for her migraine. Thanks! Maryam [phone] [facility] 10-21-2023 Nurse Note Report called to TONO Francisco, all questions answered, VSS. [facility] 10-21-2023 Surgery Postoperative evaluation and management note Connor Khan ([id number]) PRE OPERATIVE DIAGNOSIS Small bowel obstruction [K56.609] POST OPERATIVE DIAGNOSIS Small bowel obstruction [K56.609] PROCEDURE PERFORMED Procedure(s) (LRB): LAPAROSCOPY ABDOMEN PERITONEUM OMENTUM DIAGNOSTIC (N/A) PRIMARY CLOSURE Yes INTRAOPERATIVE FINDINGS Dilated BP limb and remnant stomach. Normal appearing Rocío and common channel . Sandoval enterostomy from BP limb to common channel. Remnant G tube. SURGEON Surgeons and Role: * Tomas Galvez MD - Primary * Audrey Edwards MD - Assisting ANESTHESIOLOGIST Anesthesiologist: Jaylan Roper MD; Earl Bermudez MD SILVER MINER: Marialuisa Baltazar APRN-SILVER MINER Nut And Bolt Assembler Assisting: Alysa Buchanan MD; Aimee Barragan MD SURGICAL STAFF Paper Products Inspector: Adrianna Denise RN; Stevan Veloz RN Relief Paper Products Inspector: Camila Baca RN Scrub Person: Yaima Ratliff Resident Assisting: Leena Skinner MD Ela Teacher: Geno Gonzales; Florian Plata COMPLICATIONS None ESTIMATED BLOOD LOSS Minimal SPECIMENS No specimen sent * No specimens in log * Leena Skinner MD October 21, 2023 10:00 AM [facility] Work Phone: 10-21-2023 Surgery Postoperative evaluation and management note Images from the original note were not included. 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 female with the above medical history who presented to the emergency department with acute abdominal pain, distension, and associated retching. She was found on imaging to have findings concerning for an obstruction at her jejunojejunostomy with dilatation of her biliopancreatic limb and remnant stomach. Given these symptoms and findings, the patient was taken to the operating room for diagnostic laparoscopy. Details of procedure: The patient was brought into the operative suite, placed on the operative table in supine position. General anesthesia was then initiated per anesthesia protocol. The patient's abdomen was then prepped and draped in the usual sterile fashion. Following this a time-out was performed during which the surgical, nursing and anesthesia staff agreed upon the patient, site of operation and nature of operation to be performed. A Veress needle was used to establish pneumoperitoneum to 15 mm through a left upper quadrant incision after intraabdominal placement was confirmed with saline drop test and pressure and flow readings. A 5-mm optical trocar was placed through the same incision and visual access to the peritoneal cavity was obtained. We confirmed there was no injury from our entry. Additional 5 mm trocars were placed infraumbilical, in the left upper quadrant and the right upper quadrant and a 12 mm VersaStep port was placed in the right gema-abdomen, all under direct visualization. We then proceeded with our exploration. Omental adhesions to the abdominal wall and falciform were taken down with a combination of blunt dissection and the Ligasure. The omentum was then reflected superiorly. The terminal ileum was identified and run until we reached the jejunojejunostomy and all of this small bowel appeared of normal calibre, without adhesions or other abnormalities. From the jejunojejunostomy, the biliopancreatic limb was identified and traced back to the ligament of treitz, this was significantly dilated but all healthy and viable appearing. The Rocío limb was then run to the gastrojejunostomy and found to all be of normal calibre, without adhesions, or other abnormalities. Parish's and the mesenteric defect were closed and there was no evidence of internal hernia. We turned our attention to the jejunojejunostomy, and did not find any tethering that would cause an obstruction. Given the findings of a normal rocío limb and common channel, at this point I opted to proceed with an enteroenterostomy of the biliopancreatic limb just proximal and the common channel just distal to the existing anastomosis to bypass the area of obstruction as identified by both imaging and our intraoperative findings. The bowel was aligned and adjacent enterotomies were created with hook cautery and a 60mm crook load of the EndoGIA stapler was used to create a [id number] anastomosis. The common opening was then closed with a transverse firing of the stapler. The prior anastomosis effectively served as an anti-torsion fixation point, and we once again confirmed that the mesenteric defect was previously closed. Clips were used to ensure hemostasis of our transverse staple line. The patient was then positioned in reverse trendelenburg and we turned our attention to the remnant stomach. This was dilated. We identified an area on the stomach, away from the pylorus and from the course of the Rocío limb to use for the gastrostomy tube. Superior, lateral, and medial cyrus sutures were placed using 2-0 Surgidec and, and brought trans fascial with the Alec-Hernandez. A full thickness gastrotomy was then made using electrocautery. A skin incision was made in the left upper quadrant and a 20F gastrostomy tube brought through this into the abdomen. We confirmed that the balloon was intact, then the tube was placed into the stomach and the balloon inflated with 10 mL of sterile water. An additional inferior Cyrus suture was placed and brought trans-fascial. Then we dropped the penumoperitoenum to 10 mmHg and the tube and the sutures were tightened to gently oppose the anterior remnant stomach to the abdominal wall, and secured here. The gastrostomy tube was noted to be at 4 cm at the skin. Adequate hemostasis was ensured. The abdomen was allowed to desufflate and all of our ports removed. Skin incisions were closed with 4-0 monocryl before being covered with Dermabond. The patient was then extubated per anesthesia protocol and transferred to the postoperative bed in stable condition. There were no complications. All sponge, needle, and instrument counts at the end case . I was personally scrubbed and participated in the entirety of the case including all russo portions of the procedure. Tomas Galvez MD Minimally Invasive Surgery/ Bariatric Fellow Clinical Instructor, General Surgery [facility] Work Phone: 10-21-2023 Nurse Surgical operation note Report given to PACU at 0935. Patient extubated and on oxygen prior to transport, accompanied by anesthesia and surgical staff. [facility] 10-21-2023 Nurse Note Report given to PACU at 0935. Patient extubated and on oxygen prior to transport, accompanied by anesthesia and surgical staff. documented in this encounter [facility] 10-21-2023 Nurse Note On admission to [facility], from ED a dual RN initial assessment of skin condition was performed by Angela Sifuentes RN and Tirso Falcon. Skin Assessment: Skin within defined limits:Yes LDA Added:No Angela Sifuentes RN [facility] 10-21-2023 History and physical note Gen/GI Surgery Consult Note CC: History of Present Illness: Connor Khan is a 58 y.o. female with history of laparoscopic RnYGB, laparoscopic cholecystectomy, rheumatoid arthritis (not on steroids) who presents as transfer from OSH with epigastric abdominal pain, chest pain, nausea and dry heaving/wretching since 7:30 am this morning. Patient reports she had two other similar episodes, one 2 months ago and another 1 month ago. She otherwise denies fevers, chills, shortness of breath, diarrhea, constipation, changes in urinary habits, motor or sensory dysfunction. She is passing flatus and having bowel movements. Currently she is afebrile, HR 73, BP 98/62, lactate 1.2, Na 137, K 4, Cr 0.54, Alkphos 137, Lipase 402, T. Bili 0.3, INR 1, WBC 7.[address] A/P showing dilation of BP limb with transition at the JJ-anastomosis, but no associated findings related to an internal hernia or volvulus. Past Medical History: Past Medical History: Diagnosis Date Aortic Valve Regurgitation, Acquired Asthma Back Pain HTN (Hypertension) Obesity Pulmonic Valve Regurgitation Tricuspid Valve Disorder Past Surgical History: Past Surgical History: Procedure Laterality Date GASTRIC BYPASS 05/27/2003 RELEASE CARPAL TUNNEL 1993 CHOLECYSTECTOMY, LAPAROSCOPIC 1993 BREAST LUMPECTOMY 1988 x2 Medications: Current Outpatient Medications Medication Sig Cobalamine Combinations (B-12) 100-5000 MCG SL SUBL take by mouth Daily. Ferrous Fumarate (NORMAN-SEQUELS) 50 MG PO TBCR take 1 Tab by mouth daily. Vit-Fe Sulfate-FA ( VITAMIN PO) take by mouth Daily. sertraline (ZOLOFT) 50 MG PO TABS take by mouth Daily. zolmitriptan (ZOMIG) 2.5 MG PO TABS take by mouth As needed for Migraine. Lactated ringers Sodium chloride 0.9% Allergies: Allergies Allergen Reactions Sulfa Antibiotics Rash Aspirin Family History: No family history on file. Social History: Social History Tobacco Use Smoking status: Never Substance Use Topics Alcohol use: No Drug use: No Vitals: BP 98/62 Pulse 73 Temp 98.3 F (36.8 C) (Oral) Resp 18 Ht 1.676 m (5' 6) SpO2 93% Physical Exam: General: healthy appearing adult female in no acute distress HEENT: normocephalic, atraumatic, anicteric sclera Neck: supple, no cervical lymphadenopathy Lungs: no increased work of breathing, on RA Cardiac: regular rate and rhythm, normal peripheral perfusion Abdomen: soft, epigastric tenderness to palpation, no rebound, no guarding, non-peritonitic : deferred MSK: no limb deformities, full range of motion at all joints Derm: no rashes, no lesions, no jaundice Neuro: alert and oriented to person, place, and time; moving all extremities, no gross motor or sensory deficits Psych: normal affect, appropriate, no evidence of psychosis Labs: WBC/Hgb/Hct/Plts: 7.15/13.4/41.7/241 (10/20 54) Na/K+/Phos/Mg/Ca: 137/4.0/--/--/-- (10/20 54) Bun/Creat/Cl/CO2/Glucose: 7/0.54/107/23/122 (10/20 54) Ptt/Pt/Inr: 37.6/13.3/1.0 (10/20 54) Lab Results Component Value Date BILITOTAL 0.3 10/21/2023 BILITOTAL 0.6 07/02/2008 BILIDIRECT <0.1 10/21/2023 BILIDIRECT 0.1 07/02/2008 ALBUMIN 4.1 10/21/2023 ALBUMIN 4.3 07/02/2008 ALT 25 10/21/2023 ALT 26 07/02/2008 AST 32 10/21/2023 AST 34 07/02/2008 ALKPHOS 137 (H) 10/21/2023 ALKPHOS 85 07/02/2008 Imaging: CT ABDOMEN/ABDOMEN-PELVIS (INTERPRETATION - OUTSIDE IMAGE) Final Result IMPRESSION: 1. 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 There is abrupt transition at the jejunojejunal anastomosis. There are no associated findings to suggest this is related to an internal hernia or volvulus. Edema of the associated mesentery and a small volume of pelvic free fluid are likely reactive in nature. 2. No other acute findings of the chest, abdomen, and pelvis. 3. Ancillary findings are noted in the body of the report. Assessment and Plan: Connor Khan is a 58 y.o. female with history of HTN, lap kayy, lap RnYGB in 2002 who presents with epigastric abdominal pain, nausea, dry heave, no leukocytosis but lipase of [address] finding of dilated BP limb with abrupt transition point at the J-J anastomosis could be secondary to stricture. - Admit to Dr. Kaveh Gomez, Med-Surg - NPO, IVF - Plan for OR tonight for diagnostic laparoscopy, possible ex-lap, possible revision of J-J anastomosis Patient was discussed with Dr. Galvez, the fellow ocean transportation intermediary. Thank you for consulting and involving us in the care of this patient. If there are any further questions, don't hesitate to page the resident ocean transportation intermediary. Benjamín Landeros MD Dept of Surgery [id number] [facility] 10-21-2023 History and physical note Gen/GI Surgery Consult Note CC: History of Present Illness: Connor Khan is a 58 y.o. female with history of laparoscopic RnYGB, laparoscopic cholecystectomy, rheumatoid arthritis (not on steroids) who presents as transfer from OSH with epigastric abdominal pain, chest pain, nausea and dry heaving/wretching since 7:30 am this morning. Patient reports she had two other similar episodes, one 2 months ago and another 1 month ago. She otherwise denies fevers, chills, shortness of breath, diarrhea, constipation, changes in urinary habits, motor or sensory dysfunction. She is passing flatus and having bowel movements. Currently she is afebrile, HR 73, BP 98/62, lactate 1.2, Na 137, K 4, Cr 0.54, Alkphos 137, Lipase 402, T. Bili 0.3, INR 1, WBC 7.[address] A/P showing dilation of BP limb with transition at the JJ-anastomosis, but no associated findings related to an internal hernia or volvulus. Past Medical History: Past Medical History: Diagnosis Date Aortic Valve Regurgitation, Acquired Asthma Back Pain HTN (Hypertension) Obesity Pulmonic Valve Regurgitation Tricuspid Valve Disorder Past Surgical History: Past Surgical History: Procedure Laterality Date GASTRIC BYPASS 05/27/2003 RELEASE CARPAL TUNNEL 1993 CHOLECYSTECTOMY, LAPAROSCOPIC 1993 BREAST LUMPECTOMY 1988 x2 Medications: Current Outpatient Medications Medication Sig Cobalamine Combinations (B-12) 100-5000 MCG SL SUBL take by mouth Daily. Ferrous Fumarate (NORMAN-SEQUELS) 50 MG PO TBCR take 1 Tab by mouth daily. Vit-Fe Sulfate-FA ( VITAMIN PO) take by mouth Daily. sertraline (ZOLOFT) 50 MG PO TABS take by mouth Daily. zolmitriptan (ZOMIG) 2.5 MG PO TABS take by mouth As needed for Migraine. Lactated ringers Sodium chloride 0.9% Allergies: Allergies Allergen Reactions Sulfa Antibiotics Rash Aspirin Family History: No family history on file. Social History: Social History Tobacco Use Smoking status: Never Substance Use Topics Alcohol use: No Drug use: No Vitals: BP 98/62 Pulse 73 Temp 98.3 F (36.8 C) (Oral) Resp 18 Ht 1.676 m (5' 6) SpO2 93% Physical Exam: General: healthy appearing adult female in no acute distress HEENT: normocephalic, atraumatic, anicteric sclera Neck: supple, no cervical lymphadenopathy Lungs: no increased work of breathing, on RA Cardiac: regular rate and rhythm, normal peripheral perfusion Abdomen: soft, epigastric tenderness to palpation, no rebound, no guarding, non-peritonitic : deferred MSK: no limb deformities, full range of motion at all joints Derm: no rashes, no lesions, no jaundice Neuro: alert and oriented to person, place, and time; moving all extremities, no gross motor or sensory deficits Psych: normal affect, appropriate, no evidence of psychosis Labs: WBC/Hgb/Hct/Plts: 7.15/13.4/41.7/241 (10/20 54) Na/K+/Phos/Mg/Ca: 137/4.0/--/--/-- (10/20 54) Bun/Creat/Cl/CO2/Glucose: 7/0.54/107/23/122 (10/20 54) Ptt/Pt/Inr: 37.6/13.3/1.0 (10/20 54) Lab Results Component Value Date BILITOTAL 0.3 10/21/2023 BILITOTAL 0.6 07/02/2008 BILIDIRECT <0.1 10/21/2023 BILIDIRECT 0.1 07/02/2008 ALBUMIN 4.1 10/21/2023 ALBUMIN 4.3 07/02/2008 ALT 25 10/21/2023 ALT 26 07/02/2008 AST 32 10/21/2023 AST 34 07/02/2008 ALKPHOS 137 (H) 10/21/2023 ALKPHOS 85 07/02/2008 Imaging: CT ABDOMEN/ABDOMEN-PELVIS (INTERPRETATION - OUTSIDE IMAGE) Final Result IMPRESSION: 1. 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 There is abrupt transition at the jejunojejunal anastomosis. There are no associated findings to suggest this is related to an internal hernia or volvulus. Edema of the associated mesentery and a small volume of pelvic free fluid are likely reactive in nature. 2. No other acute findings of the chest, abdomen, and pelvis. 3. Ancillary findings are noted in the body of the report. Assessment and Plan: Connor Khan is a 58 y.o. female with history of HTN, lap kayy, lap RnYGB in 2002 who presents with epigastric abdominal pain, nausea, dry heave, no leukocytosis but lipase of [address] finding of dilated BP limb with abrupt transition point at the J-J anastomosis could be secondary to stricture. - Admit to Dr. Kaveh Gomez, Med-Surg - NPO, IVF - Plan for OR tonight for diagnostic laparoscopy, possible ex-lap, possible revision of J-J anastomosis Patient was discussed with Dr. Galvez, the fellow ocean transportation intermediary. Thank you for consulting and involving us in the care of this patient. If there are any further questions, don't hesitate to page the resident ocean transportation intermediary. Benjamín Landeros MD Dept of Surgery [id number] documented in this encounter [facility] 10-21-2023 Physician Emergency department Note ED Attending EM Medical Decision Making MDM: ED Course as of 10/21/23 0149 TueOct 21, 2023 0025 Patient presents tot he ED with NV and abdominal pain. Hx of gastric bypass. Started 6 weeks ago and has waxed and waned. Yesterday it became acutely worse. CT AP showed concern for dilated loops of bowel And afferent Limb syndrome. Currently no nausea or abdominal pain. Has had flatus and small stools. Labs pending. Will consult bariatric surgery. Medical Decision Making Amount and/or Complexity of Data Reviewed Labs: ordered. Risk Decision regarding hospitalization. Risk Details: Discussed with surgery. Will admit for surgical intervention Past Medical History: Diagnosis Date Aortic Valve Regurgitation, Acquired Asthma Back Pain HTN (Hypertension) Obesity Pulmonic Valve Regurgitation Tricuspid Valve Disorder Past Surgical History: Procedure Laterality Date GASTRIC BYPASS 05/27/2003 RELEASE CARPAL TUNNEL 1993 CHOLECYSTECTOMY, LAPAROSCOPIC 1993 BREAST LUMPECTOMY 1988 x2 BP 98/62 Pulse 73 Temp 98.3 F (36.8 C) (Oral) Resp 18 Ht 1.676 m (5' 6) SpO2 93% On 10/20/2023 I saw and evaluated the patient with resident. I provided a substantive portion of the care for this patient. I personally performed all aspects of the medical decision making for this encounter. I have reviewed and verified this with the resident so that it accurately reflects our care. Regino Hadley MD 10/21/23 0150 [facility] Work Phone: 10-21-2023 Emergency department Note ED Attending EM Medical Decision Making MDM: ED Course as of 10/21/23 0149 TueOct 21, 2023 0025 Patient presents tot he ED with NV and abdominal pain. Hx of gastric bypass. Started 6 weeks ago and has waxed and waned. Yesterday it became acutely worse. CT AP showed concern for dilated loops of bowel And afferent Limb syndrome. Currently no nausea or abdominal pain. Has had flatus and small stools. Labs pending. Will consult bariatric surgery. Medical Decision Making Amount and/or Complexity of Data Reviewed Labs: ordered. Risk Decision regarding hospitalization. Risk Details: Discussed with surgery. Will admit for surgical intervention Past Medical History: Diagnosis Date Aortic Valve Regurgitation, Acquired Asthma Back Pain HTN (Hypertension) Obesity Pulmonic Valve Regurgitation Tricuspid Valve Disorder Past Surgical History: Procedure Laterality Date GASTRIC BYPASS 05/27/2003 RELEASE CARPAL TUNNEL 1993 CHOLECYSTECTOMY, LAPAROSCOPIC 1993 BREAST LUMPECTOMY 1988 x2 BP 98/62 Pulse 73 Temp 98.3 F (36.8 C) (Oral) Resp 18 Ht 1.676 m (5' 6) SpO2 93% On 10/20/2023 I saw and evaluated the patient with resident. I provided a substantive portion of the care for this patient. I personally performed all aspects of the medical decision making for this encounter. I have reviewed and verified this with the resident so that it accurately reflects our care. Regino Hadley MD 10/21/23 0150 Patient arrives from outside hospital with abdominal pain and SBO. Patient had gastric bypass in 2017, states that she has been having abdominal pain with n/v for the last month with an increase in vomiting in the last 24 hours. Patient states that she has been having regular bm but with decreased output for the last month dEPARTMENT of Emergency Medicine CHIEF COMPLAINT Nausea and Vomiting HPI Connor Khan is a 58 y.o. female w/ PMHx of HTN, aortic regurgitation, pulmonary regurgitation, tricuspid regurgitation, hx of gastric bypass surgery, cholecystectomy who presents with abdominal pain. She reports she started having intermittent nausea a month and a half ago. Initially resolved but then returned 1 month ago. Resolved again. Yesterday, she developed sudden onset of severe nausea, NBNB emesis, and epigastric pain radiating to mid chest. Was not able to tolerate any PO yesterday. No shortness of breath, diarrhea, lightheadedness, dizziness, syncope, or fevers. Having chills with nausea. She had a CT AP w/ contrast done at [facility] showed distended stomach, duodenom, and proximal jejunum w/ transition point concerning for afferent limb syndrome. CHEM notable for normal renal function, alk phos mildly elevated to 172. Lipase 898. Normal troponin. Lactate 1.3. No leukocytosis. S/p 2 liters of NS there. Got 2 doses of morphine 4 mg (last 10pm) and multiple antiemetics. Zofran did help her nausea and morphine did help her pain. REVIEW OF SYSTEMS Review of Systems per HPI PAST MEDICAL HISTORY Past Medical History: Diagnosis Date Aortic Valve Regurgitation, Acquired Asthma Back Pain HTN (Hypertension) Obesity Pulmonic Valve Regurgitation Tricuspid Valve Disorder SURGICAL HISTORY Past Surgical History: Procedure Laterality Date GASTRIC BYPASS 05/27/2003 RELEASE CARPAL TUNNEL 1993 CHOLECYSTECTOMY, LAPAROSCOPIC 1993 BREAST LUMPECTOMY 1988 x2 CURRENT MEDICATIONS Current Facility-Administered Medications Medication Dose Route Frequency Provider Last Rate Last Admin Acetaminophen (TYLENOL) tablet 975 mg 975 mg Oral TID Benjamín Landeros MD Cyclobenzaprine (FLEXERIL) tablet 5 mg 5 mg Oral TID Benjamín Landeros MD Enoxaparin Sodium (LOVENOX) injection 40 mg 40 mg Subcutaneous Q24H Benjamín Landreos MD Gabapentin (NEURONTIN) capsule 100 mg 100 mg Oral TID Benjamín Landeros MD HYDROmorphone (DILAUDID) injection 0.2 mg 0.2 mg Intravenous Q3H PRN Benjamín Landeros MD Or HYDROmorphone (DILAUDID) injection 0.5 mg 0.5 mg Intravenous Q3H PRN Benjamín Landeros MD Lactated ringers IV solution Intravenous Continuous Benjamín Landeros MD Ondansetron (ZOFRAN) tablet 4 mg 4 mg Oral Q6H PRN Benjamín Landeros MD Or Ondansetron 4mg/2ml (ZOFRAN) injection 4 mg 4 mg Intravenous Q6H PRN Benjamín Landeros MD oxyCODONE (ROXICODONE) tablet 5 mg 5 mg Oral Q4H PRN Benjamín Landeros MD Or oxyCODONE HCl (ROXICODONE) tablet 10 mg 10 mg Oral Q4H PRN Benjamín Landeros MD Phenol (CHLORASEPTIC) 1.4 % oral spray 1 spray 1 spray Mouth/Throat PRN Benjamín Landeros MD Prochlorperazine (COMPAZINE) tablet 5 mg 5 mg Oral Q6H PRN Benjamín Landeros MD Or Prochlorperazine (COMPAZINE) injection 5 mg 5 mg Intravenous Q6H PRN Benjamín Landeros MD Sodium chloride 0.9% IV solution 250 mL 250 mL Intravenous PRN Benjamín Landeros MD Current Outpatient Medications Medication Sig Dispense Refill Cobalamine Combinations (B-12) 100-5000 MCG SL SUBL take by mouth Daily. Ferrous Fumarate (NORMAN-SEQUELS) 50 MG PO TBCR take 1 Tab by mouth daily. 30 1 Vit-Fe Sulfate-FA ( VITAMIN PO) take by mouth Daily. sertraline (ZOLOFT) 50 MG PO TABS take by mouth Daily. zolmitriptan (ZOMIG) 2.5 MG PO TABS take by mouth As needed for Migraine. ALLERGIES Allergies Allergen Reactions Sulfa Antibiotics Rash Aspirin FAMILY HISTORY No family history on file. SOCIAL HISTORY Social History Socioeconomic History Marital status: Spouse name: Not on file Number of children: Not on file Years of education: Not on file Highest education level: Not on file Occupational History Not on file Tobacco Use Smoking status: Never Smokeless tobacco: Not on file Substance and Sexual Activity Alcohol use: No Drug use: No Sexual activity: Not on file Other Topics Concern Not on file Social History Narrative Not on file Social Determinants of Health Financial Resource Strain: Not on file Food Insecurity: Not on file Transportation Needs: Not on file Physical Activity: Not on file Stress: Not on file Social Connections: Not on file Intimate Partner Violence: Not on file Housing Stability: Not on file PHYSICAL EXAM BP 98/62 Pulse 73 Temp 98.3 F (36.8 C) (Oral) Resp 18 Ht 1.676 m (5' 6) SpO2 93% Physical Exam Constitutional: Appearance: Normal appearance. HENT: Head: Normocephalic and atraumatic. Mouth/Throat: Mouth: Mucous membranes are moist. Eyes: Extraocular Movements: Extraocular movements intact. Conjunctiva/sclera: Conjunctivae normal. Cardiovascular: Rate and Rhythm: Normal rate and regular rhythm. Heart sounds: No murmur heard. Pulmonary: Effort: No respiratory distress. Breath sounds: No wheezing. Abdominal: General: Abdomen is flat. Bowel sounds are normal. There is no distension. Palpations: Abdomen is soft. Tenderness: There is no abdominal tenderness. Musculoskeletal: Right lower leg: No edema. Left lower leg: No edema. Skin: Findings: No rash. Neurological: Mental Status: She is alert and oriented to person, place, and time. Mental status is at baseline. ED COURSE & MEDICAL DECISION MAKING ED Course as of 10/21/23 0127 TueOct 21, 2023 0032 Paged surgery for new c/s 0119 Per surgery, plan for OR tonight. HTN, aortic regurgitation, pulmonary regurgitation, tricuspid regurgitation, hx of gastric bypass surgery, cholecystectomy who presents with abdominal pain. On exam, appears tired. BP borderline, no tachycardia. Not on any beta blockade. CTAP at OSH w/ concern for afferent limb syndrome, possible bowel obstruction. No signs of infection. Passing gas. Rechecking labs here including coags and lactate. Consulted surgery - plan for OR tonight. Asymptomatic at this time, low threshold to continue IVF hydration and to provide symptom control if recurs. Impression: Afferent limb syndrome Disposition: Admit to surgery Medical Decision Making Amount and/or Complexity of Data Reviewed External Data Reviewed: labs and radiology. Labs: ordered. Bindu Proctor MD Resident 10/21/23 0128 Bed: E043 Expected date: 10/20/23 Expected time: 12:00 AM Means of arrival: Private Ambulance Comments: documented in this encounter [facility] 10-21-2023 Emergency department Note Patient arrives from outside hospital with abdominal pain and SBO. Patient had gastric bypass in 2017, states that she has been having abdominal pain with n/v for the last month with an increase in vomiting in the last 24 hours. Patient states that she has been having regular bm but with decreased output for the last month [facility] 10-20-2023 Physician Emergency department Note dEPARTMENT of Emergency Medicine CHIEF COMPLAINT Nausea and Vomiting HPI Connor Khan is a 58 y.o. female w/ PMHx of HTN, aortic regurgitation, pulmonary regurgitation, tricuspid regurgitation, hx of gastric bypass surgery, cholecystectomy who presents with abdominal pain. She reports she started having intermittent nausea a month and a half ago. Initially resolved but then returned 1 month ago. Resolved again. Yesterday, she developed sudden onset of severe nausea, NBNB emesis, and epigastric pain radiating to mid chest. Was not able to tolerate any PO yesterday. No shortness of breath, diarrhea, lightheadedness, dizziness, syncope, or fevers. Having chills with nausea. She had a CT AP w/ contrast done at [facility] showed distended stomach, duodenom, and proximal jejunum w/ transition point concerning for afferent limb syndrome. CHEM notable for normal renal function, alk phos mildly elevated to 172. Lipase 898. Normal troponin. Lactate 1.3. No leukocytosis. S/p 2 liters of NS there. Got 2 doses of morphine 4 mg (last 10pm) and multiple antiemetics. Zofran did help her nausea and morphine did help her pain. REVIEW OF SYSTEMS Review of Systems per HPI PAST MEDICAL HISTORY Past Medical History: Diagnosis Date Aortic Valve Regurgitation, Acquired Asthma Back Pain HTN (Hypertension) Obesity Pulmonic Valve Regurgitation Tricuspid Valve Disorder SURGICAL HISTORY Past Surgical History: Procedure Laterality Date GASTRIC BYPASS 05/27/2003 RELEASE CARPAL TUNNEL 1993 CHOLECYSTECTOMY, LAPAROSCOPIC 1993 BREAST LUMPECTOMY 1988 x2 CURRENT MEDICATIONS Current Facility-Administered Medications Medication Dose Route Frequency Provider Last Rate Last Admin Acetaminophen (TYLENOL) tablet 975 mg 975 mg Oral TID Benjamín Landeros MD Cyclobenzaprine (FLEXERIL) tablet 5 mg 5 mg Oral TID Benjamín Landeros MD Enoxaparin Sodium (LOVENOX) injection 40 mg 40 mg Subcutaneous Q24H Benjamín Landeros MD Gabapentin (NEURONTIN) capsule 100 mg 100 mg Oral TID Benjamín Landeros MD HYDROmorphone (DILAUDID) injection 0.2 mg 0.2 mg Intravenous Q3H PRN Benjamín Landeros MD Or HYDROmorphone (DILAUDID) injection 0.5 mg 0.5 mg Intravenous Q3H PRN Benjamín Landeros MD Lactated ringers IV solution Intravenous Continuous Benjamín Landeros MD Ondansetron (ZOFRAN) tablet 4 mg 4 mg Oral Q6H PRN Benjamín Landeros MD Or Ondansetron 4mg/2ml (ZOFRAN) injection 4 mg 4 mg Intravenous Q6H PRN Benjamín Landeros MD oxyCODONE (ROXICODONE) tablet 5 mg 5 mg Oral Q4H PRN Benjamín Landeros MD Or oxyCODONE HCl (ROXICODONE) tablet 10 mg 10 mg Oral Q4H PRN Benjamín Landeros MD Phenol (CHLORASEPTIC) 1.4 % oral spray 1 spray 1 spray Mouth/Throat PRN Benjamín Landeros MD Prochlorperazine (COMPAZINE) tablet 5 mg 5 mg Oral Q6H PRN Benjamín Landeros MD Or Prochlorperazine (COMPAZINE) injection 5 mg 5 mg Intravenous Q6H PRN Benjamín Landeros MD Sodium chloride 0.9% IV solution 250 mL 250 mL Intravenous PRN Benjamín Landeros MD Current Outpatient Medications Medication Sig Dispense Refill Cobalamine Combinations (B-12) 100-5000 MCG SL SUBL take by mouth Daily. Ferrous Fumarate (NORMAN-SEQUELS) 50 MG PO TBCR take 1 Tab by mouth daily. 30 1 Vit-Fe Sulfate-FA ( VITAMIN PO) take by mouth Daily. sertraline (ZOLOFT) 50 MG PO TABS take by mouth Daily. zolmitriptan (ZOMIG) 2.5 MG PO TABS take by mouth As needed for Migraine. ALLERGIES Allergies Allergen Reactions Sulfa Antibiotics Rash Aspirin FAMILY HISTORY No family history on file. SOCIAL HISTORY Social History Socioeconomic History Marital status: Spouse name: Not on file Number of children: Not on file Years of education: Not on file Highest education level: Not on file Occupational History Not on file Tobacco Use Smoking status: Never Smokeless tobacco: Not on file Substance and Sexual Activity Alcohol use: No Drug use: No Sexual activity: Not on file Other Topics Concern Not on file Social History Narrative Not on file Social Determinants of Health Financial Resource Strain: Not on file Food Insecurity: Not on file Transportation Needs: Not on file Physical Activity: Not on file Stress: Not on file Social Connections: Not on file Intimate Partner Violence: Not on file Housing Stability: Not on file PHYSICAL EXAM BP 98/62 Pulse 73 Temp 98.3 F (36.8 C) (Oral) Resp 18 Ht 1.676 m (5' 6) SpO2 93% Physical Exam Constitutional: Appearance: Normal appearance. HENT: Head: Normocephalic and atraumatic. Mouth/Throat: Mouth: Mucous membranes are moist. Eyes: Extraocular Movements: Extraocular movements intact. Conjunctiva/sclera: Conjunctivae normal. Cardiovascular: Rate and Rhythm: Normal rate and regular rhythm. Heart sounds: No murmur heard. Pulmonary: Effort: No respiratory distress. Breath sounds: No wheezing. Abdominal: General: Abdomen is flat. Bowel sounds are normal. There is no distension. Palpations: Abdomen is soft. Tenderness: There is no abdominal tenderness. Musculoskeletal: Right lower leg: No edema. Left lower leg: No edema. Skin: Findings: No rash. Neurological: Mental Status: She is alert and oriented to person, place, and time. Mental status is at baseline. ED COURSE & MEDICAL DECISION MAKING ED Course as of 10/21/23 0127 TueOct 21, 2023 0032 Paged surgery for new c/s 0119 Per surgery, plan for OR tonight. HTN, aortic regurgitation, pulmonary regurgitation, tricuspid regurgitation, hx of gastric bypass surgery, cholecystectomy who presents with abdominal pain. On exam, appears tired. BP borderline, no tachycardia. Not on any beta blockade. CTAP at OSH w/ concern for afferent limb syndrome, possible bowel obstruction. No signs of infection. Passing gas. Rechecking labs here including coags and lactate. Consulted surgery - plan for OR tonight. Asymptomatic at this time, low threshold to continue IVF hydration and to provide symptom control if recurs. Impression: Afferent limb syndrome Disposition: Admit to surgery Medical Decision Making Amount and/or Complexity of Data Reviewed External Data Reviewed: labs and radiology. Labs: ordered. Bindu Proctor MD Resident 10/21/23 0128 [facility] Work Phone: 10-20-2023 Emergency department Note Bed: [facility] Expected date: 10/20/23 Expected time: 12:00 AM Means of arrival: Private Ambulance Comments: [facility] 09-30-2023 History of Present illness Narrative Subjective Patient ID: Connor Khan is a 58 y.o. female who presents for Follow-up (FEELS BETTER WITH THE PREDNISONE AND DOXYCYCLINE. FEELS OKAY SINCE LAST VISIT ). HPI: Presents today for 1 WEEK FU ILLNESS. STATES SHE IS FEELING BETTER. DENIES SOB, CP. NO FURTHER SYMPTOMS. NO NEW COMPLAINTS REFUSING COLON BUT IN AGREEMENT TO DO COLOGUARD Visit Vitals BP 126/83 Pulse 62 Ht 1.676 m (5' 6) Wt 105 kg (232 lb) LMP (LMP Unknown) SpO2 98% BMI 37.45 kg/m OB Status Postmenopausal Smoking Status Never BSA 2.21 m Review of Systems Constitutional: Negative for [...] ideas. The patient is not nervous/anxious. Objective Physical Exam Constitutional: Appearance: Normal appearance. She [...] Assessment/Plan Problem List Items Addressed This Visit Pharyngitis Encounter for screening for malignant neoplasm of colon - Primary Relevant Orders Cologuard colon cancer screening Class 2 severe obesity due to excess calories with serious comorbidity and body mass index (BMI) of 37.0 to 37.9 in adult (CMS/FORMERLY [facility]) PLEASE MONITOR CLOSELY FOR ANY UNTOWARD SIDE [...] 4. REVIEWING OARRS NEEDED MDM 1) COMPLEXITY: 1 ACUTE ILLNESS, 1 STABLE CHRONIC CONDITION, OR 2 MINOR PROBLEMS ADDRESSED 2)DATA: TESTS INTERPRETED AND OR ORDERED, TOOK INDEPENDENT HISTORY OR RECORDS REVIEWED 3)RISK: LOW RISK DUE TO NATURE OF MEDICAL CONDITIONS/COMORBIDITY OR MEDICATIONS ORDERED OR SURGICAL OR PROCEDURE REFERRAL Follow up as before documented in this encounter [facility] Work Phone: 09-14-2023 History of Present illness Narrative Subjective Patient ID: Connor Khan is a 58 y.o. female who presents for Annual Exam (Lab results ). HPI: Presents today for [facility] WITH WELLNESS. NO CONCERNS. LIPIDS- MINIMALLY ELEVATED. DIET MODIFICATIONS DISCUSSED VIT D- START CALCIUM WITH VIT D RA- STABLE REFUSING COLON OR COLOGUARD Visit Vitals BP 128/72 (BP Location: Right arm, Patient Position: Sitting) Ht 1.676 m (5' 6) Wt 111 kg (244 lb) LMP (LMP Unknown) BMI 39.38 kg/m OB Status Postmenopausal Smoking Status Never BSA 2.27 m Review of Systems Constitutional: Negative for [...] ideas. The patient is not nervous/anxious. Objective Component Latest Ref Rng 08/17/2023 WBC 4.4 - 11.3 x10*3/uL 3.9 (L) nRBC 0.0 - 0.0 /100 WBCs 0.0 RBC 4.00 - 5.20 x10*6/uL 4.29 HEMOGLOBIN 12.0 - 16.0 g/dL 13.0 HEMATOCRIT 36.0 - 46.0 % 40.8 MCV 80 - 100 fL 95 MCH 26.0 - 34.0 pg 30.3 MCHC 32.0 - 36.0 g/dL 31.9 (L) RED CELL DISTRIBUTION WIDTH 11.5 - 14.5 % 13.3 Platelets 150 - 450 x10*3/uL 279 Neutrophils % 40.0 - 80.0 % 46.7 Immature Granulocytes %, Automated 0.0 - 0.9 % 0.3 Lymphocytes % 13.0 - 44.0 % 30.6 Monocytes % 2.0 - 10.0 % 11.6 Eosinophils % 0.0 - 6.0 % 10.3 Basophils % 0.0 - 2.0 % 0.5 Neutrophils Absolute 1.20 - 7.70 x10*3/uL 1.82 Immature Granulocytes Absolute, Automated 0.00 - 0.70 x10*3/uL 0.01 Lymphocytes Absolute 1.20 - 4.80 x10*3/uL 1.19 (L) Monocytes Absolute 0.10 - 1.00 x10*3/uL 0.45 Eosinophils Absolute 0.00 - 0.70 x10*3/uL 0.40 Basophils Absolute 0.00 - 0.10 x10*3/uL 0.02 GLUCOSE 74 - 99 mg/dL 96 SODIUM 136 - 145 mmol/L 141 POTASSIUM 3.5 - 5.3 mmol/L 4.3 CHLORIDE 98 - 107 mmol/L 108 (H) Bicarbonate 21 - 32 mmol/L 23 Anion Gap 10 - 20 mmol/L 14 Blood Urea Nitrogen 6 - 23 mg/dL 13 Creatinine 0.50 - 1.05 mg/dL 0.62 EGFR >60 mL/min/1.73m*2 >90 Calcium 8.6 - 10.3 mg/dL 9.0 Albumin 3.4 - 5.0 g/dL 4.0 Alkaline Phosphatase 33 - 136 U/L 115 Total Protein 6.4 - 8.2 g/dL 6.1 (L) AST 9 - 39 U/L 27 Bilirubin Total 0.0 - 1.2 mg/dL 0.4 ALT 7 - 45 U/L 20 CHOLESTEROL 0 - 199 mg/dL 191 HDL CHOLESTEROL mg/dL 58.0 Cholesterol/HDL Ratio 3.3 LDL Calculated <=99 mg/dL 116 (H) VLDL 0 - 40 mg/dL 17 TRIGLYCERIDES 0 - 149 mg/dL 86 Non HDL Cholesterol 0 - 149 mg/dL 133 Hemoglobin A1C see below % 5.6 Estimated Average Glucose Not Established mg/dL 114 Thyroid Stimulating Hormone 0.44 - 3.98 mIU/L 2.36 Vitamin B12 211 - 911 pg/mL 386 Vitamin D, 25-Hydroxy, Total 30 - 100 ng/mL 24 (L) Legend: (L) Low (H) High Physical Exam Constitutional: Appearance: Normal appearance. She [...] Relevant Medications citalopram (CeleXA) 20 mg tablet Wellness examination - Primary Relevant Orders CBC and Auto Differential Comprehensive Metabolic Panel Hemoglobin A1C Lipid Panel TSH with reflex to Free T4 if abnormal Vitamin D deficiency Relevant Medications calcium carbonate-vitamin D3 (Hi-Kadeem Plus Vit D) 500 mg-5 mcg (200 unit) tablet Other Relevant Orders Vitamin D 25-Hydroxy,Total (for eval of Vitamin D levels) Parathyroid Hormone, Intact Rheumatoid arthritis ([facility]) Relevant Medications methocarbamol (Robaxin) 750 mg tablet Class 2 severe obesity due to excess calories with serious comorbidity and body mass index (BMI) of 39.0 to 39.9 in adult ([facility]) PLEASE MONITOR CLOSELY FOR ANY UNTOWARD SIDE [...] 4. REVIEWING OARRS NEEDED MDM 1) COMPLEXITY: 1 ACUTE ILLNESS, 1 STABLE CHRONIC CONDITION, OR 2 MINOR PROBLEMS ADDRESSED 2)DATA: TESTS INTERPRETED AND OR ORDERED, TOOK INDEPENDENT HISTORY OR RECORDS REVIEWED 3)RISK: LOW RISK DUE TO NATURE OF MEDICAL CONDITIONS/COMORBIDITY OR MEDICATIONS ORDERED OR SURGICAL OR PROCEDURE REFERRAL 12 MONTHS WITH LABS WELLNESS documented in this encounter [facility] Work Phone: 12-06-2023 History of Present illness Narrative Subjective Patient ID: Connor Khan is a 58 y.o. female who presents for Establish Care. HPI: Presents today TO [facility]. FORMER DR. HUBBARD PATIENT. NO SPECIFIC [...] WILL ORDER SCREEN RA- FOLLOWS WITH DR. PORTILLO, RHEUM DEPRESSION- STABLE. MED REFILL Visit Vitals BP 128/74 (BP Location: Right arm, Patient Position: Sitting) Ht 1.651 m (5' 5) Wt 107 kg (235 lb) LMP (LMP [...] Interpreted By: CAITLYN REGALADO MD Patient Name: CONNOR KHAN STUDY: MRI L-SPINE WO; 05/10/2023 3:03 pm INDICATION: cauda acquina syndrome w/foot drop . COMPARISON: None. ACCESSION NUMBER(S): [id number] ORDERING CLINICIAN: KATIE VALIENTE TECHNIQUE: Sagittal T1, [...] with new doctor, encounter for Rheumatoid arthritis ([facility]) Relevant Medications methocarbamol (Robaxin) 750 mg tablet Class 2 severe obesity due to excess calories with serious comorbidity and body mass index (BMI) of 39.0 to 39.9 in adult ([facility]) Breast cancer screening by mammogram Relevant Orders [...] MONTH WITH LABS documented in this encounter [facility] Work Phone: 06-16-2022 History of Present illness Narrative [facility] DAILY TREATMENT NOTE Today's Date 06/16/2022 Patient Name: Connor Khan Date of : 1965 Current Visit [...] , R TKA Notes 1:45pm-2:25pm Therapeutic Exercise (48141) Intervention quads set 5 x10 Parameters SLR [...] ROM. Trial gait training with [facility]. Yenni Phillips PTA State License, [id number] documented in this encounter [facility] 06-11-2022 History of Present illness Narrative [facility] Evaluation Today's Date 06/11/2022 Patient Name: Connor Khan Date of : 1965 Case Name: [...] Precautions/Contraindications 06/08/2022 , R TKA Therapeutic Exercise (60970) Intervention quds set 5 x10 Parameters SLR 5 Intervention heel slides 10, 5 x10 Parameters gait training for heel to toe pattern Additional Exercises Add more exercises? 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 Lili Coon PT STATE LICENSE, [id number] documented in this encounter [facility] 06-09-2022 Note Date of Service 06/09/2022 Chief [...] Result Date: June 08, 2022 Verified By: JONY KHAN MD CLINICAL STATEMENT: IMPRESSION: Expected postsurgical changes [...] by FAWN COLE on 06/09/2022 02:07 PM [facility] 06-09-2022 Hospital Discharge instructions Patient Education 06/09/2022 11:59:52 5 - [facility] Post-op Instruction 03/2017 (Custom)(CUSTOM) [facility] Post-operative Instructions PLEASE FOLLOW [facility] POST-OP INSTRUCTIONS GIVEN WATCH FOR SIGNS OF INFECTION: call the office ([phone]) if experencing any of the following: (Usually [...] on your follow up instructions. Form: 338A (81151) R: 12/19 Follow Up Care 04/26/2022 07:30:12 With:[facility] Address: [place] When:06/11/2022 11:20:00 Comments:PHYSICAL THERAPY. Patient has scheduledFollow-up as scheduled With:VITOR YODER PA-C, Orthopedic Address: [facility] [address] [place] [address] [phone]- When:06/21/2022 14:30:00 Comments:Follow-up as scheduled [facility] 06-09-2022 Nurse Discharge summary Discharged to home with . Escorted to the exit via w/c per myself. Left at 1335. [facility] 06-09-2022 Note Discharge Instructions Thank you for allowing [facility] to assist you with your healthcare needs. [...] Follow-up as scheduled Where: [facility] [place] [address]- Follow Up with [facility] When 06/11/2022 11:20 AM EDT Why: PHYSICAL THERAPY. Patient has scheduledFollow-up as scheduled Where: [place] Allergies aspirin (Bleeding) sulfa drug (Mouth sores) [...] 8 hours Duration: 14 Days Pickup at [facility] #01987 06/09 9AM New aspirin (aspirin 81 mg oral delayed release tablet) 1 tab(s) by mouth Two (2) times a day Duration: 30 Days Pickup at [facility] #37489 06/09 9AM New oxyCODONE (oxyCODONE 5 mg oral tablet ( IMMEDIATE release )) 2 tab(s) by mouth Every 4 hours as needed for Pain, scale 4-6 Status post right knee replacement Duration: 7 Days Pickup at [facility] #28017 06/09 11AM Unchanged celecoxib (celecoxib 200 mg [...] 24 hours None Pharmacy Information [id number]: [address] [place], [place] [id number] [phone] What How Much When Comments Stop Taking [...] oh fen) Actamin, Anacin AF, Aurophen, Bromo [place], Children's Tylenol, Mapap, M-Pap, Pharbetol, Silapap Childrens, [...] provided dosing device provided to measure an infant's dose. Acetaminophen comes in many different forms [...] may report side effects to FDA at 0-462-ESJ-0082. What other drugs will affect acetaminophen? Other drugs may affect acetaminophen, including prescription and yfqr-uve-jerisuv medicines, vitamins, and herbal products. Tell your [...] to ensure that the information provided by [employer]. ('Multum') is accurate, up-to-date, and complete, but no guarantee is made to that effect. Drug information contained herein may be time sensitive. Help.com information has been compiled for use by healthcare practitioners and consumers in the [place] and therefore Help.com does not warrant that uses outside of the [place] are appropriate, unless specifically indicated otherwise. Agency Systemss drug information does not endorse drugs, diagnose patients or recommend therapy. Agency Systemss drug information is an informational resource designed [...] effective or appropriate for any given patient. Help.com does not assume any responsibility for any aspect of healthcare administered with the aid of information Help.com provides. The information contained herein is not intended to cover all possible uses, directions, precautions, warnings, drug interactions, allergic reactions, or adverse effects. If you have questions about the drugs you are taking, check with your doctor, nurse or pharmacist. Copyright 6093-8850 [employer]. Version: 22.02. Revision Date: 10/02/2021. aspirin (oral) ( pir in) Arthritis Pain, Aspi-Cor, Aspir-Low, Nadia Plus, Durlaza, Ecotrin, Miniprin, Vazalore What is the most important information I should know about aspirin? Aspirin can cause Mildred's syndrome, a serious and sometimes fatal condition in children. What is aspirin? Aspirin is a salicylate (zg-CBA-ar-ate) that is used to treat pain, and [...] may report side effects to FDA at 7-603-ZFU-7271. What other drugs will affect aspirin? Ask [...] drugs may affect aspirin, including prescription and nwqz-txg-lxntyle medicines, vitamins, and herbal products. Not all [...] to ensure that the information provided by [employer]. ('Multum') is accurate, up-to-date, and complete, but no guarantee is made to that effect. Drug information contained herein may be time sensitive. Help.com information has been compiled for use by healthcare practitioners and consumers in the [place] and therefore Help.com does not warrant that uses outside of the [place] are appropriate, unless specifically indicated otherwise. Agency Systemss drug information does not endorse drugs, diagnose patients or recommend therapy. Agency Systemss drug information is an informational resource designed [...] effective or appropriate for any given patient. Help.com does not assume any responsibility for any aspect of healthcare administered with the aid of information Help.com provides. The information contained herein is not intended to cover all possible uses, directions, precautions, warnings, drug interactions, allergic reactions, or adverse effects. If you have questions about the drugs you are taking, check with your doctor, nurse or pharmacist. Copyright 9432-7695 [employer]. Version: 16.03. Revision Date: 02/09/2021. oxycodone (ox [...] The extended-release form of oxycodone is for ybrujh-npm-xrwox treatment of pain and should not be [...] against the law. Stop taking all other lyrlcn-xsl-axwfu opioid pain medicines when you start taking [...] may report side effects to FDA at 9-985-CEP-6360. What other drugs will affect oxycodone? You [...] may affect oxycodone. This includes prescription and grsi-uym-flquozk medicines, vitamins, and herbal products. Not all [...] to ensure that the information provided by [employer]. ('Multum') is accurate, up-to-date, and complete, but no guarantee is made to that effect. Drug information contained herein may be time sensitive. Help.com information has been compiled for use by healthcare practitioners and consumers in the [place] and therefore Help.com does not warrant that uses outside of the [place] are appropriate, unless specifically indicated otherwise. Help.com's drug information does not endorse drugs, diagnose patients or recommend therapy. Agency Systemss drug information is an informational resource designed [...] effective or appropriate for any given patient. Help.com does not assume any responsibility for any aspect of healthcare administered with the aid of information Help.com provides. The information contained herein is not intended to cover all possible uses, directions, precautions, warnings, drug interactions, allergic reactions, or adverse effects. If you have questions about the drugs you are taking, check with your doctor, nurse or pharmacist. Copyright 6629-7291 [employer]. Version: 14.02. Revision Date: 09/11/2020. Education Materials [facility] Post-operative Instructions PLEASE FOLLOW [facility] POST-OP INSTRUCTIONS GIVEN WATCH FOR SIGNS OF INFECTION: call the office ([phone]) if experencing any of the following: (Usually [...] on your follow up instructions. Form: 338A (53176) R: 12/19 Additional Information VACCINATE! IT SAVES LIVES! Members of the community who have not yet received the COVID-19 vaccine and would like to receive it can visit one of [facility] vaccine clinics. There are many vaccine clinic locations within the [facility]. For locations and available times, please visit [email or web address].[place].gov/. It is important to note that some COVID mobile vaccine clinics are held outdoors and may be canceled in rainy or stormy conditions. To learn more about pediatric vaccinations (ages 5-11), we invite you to visit the [facility] webpage. https://www.[facility].org/pag es/3162-Uslpp-Gsdblmobrhv-Frequent pd-Ycuwt-Nwqelkyqr.html To learn more about the COVID-19 vaccine, we invite you to visit the [facility] website for a list of frequently asked questions. [email or web address]/assets/Patient d-anv-Nydchyci/jgxyo-Ononmtm-Anfbu ently_Asked-Questions.pdf [facility] Patient Portal Access Instructions: Stay connected with your healthcare team and access your personal medical information anytime with the [facility] Patient Portal.If you would like a full copy of your medical records, please contact the [facility] Medical Records Department, Tuesday through Tuesday between 8a.m. and 4:30p.m. Please follow the directions below to access the portal: 1.Access the email account you provided upon registration to the [facility].2.Look for an invitation email from [facility].3.Open the email and access the invitation link: Accept Invitation to [facility].Fill in the required betts to create your account. Sign into [email or web address] with your username and password that you [...] you will allow to register on the [facility] Patient Portal for access to your information. You can also access the [facility] Patient Portal on the [employer]. Simply click on Health Records under Health [...] Call your local pharmacy or go to [email or web address] Within Reach/5K1He9v to find one close to you.3.Make use of household items: Use cat litter or old coffee grounds to dispose medications if other options are not available. Mix your drugs with these household products, seal them in an airtight container and throw it into the garbage. Call [facility]: [phone] to be sure your drugs can be [...] a CHART COPY. Signatures Patient Education Materials [address] [place] [address] Post-op Instruction 03/2017 (Custom)(CUSTOM) Medication Leaflets Tylenol, aspirin 81 mg oral tablet, chewable, oxyCODONE 5 mg oral tablet ( IMMEDIATE release ) My discharge plan and instructions have been reviewed and explained to me and I,CONNOR KHAN understand my current condition and have read and understand these discharge instructions. I have received a written copy of the plan/instructions. If I have questions, I am aware that I should contact my doctor. 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 Continue physical therapy outpatient at [facility]. 3. Aspirin 81 mg 1 p.o. twice daily x30 days for postop DVT prophylaxis 4. Reminded not to use her Humira for 2 weeks postop 5. Continue weightbearing as tolerated with walker 6. Continue ice, and VIVIANA hose as directed 7. Follow-up in [address] Maravilla 8. Discharge home today Digitally Signed by JOSE CORNEJO on 06/09/2022 12:02 PM [facility] 06-08-2022 Anesthesiology Consult note Patient: CONNOR KHAN Age: 57 years Sex: Female : 1965 Associated Diagnoses: None Author: MADI ALARCON APRN-SILVER MINER Assessment Postanesthesia assessment Vitals: Vital signs from [...] by MADI ALARCON on 06/08/2022 02:01 PM [facility] 06-08-2022 Note ORIGINAL EXAMINATION: TWO XRAY VIEWS [...] fracture, dislocation, or hardware failure. Interpreted by: Jony Khan MD Preliminary Report By: Jony Khan MD Electronically signed By Jony Khan MD Dictated Date: 06/08/2022 9:29:20 AM Prelim Date: 06/08/2022 9:30:28 AM Sign Date: 06/08/2022 9:30:28 AM [facility] Note ORIGINAL EXAMINATION: TWO XRAY VIEWS [...] fracture, dislocation, or hardware failure. Interpreted by: Jony Khan MD Preliminary Report By: Jony Khan MD Electronically signed By Jony Khan MD Dictated Date: 06/08/2022 9:29:20 AM Prelim Date: 06/08/2022 9:30:28 AM Sign Date: 06/08/2022 9:30:28 AM [facility] Anesthesiology Consult note Patient: CONNOR KHAN Age: 57 years Sex: Female : [...] been selected or recorded. Procedure history: Cholecystectomy (60557963). CTR - carpal tunnel release ([id number]). Comments: 05/28/2022 12:17 EDT - Ioana Lindsey RN bilateral Cyst of both breasts ([id number]). Gastric bypass ([id number]). Amputation of finger tip ([id number]). Comments: 05/28/2022 12:16 Ioana Damon RN Right ring Total prosthetic arthroplasty of left knee ([id number]). Arthroscopic repair of rotator cuff ([id number]). 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 Lives In Single level home Current Home Treatments None Special Services and Community Resources None Spouse Name Latrice Marital Status of Patient if Patient Independent [...] Admission Weight 100 kg Weight Method Stated [place] Body Weight 57.00 kg Body Mass Index [...] Person #1 We May Share TEE Khan [phone] Designated Person #1 Relationship Spouse Designated Person #2 We May Share TEE Lozoya [phone] Designated Person #2 Relationship Mother Privacy Restrictions Requested None Height 165.1 cm Admission Weight 100 kg Weight Method Stated [place] Body Weight 57.00 kg Body Mass Index 36.69 kg/m2 Body Mass Index 36.69 kg/m2 Temperature Temporal Artery 35.9 DegC Apical Heart Rate 69 bpm Respiratory Rate 12 br/min LOW Systolic BP Left Arm 137 mmHg Diastolic BP Left Arm 76 mmHg Primary Pain Location Knee Primary Pain Laterality Right Primary Pain Intensity 2 Pain Scale Type 0-10 Pain scale Nail Bed Color [place] Capillary Refill < 2 seconds Heart Rhythm Regular All Lobes Breath Sounds Clear Oxygen Therapy Room air Oxygen Saturation 97 % Abdomen Description Non-distended Abdomen Palpation Non-Tender Bowel Sounds All Quadrants Present Urinary Elimination Voiding, no difficulties Status No, per patient Skin Temperature Warm Skin Description [place], Dry Skin Integrity Intact Neurological Symptoms Patient [...] Weeks No Weight Loss No Allergies Yes 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 Assessment and Plan [place] [employer] (ASA) physical status classification: Class III. Anesthetic Preoperative Plan Anesthetic technique: Spinal. Regional: Spinal. Postoperative pain management: adductor canal block. Informed consent: signed by patient. Digitally Signed by MADI ALARCON on 06/08/2022 06:40 AM [facility] 05-28-2022 Note ORIGINAL EXAMINATION: CT OF THE RIGHT KNEE WITHOUT [id number]/14/2022 12:[address] of the right knee [...] 05/28/2022 3:02:33 PM Ordering Provider: ALYSSIA MARAVILLA [facility] 05-28-2022 Note ORIGINAL EXAMINATION: CT OF THE RIGHT KNEE WITHOUT [id number]/14/2022 12:[address] of the right knee [...] 05/28/2022 3:02:33 PM Ordering Provider: ALYSSIA MARAVILLA [facility] Evaluation + Plan note Future Appointments [facility] Evaluation note No assessment inform ation available [facility] Work Phone: Evaluation note Diagnosis Primary osteoarthritis of right knee- [facility] Primary [facility] of right knee [facility] Diagnosis Primary osteoarthritis of right knee- Primary [facility] Diagnosis Primary osteoarthritis of right knee- Primary [facility] Diagnosis Primary osteoarthritis of right knee- [facility] Diagnosis Primary osteoarthritis of right knee- Primary [facility] Diagnosis Primary osteoarthritis of right knee- Primary [facility] Primary osteoarthritis of right knee- Primary [facility] Diagnosis Primary osteoarthritis of right knee- Primary [facility] Diagnosis Primary hypertension- Primary Unspecified essential [...] unspecified site, unspecified whether rheumatoid factor present ([facility]/HCC) Class 2 severe obesity due to excess calories with serious comorbidity and body mass index (BMI) of 39.0 to 39.9 in adult ([facility]) Breast cancer screening by mammogram documented in this encounter [facility] Work Phone: Evaluation note* Diagnosis Breast cancer screening by mammogram documented in this encounter [facility] Work Phone: Evaluation note* Diagnosis Wellness examination- Primary Vitamin D deficiency Class 2 severe obesity due to excess calories with serious comorbidity and body mass index (BMI) of 39.0 to 39.9 in adult ([facility]/HCC) Moderate episode of recurrent major depressive disorder (CMS/HCC) Rheumatoid arthritis, involving unspecified site, unspecified whether rheumatoid factor present ([facility]) documented in this encounter [facility] Work Phone: Evaluation note* Diagnosis Encounter for screening for malignant neoplasm of colon- Primary Class 2 severe obesity due to excess calories with serious comorbidity and body mass index (BMI) of 37.0 to 37.9 in adult ([facility]) Pharyngitis, unspecified etiology documented in this encounter [facility] Work Phone: Evaluation note* Diagnosis Nausea and vomiting, unspecified vomiting type- Primary Intestinal obstruction, unspecified cause, unspecified whether partial or complete ([facility]) documented in this encounter [facility] Work Phone: Evaluation note* Diagnosis Small bowel obstruction- Primary Unspecified intestinal obstruction Small bowel obstruction Unspecified intestinal obstruction [facility] Small bowel obstruction- Primary Unspecified intestinal obstruction Status post gastric bypass for obesity Bariatric surgery status [facility] Diagnosis Encounter for weight loss counseling- Primary [facility] Diagnosis Status post gastric bypass for obesity- Primary Bariatric surgery status Small bowel obstruction Unspecified intestinal obstruction [facility] Diagnosis Rash and other nonspecific skin eruption- Primary documented in this encounter [facility] Work Phone: Evaluation note* Diagnosis Abdominal wall cellulitis- Primary Class 1 obesity due to excess calories with serious comorbidity and body mass index (BMI) of 30.0 to 30.9 in adult documented in this encounter [facility] Work Phone: Evaluation note* Diagnosis Hyperparathyroidism (Multi)- Primary Hyperparathyroidism, unspecified Vitamin D deficiency Rheumatoid arthritis, involving unspecified site, unspecified whether rheumatoid factor present (Multi) Breast cancer screening by mammogram Pure hypercholesterolemia Wellness examination documented in this encounter [facility] Work Phone: Evaluation note* Diagnosis Breast cancer screening by mammogram documented in this encounter [facility] Work Phone: Evaluation note* Diagnosis Hyperparathyroidism (Multi) Hyperparathyroidism, unspecified documented in this encounter [facility] Work Phone: Evaluation note* Diagnosis Low back pain radiating down leg- Primary Class 2 severe obesity due to excess calories with serious comorbidity and body mass index (BMI) of 35.0 to 35.9 in adult documented in this encounter [facility] Work Phone: Evaluation note* Diagnosis Thyroid nodule Nontoxic uninodular goiter documented in this encounter [facility] Work Phone: Evaluation note* Diagnosis Pure hypercholesterolemia documented in this encounter [facility] Work Phone: Evaluation note* Diagnosis Dermatitis due to plants, including poison ed, sumac, and oak- Primary Contact dermatitis and other eczema due to plants (except food) Rheumatoid arthritis, involving unspecified site, unspecified whether rheumatoid factor present (Multi) Class 2 severe obesity due to excess calories with serious comorbidity and body mass index (BMI) of 37.0 to 37.9 in adult Primary hypertension Unspecified essential hypertension documented in this encounter [facility] Work Phone: Hospital course Narrative No data available for this section [facility] Hospital Discharge instructions No data available for this section [facility] Reason for referral (narrative)* Unlisted Procedure Code (Routine) - New Request Specialty Diagnoses / Procedures Referred By Contac t Referred To Contact Procedures DVT/VTE RISK ASSESSMENT Tomas Galvez MD [address] [place] [address] Referral ID Status Reason Start Date Expiration Date V isits Requested Visits Authorized [id number] New Request 10/21/2023 11/14/2024 1 1 * Unlisted Procedure Code (Routine) - New Request Specialty Diagnoses / Procedures Referred By Contac t Referred To Contact Procedures PLATELET MONITORING PER PROTOCOL Tomas Galvez MD [address] [place] [address] Referral ID Status Reason Start Date Expiration Date V isits Requested Visits Authorized [id number] New Request 10/21/2023 11/14/2024 1 1 * Unlisted Procedure Code (Routine) - New Request Specialty Diagnoses / Procedures Referred By Contac t Referred To Contact Procedures DVT/VTE RISK ASSESSMENT Tomas Galvez MD [address] [place] [address] Referral ID Status Reason Start Date Expiration Date V isits Requested Visits Authorized [id number] New Request 10/21/2023 11/14/2024 1 1 [facility] for [facility]: Reason for visit Narrative* Auth/Cert (Routine) Specialty Diagnoses / Procedures Referred By Contac t Referred To Contact Diagnoses Small bowel obstruction SBO Benigno Linn MD [address] [facility] [address] [place] [address] Phone: tel: fax: [facility] [address] [place] [address] Referral ID Status Reason Start Date Expiration Date Visits Re quested Visits Authorized [id number] 1 1 [facility] N[facility]* Imaging (Routine) - Authorized Specialty Diagnoses / Procedures Referred By Contac t Referred To Contact Radiology Diagnoses Breast cancer screening by mammogram Procedures BI mammo bilateral screening tomosynthesis Silvia Nava, 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 Phone: tel: fax: Referral ID Status Reason Start Date Expiration Date Visits Requested Visits Authorized [id number] Authorized Perform Procedure 10/31/2024 10/31/2025 1 1 [facility] Work Phone: Reason for visit Narrative* Imaging (Routine) - Authorized Specialty Diagnoses / Procedures Referred By Contac t Referred To Contact Radiology Diagnoses Hyperparathyroidism (Multi) Procedures US neck parathyroid Silvia Nava, 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 Phone: tel: fax: Referral ID Status Reason Start Date Expiration Date Visits Requested Visits Authorized [id number] Authorized Perform Procedure 10/31/2024 10/31/2025 1 1 [facility] Work Phone: Reajil for visit Narrative* Imaging (Routine) - Authorized Specialty Diagnoses / Procedures Referred By Contac t Referred To Contact Radiology Diagnoses Thyroid nodule Procedures US guided thyroid biopsy Silvia Nava, 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 [address] [place] [address] Phone: tel: fax: Referral ID Status Reason Start Date Expiration Date Visits Requested Visits Authorized [id number] Authorized Perform Procedure 11/15/2024 11/15/2025 1 1 [facility] Work Phone: Reason for visit Narrative* Imaging (Routine) - Pending Review Specialty Diagnoses / Procedures Referred By Corinne mckeon Referred To Contact Radiology Diagnoses Pure hypercholesterolemia Procedures CT cardiac scoring wo IV contrast Silvia Nava, 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 Phone: tel: fax: Referral ID Status Reason Start Date Expiration Date Visits Requested Visits Authorized [id number] Pending Review Perform Procedure 10/31/2024 10/31/2025 1 1 [facility] Work Phone: Summary Purpose Family History No Family History Records FoundNo Family History Records FoundNo Family History Records FoundNo Family History Records FoundNo Family History Records FoundNo Family History Records FoundNo Family History Records FoundNo Family History Records FoundNo Family History Records FoundNo Family History Records FoundNo Family History Records FoundNo Family History Records Found Advance Directives No Advanced Directives Records Found Advance Directive Response Recorded Date/ Time Advance Directives No March 25, 2015 4:36pm Living Will No August 23 2 3:40pm Power of Pattern Layout Worker No August 23, 2 022 3:40pm Advance Directive Response Recorded Date/ Time Advance Directives No March 25, 2015 3:36pm Living Will No August 23 2 2:40pm Power of Pattern Layout Worker No August 23, 2 022 2:40pm Latest Code Status on File Code Status Date Activated Date Inactivated Comments Full Code 10/21/2023 1:19 AM Latest Code Status on File Code Status Date Activated Date Inactivated Comments Full Code 10/21/2023 1:19 AM Date Activated Date Inactivated Comments 03/08/2024 3:19 PM Question Answer Comments Plan of Care: Code Status Discussion Completed Decision Maker: Patient Date Activated Date Inactivated Comments 03/08/2024 3:19 PM Question Answer Comments Plan of Care: Code Status Discussion Completed Decision Maker: Patient Date Activated Date Inactivated Comments 10/21/2023 1:19 AM Advance Directive Response Recorded Date/ Time Advance Directives No March 25, 2015 4:36pm Chief Complaint and Reason for Visit Chief Complaint S/O- PAIN- COPY PCP S/O- PAIN- COPY PCP Chief Complaint S/O- PAIN- COPY PCP Chief Complaint STANDING ORDER - DRAFTER HEATING AND VENTILATING Y PCP - [address] Chief Complaint STANDING ORDER - DRAFTER HEATING AND VENTILATING Y PCP - [address] STANDING ORDER Chief Complaint STANDING ORDER S/O- PAIN- COPY PCP Chief Complaint S/O- PAIN- COPY PCP STANDING ORDER Chief Complaint STANDING ORDER STANDING ORDER Chief Complaint Admit Date PAIN- COPY PCP September 26, 2024 11:48am PAIN- COPY PCP December 25, 2024 12:55 pm Reason for Referral Specialty Diagnoses / Procedures Referred By Corinne t Referred To Contact Rehabilitation Diagnoses Primary osteoarthritis of right knee Vitor Yoder PA-C [address] [facility] [address] [place] [address] [address] Referral ID Status Reason Start Date Expiration Date V isits Requested Visits Authorized [id number] Authorized 05/24/2022 05/24/2023 1 1 Specialty Diagnoses / Procedures Referred By Corinne mckeon Referred To Contact Radiology Diagnoses Breast cancer screening by mammogram Procedures BI mammo bilateral screening tomosynthesis Silvia Nava, 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 [address] [facility] [place] [address] Referral ID Status Reason Start Date Expiration Date Visits Requested Visits Authorized [id number] Authorized Perform Procedure 07/20/2023 07/19/2024 1 1 Additional Source Comments INFORMATION SOURCE (unrecogn ized section and content) DATE CREATED AUTHOR 04/05/2018 [facility] DATE CREATED AUTHOR AUTHOR'S ORGANIZ ATION 05/06/2019 [facility] DATE CREATED AUTHOR AUTHOR'S ORGANIZ ATION 06/12/2022 [facility] DATE CREATED AUTHOR AUTHOR'S ORGANIZ ATION 07/19/2022 [facility] DATE CREATED AUTHOR AUTHOR'S ORGANIZ ATION 05/18/2023 [facility] DATE CREATED AUTHOR AUTHOR'S ORGANIZ ATION 10/30/2023 [facility] DATE CREATED AUTHOR AUTHOR'S ORGANIZ ATION 09/07/2024 [facility] DATE CREATED AUTHOR AUTHOR'S ORGANIZ ATION 11/17/2024 [facility] DATE CREATED AUTHOR AUTHOR'S ORGANIZ ATION 01/01/2025 [facility] DATE CREATED AUTHOR AUTHOR'S ORGANIZ ATION 02/24/2025 [facility] DATE CREATED AUTHOR AUTHOR'S ORGANIZ ATION 03/29/2025 [facility] DATE CREATED AUTHOR AUTHOR'S ORGANIZ ATION 04/03/2025 [facility] Goals (unrecognized section and content) Goals may be documented in a n alternate section No data available for this sectionGoals may be documented in an alternate section No data available for this sectionGoals may be documented in an alternate sectionGoals may be documented in an alternate sectionGoals may be documented in an alternate sectionGoals may be documented in an alternate sectionGoals may be documented in an alternate sectionGoals may be documented in an alternate sectionGoals may be documented in an alternate sectionGoals may be documented in an alternate section <item> Privacy Markings (unrecogniz ed section and content) Section Author: Michelle Juarez PROHIBITION ON REDISCLOSURE OF CONFIDENTIAL INFORMATION This notice accompanies a disclosure of information concerning a client made to you with the consent of such client. Care Teams (unrecognized sec tion and content) Procurement Professional Relationship Specialty Start Date End Date No, Physician [facility] PCP - General 05/24/22 Procurement Professional Relationship Specialty Start Date End Date Gama Hubbard MD [address] [id number] PCP - General Family Medicine 06/11/22 Procurement Professional Relationship Specialty Start Date End Date Gama Hubbard MD [address] [place] [address] PCP - General Family Medicine 06/11/22 Procurement Professional Relationship Specialty Start Date End Date Gama Hubbard MD [address] [place] [address] PCP - General Family Medicine 06/11/22 Procurement Professional Relationship Specialty Start Date End Date Gama Hubbard MD [address] [place] [address] PCP - General Family Medicine 06/11/22 Procurement Professional Relationship Specialty Start Date End Date Gama Hubbard MD [address] [place] [address] PCP - General Family Medicine 06/11/22 Procurement Professional Relationship Specialty Start Date End Date Gama Hubbard MD [address] [place] [address] PCP - General Family Medicine 06/11/22 Procurement Professional Relationship Specialty Start Date End Date Gama Hubbard MD [address] [place] [address] PCP - General Family Medicine 06/11/22 Procurement Professional Relationship Specialty Start Date End Date Gama Hubbard MD [address] [place] [address] PCP - General Family Medicine 06/11/22 Team Status: Active Member Role Status Dates Dr. Gama Agarwal MD Family Provider Active Dr. Gama Hubbard MD Primary Care Provider Active Team Status: Inactive Member Role Status Dates Dr. Gama Hubbard MD Primary Care Provider Active Dr. Nadya Portillo MD Attending Provider Active Nadya Portillo MD Referring Provider Active Vitor HELMS PA-C Other Provider Active Team Status: Inactive Member Role Status Dates Dr. Gama Hubbard MD Primary Care Provider Active Dr. Nadya Portillo MD Attending Provider, Referring Provider Active Dr. Garrett Quintero MD Other Provider Active Team Status: Inactive Member Role Status Dates Dr. Gama Hubbard MD Primary Care Provider Active Dr. Garrett Quintero MD Attending Provider, Referring Pro vider Active Team Status: Inactive Member Role Status Dates Dr. Gama Hubbard MD Primary Care Provider Active Dr. Nadya Portillo MD Attending Provider, Referring Provider Active Procurement Professional Relationship Specialty Start Date End Date Gama Hubbard MD [address] [place] [address] PCP - General 05/10/23 Procurement Professional Relationship Specialty Start Date End Date Silvia Nava, 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 [address] [place] [address] PCP - General Internal Medicine 08/01/23 Procurement Professional Relationship Specialty Start Date End Date Silvia Nava, 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 [address] [place] [address] PCP - General Internal Medicine 08/01/23 Procurement Professional Relationship Specialty Start Date End Date Silvia Nava, 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 [address] [place] [address] PCP - General Internal Medicine 08/01/23 Procurement Professional Relationship Specialty Start Date End Date Silvia Nava, 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 [address] [place] [address] PCP - General Internal Medicine 08/01/23 Procurement Professional Relationship Specialty Start Date End Date Silvia Nava, 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 [address] [place] [address] PCP - General Internal Medicine 08/01/23 Procurement Professional Relationship Specialty Start Date End Date Silvia Slade CNP [address] [place] [address] PCP - General Nurse Practitioner - [facility] 10/20/23 Procurement Professional Relationship Specialty Start Date End Date Silvia Slade CNP [address] [place] [address] PCP - General Nurse Practitioner - [facility] 11/08/23 Procurement Professional Relationship Specialty Start Date End Date Silvia Slade CNP [address] [place] [address] PCP - General Nurse Practitioner - [facility] 11/08/23 Procurement Professional Relationship Specialty Start Date End Date Silvia Nava, BLENDING COORDINATOR [address] [place] [address] PCP - General Nurse Practitioner - [facility] 11/08/23 Procurement Professional Relationship Specialty Start Date End Date Silvia Nava, 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 [address] [place] [address] PCP - General Internal Medicine 08/01/23 Silvia Nava, 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 [address] [place] [address] PCP - MMO ACO PCP 08/15/23 Procurement Professional Relationship Specialty Start Date End Date Silvia Nava, 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 [address] [place] [address] PCP - General Internal Medicine 08/01/23 Silvia Nava, 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 [address] [place] [address] PCP - MMO ACO PCP 08/15/23 Marylu Sweet, passenger interline clerkHome Health Care Worker 03/13/24 Procurement Professional Relationship Specialty Start Date End Date Silvia Nava, 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 [address] [place] [address] PCP - General Internal Medicine 08/01/23 Saba Greene MD [address] [place] [address] PCP - MMO ACO PCP 04/15/24 Procurement Professional Relationship Specialty Start Date End Date Silvia Nava, BLENDING COORDINATOR [address] [place] [address] PCP - General Nurse Practitioner - Family 10/20/23 Procurement Professional Relationship Specialty Start Date End Date Saba Greene MD [address] [place] [address] PCP - MMO ACO PCP 04/15/24 Silvia Nava, 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 [address] [place] [address] PCP - General Family Medicine 11/14/24 Procurement Professional Relationship Specialty Start Date End Date Saba Greene MD [address] [facility] [place] [address] PCP - MMO ACO PCP 04/15/24 Silvia Nava, 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 [address] [place] [address] PCP - General Family Medicine 11/14/24 Procurement Professional Relationship Specialty Start Date End Date Saba Greene MD [address] [place] [address] PCP - MMO ACO PCP 04/15/24 Silvia Nava, 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 [address] [place] [address] PCP - General Family Medicine 11/14/24 Procurement Professional Relationship Specialty Start Date End Date Saba Greene MD [address] [place] [address] PCP - MMO ACO PCP 04/15/24 Silvia Nava, 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 [address] [place] [address] PCP - General Family Medicine 11/14/24 Procurement Professional Relationship Specialty Start Date End Date Saba Greene MD [address] [place] [address] PCP - MMO ACO PCP 04/15/24 Silvia Nava, 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 [address] [place] [address] PCP - General Family Medicine 11/14/24 Team Status: Active Member Role Status Dates Dr. Gama Agarwal MD Family Provider Active Dr. Alvin Walker MD Primary Care Provider Activ e Team Status: Inactive Member Role Status Dates Dr. Alvin Walker MD Primary Care Provider Activ e Start: September 26, 2024 End: September 26, 2024 Dr. Nadya Portillo MD Attending Provider Active Start: September 26, 2024 End: September 26, 2024 Dr. Nadya Portillo MD Referring Provider Active Start: September 26, 2024 End: September 26, 2024 Team Status: Inactive Member Role Status Dates Dr. Alvin Walker MD Primary Care Provider Activ e Start: December 25, 2024 End: December 25, 2024 Dr. Nadya Portillo MD Attending Provider Active Start: December 25, 2024 End: December 25, 2024 Dr. Nadya Portillo MD Referring Provider Active Start: December 25, 2024 End: December 25, 2024 Procurement Professional Relationship Specialty Start Date End Date Saba Greene MD [address] [place] [id number] PCP - MMO ACO PCP 04/15/24 Silvia Nava, 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 [address] [place] [id number] PCP - General Family Medicine 11/14/24 Care Team (unrecognized sect ion and content) Care Team Personnel Name: GAMA HUBBARD MD Member Role: Primary Care Physician Address: Address: [address] [place] [address] Care Team Related Persons Name: LATRICE KHAN Address: Home [address] [place] [address] [address] [place] [address] Care Team Personnel Name: GAMA HUBBARD MD Member Role: Primary Care Physician Address: Address: [address] [place] [address] Care Team Related Persons Name: JING LOZOYA Name: LATRICE KHAN Address: [address] [place] [id number] Reason for Visit (unrecogniz ed section and content) Reason Comments Physical Therapy Specialty Diagnoses / Procedures Referred By Contelmer t Referred To Contact Rehabilitation Diagnoses Primary osteoarthritis of right knee Vitor Yoder PA-C [address] [facility] [address] [place] [address] [facility] [address] [place] [address] Referral ID Status Reason Start Date Expiration Date V isits Requested Visits Authorized [id number] Authorized 05/24/2022 05/24/2023 13 40 Specialty Diagnoses / Procedures Referred By Corinne t Referred To Contact Rehabilitation Diagnoses Primary osteoarthritis of right knee Vitor Yoder PA-C [address] [facility] [address] [place] [address] [facility] [address] [place] [address] Reason Comments Establish Care Specialty Diagnoses / Procedures Referred By Corinne t Referred To Contact Radiology Diagnoses Breast cancer screening by mammogram Procedures BI mammo bilateral screening tomosynthesis Silvia Nava, 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 [address] [facility] [place] [address] Referral ID Status Reason Start Date Expiration Date Visits Requested Visits Authorized [id number] Authorized Perform Procedure 07/20/2023 07/19/2024 1 1 Reason Comments Annual Exam Lab results Reason Comments Follow-up FEELS BETTER WITH TH E PREDNISONE AND DOXYCYCLINE. FEELS OKAY SINCE LAST VISIT Reason Comments Vomiting C/o n/v today, state s it started around 0700 today. Also c/o chest/abd pain Reason Comments Nausea Vomiting Specialty Diagnoses / Procedures Referred By Corinne t Referred To Contact Diagnoses Small bowel obstruction SBO Benigno Linn MD [address] [facility] [address] [place] [address] [facility] [address] [place] [address] Referral ID Status Reason Start Date Expiration Date Visits Re quested Visits Authorized [id number] 1 1 Reason Comments Surgical Follow-up Presents for surgica l weight management follow up s/p RNY 2002 & Diagnostic laparoscopy, Enteroenterostomy, & Cyrus remnant gastrostomy tube placement 10/21/2023.Weight is down 9.81# since DOS. She reported diarrhea since yesterday, x 6 episodes since yesterday. Denied nausea, vomiting, constipation, bloating or symptoms of reflux. Is drinking 90+ of fluid (and 120 cc water via g-tube daily) and taking in 60 grams of protein daily. Walking daily for 30 minutes. See progress note/flow sheets. Reason Comments Follow-up Step 4 review Reason Comments Follow-up Presents for cortez rinaldi weight management follow up s/p RNY 2002, s/p G- tube placement 10/21/2023. Weight is down 10# since last clinic visit on 11/08/2023. She reported occasional nausea & frequent constipation. Denied vomiting, diarrhea, bloating or symptoms of reflux. Is drinking 64 oz + of fluid and taking in 70 grams of protein daily. For exercise she is walking 1-2 days per week for 60 minutes. Reason Comments Rash RASH ON CHEST X 2 DA YS, MIGRAINES X 4 DAYS Reason Comments Follow-up 3 WEEK FOLLOW UP FRO M CELLULITIS. PT IS FINISHED WITH ALL ANTIBIOTICS NOW. Reason Comments Annual Exam WELLNESS, LABS Reason Comments Back Pain C/O; BACK PAIN X 12 MONTHS, RIGHT LOWER BACK Reason Comments Follow-up 2 MONTH FOLLOW UP, M EDICATION CHECK Scheduled Active and Recently Administ ered Medications (unrecognized section and content) Medication Order 10/18/2023 10/19/2023 10/20/2023 diphenhydrAMINE (BENADryl) injection 12.5 mg (COMPLETED) 12.5 mg, intravenous, Once, On Mari 10/20/23 at 2049, For 1 dose, If giving IV push, max rate of 25 mg/min. 2055 (Given - Provid er: Claire Evans RN) iohexol (OMNIPaque) 350 mg iodine/mL solution 69 mL (COMPLETED) 69 mL, intravenous, Once in imaging, Starting on Amri 10/20/23 at 1915, For 1 dose 1901 (Given - Provid er: Ranjit Vincent) metoclopramide (Reglan) injection 10 mg (COMPLETED) 10 mg, intravenous, Once, On Mari 3/7/24 at 2050, For 1 dose 2055 (Given - Provid er: Claire Evans RN) morphine injection 4 mg (COMPLETED) 4 mg, intravenous, Once, On Mari 10/20/23 at 1635, For 1 dose 1726 (Given - Provid er: Claire Evans RN) morphine injection 4 mg (COMPLETED) 4 mg, intravenous, Once, On Mari 10/20/23 at 2135, For 1 dose 2145 (Given - Provid er: Claire Evans RN) ondansetron (Zofran) injection 4 mg (COMPLETED) 4 mg, intravenous, Once, On Mari 10/20/23 at 1635, For 1 dose, When administering via IV Push, administer over 3-5 minutes. 1726 (Given - Provid er: Claire Evans RN) ondansetron (Zofran) injection 4 mg (COMPLETED) 4 mg, intravenous, Once, On Mari 10/20/23 at 1830, For 1 dose, When administering via IV Push, administer over 3-5 minutes. 1826 (Given - Provid er: Claire Evans RN) promethazine (Phenergan) 12.5 mg in sodium chloride 0.9% 50 mL IV (COMPLETED) 12.5 mg, intravenous, Administer over 15 Minutes, Once, On Mari 10/20/23 at 1925, For 1 dose 1924 (New Bag - Prov ider: Claire Evans RN)1947 (Stopped - Provider: Claire Evans RN) sodium chloride 0.9 % bolus 1,000 mL (COMPLETED) 1,000 mL, intravenous, at 1,000 mL/hr, Administer over 1 Hours, Once, On Mari 10/20/23 at 1635, For 1 dose 1726 (New Bag - Prov ider: Claire Evans RN)182 (Stopped - Provider: Claire Evans RN) sodium chloride 0.9 % bolus 1,000 mL (COMPLETED) 1,000 mL, intravenous, at 1,000 mL/hr, Administer over 60 Minutes, Once, On Mari 10/20/23 at 1925, For 1 dose 1929 (New Bag - Prov ider: Claire Evans RN)2147 (Stopped - Provider: Claire Evans RN) Scheduled Medication Order 10/22/2023 10/23/2023 10/24/2023 Acetaminophen (TYLENOL) tablet 650 mg 650 mg, Oral, EVERY 6 HOURS, First dose on Tue10/21/23 at 1200, Until Discontinued, Maximum dose of acetaminophen is 4000 mg from all sources in 24 hours. 0506 (Given - Provider: Wendi Gutierrez RN)1255 (Given - Provider: Maryana Levine RN)1847 (Given - Provider: Dari Yepez RN)2216 (Given - Provider: Wendi Gutierrez RN) 0418 (Given - Provider: Wendi Gutierrez RN)1351 (Not Given - Provider: Macy Bah RN - Reason: Patient/family refused)1800 (Given - Provider: Macy Bah, RN)2346 (Given - Provider: Wendi Gutierrez RN) 0629 (Given - Provider: Wendi Gutierrez RN)1131 (Given - Provider: Emily Soni, TONO) Enoxaparin Sodium (LOVENOX) injection 40 mg 40 mg, Subcutaneous, EVERY 24 HOURS, First dose (after last modification) on 10/22/23 at 0900, Until Discontinued, Indications: DVT/PE prophylaxis 1048 (Given - Provider: Maryana Levine RN) 0954 (Given - Provider: Macy Bah, TONO) 0914 (Given - Provider: Montez Arita RN) Magnesium sulfate 1 g in dextrose 5% 100 mL premix IVPB (COMPLETED) 1 g, Intravenous, Administer over 60 Minutes, ONCE, 1 dose, On Tue10/24/23 at 0700 0749 ($$New Bag$$ - Provider: Montez Arita, RN)1059 (Stopped - Provider: Emily Soni RN) Magnesium sulfate 4 g in sterile water 50 ml premix IVPB (COMPLETED) 4 g, Intravenous, Administer over 4 Hours, ONCE, 1 dose, On Tue10/23/23 at 0700 0659 ($$New Bag$$ - Provider: Wendi Gutierrez RN)0701 (Rate/Dose Verify - Provider: Wendi Gutierrez RN)1351 (Stopped - Provider: Macy Bah RN) Pantoprazole (PROTONIX) injection 40 mg 40 mg, Intravenous, DAILY, First dose on 10/22/23 at 0900, Until Discontinued, Dilute each 40 mg vial with 10 mL of NS. All bolus doses, whether 40 mg or 80 mg, should be administered over at least two minutes., Indications: Inpt Stress Ulcer Prophylaxis 1047 (Given - Provider: Maryana Levine RN) 0954 (Given - Provider: Macy Bah RN) 0914 (Given - Provider: Montez Arita RN) Potassium Bicarb-Citric Acid (Effer-K) 20 MEQ effervescent tablets for oral solution 40 mEq (COMPLETED) 40 mEq, Oral, ONCE, 1 dose, On 10/23/23 at 0730, Do not swallow whole. Dissolve completely in 3-4 ounces of water or cold juice before drinking. If administering via J tube, dilute in sterile water, wait for tablet to stop fizzing, swirl the solution and draw into a syringe suitable for attaching to the tube. After administration, flush tube with 15-30 ml water. 0953 (Given - Provider: Macy Bha RN) Potassium Bicarb-Citric Acid (Effer-K) 20 MEQ effervescent tablets for oral solution 40 mEq (COMPLETED) 40 mEq, Oral, ONCE, 1 dose, On 10/24/23 at 0700, Do not swallow whole. Dissolve completely in 3-4 ounces of water or cold juice before drinking. If administering via J tube, dilute in sterile water, wait for tablet to stop fizzing, swirl the solution and draw into a syringe suitable for attaching to the tube. After administration, flush tube with 15-30 ml water. 0748 (Given - Provider: Montez Arita RN) Continuous Medication Order 10/22/2023 10/23/2023 10/24/2023 Lactated ringers IV solution (CANCELED) Intravenous, at 75 mL/hr, CONTINUOUS, Starting on Tue10/21/23 at 0130, Until 10/23/23 at 0941 0324 (Rate/Dose Verify - Provider: Wendi Gutierrez RN)0325 (Rate/Dose Verify - Provider: Wendi Gutierrez RN)0506 ($$New Bag$$ - Provider: Wendi Gutierrez RN)0508 (Rate/Dose Verify - Provider: Wendi Gutierrez RN)0547 (Rate/Dose Verify - Provider: Wendi Gutierrez RN)0626 (Rate/Dose Verify - Provider: Wendi Gutierrez RN)0806 (Paused - Provider: Dari Yepez RN)0812 (Restarted - Provider: Dari Yepez RN)1353 (Rate/Dose Change - Provider: Dari Yepez RN)1410 (Rate/Dose Verify - Provider: Maryana Levine RN - Comment: [Action automatically changed])1421 (Paused - Provider: Dari Yepez RN)1423 (Restarted - Provider: Dari Yepez RN)1433 (Paused - Provider: Dari Yepez RN)1436 (Restarted - Provider: Dari Yepez RN)1530 (Handoff - Provider: Dari Yepez RN)1535 (Rate/Dose Verify - Provider: Dari Yepez RN)1652 (Rate/Dose Verify - Provider: Dari Yepez RN)1815 (Paused - Provider: Dari Yepez RN)1817 (Restarted - Provider: Dari Yepez RN)1842 ($$New Bag$$ - Provider: Dari Yepez RN)1901 (Rate/Dose Verify - Provider: Dari Yepez RN)1931 (Rate/Dose Verify - Provider: Dari Yepez RN)1936 (Rate/Dose Verify - Provider: Dari Yepez RN)2135 (Rate/Dose Verify - Provider: Wendi Gutierrez RN)2220 (Rate/Dose Verify - Provider: Wendi Gutierrez RN) 0415 (Rate/Dose Verify - Provider: Wendi Gutierrez RN)0418 (Rate/Dose Verify - Provider: Wendi Gutierrez RN)0421 (Rate/Dose Verify - Provider: Wendi Gutierrez RN)0529 (Rate/Dose Verify - Provider: Wendi Gutierrez RN)0545 (Rate/Dose Verify - Provider: Wendi Gutierrez RN)0618 (Rate/Dose Verify - Provider: Wendi Gutierrez RN)0645 (Rate/Dose Verify - Provider: Wendi Gutierrez RN)0657 (Rate/Dose Verify - Provider: Wendi Gutierrez RN)0700 ($$New Bag$$ - Provider: Wendi Gutierrez RN)0701 (Rate/Dose Verify - Provider: Wendi Gutierrez RN)0953 (Stopped - Provider: Macy Bah, RN) PRN Medication Order 10/22/2023 10/23/2023 10/24/2023 HYDROmorphone (DILAUDID) injection 0.2 mg(Linked Group 1) 0.2 mg, Intravenous, EVERY 3 HOURS NEEDED, Starting on Tue10/21/23 at 1119, Until Tue10/24/23 at 1558, Severe Pain, Moderate Pain, Use as initial dose. Higher dose may be administered if lower dose was previously documented as ineffective and did not result in adverse effects (RR<10, decrease in level of consciousness). For severe pain IF patient unable to tolerate PO. HYDROmorphone (DILAUDID) injection 0.5 mg(Linked Group 1) 0.5 mg, Intravenous, EVERY 3 HOURS NEEDED, Starting on Tue10/21/23 at 1119, Until Tue10/24/23 at 1558, Severe Pain, Moderate Pain, Higher dose may be administered if lower dose was previously documented as ineffective and did not result in adverse effects (RR<10, decrease in level of consciousness). Decrease back to lower dose if patient has adverse effects, or no PRN used in previous 12 hours. For severe pain IF patient unable to tolerate PO. Ondansetron 4mg/2ml (ZOFRAN) injection 4 mg(Linked Group 2) 4 mg, Intravenous, EVERY 6 HOURS NEEDED, Starting on Tue10/21/23 at 0117, Until Tue10/24/23 at 1558, Nausea / Vomiting, 1st Line Nausea / Vomiting, If patient is unable to tolerate PO. 2213 (Given - Provider: Wendi Gutierrez RN) oxyCODONE (ROXICODONE) tablet 5 mg 5 mg, Oral, EVERY 4 HOURS NEEDED, Starting on Tue10/21/23 at 1202, Until Tue10/24/23 at 1558, Moderate Pain, Severe Pain 0044 (Given - Provider: Wendi Gutierrez RN) 0320 (Given - Provider: Wendi Gutierrez RN)1225 (Given - Provider: Dari Yepez RN)2113 (Given - Provider: Macy Bah, RN) 1339 (Given - Provider: Emily Soni RN) Phenol (CHLORASEPTIC) 1.4 % oral spray 1 spray 1 spray, Mouth/Throat, NEEDED, Starting on Tue10/21/23 at 0117, Until Tue10/24/23 at 1558, Sore Throat, Patient may self-administer. Prochlorperazine (COMPAZINE) injection 5 mg(Linked Group 3) 5 mg, Intravenous, EVERY 6 HOURS NEEDED, Starting on Tue10/21/23 at 0117, Until Tue10/24/23 at 1558, Refractory Nausea Vomiting, If unrelieved by Ondansetron. Administer IV if patient is unable to tolerate PO. Sodium chloride 0.9% IV solution 250 mL Intravenous, at 20 mL/hr, NEEDED, Starting on Tue10/21/23 at 0117, Until Tue10/24/23 at 1558, Carrier Fluid - See Admin. Inst, 250mL 0.9NS to be used as carrier fluid for intermittent small volume or piggyback medication administration as needed. Infusion rate of the carrier fluid should be set at 20 mL/hr unless the rate as the intermittent medication is less than 20 mL/hr. For intermittent medications with a rate less than 20 mL/hr set the carrier fluid at that rate of the intermittent or piggy back medication. 0658 ($$New Bag$$ - Provider: Wendi Gutierrez RN)1103 (Rate/Dose Verify - Provider: Macy Bah RN)1353 (Stopped - Provider: Macy Bah RN) SUMAtriptan (IMITREX) tablet 100 mg 100 mg, Oral, 2 TIMES DAILY NEEDED, Starting on Tue10/21/23 at 2337, Until Tue10/24/23 at 1558, Migraine, Max 200 mg/24 hr 0044 (Given - Provider: Wendi Gutierrez RN)1412 (Given - Provider: Maryana Levine RN) 0320 (Given - Provider: Wendi Gutierrez RN)1530 (Given - Provider: Macy Bah, TONO) 0225 (Given - Provider: Wendi Gutierrez RN) Linked Groups Order Group 1: HYDROmorphone (DILAUDID) injection 0.2 mgJump to med 0.2 mg, Intravenous, EVERY 3 HOURS NEEDED, Starting on Tue10/21/23 at 1119, Until Tue10/24/23 at 1558, Severe Pain, Moderate Pain, Use as initial dose. Higher dose may be administered if lower dose was previously documented as ineffective and did not result in adverse effects (RR<10, decrease in level of consciousness). For severe pain IF patient unable to tolerate PO. Or HYDROmorphone (DILAUDID) injection 0.5 mgJump to med 0.5 mg, Intravenous, EVERY 3 HOURS NEEDED, Starting on Tue10/21/23 at 1119, Until Tue10/24/23 at 1558, Severe Pain, Moderate Pain, Higher dose may be administered if lower dose was previously documented as ineffective and did not result in adverse effects (RR<10, decrease in level of consciousness). Decrease back to lower dose if patient has adverse effects, or no PRN used in previous 12 hours. For severe pain IF patient unable to tolerate PO. Group 2: Ondansetron (ZOFRAN) tablet 4 mg (CANCELED) 4 mg, Oral, EVERY 6 HOURS NEEDED, Starting on Tue10/21/23 at 0117, Until Tue10/21/23 at 1007, Nausea / Vomiting, 1st Line Nausea / Vomiting Or Ondansetron 4mg/2ml (ZOFRAN) injection 4 mgJump to med 4 mg, Intravenous, EVERY 6 HOURS NEEDED, Starting on Tue10/21/23 at 0117, Until Tue10/24/23 at 1558, Nausea / Vomiting, 1st Line Nausea / Vomiting, If patient is unable to tolerate PO. Group 3: Prochlorperazine (COMPAZINE) tablet 5 mg (CANCELED) 5 mg, Oral, EVERY 6 HOURS NEEDED, Starting on Tue10/21/23 at 0117, Until Tue10/21/23 at 1007, Refractory Nausea Vomiting, If unrelieved by Ondansetron. Or Prochlorperazine (COMPAZINE) injection 5 mgJump to med 5 mg, Intravenous, EVERY 6 HOURS NEEDED, Starting on Tue10/21/23 at 0117, Until Tue10/24/23 at 1558, Refractory Nausea Vomiting, If unrelieved by Ondansetron. Administer IV if patient is unable to tolerate PO. FOR RECORDS PERTAINING TO PATIENTS WHO ARE [...] BE BASED ON THE PRIMARY CLINICAL RECORDS. [facility] [employer] [facility]. provides no warranty or guarantee of the accuracy or completeness of information in this document.
== END | disposition home or self-care (01) ==
LOC: MTLAB 14:18
PROVIDERS: PCP Internal Medicine; Referring Provider Internal Medicine Rheumatology; Visit Provider Internal Medicine Rheumatology
DX: M06.00 Rheumatoid arthritis without rheumatoid factor, unspecified site (principal); Z79.899 Other long term (current) drug therapy; M79.7 Fibromyalgia; M18.12 Unilateral primary osteoarthritis of first carpometacarpal joint, left hand; M17.0 Bilateral primary osteoarthritis of knee; M65.331 Trigger finger, right middle finger
CPT/HCPCS: 36415; 80053; 85025

== ENCOUNTER → 2025-06-28 | Outpatient (CLI) | payer OTHER, SELFPAY ==
[2025-06-28 12:38] LABS: Hematocrit 39.4 % (37-47); Hemoglobin 12.7 g/dL (12.0-15.0); Immature Granulocytes Count 0.010 X10^3/uL (0.0-0.0); Mean Corp Hgb Conc 32.2 g/dL (32-36); Mean Corpuscular Volume 90.8 fL (81-99); Mean Platelet Vol. 9.6 fl (6.2-12.0); NRBC Flagged by Analyzer 0 % (0-5); Platelet Count 304 K/mm3 (150-450); RBC Distribution Width CV 13.3 % (11.6-14.6); RBC Distribution Width SD 43.8 fl (35.1-43.9); Red Blood Count 4.34 M/mm3 (4.2-5.4); White Blood Count 3.9 K/mm3 (4.4-11.0)
[2025-06-28 12:43] LABS: AST(SGOT) 35 U/L (<=31); Alanine Aminotransfer ALT/SGPT 20 U/L (<=34); Albumin, Serum 4.3 g/dL (3.4-4.8); Alkaline Phosphatase 144 U/L (35-104); Anion Gap 11 (5-15); BUN 12 mg/dL (4-19); BUN/Creat Ratio 16.0 RATIO (10-20); Calcium,Total 9.6 mg/dL (7.6-11.0); Carbon Dioxide 25.7 mmol/L (21.0-32.0); Chloride 103 mmol/L (98-108); Globulin 2.7 g/dL (2.2-4.2); Glucose 93 mg/dL (70-99); Potassium 4.2 mmol/L (3.3-5.1)
== END | disposition home or self-care (01) ==
LOC: MTLAB 10:51
PROVIDERS: PCP Internal Medicine; Referring Provider Internal Medicine Rheumatology; Visit Provider Internal Medicine Rheumatology
DX: M06.00 Rheumatoid arthritis without rheumatoid factor, unspecified site (principal); Z79.899 Other long term (current) drug therapy; M79.7 Fibromyalgia
CPT/HCPCS: 36415; 80053; 85025